=== PATIENT | female | born 1935 | race Caucasian/White ===

== ENCOUNTER 2019-09-09 10:42 | Inpatient (IN) | payer MEDICARE ==
[2019-09-09] VITALS (16 sets, daily range): BP systolic 87–115; BP diastolic 54–91
[~2019-09-09] VITALS: Ht 170 cm; Wt 61.4 kg
[~2019-09-09 10:42] MED LIST: ACHYD1T PO; ALBU2.5V4 IH; ALEN70SO2 PO; APIX5TAB PO; ASP81CT PO; ASPI-983 PO; DILT240C86 PO; FLUT16SP22 NS; FLUT1AER IH; FLUT9.9S NS; IPRA3AMP31 IH; IPRA3AMP31 NEB; LEVO500T2 PO; LEVO500T80 PO; LEVO88TA54 PO; LVT.088T PO; NEBU1KIT3 MC; OMEP20CA12 PO; OMEP20CA18 PO; PANT40TA3 PO; RT-ALBUINH IH; SIMV20TA26 PO; SIMV20TA3 PO; TIOT18CA2 IH
--- NOTE | 2019-09-09 10:48 | ED General ---
General Stated Complaint: COUGH;DIARRHEA Source of Information: Patient Exam Limitations: No Limitations History of Present Illness Date Seen by Provider: Sep 09, 2019 Time Seen by Provider: 10:48 Initial Comments 83-year-old female brought in with weakness, cough, diarrhea. Patient has known COVID exposure with family members. Patient reports that for the last 3-4 days she is "really weak" she reports that symptoms started about 4 days ago when she was too weak to get out of her chair, she's had decreased appetite. She reports that she fell due to weakness couple days ago but denies any injury. Patient rep orts that in the last 4 days EMS is been to her place 3 days to help her due to her weakness. She does have a history of atrial fib. Patient reports decline in health over the last year with significant weight loss. Allergies and Home Medications Allergies Coded Allergies: Sulfa (Sulfonamide Antibiotics) (Verified Allergy, Unknown, 01/10/16) cefadroxil (Verified Allergy, Unknown, 07/29/09) hydrocortisone (Verified Allergy, Unknown, 07/29/09) iodoquinol (Verified Allergy, Unknown, 07/29/09) Home Medications Albuterol Sulfate 18 Gm Hfa.aer.ad, 2 PUFF IH Q4H PRN for SHORTNESS OF BREATH, (Reported) Albuterol Sulfate 2.5 Mg/3 Ml Vial.neb, 2.5 MG IH DAILY PRN for SHORTNESS OF BREATH, (Reported) Apixaban 5 Mg Tablet, 5 MG PO BID Prescribed by: LILIA ANN on 01/13/16 1443 Aspirin 81 Mg Tablet.dr, 81 MG PO DAILY, (Reported) Diltiazem HCl 240 Mg Cap.er.24h, 240 MG PO DAILY Prescribed by: LILIA ANN on 01/13/16 1443 Fluticasone/Vilanterol 1 Each Blst.w.dev, 1 PUFF IH DAILY, (Reported) Levofloxacin 500 Mg Tablet, 500 MG PO DAILY Prescribed by: HUANG MELENDEZ on 01/14/16 1041 Levothyroxine Sodium 88 Mcg Tablet, 88 MCG PO DAILY, (Reported) Omeprazole 20 Mg Capsule.dr, 20 MG PO DAILY, (Reported) Simvastatin 20 Mg Tablet, 20 MG PO DAILY, (Reported) Tiotropium [place] 1 Inh Aerp, 1 CAP IH DAILY, (Reported) Patient Home Medication List Home Medication List Reviewed: Yes Review of Systems Review of Systems Constitutional: No fever; malaise, weakness Respiratory: cough, short of breath Cardiovascular: No chest pain Gastrointestinal: abdominal pain, diarrhea; No nausea, No vomiting Skin: no symptoms reported Psychiatric/Neurological: Weakness Past Kfjrozg-Ouqpmh-Knltil Hx Past Med/Social Hx: Reviewed Nursing Past Med/Soc Hx Patient Social History Former Smoker, Quit: Dec 21, 2008 2nd Hand Smoke Exposure: No Recent Hopitalizations: No Immunizations Up To Date Tetanus Booster (TDap): More than 5yrs PED Vaccines UTD: No Seasonal Allergies Seasonal Allergies: No Past Medical History COPD, Emphysema Currently Using CPAP: No Currently Using BIPAP: No Reproductive Disorders: No Female Reproductive Disorders: Denies Sexually Transmitted Disease: No HIV/AIDS: No Hypothyroidsim Loss of Vision: Right Skin Adverse Reaction/Blood Tranf: No Family Medical History Cardiovascular disease 19 FATHER 19 MOTHER Diabetes mellitus 19 FATHER Heart Disease, Diabetes, Hypertension Physical Exam Vital Signs Vital Signs - First Documented 09/09/19 10:50 Temp 36.7 Pulse 154 Resp 20 B/P (MAP) 102/76 (85) Pulse Ox 98 O2 Delivery Nasal Cannula O2 Flow Rate 2.00 Capillary Refill : Height, Weight, BMI Height: 5'7.50" Weight: 137lbs. 1.6oz. 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 Norm as Tested Focused Exam Lactate Level 09/09/19 11:20: Lactic Acid Level 1.71 Lactic Acid Level Laboratory Tests Test 09/09/19 11:20 Lactic Acid Level 1.71 MMOL/L (0.50-2.00) Progress/Results/Core Measures Suspected Sepsis SIRS Temperature: Pulse: Respiratory Rate: Laboratory Tests 09/09/19 11:20: White Blood Count 8.4 Blood Pressure / Mean: 09/09/19 11:20: Lactic Acid Level 1.71 Laboratory Tests 09/09/19 11:20: Creatinine 0.88, INR Comment 1.1, Platelet Count 219, Total Bilirubin 0.6 Results/Orders Lab Results Laboratory Tests Test 09/09/19 11:17 09/09/19 11:20 Range/Units Urine Color YELLOW Urine Clarity CLEAR Urine pH 6.0 5-9 Urine Specific [place] 1.015 L 1.016-1.022 Urine Protein NEGATIVE NEGATIVE Urine Glucose (UA) NEGATIVE NEGATIVE Urine Ketones NEGATIVE NEGATIVE Urine Nitrite NEGATIVE NEGATIVE Urine Bilirubin NEGATIVE NEGATIVE Urine Urobilinogen 0.2 < = 1.0 MG/DL Urine Leukocyte Esterase NEGATIVE NEGATIVE Urine RBC (Auto) TRACE-L NEGATIVE Urine RBC 0-2 /HPF Urine WBC 2-5 /HPF Urine Squamous Epithelial Cells RARE /HPF Urine Crystals NONE /LPF Urine Bacteria MODERATE H /HPF Urine Casts NONE /LPF Urine Mucus NEGATIVE /LPF Urine Culture Indicated YES White Blood Count 8.4 4.3-11.0 10^3/uL Red Blood Count 3.80 L 4.35-5.85 10^6/uL Hemoglobin 11.7 11.5-16.0 G/DL Hematocrit 36 35-52 % Mean Corpuscular Volume 94 80-99 FL Mean Corpuscular Hemoglobin 31 25-34 PG Mean Corpuscular Hemoglobin Concent 33 32-36 G/DL Red Cell Distribution Width 15.3 H 10.0-14.5 % Platelet Count 219 130-400 10^3/uL Mean Platelet Volume 10.6 H 7.4-10.4 FL Neutrophils (%) (Auto) 69 42-75 % Lymphocytes (%) (Auto) 24 12-44 % Monocytes (%) (Auto) 7 0-12 % Eosinophils (%) (Auto) 0 0-10 % Basophils (%) (Auto) 0 0-10 % Neutrophils # (Auto) 5.8 1.8-7.8 X 10^3 Lymphocytes # (Auto) 2.0 1.0-4.0 X 10^3 Monocytes # (Auto) 0.6 0.0-1.0 X 10^3 Eosinophils # (Auto) 0.0 0.0-0.3 10^3/uL Basophils # (Auto) 0.0 0.0-0.1 10^3/uL Prothrombin Time 15.0 H 12.2-14.7 SEC INR Comment 1.1 0.8-1.4 Activated Partial Thromboplast Time 28 24-35 SEC Fibrinogen 368 221-496 MG/DL Sodium Level 137 135-145 MMOL/L Potassium Level 3.5 L 3.6-5.0 MMOL/L Chloride Level 108 H 98-107 MMOL/L Carbon Dioxide Level 21 21-32 MMOL/L Anion Gap 8 5-14 MMOL/L Blood Urea Nitrogen 15 7-18 MG/DL Creatinine 0.88 0.60-1.30 MG/DL Estimat Glomerular Filtration Rate > 60 BUN/Creatinine Ratio 17 Glucose Level 101 70-105 MG/DL Lactic Acid Level 1.71 0.50-2.00 MMOL/L Calcium Level 8.5 8.5-10.1 MG/DL Corrected Calcium 9.9 8.5-10.1 MG/DL Total Bilirubin 0.6 0.1-1.0 MG/DL Aspartate Amino Transf (AST/SGOT) 18 5-34 U/L Alanine Aminotransferase (ALT/SGPT) 22 0-55 U/L Alkaline Phosphatase 118 40-136 U/L Lactate Dehydrogenase 216 125-220 U/L Troponin I 0.042 H <0.028 NG/ML C-Reactive Protein High Sensitivity 4.08 H 0.00-0.50 MG/DL Total Protein 7.2 6.4-8.2 GM/DL Albumin 2.3 L 3.2-4.5 GM/DL My Orders Orders - SYKES,DEQUAN L DO Vital Signs: Every 4 Hours (Or (09/09/19 11:01) Monitor-Rhythm Ecg Trace Only (09/09/19 11:01) Cbc With Automated Diff (09/09/19 11:01) Comprehensive Metabolic Panel (09/09/19 11:01) Ferritin (09/09/19 11:01) LDH (09/09/19 11:01) Hs C Reactive Protein (09/09/19 11:01) Troponin I (09/09/19 11:01) Lactic Acid Analyzer (09/09/19 11:01) Protime With Inr (09/09/19 11:01) Partial Thromboplastin Time (09/09/19 11:01) Fibrinogen (09/09/19 11:01) Ekg Tracing (09/09/19 11:01) Chest 1 View, Ap/Pa Only (09/09/19 11:01) Ns Iv 1000 Ml (Sodium Chloride 0.9%) (09/09/19 11:01) Acetaminophen Tablet/Caplet (Tylenol T (09/09/19 11:15) Lumbar Spine - 2-3 Views (09/09/19 11:11) Diltiazem Injection (Cardizem Injection) (09/09/19 11:15) Coronavirus Sars-Cov-2 So 2018 (09/09/19 11:14) Ua Culture If Indicated (09/09/19 11:36) Straight Cath For Spec.-Adult (09/09/19 11:36) Urine Culture (09/09/19 11:17) Levofloxacin 500 Mg/100 Ml Iv (Levaquin (09/10/19 09:00) Diltiazem Drip Pre-Mix (Cardizem Drip Pr (09/09/19 12:45) Levofloxacin 500 Mg/100 Ml Iv (Levaquin (09/09/19 12:45) Medications Given in ED Current Medications Medications Dose Ordered Sig/Timmy Route Start Time Stop Time Status Last Admin Dose Admin Acetaminophen 650 mg ONCE ONCE PO 09/09/19 11:15 09/09/19 11:16 DC 09/09/19 11:39 650 MG Diltiazem HCl 15 mg ONCE ONCE IVP 09/09/19 11:15 09/09/19 11:16 DC 09/09/19 11:39 15 MG Vital Signs/I&O 09/09/19 09/09/19 09/09/19 09/09/19 10:50 11:15 11:45 12:15 Temp 36.7 Pulse 154 166 101 113 Resp B/P (MAP) 102/76 (85) 115/85 (95) 104/59 (74) 87/54 (65) Pulse Ox 98 99 99 96 O2 Delivery Nasal Cannula Nasal Cannula Nasal Cannula O2 Flow Rate 2.00 09/09/19 09/09/19 09/09/19 09/09/19 12:30 12:45 13:00 13:41 Temp 36.7 Pulse 98 109 105 105 Resp B/P (MAP) 101/69 (80) 97/67 (77) 108/71 (83) 110/86 Pulse Ox 96 98 93 99 O2 Delivery Nasal Cannula Nasal Cannula Nasal Cannula O2 Flow Rate 2.00 Capillary Refill : Progress Note : Progress Note Patient with atrial flutter with RVR. She does have known COVID exposure and decision have some underlying exacerbation due to COVID. Discussed with Dr. Foreman and Dr. Nick. Due to her pneumonia we will start her on a Cardizem drip. Patient does have new compression fractures however is difficult to determine if these are remote or recent. Patient is stable will be admitted to the ICU for further management. ECG Initial ECG Impression Date: Sep 09, 2019 Initial ECG Impression Time: 16:50 Initial ECG Rhythm: A Fib/Flutter Initial ECG Impression: Atrial Fibrillation w/RVR Diagnostic Imaging Diagonstic Imaging: Xray Comments [facility]. [place], [place] NAME: JO-ANN MACDONALD [facility] REC#: [id number] PT STATUS: REG ER : 1935 PHYSICIAN: DEQUAN SYKES DO ADMIT DATE: 09/09/19/ER Draft Date of Exam:09/09/19 LUMBAR SPINE - 2-3 VIEWS EXAMINATION: Lumbar spine radiographs, 2 views. COMPARISON: January 18, 2015. HISTORY: 83-year-old female, back pain. FINDINGS: There are 5 lumbar-type vertebral bodies. There are concavities of the superior endplates of L3 and L4 which are new findings since January 18, 2015. There are redemonstrated compression deformities of L1 and L2 with unchanged appearance since January 18, 2015. There is mild wedging and roughly 25% height loss of the T12 vertebral body and an unchanged compression deformity of T10. These new compression deformities are of uncertain exact age. There is moderate disc height loss at L1-L2. The additional disc heights are fairly well-preserved. The bones do appear demineralized. There is a very mild lumbar levocurvature. The sacroiliac joints are grossly unremarkable in appearance. There is partially visualized hardware in the left femoral head. There are atherosclerotic calcifications. IMPRESSION: 1. Compression deformities of T12, L3, and L4 which are new since January 18, 2015 although of uncertain exact age. If assessment of acuity is needed, MRI lumbar spine without contrast is recommended for further assessment. There is maximally 40% height loss at these levels and no identified retropulsed fracture fragment. 2. Disc degenerative changes of the lumbar spine, most notable at L1-L2. 3. The bones appear demineralized. [facility]. [place], [place] NAME: JO-ANN MACDONALD [facility] REC#: [id number] PT STATUS: REG ER : 1935 PHYSICIAN: DEQUAN SYKES DO ADMIT DATE: 09/09/19/ER Draft Date of Exam:09/09/19 CHEST 1 VIEW, AP/PA ONLY EXAMINATION: Chest 1 view HISTORY: Cough COMPARISON: 03/15/2016 FINDINGS: There is left lower lobe consolidation with small left pleural effusion. There is widening of the right paratracheal stripe. No pneumothorax is seen. Heart size is normal. IMPRESSION: 1. Left lower lobe consolidation with small left pleural effusion and widening of the paratracheal stripe. Findings may be related to pneumonia, but consider CT to exclude an underlying neoplasm. Departure Communication (Admissions) Time/Spoke to Admitting Phy: 12:25 Okay to start antibiotics, consult cardiology for persistent A. fib Time/Spoke to Consulting Phy: 12:35 Start on Cardizem drip and admit to the ICU Impression Primary Impression: Pneumonia Qualified Codes: J18.1 - Lobar pneumonia, unspecified organism Additional Impressions: Atrial fibrillation with RVR Compression fracture Disposition: ADMITTED INPATIENT Condition: Stable Admissions Decision to Admit Reason: Admit from ER (General) Decision to Admit/Date: Sep 09, 2019 Time/Decision to Admit Time: 12:25 Departure-Patient Inst. Referrals: MALACHI RUIZ MD (PCP/Family) Primary Care Physician DEQUAN SYKES DO Sep 09, 2019 10:48
[2019-09-09] MEDS ORDERED: NS IV 1000 ML 1,000 ML IV SCH (11:01)
[2019-09-09] MEDS ORDERED: ACETAMINOPHEN 325 MG TABLET PO ONE (11:15)
[2019-09-09 11:34] LABS: BASOPHILS % (AUTO) 0 % (0-10); EOSINOPHILS % (AUTO) 0 % (0-10); HEMATOCRIT 36 % (35-52); HEMOGLOBIN 11.7 G/DL (11.5-16.0); LYMPHOCYTES % (AUTO) 24 % (12-44); MEAN CORPUSCULAR HEMOGLOBIN 31 PG (25-34); MEAN CORPUSCULAR HGB CONC 33 G/DL (32-36); MEAN CORPUSCULAR VOLUME 94 FL (80-99); MEAN PLATELET VOLUME 10.6 FL (7.4-10.4); MONOCYTES # (AUTO) 0.6 X 10^3 (0.0-1.0); MONOCYTES % (AUTO) 7 % (0-12); NEUTROPHILS # (AUTO) 5.8 X 10^3 (1.8-7.8); NEUTROPHILS % (AUTO) 69 % (42-75); PLATELET COUNT 219 10^3/uL (130-400); RED CELL DISTRIBUTION WIDTH 15.3 % (10.0-14.5); WHITE BLOOD COUNT 8.4 10^3/uL (4.3-11.0)
[2019-09-09 11:44] LABS: BILIRUBIN,URINE NEGATIVE (NEGATIVE); CLARITY,URINE CLEAR; COLOR,URINE YELLOW; GLUCOSE, URINE (UA) NEGATIVE (NEGATIVE); KETONES,URINE NEGATIVE (NEGATIVE); LEUKOCYTE ESTERASE ,URINE NEGATIVE (NEGATIVE); NITRITE,URINE NEGATIVE (NEGATIVE); PROTEIN,URINE NEGATIVE (NEGATIVE)
[2019-09-09 11:51] LABS: ALBUMIN 2.3 GM/DL (3.2-4.5); CHLORIDE 108 MMOL/L (98-107); POTASSIUM 3.5 MMOL/L (3.6-5.0); SODIUM 137 MMOL/L (135-145)
[2019-09-09 11:52] LABS: CALCIUM 8.5 MG/DL (8.5-10.1)
[2019-09-09 11:53] LABS: GLUCOSE 101 MG/DL (70-105); INR 1.1 (0.8-1.4); TOTAL PROTEIN 7.2 GM/DL (6.4-8.2)
[2019-09-09 11:55] LABS: BILIRUBIN,TOTAL 0.6 MG/DL (0.1-1.0); CARBON DIOXIDE 21 MMOL/L (21-32)
[2019-09-09 11:57] LABS: ALKALINE PHOSPHATASE 118 U/L (40-136); CREATININE SERUM 0.88 MG/DL (0.60-1.30); GFR ESTIMATED > 60
[2019-09-09 11:58] LABS: BUN/CREATININE RATIO 17
[2019-09-09 11:59] LABS: BACTERIA,URINE MODERATE /HPF; RBC,URINE 0-2 /HPF
[2019-09-09 12:00] LABS: ALANINE AMINOTRANSFERASE 22 U/L (0-55)
[2019-09-09 12:00] LABS: SQUAMOUS EPITHELIAL CELL,UR RARE /HPF
--- NOTE | 2019-09-09 12:01 | Diagnostic Imaging Report ---
EXAMINATION: Chest 1 view HISTORY: Cough COMPARISON: 03/15/2016 FINDINGS: There is left lower lobe consolidation with small left pleural effusion. There is widening of the right paratracheal stripe. No pneumothorax is seen. Heart size is normal. IMPRESSION: 1. Left lower lobe consolidation with small left pleural effusion and widening of the paratracheal stripe. Findings may be related to pneumonia, but consider CT to exclude an underlying neoplasm. Dictated by: Dictated on workstation # [id number]
--- NOTE | 2019-09-09 12:06 | Diagnostic Imaging Report ---
EXAMINATION: Lumbar spine radiographs, 2 views. COMPARISON: January 18, 2015. HISTORY: 83-year-old female, back pain. FINDINGS: There are 5 lumbar-type vertebral bodies. There are concavities of the superior endplates of L3 and L4 which are new findings since January 18, 2015. There are redemonstrated compression deformities of L1 and L2 with unchanged appearance since January 18, 2015. There is mild wedging and roughly 25% height loss of the T12 vertebral body and an unchanged compression deformity of T10. These new compression deformities are of uncertain exact age. There is moderate disc height loss at L1-L2. The additional disc heights are fairly well-preserved. The bones do appear demineralized. There is a very mild lumbar levocurvature. The sacroiliac joints are grossly unremarkable in appearance. There is partially visualized hardware in the left femoral head. There are atherosclerotic calcifications. IMPRESSION: 1. Compression deformities of T12, L3, and L4 which are new since January 18, 2015 although of uncertain exact age. If assessment of acuity is needed, MRI lumbar spine without contrast is recommended for further assessment. There is maximally 40% height loss at these levels and no identified retropulsed fracture fragment. 2. Disc degenerative changes of the lumbar spine, most notable at L1-L2. 3. The bones appear demineralized. Dictated by: Dictated on workstation # [id number]
[2019-09-09] MEDS ORDERED: LEVOFLOXACIN 500 MG/100 ML IV 100 ML ONE (12:45)
[2019-09-09] MEDS ORDERED: dilTIAZem DRIP PRE-MIX 125 ML IV SCH (12:45)
--- NOTE | 2019-09-09 14:30 | NUR ---
f pt name] admitted to room CU1-1, with an admitting diagnosis of PNEUMONIA, A FIB on 09/09/19 from ER via BED, accompanied by STAFF.JO-ANN MACDONALD introduced to surroundings, call light, bed controls, phone, TV, temperature control, lights, meal times, smoking policy, visitor policy, side rail policy, bathrooms and showers. Patient Rights given to patient in the handbook.JO-ANN MACDONALD verbalizes understanding that [facility] is not responsible for the loss or damage to any personal effects or valuables that are kept in the patients posession during their hospitalization. The following Patient Care Plans were discussed with the PT: Discharge Planning, IMPAIRED GAS EXCHANGE,INEFFECTIVE BREATHING PATTERN, and PAIN. JO-ANN MACDONALD verbalizes understanding of Interdisciplinary Patient Education. Patient and family were informed about the Rapid Response Team and its purpose. Patient received Patient Rights Booklet, which includes Privacy Act Statement and Data Collection Information Summary.
[2019-09-09] MEDS: dilTIAZem DRIP 125 MG/125 ML DRIP IV SCH (15:10)
[2019-09-09] MEDS: NS IV 1000 ML 1,000 ML IV SCH (15:10)
[2019-09-09] MEDS ORDERED: CATHETER FLUSH 10 ML SYR IV PRN (15:15)
[2019-09-09] MEDS ORDERED: DILT240C91 PO (15:36)
[2019-09-09] MEDS ORDERED: DEXL60CA PO (15:36)
[2019-09-09] MEDS ORDERED: APIX5TAB PO (15:36)
--- NOTE | 2019-09-09 15:40 | NUR ---
SPOKE WITH THE PT (I CALLED HER ROOM PHONE) AND WENT THRU THE EXT MED HISTORY TO COMPLETE THE MED REC OTC MEDS: ASPIRIN 81
[2019-09-09] MEDS ORDERED: BISACODYL 10 MG SUPP (DULCOLAX) PR PRN (18:45)
[2019-09-09] MEDS ORDERED: ANTACID SUSP 30 ML UDC (MYLANTA) PO PRN (18:45)
[2019-09-09] MEDS ORDERED: polyethylene glycoL POWDER 17 GM (MIRALAX) PACK PO PRN (18:45)
[2019-09-09] MEDS ORDERED: ONDANSETRON 4 MG/2 ML (SDV) Z0FRAN IV PRN (18:45)
[2019-09-09] MEDS ORDERED: ONDANSETRON 4 MG (ZOFRAN) ORAL DISSOLVE TAB PO PRN (18:45)
[2019-09-09] MEDS ORDERED: ACETAMINOPHEN 325 MG TABLET PO PRN (18:45)
[2019-09-10] VITALS (29 sets, daily range): BP systolic 93–123; BP diastolic 55–94
--- NOTE | 2019-09-10 03:03 | NUR ---
INFORMED DR. MELENDEZ THAT PATIENT'S COVID RESULT WAS NEGATIVE. RECEIVED ORDER TO REMOVE ISOLATION.
[2019-09-10 03:49] LABS: BASOPHILS % (AUTO) 0 % (0-10); EOSINOPHILS # (AUTO) 0.1 10^3/uL (0.0-0.3); EOSINOPHILS % (AUTO) 2 % (0-10); HEMATOCRIT 35 % (35-52); HEMOGLOBIN 11.4 G/DL (11.5-16.0); LYMPHOCYTES # (AUTO) 1.6 X 10^3 (1.0-4.0); LYMPHOCYTES % (AUTO) 22 % (12-44); MEAN CORPUSCULAR HEMOGLOBIN 31 PG (25-34); MEAN CORPUSCULAR HGB CONC 33 G/DL (32-36); MEAN CORPUSCULAR VOLUME 95 FL (80-99); MEAN PLATELET VOLUME 9.9 FL (7.4-10.4); MONOCYTES # (AUTO) 0.5 X 10^3 (0.0-1.0); MONOCYTES % (AUTO) 7 % (0-12); NEUTROPHILS # (AUTO) 4.8 X 10^3 (1.8-7.8); NEUTROPHILS % (AUTO) 69 % (42-75); PLATELET COUNT 192 10^3/uL (130-400); RED CELL DISTRIBUTION WIDTH 15.5 % (10.0-14.5)
[2019-09-10 04:06] LABS: CHLORIDE 111 MMOL/L (98-107); POTASSIUM 3.5 MMOL/L (3.6-5.0); SODIUM 138 MMOL/L (135-145)
[2019-09-10 04:07] LABS: CALCIUM 8.1 MG/DL (8.5-10.1)
[2019-09-10 04:08] LABS: GLUCOSE 77 MG/DL (70-105)
[2019-09-10] MEDS: POTASSIUM CL 10MEQ/50ML IVPB 50 ML IV SCH (04:08)
[2019-09-10] MEDS: KCL 20 MEQ TAB (K-DUR) PO SCH ×2 (04:08→04:16)
[2019-09-10 04:09] LABS: CARBON DIOXIDE 19 MMOL/L (21-32)
[2019-09-10 04:12] LABS: GFR ESTIMATED > 60; PHOSPHORUS 2.6 MG/DL (2.3-4.7)
[2019-09-10 04:13] LABS: BUN/CREATININE RATIO 14
[2019-09-10 04:14] LABS: MAGNESIUM 1.5 MG/DL (1.6-2.4)
[2019-09-10] MEDS ORDERED: KCL 20 MEQ TAB (K-DUR) PO ONE (04:15)
[2019-09-10] MEDS: NS IV 1000 ML 1,000 ML IV SCH ×2 (04:21→19:41)
[2019-09-10] MEDS: MAGNESIUM 1 GM/100 ML IVPB 100 ML IV SCH ×3 (04:28→05:30)
--- NOTE | 2019-09-10 07:39 | Pulmonary Consultation ---
History of Present Illness History of Present Illness Date Seen by Provider: Sep 10, 2019 Time Seen by Provider: 07:35 Date of Admission Allergies and Home Medications Allergies Coded Allergies: Sulfa (Sulfonamide Antibiotics) (Verified Allergy, Unknown, 01/10/16) cefadroxil (Verified Allergy, Unknown, 07/29/09) hydrocortisone (Verified Allergy, Unknown, 07/29/09) iodoquinol (Verified Allergy, Unknown, 07/29/09) Home Medications Albuterol Sulfate 18 Gm Hfa.aer.ad, 2 PUFF IH Q4H PRN for SHORTNESS OF BREATH, (Reported) Albuterol Sulfate 2.5 Mg/3 Ml Vial.neb, 2.5 MG IH DAILY PRN for SHORTNESS OF BREATH, (Reported) Apixaban 5 Mg Tablet, 5 MG PO BID, (Reported) Aspirin 81 Mg Tablet.dr, 81 MG PO DAILY, (Reported) Dexlansoprazole 60 Mg Cap.dr.bp, 60 MG PO DAILY, (Reported) Diltiazem HCl 240 Mg Cap.er.24h, 240 MG PO DAILY, (Reported) Fluticasone/Vilanterol 1 Each Blst.w.dev, 1 PUFF IH DAILY, (Reported) Levothyroxine Sodium 88 Mcg Tablet, 88 MCG PO DAILY, (Reported) Tiotropium [place] 1 Inh Aerp, 1 CAP IH DAILY, (Reported) Past Pugonws-Xevnhy-Wnrhxn Hx Past Med/Social Hx: Reviewed Nursing Past Med/Soc Hx Patient Social History Alcohol Use: Denies Use Recreational Drug Use: No Smoking Status: Former Smoker Former Smoker, Quit: Dec 21, 2008 2nd Hand Smoke Exposure: No Recent Foreign Travel: No Contact w/Someone Who Travel: No Recent Infectious Disease Expo: No Recent Hopitalizations: No Immunizations Up To Date Tetanus Booster (TDap): More than 5yrs PED Vaccines UTD: No Seasonal Allergies Seasonal Allergies: No Past Medical History Surgeries: Yes (TONSILECTOMY, BROKEN FEMUR (HAS PLATE,PINS),SKIN TUMOR REMOVAL AND SCALP TU) Respiratory: Yes COPD, Emphysema Currently Using CPAP: No Currently Using BIPAP: No Cardiac: No Neurological: No : No Reproductive Disorders: No Female Reproductive Disorders: Denies Sexually Transmitted Disease: No HIV/AIDS: No Gastrointestinal: No Musculoskeletal: No Endocrine: Yes Hypothyroidsim Loss of Vision: Right Cancer: Yes Skin Psychosocial: No Integumentary: No Blood Disorders: No Adverse Reaction/Blood Tranf: No Family Medical History Cardiovascular disease 19 FATHER 19 MOTHER Diabetes mellitus 19 FATHER Heart Disease, Diabetes, Hypertension Review of Systems Time Seen by Provider: 07:38 Constitutional: Sweats, Weakness, Malaise; No: Fever, Chills, Other Eyes: No: Pain, Vision change, Conjunctivae inflammation, Eyelid inflammation, Other, Redness ENT: Nose congestion; No: Ear pain, Ear discharge, Nose pain, Nose discharge, Mouth pain, Mouth swelling, Throat pain, Throat swelling, Other Respiratory: Cough, Dry, Shortness of breath, SOB with excertion, Wheezing; No: Hemoptysis Sepsis Event Evaluation Height, Weight, BMI Height: 5'7.50" Weight: 137lbs. 1.6oz. 62.014595oq; 15.00 BMI Method:Stated Exam Exam Vital Signs Date Time Temp Pulse Resp B/P (MAP) Pulse Ox O2 Delivery O2 Flow Rate FiO2 09/10/19 06:50 113 98 Nasal Cannula 2.00 09/10/19 06:00 95 13 97/55 (69) 94 Room Air 09/10/19 05:00 96 23 109/69 (82) 96 Room Air 09/10/19 04:00 Room Air 95 09/10/19 04:00 91 96/58 (71) 94 Room Air 09/10/19 04:00 36.3 09/10/19 03:00 90 101/58 (72) 100 Nasal Cannula 2.00 09/10/19 02:00 89 97/70 (79) 98 Nasal Cannula 2.00 09/10/19 01:00 84 09/10/19 01:00 84 96/62 (73) 99 Nasal Cannula 2.00 09/10/19 00:00 35.9 09/10/19 00:00 89 93/55 (68) 98 Nasal Cannula 2.00 09/10/19 00:00 Nasal Cannula 2.00 09/09/19 23:00 100 107/78 (88) 100 Nasal Cannula 2.00 09/09/19 22:00 73 105/76 (86) 100 Nasal Cannula 2.00 09/09/19 21:00 94 99/64 (76) 100 Nasal Cannula 2.00 09/09/19 20:00 Nasal Cannula 2.00 09/09/19 20:00 36.5 09/09/19 20:00 96 20 106/60 (75) 100 Nasal Cannula 2.00 09/09/19 19:00 97 108/72 (84) 99 Nasal Cannula 2.00 09/09/19 19:00 97 09/09/19 18:00 105 110/70 (83) 99 Nasal Cannula 2.00 09/09/19 17:00 112 91/63 (72) 97 Nasal Cannula 2.00 09/09/19 16:00 Nasal Cannula 2.00 09/09/19 16:00 Nasal Cannula 2.00 09/09/19 16:00 137 39 104/89 (94) 99 Nasal Cannula 2.00 09/09/19 15:33 92 09/09/19 15:11 35.8 09/09/19 15:00 96 35 102/76 (85) 97 Nasal Cannula 2.00 09/09/19 14:30 35.9 09/09/19 14:00 137 17 107/91 (96) 96 Nasal Cannula 2.00 09/09/19 13:41 36.7 105 20 110/86 99 Nasal Cannula 2.00 09/09/19 13:00 105 29 108/71 (83) 93 Nasal Cannula 09/09/19 12:45 109 25 97/67 (77) 98 Nasal Cannula 09/09/19 12:30 98 29 101/69 (80) 96 09/09/19 12:15 113 25 87/54 (65) 96 Nasal Cannula 09/09/19 11:45 101 29 104/59 (74) 99 09/09/19 11:15 166 21 115/85 (95) 99 Nasal Cannula 09/09/19 10:50 36.7 154 20 102/76 (85) 98 Nasal Cannula 2.00 I & O 09/10/19 07:00 Intake Total 3240 ml Output Total 75 ml Balance 3165 ml Height & Weight Height: 5'7.50" Weight: 137lbs. 1.6oz. 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
[2019-09-10] MEDS ORDERED: NS 100 ML (IVPB) BAG IV ONE (07:45)
[2019-09-10] MEDS ORDERED: IOHEXOL 350 MG/ML 100 ML (OMNIPAQUE 350) VIAL IV ONE ×2 (07:45→10:00)
[2019-09-10] MEDS ORDERED: HOLD METFORMIN - RECEIVED CONTRAST 20 ML VIAL IV SCH (07:45)
[2019-09-10] MEDS ORDERED: AMIODARONE FOR BOLUS 150 MG in D5W 100 ML IVPB 100 ML IV NR (08:00)
[2019-09-10] MEDS ORDERED: DIGOXIN 0.25 MG/ML (LANOXIN) 2 ML AMP IV NR (08:00)
--- NOTE | 2019-09-10 08:04 | Consultation-Cardiology ---
HPI-Cardiology Cardiology Consultation Date of Consultation 09/10/19 Date of Admission Time Seen by Provider: 07:59 Indication: Atrial fibrillation HPI 83-year-old lady with history of COPD, brought to the emergency room for increasing weakness, cough and diarrhea. She had history of COVID exposure. For the past few days she was having generalized weakness and loss of energy. On my evaluation she was sitting comfortable, in good.. She is in atrial fibrillation with rapid ventricular response and having borderline hypotension. Reported that she has history of atrial fibrillation and hypotension. Home Medications & Allergies Allergies: Coded Allergies: Sulfa (Sulfonamide Antibiotics) (Verified Allergy, Unknown, 01/10/16) cefadroxil (Verified Allergy, Unknown, 07/29/09) hydrocortisone (Verified Allergy, Unknown, 07/29/09) iodoquinol (Verified Allergy, Unknown, 07/29/09) Home Medication List Reviewed: Yes UPX-Argsti-Bwbdek Hx Patient Social History Alcohol Use: Denies Use Recreational Drug Use: No Smoking Status: Former Smoker Former smoker/When Quit: Feb 06, 2010 2nd Hand Smoke Exposure: No Recent Foreign Travel: No Recent Infectious Disease Expo: No Recent Hopitalizations: No Immunizations Up To Date Tetanus Booster (TDap): More than 5yrs Past Medical History Discussed below Family Medical History Significant Family History: Heart Disease, Diabetes, Hypertension Family History: Cardiovascular disease 19 FATHER 19 MOTHER Diabetes mellitus 19 FATHER Review of Systems-General Review of Systems Constitutional: No fever; malaise, weakness EENTM: see HPI, no symptoms reported Respiratory: see HPI, cough, dyspnea on exertion; No hemoptysis, No orthopnea, No phlegm; short of breath; No stridor, No wheezing, No other Cardiovascular: see HPI; No chest pain, No edema, No Hx of Intervention, No palpitations, No syncope, No vascular heart diseas, No other Gastrointestinal: see HPI, abdominal pain, diarrhea; No nausea, No vomiting Genitourinary: no symptoms reported, see HPI Musculoskeletal: no symptoms reported, see HPI Skin: no symptoms reported Psychiatric/Neurological: Weakness Reviewed Test Results Reviewed Test Results Lab Laboratory Tests Test 09/09/19 10:54 09/09/19 11:17 09/09/19 11:20 09/10/19 03:37 Range/Units Procalcitonin 0.16 H 0.14 H <0.10 NG/ML Urine Color YELLOW Urine Clarity CLEAR Urine pH 6.0 5-9 Urine Specific [place] 1.015 L 1.016-1.022 Urine Protein NEGATIVE NEGATIVE Urine Glucose (UA) NEGATIVE NEGATIVE Urine Ketones NEGATIVE NEGATIVE Urine Nitrite NEGATIVE NEGATIVE Urine Bilirubin NEGATIVE NEGATIVE Urine Urobilinogen 0.2 < = 1.0 MG/DL Urine Leukocyte Esterase NEGATIVE NEGATIVE Urine RBC (Auto) TRACE-L NEGATIVE Urine RBC 0-2 /HPF Urine WBC 2-5 /HPF Urine Squamous Epithelial Cells RARE /HPF Urine Crystals NONE /LPF Urine Bacteria MODERATE H /HPF Urine Casts NONE /LPF Urine Mucus NEGATIVE /LPF Urine Culture Indicated YES White Blood Count 8.4 7.0 4.3-11.0 10^3/uL Red Blood Count 3.80 L 3.67 L 4.35-5.85 10^6/uL Hemoglobin 11.7 11.4 L 11.5-16.0 G/DL Hematocrit 36 35 35-52 % Mean Corpuscular Volume 94 95 80-99 FL Mean Corpuscular Hemoglobin 31 31 25-34 PG Mean Corpuscular Hemoglobin Concent 33 33 32-36 G/DL Red Cell Distribution Width 15.3 H 15.5 H 10.0-14.5 % Platelet Count 219 192 130-400 10^3/uL Mean Platelet Volume 10.6 H 9.9 7.4-10.4 FL Neutrophils (%) (Auto) 69 69 42-75 % Lymphocytes (%) (Auto) 24 22 12-44 % Monocytes (%) (Auto) 7 7 0-12 % Eosinophils (%) (Auto) 0 2 0-10 % Basophils (%) (Auto) 0 0 0-10 % Neutrophils # (Auto) 5.8 4.8 1.8-7.8 X 10^3 Lymphocytes # (Auto) 2.0 1.6 1.0-4.0 X 10^3 Monocytes # (Auto) 0.6 0.5 0.0-1.0 X 10^3 Eosinophils # (Auto) 0.0 0.1 0.0-0.3 10^3/uL Basophils # (Auto) 0.0 0.0 0.0-0.1 10^3/uL Prothrombin Time 15.0 H 12.2-14.7 SEC INR Comment 1.1 0.8-1.4 Activated Partial Thromboplast Time 28 24-35 SEC Fibrinogen 368 221-496 MG/DL Sodium Level 137 138 135-145 MMOL/L Potassium Level 3.5 L 3.5 L 3.6-5.0 MMOL/L Chloride Level 108 H 111 H 98-107 MMOL/L Carbon Dioxide Level 21 19 L 21-32 MMOL/L Anion Gap 8 8 5-14 MMOL/L Blood Urea Nitrogen 15 11 7-18 MG/DL Creatinine 0.88 0.80 0.60-1.30 MG/DL Estimat Glomerular Filtration Rate > 60 > 60 BUN/Creatinine Ratio 17 14 Glucose Level 101 77 70-105 MG/DL Lactic Acid Level 1.71 0.50-2.00 MMOL/L Calcium Level 8.5 8.1 L 8.5-10.1 MG/DL Corrected Calcium 9.9 8.5-10.1 MG/DL Ferritin 253.8 H 20.0-177.0 ng/mL Total Bilirubin 0.6 0.1-1.0 MG/DL Aspartate Amino Transf (AST/SGOT) 18 5-34 U/L Alanine Aminotransferase (ALT/SGPT) 22 0-55 U/L Alkaline Phosphatase 118 40-136 U/L Lactate Dehydrogenase 216 125-220 U/L Troponin I 0.042 H < 0.028 <0.028 NG/ML C-Reactive Protein High Sensitivity 4.08 H 0.00-0.50 MG/DL Total Protein 7.2 6.4-8.2 GM/DL Albumin 2.3 L 3.2-4.5 GM/DL Coronavirus (COVID-19)(PCR) Negative Negative Phosphorus Level 2.6 2.3-4.7 MG/DL Magnesium Level 1.5 L 1.6-2.4 MG/DL Physical Exam Physical Exam Vital Signs Vital Signs - First Documented 09/09/19 09/10/19 10:50 04:00 Temp 36.7 Pulse 154 Resp 20 B/P (MAP) 102/76 (85) Pulse Ox 98 O2 Delivery Nasal Cannula O2 Flow Rate 2.00 FiO2 95 Capillary Refill : Less Than 3 Seconds Height, Weight, BMI Height: 5'7.50" Weight: 137lbs. 1.6oz. [id number]; 15.00 BMI Method:Stated General Appearance: Anxious, Cachetic, Thin Eyes: Bilateral Eye PERRL, Bilateral Eye EOMI HEENT: PERRL/EOMI, Pharynx Normal Neck: Non Tender, Supple Respiratory: Crackles, Decreased Breath Sounds Cardiovascular: Systolic Murmur, Irregularly Irregular, Tachycardia Gastrointestinal: Non Tender, Soft Back: Other (mild tenderness diffuse lower) Extremity: Normal Capillary Refill Neurologic/Psychiatric: Alert, Oriented x3, crisis mental health therapist II-XII Norm as Tested A/P-Cardiology Admission Diagnosis Atrial fibrillation Tachycardia Hypotension Generalized weakness Assessment/Plan Atrial fibrillation with rapid ventricular response, on Cardizem drip, I will restart her oral anticoagulation, evaluate 2-D echo, adding digoxin and amiodarone, unable to tolerate higher dose of diltiazem Left lower lobe infiltrate on chest x-ray, no leukocytosis, receiving Levaquin, managed by Dr. Tidwell Hypotension. Continue with IV fluid and monitor tolerance and response, cannot tolerate Cardizem due to hypotension. Questionable TIA in 2016, patient had a transient episode of aphasia where she was unable to speak properly lasted for few minutes and resolved spontaneously, no full stroke was reported. [id number] score is 5, yearly risk of stroke without oral anticoagulation is 6.7 percent, patient is at high risk of stroke without oral anticoagulation, maintained on Eliquis. History of emphysema/COPD. Managed by Dr. Tidwell Hypothyroidism, currently hyperthyroidism. Managed by primary care physician Osteoporosis. Clinical Quality Measures DVT/VTE Risk/Contraindication: Risk Factor Score Per Nursin RFS Level Per Nursing on Admit: 4+=Very High LILIA ANN MD Sep 10, 2019 08:04
--- NOTE | 2019-09-10 08:14 | Diagnostic Imaging Report ---
CLINICAL INDICATION: Patient with dyspnea. EXAM: Portable chest x-ray upright view. COMPARISONS: Chest x-ray dated 09/09/2019. FINDINGS: Patient is rotated on exam. There is progression of consolidation in the left lung base concerning for left pleural effusion and left lung base atelectasis versus infiltrate. There is stable increased lung markings throughout both upper lung chapman right lung base which may be related to scarring. There is no other lung infiltrate seen. There is no pneumothorax. Stable cardiomegaly with no significant pulmonary vascular congestion. There are degenerative spurs seen throughout spine. IMPRESSION: 1: There is progression of left lung base consolidation concerning for left pleural effusion and left lung base atelectasis versus infiltrate. 2: The remainder of this chest x-ray exam is stable. Dictated by: Dictated on workstation # [id number]
[2019-09-10] MEDS: DIGOXIN 0.125 MG (LANOXIN) TAB PO SCH (08:38)
[2019-09-10] MEDS: APIXABAN 2.5 MG (ELIQUIS) TABLET PO SCH ×2 (08:39→20:06)
[2019-09-10] MEDS: dilTIAZem DRIP 125 MG/125 ML DRIP IV SCH (08:48)
[2019-09-10] MEDS ORDERED: LEVOFLOXACIN 500 MG/100 ML IV 100 ML IV SCH (09:00)
[2019-09-10] MEDS: AMIODARONE INJECTION 450 MG in D5W IV SOLUTION (EXCEL) 250 ML IV SCH ×2 (09:43→18:26)
--- NOTE | 2019-09-10 11:10 | NUR ---
Pastoral care visit.
[2019-09-10] MEDS ORDERED: AUGMENTIN 875 MG TAB (AMOXICILLIN/CLAVULANATE) PO ONE (11:15)
[2019-09-10] MEDS ORDERED: LEVOFLOXACIN 250 MG/50 ML IVPB 50 ML IV SCH (12:00)
--- NOTE | 2019-09-10 12:34 | History & Physical-Hospitalist ---
History of Present Illness HPI/Chief Complaint Megan Phelan is an 83-year-old female with past medical history of paroxysmal atrial fibrillation, COPD, hypothyroidism, GERD, who presented with weakness. She reports that she has been very weak over the past week. She reports that EMS was been at her house 3 times this week. She denies any fevers or chills. She reports feeling short of breath. She reports having a cough. She denies any abdominal pain, nausea, vomiting. She reports having diarrhea. She was reportedly exposed to someone with coronavirus. She reports compliance with her medications but says that she might have missed her medicines a couple days last week. Source: patient Exam Limitations: no limitations Date Seen 09/10/19 Time Seen by a Provider: 08:15 Attending Physician Maria Del Rosario Hurst MD PCP Joshua Henry MD Referring Physician Date of Admission Sep 09, 2019 at 13:06 Home Medications & Allergies Home Medications Reviewed patient Home Medication Reconciliation performed by pharmacy medication reconciliations commercial hvac service technician and/or nursing. Patients Allergies have been reviewed. Allergies Allergies Coded Allergies Sulfa (Sulfonamide Antibiotics) (Verified Allergy, Unknown, 01/10/16) cefadroxil (Verified Allergy, Unknown, 07/29/09) hydrocortisone (Verified Allergy, Unknown, 07/29/09) iodoquinol (Verified Allergy, Unknown, 07/29/09) Past Yvgityc-Fijllf-Yqrvmq Hx Past Med/Social Hx: Reviewed Nursing Past Med/Soc Hx Patient Social History Alcohol Use: Denies Use Recreational Drug Use: No Smoking Status: Former Smoker Former Smoker, Quit: Dec 21, 2008 2nd Hand Smoke Exposure: No Recent Foreign Travel: No Contact w/other who traveled: No Recent Hopitalizations: No Recent Infectious Disease Expo: No Immunizations Up To Date Tetanus Booster (TDap): More than 5yrs Pediatric: No Seasonal Allergies Seasonal Allergies: No Past Medical History Currently Using CPAP: No Currently Using BIPAP: No : No Reproductive: No Sexually Transmitted Disease: No HIV/AIDS: No Female Reproductive Disorders: Denies Endocrine: Hypothyroidsim Loss of Vision: Right Cancer: Skin History of Blood Disorders: No Adverse Reaction to Blood Hendricks: No Family History Cardiovascular disease 19 FATHER 19 MOTHER Diabetes mellitus 19 FATHER Heart Disease, Diabetes, Hypertension Review of Systems Constitutional: weakness EENTM: no symptoms reported Respiratory: cough Cardiovascular: no symptoms reported Gastrointestinal: diarrhea Genitourinary: no symptoms reported Musculoskeletal: no symptoms reported Skin: no symptoms reported Psychiatric/Neurological: No Symptoms Reported Physical Exam Physical Exam Vital Signs Vital Signs - First Documented 09/09/19 09/10/19 10:50 04:00 Temp 36.7 Pulse 154 Resp 20 B/P (MAP) 102/76 (85) Pulse Ox 98 O2 Delivery Nasal Cannula O2 Flow Rate 2.00 FiO2 95 Capillary Refill : Less Than 3 Seconds Height, Weight, BMI Height: 5'7.50" Weight: 137lbs. 1.6oz. 62.649434on; 15.00 BMI Method:Stated General Appearance: No Apparent Distress, Chronically ill, Cachetic HEENT: PERRL/EOMI, Pharynx Normal Neck: Normal Inspection, Supple Respiratory: Lungs Clear, No Respiratory Distress, Decreased Breath Sounds Cardiovascular: No Murmur, Irregularly Irregular, Tachycardia Gastrointestinal: Normal Bowel Sounds, Non Tender, Soft Extremity: Normal Inspection, Non Tender, No Pedal Edema Neurologic/Psychiatric: Alert, Oriented x3, No Motor/Sensory Deficits, Normal Mood/Affect Skin: Normal Color, Warm/Dry Results Results/Procedures Labs Laboratory Tests 09/09/19 11:20 09/10/19 03:37 Patient resulted labs reviewed. Imaging: Reviewed Imaging Report Assessment/Plan Admission Diagnosis Atrial fibrillation with rapid ventricular response Admission Status: Inpatient Order (span 2 midnights) Reason for Inpatient Admission: A. fib with RVR requiring IV medications Assessment and Plan Atrial fibrillation with rapid ventricular response Cardiology consulted, appreciate assistance Started on IV Cardizem Added IV amiodarone this morning Started on digoxin Continue Eliquis Community acquired pneumonia Chest x-ray with left lower lobe infiltrate Afebrile, WBC normal Procalcitonin normal Started on Levaquin Transition to oral Augmentin Elevated troponin Troponin mildly elevated at 0.04, returned to normal on repeat Cardiology consulted, appreciate assistance Likely elevated due to A. fib with RVR Hypomagnesemia Hypokalemia Continue to monitor and replace as needed COPD GERD Hypothyroidism Continue home meds DVT prophylaxis: Already receiving therapeutic anticoagulation Diagnosis/Problems Diagnosis/Problems (1) Atrial fibrillation with RVR Status: Acute (2) Pneumonia Status: Acute Qualifiers: Pneumonia type: due to unspecified organism Laterality: left Lung location: lower lobe of lung Qualified Codes: J18.1 - Lobar pneumonia, unspec ified organism Clinical Quality Measures DVT/VTE Risk/Contraindication: Risk Factor Score Per Nursin RFS Level Per Nursing on Admit: 4+=Very High MARIA DEL ROSARIO HURST MD Sep 10, 2019 12:34
--- NOTE | 2019-09-10 13:45 | Occupational Therapy Eval ---
OT Evaluation-General/PLF Medical Diagnosis Admission Date Sep 09, 2019 at 13:06 Medical Diagnosis: debility/ tachycardia Onset Date: Sep 09, 2019 Therapy Diagnosis Therapy Diagnosis: Decreased ADL status Height/Weight Height (Feet): 5 Height (Inches): 7.50 Weight (Pounds): 137 Weight (Ounces): 1.6 Precautions Precautions/Isolations: Airborne Isolation, Fall Prevention, Standard Pr ecautions, Pressure Ulcer Referral Physician: Maria Del Rosario Foreman MD Referral Reason: Activity Tolerance, Self Care, Evaluation/Treatment, Strengthening/ROM Medical History Pertinent Medical History: Atrial Fib, COPD, Hypothroidism Additional Medical History a fib, COPD, hypothyroidism, GERD, HTN, aphasia (possible TIA) Current History Pt states fall on Monday from toilet when LOB, states wasn't able to get out of chair/ bed Monday or Monday. Admission with tachycardia, SOB, cough, hypotension. Neg COVID test 09/09 at 1251. Pt dx with PNA and L PE. Reviewed History: Yes Social History Home: Single Level Current Living Status: Alone Entry Into Home: Stairs With Railing Steps Into Home: 5 Steps Inside Home: 0 ADL-Prior Level of Function SCALE: Activities may be completed with or without assistive devices. 9-Tmbjclikmq-qhgwmoz completes the activity by him/herself with no assistance from a helper. 5-Set-up or Clean-up Assistance-helper sets up or cleans up; patient completes activity. Burke assists only prior to or following the activity. 4-Supervision or Touching Assistance-helper provides verbal cues and/or touching/steadying and/or contact guard assistance as patient completes activity. Assistance may be provided throughout the activity or intermittently. 3-Partial/Moderate Assistance-helper does LESS THAN HALF the effort. Burke lifts, holds or supports trunk or limbs, but provides less than half the effort. 2-Substantial/Maximal Assistance-helper does MORE THAN HALF the effort. Burke lifts or holds trunk or limbs and provides more than half the effort. 2-Gfuoazpqd-bnvnxf does ALL the effort. Patient does none of the effort to complete the activity. Or, the assistance of 2 or more helpers is required for the patient to complete the activity. If activity was not attempted, code reason: 7-Patient Refused. 9-Not Applicable-not attempted and the patient did not perform the activity before the current illness, exacerbation or injury. 10-Not Attempted due to Environmental Limitations-(lack of equipment, weather restraints, etc.). 88-Not Attempted due to Medical Conditions or Safety Concerns. 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 OT Current Status Subjective Pt seen in bed, eyes closed. Pt alert/ oriented post-entry. Pt agrees to OT, though denies OOB as she "just laid down. " Pt states pain on coccyx (pillow propped pt onto side with OT assist) and SOB at times to cough. Pt maintains 96- 97% O2 throughout. Mental Status/Objective Patient Orientation: Person, Place, Situation, Normal For Age Attachments: IV, Oxygen (not utilized, room air with nasal can), Telemetry Current Glasses/Contacts: Yes Hand Dominance: Right Upper Extremity ROM WFL BUE Upper Extremity Coordination WFL BUE Upper Extremity Sensation WFL BUE Upper Extremity Strength Decreased BUE, 3/5 - min resistance applied, full range. Edema: none noted. ADL-Treatment Eating (QC): 6 (pt able to reach for tissue and bring to mouth ) Other Treatments Nursing agrees to OT eval/ treat. Pt denies OOB. States wants to take nap. Pt very pleasantly declines activities, though agrees to OT eval. Pt states no exercise routine, states there is limited need though states has been weak lately. Pt weak/ debilitated. Though states was unable to walk long distances prior- has multiple chairs set throughout home for rest breaks. Pt has had multiple falls in the past. Pt has assist for IADLs, none for ADLs. States fearful of fall in shower, though completes with IND. Pt denies toileting or changing of brief, stating clean. Pt denies EOB activities, states pain on coccyx and pillow placed (with mod A for rolling and cues for arm positioning) on L side and pt propped to R. Pt coughing intermittently, educated on sitting upright during inactivity due to PNA dx, pt agrees, though states fatigued and desires to sleep. All needs met, call light in reach, educated on PT orders soon. Education OT Patient Education: Correct positioning, Purpose of tx/functional activities, Safety issues, Transfer techniques Teaching Recipient: Patient Teaching Methods: Demonstration, Discussion Response to Teaching: Verbalize Understanding, Return Demonstration OT Usp Goals Peanut Farmer Goals Time Frame: Sep 17, 2019 Eating (QC): 6 Oral Hygiene (QC): 6 Toileting Hygiene (QC): 4 Shower/Bathe Self (QC): 4 Upper Body Dressing (QC): 4 Lower Body Dressing (QC): 4 On/Off Footwear (QC): 4 Additional Goals: 1-Demonstrate ADL Tasks, 2-Verbalize Understanding, 3-ImproveStrength/Armin 1=Demonstrate adherence to instructed precautions during ADL tasks. 2=Patient will verbalize/demonstrate understanding of assistive devices/modifications for ADL. 3=Patient will improve strength/tolerance for activity to enable patient to perform ADL's. OT Education/Plan Problem List/Assessment Assessment: Decreased Activ Tolerance, Decreased UE Strength, Dependent Transfers, Impaired Bed Mobility, Impaired Funct Balance, Impaired I ADL's, Impaired Self-Care Skills Discharge Recommendations Plan/Recommendations: Continue POC Therapy Discharge Recommendati: 24 Hour Supervision, Post Acute OT Equpiment Recommendations-D/C: Rails on Tub/Shower, Platform Inspector, Dressing Stick, Rails on Toilet Treatment Plan/Plan of Care Treatment,Training & Education: Yes Patient would benefit from OT for education, treatment and training to promote independence in ADL's, mobility, safety and/or upper extremity function for ADL's. Plan of Care: ADL Retraining, Functional Mobility, UE Funct Exercise/Act Treatment Duration: Sep 17, 2019 Frequency: 5 times per week Estimated Hrs Per Day: .25 hour per day Agreement: Yes Rehab Potential: Fair Time/GCodes Start Time: 13:16 Stop Time: 13:36 Total Time Billed (hr/min): 20 Billed Treatment Time MERCY Choudhary (20) JENNY RODRIGUEZ OTR Sep 10, 2019 13:45
--- NOTE | 2019-09-10 14:22 | NUR ---
DUE TO CHANGES IN STAFFING CARE OF PT TO MERNA YOUNG
--- NOTE | 2019-09-10 14:39 | Physical Therapy Evaluation ---
PT Evaluation-General Medical Diagnosis Admission Date Sep 09, 2019 at 13:06 Medical Diagnosis: Pneumonia/ A-Fib Onset Date: Sep 09, 2019 Therapy Diagnosis Therapy Diagnosis: weakness, debility Height/Weight Height (Feet): 5 Height (Inches): 7.50 Weight (Pounds): 137 Weight (Ounces): 1.6 Precautions Precautions/Isolations: Airborne Isolation, Fall Prevention, Standard Precautions, Pressure Ulcer Weight Bear Status Right Lower Extremity: Right Weight Bearing/Tolerated Left Lower Extremity: Left Weight Bearing/Tolerated Referral Physician: Maria Del Rosario Foreman MD Reason for Referral: Evaluation/Treatment Medical History Pertinent Medical History: Atrial Fib, COPD, GERD, Hypothroidism Current History Pt reports she has had EMS at her house 3 out of the past 4 days due to progressing weakness. Pt fell a few days ago and was unable to get up resulting in her admission to the hospital. Reviewed History: Yes Social History Home: Single Level Current Living Status: Alone Entry Into Home: Stairs With Railing PT Steps Into Home: 5 PT Steps Inside Home: 0 Prior Prior Level of Function SCALE: Activities may be completed with or without assistive devices. 8-Dvyvskslcd-vewavlu completes the activity by him/herself with no assistance from a helper. 5-Set-up or Clean-up Assistance-helper sets up or cleans up; patient completes activity. [place] assists only prior to or following the activity. 4-Supervision or Touching Assistance-helper provides verbal cues and/or touching/steadying and/or contact guard assistance as patient completes activity. Assistance may be provided throughout the activity or intermittently. 3-Partial/Moderate Assistance-helper does LESS THAN HALF the effort. [place] lifts, holds or supports trunk or limbs, but provides less than half the effort. 2-Substantial/Maximal Assistance-helper does MORE THAN HALF the effort. [place] lifts or holds trunk or limbs and provides more than half the effort. 6-Nxnjuamdo-iixhao does ALL the effort. Patient does none of the effort to complete the activity. Or, the assistance of 2 or more helpers is required for the patient to complete the activity. If activity was not attempted, code reason: 7-Patient Refused. 9-Not Applicable-not attempted and the patient did not perform the activity before the current illness, exacerbation or injury. 10-Not Attempted due to Environmental Limitations-(lack of equipment, weather restraints, etc.). 88-Not Attempted due to Medical Conditions or Safety Concerns. Bed Mobility: 6 Transfers (B,C,W/C): 6 Gait: 6 Stairs: 6 Indoor Mobility (Ambulation): Independent Stairs: Independent Prior Devices Use: Walker Pt reports independence with mobility using walker and furniture surfing in her house but has assistance for cooking, cleaning and laundry 3 days a week. PT Evaluation-Current Subjective Pt reports she is tired and doesnt want to get out of bed, but agrees to PT treatment. Pt reports pain in her sacral area and states she "has a sore back there". Pain Comment: Reports pain in sacral area due to pressure sore, doesnt rate Objective Patient Orientation: Person, Place, Time, Situation Attachments: Oxygen, IV ROM/Strength ROM Lower Extremities grossly WFL Strength Lower Extremities grossly WFL Integumentary/Posture Integumentary refer to nursing notes Posture Pt with kyphotic, forward head posture Neuromuscular (Tone, Coordination, Reflexes) grossly intact Sensory Vision: Wears Glasses Hearing: Functional Hand Dominance: Right Transfers Roll Left to Right (QC): 5 Lying to Sitting/Side of Bed(Q: 4 Sit to Stand (QC): 4 (For safety reasons) Chair/Fom-lw-Zvrpq Xfer(QC): 4 Gait Does the Patient Walk?: Yes Mode of Locomotion: Walk Anticipated Mode of Locomotion: Walk Gait Assistive Device: FWW Comments/Gait Description Pt able to take 5-6 steps to turn in order to sit in recliner chair. Pt able to initiate steps, but maintains kyphotic posture throughout transfer even with cueing for upright position. Pt stood in front of chair for 5 mins for PT to complete pericare before sitting in chair. Pt reported SOB, but SaO2 remained >92 Wheelchair Training Does the Pt Use a Wheelchair?: No Balance Sitting Static: Good Sitting Dynamic: Good Standing Static: Fair Standing Dynamic: Fair Assessment/Needs Pt is an 83 year old female with decreased strength, balance and coordination which increase risk of falls. Pt would benefit from skilled PT to address above mentioned issues to ensure safety upon return home. When medically stable pt would benefit from intermediate facility vs. ARU to increase strength in order to return home. Rehab Potential: Good PT Assisted Goals Clinical Laboratory Technologist Goals PT Clinical Laboratory Technologist Goals Time Frame: Sep 20, 2019 Roll Left & Right (QC): 6 Lying-Sitting on Side/Bed(QC): 6 Sit to Stand (QC): 6 Chair/Hff-ft-Usrex Xfer(QC): 6 Walk 10 feet (QC): 6 Walk 50ft with 2 Turns (QC): 5 PT Plan Problem List Problem List: Activity Tolerance, Functional Strength, Safety, Balance, Gait, Transfer, Bed Mobility Treatment/Plan Treatment Plan: Continue Plan of Care Treatment Plan: Bed Mobility, Education, Functional Activity Armin, Functional Strength, Gait, Safety, Therapeutic Exercise, Transfers Treatment Duration: Sep 21, 2019 Frequency: 6 times per week Estimated Hrs Per Day: .25 hour per day Patient and/or Family Agrees t: Yes .25 up to .5 hours Safety Risks/Education Patient Education: Gait Training, Transfer Techniques, Disease Process Teaching Recipient: Patient Teaching Methods: Discussion Response to Teaching: Reinforcement Needed Pt educated on importance of OOB for lungs to prevent progression of pneumonia. Pt educated on transfer and gait posture to maintain upright positioning. Discharge Recommendations Therapy Discharge Recommendati: Other, See Comments (intermediate vs. ARU) Time/GCodes Time In: 1425 Time Out: 1440 Total Billed Treatment Time: 15 Total Billed Treatment 1 visit EVHigh - 15 min LUCY CERVANTES PT Sep 10, 2019 14:39
--- NOTE | 2019-09-10 15:22 | NUR ---
"RD ASSESSMENT PMHx: COPD; emphysema; hypothyroidism PT INTERACTION: Pt was awake and pleasant during consult for malnutrition. Pt states current appetite is poor. Note avt PO intake of 31% x1d, per chart review. Pt states following a regular diet at home, and has no issues with chewing/swallowing food. Pt states no recent issues with nausea, vomiting, or constipation. Pt states some recent issues with diarrhea, and that her last BM was 09/09. Note pt currently on bowel regimen of miralax PRN; and bisacodyl PRN, per chart review. Pt states recent 20# wt loss x1year. This is a 17% wt loss. Upon visual assessment, pt appears cachectic with visible signs of muscle/fat wasting, and a BMI of 15.5 (this is classified as Underweight). Given poor PO intake and visual assessment, pt meets criteria for malnutrition per ASPEN guidelines. ABNORMAL NUTRITION-RELATED LAB VALUES LOW: K 3.5; Ca 8.1; Mg 1.5 HIGH: Est. kcal needs: 4935-6395 kcal | 30-35 kcal/kg Est. 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 Continue with current supplementation order of Ensure Enlive (vary) with meals TID, for increased kcal intake. Provides 350 kcal and 13 g Pro per serving. Encouraged pt to eat when able. Will continue to follow and reassess as pt needs, intake, and status change. MONITOR/EVALUATE: PO Intake; Plan of Care; Hydration Status; Weight Status; Lab Values Titus Shannno, MS, RD, LD"
[2019-09-10] MEDS: AUGMENTIN 875 MG TAB (AMOXICILLIN/CLAVULANATE) PO SCH (18:24)
[2019-09-11] VITALS (24 sets, daily range): BP systolic 97–155; BP diastolic 61–94
[2019-09-11 03:41] LABS: BASOPHILS % (AUTO) 0 % (0-10); EOSINOPHILS # (AUTO) 0.1 10^3/uL (0.0-0.3); EOSINOPHILS % (AUTO) 2 % (0-10); HEMATOCRIT 32 % (35-52); HEMOGLOBIN 10.5 G/DL (11.5-16.0); LYMPHOCYTES # (AUTO) 1.3 X 10^3 (1.0-4.0); LYMPHOCYTES % (AUTO) 23 % (12-44); MEAN CORPUSCULAR HEMOGLOBIN 31 PG (25-34); MEAN CORPUSCULAR HGB CONC 33 G/DL (32-36); MEAN CORPUSCULAR VOLUME 95 FL (80-99); MEAN PLATELET VOLUME 9.8 FL (7.4-10.4); MONOCYTES # (AUTO) 0.5 X 10^3 (0.0-1.0); MONOCYTES % (AUTO) 9 % (0-12); NEUTROPHILS # (AUTO) 3.7 X 10^3 (1.8-7.8); NEUTROPHILS % (AUTO) 66 % (42-75); PLATELET COUNT 179 10^3/uL (130-400); RED CELL DISTRIBUTION WIDTH 15.4 % (10.0-14.5); WHITE BLOOD COUNT 5.6 10^3/uL (4.3-11.0)
[2019-09-11 03:51] LABS: CHLORIDE 113 MMOL/L (98-107); POTASSIUM 3.9 MMOL/L (3.6-5.0); SODIUM 138 MMOL/L (135-145)
[2019-09-11 03:52] LABS: CALCIUM 7.9 MG/DL (8.5-10.1)
[2019-09-11 03:53] LABS: GLUCOSE 79 MG/DL (70-105)
[2019-09-11 03:54] LABS: CARBON DIOXIDE 18 MMOL/L (21-32)
[2019-09-11 03:56] LABS: PHOSPHORUS 2.3 MG/DL (2.3-4.7)
[2019-09-11 03:57] LABS: BUN/CREATININE RATIO 10; CREATININE SERUM 0.82 MG/DL (0.60-1.30); GFR ESTIMATED > 60
[2019-09-11] MEDS: KCL 20 MEQ TAB (K-DUR) PO SCH (04:34)
[2019-09-11] MEDS: MAGNESIUM 1 GM/100 ML IVPB 100 ML IV SCH (04:34)
[2019-09-11] MEDS: POTASSIUM CL 10MEQ/50ML IVPB 50 ML IV SCH (04:34)
--- NOTE | 2019-09-11 06:09 | Pulmonary Progress Note ---
Subjective Time Seen by a Provider: 06:06 Subjective/Events-last exam Currently on Amio gtt. Cardizem is currently off. Sepsis Event Evaluation Height, Weight, BMI Height: 5'7.50" Weight: 137lbs. 1.6oz. 62.572555hq; 15.00 BMI Method:Stated Focused Exam Lactate Level 09/09/19 11:20: Lactic Acid Level 1.71 Exam Exam Vital Signs Date Time Temp Pulse Resp B/P (MAP) Pulse Ox O2 Delivery O2 Flow Rate FiO2 09/11/19 05:00 59 20 141/65 (90) 97 Nasal Cannula 2.00 09/11/19 04:26 36.5 09/11/19 04:20 72 24 97 Nasal Cannula 2.00 09/11/19 04:00 Room Air 09/11/19 04:00 69 121/61 (81) 100 Room Air 09/11/19 03:00 78 121/81 (94) Room Air 09/11/19 02:00 65 126/69 (88) 90 Room Air 09/11/19 01:00 67 118/72 (87) 90 Room Air 09/11/19 01:00 67 09/11/19 00:00 65 128/70 (89) 91 Room Air 09/10/19 23:06 Room Air 09/10/19 23:06 36.4 Room Air 09/10/19 23:00 62 112/64 (80) 92 Nasal Cannula 2.00 09/10/19 22:00 62 115/58 (77) 95 Nasal Cannula 2.00 09/10/19 21:00 70 115/83 (94) 94 Nasal Cannula 2.00 09/10/19 20:15 Room Air 09/10/19 20:00 70 112/59 (76) 94 Nasal Cannula 2.00 09/10/19 19:59 36.6 09/10/19 19:09 69 09/10/19 19:00 67 123/89 (100) 93 Nasal Cannula 2.00 09/10/19 18:00 66 116/70 (85) 93 Nasal Cannula 2.00 09/10/19 16:30 64 16 111/60 (77) 92 Nasal Cannula 2.00 09/10/19 16:15 68 22 115/62 (79) 93 Nasal Cannula 2.00 09/10/19 16:00 97 Room Air 09/10/19 16:00 69 20 110/55 (73) 97 Nasal Cannula 2.00 09/10/19 15:51 36.4 09/10/19 15:45 91 16 109/60 (76) 96 Nasal Cannula 2.00 09/10/19 15:30 81 29 97 Nasal Cannula 2.00 09/10/19 15:15 79 31 96 Nasal Cannula 2.00 09/10/19 15:00 85 16 96 Nasal Cannula 2.00 09/10/19 14:45 90 23 97 Nasal Cannula 2.00 09/10/19 14:30 85 22 95 Nasal Cannula 2.00 09/10/19 14:15 85 20 112/89 (97) 96 Nasal Cannula 2.00 09/10/19 14:00 84 21 102/72 (82) 96 Nasal Cannula 2.00 09/10/19 13:45 80 25 114/73 (87) 97 Nasal Cannula 2.00 09/10/19 13:30 98 16 114/62 (79) 97 Nasal Cannula 2.00 09/10/19 13:15 83 23 104/59 (74) 96 Nasal Cannula 2.00 09/10/19 13:00 93 34 109/76 (87) 94 Nasal Cannula 2.00 09/10/19 12:45 97 Nasal Cannula 2.00 09/10/19 12:20 88 09/10/19 12:00 37.4 09/10/19 12:00 98 24 102/88 (93) 94 Nasal Cannula 2.00 09/10/19 11:00 94 18 110/71 (84) 96 Nasal Cannula 2.00 09/10/19 10:00 98 20 108/74 (85) 96 Nasal Cannula 2.00 09/10/19 09:00 102 10 98/73 (81) 95 Nasal Cannula 2.00 09/10/19 08:52 Nasal Cannula 2.00 09/10/19 08:42 115 126/103 09/10/19 08:00 96 Nasal Cannula 2.00 09/10/19 08:00 102 13 102/56 (71) 94 Nasal Cannula 2.00 09/10/19 08:00 37.2 09/10/19 07:00 116 09/10/19 07:00 117 32 118/94 (102) 96 Nasal Cannula 2.00 6/23/20 06:50 113 98 Nasal Cannula 2.00 I & O 09/11/19 07:00 Intake Total 875 ml Output Total 1050 ml Balance -175 ml Height & Weight Height: 5'7.50" Weight: 137lbs. 1.6oz. 62.814120np; 15.00 BMI Method:Stated General Appearance: No Apparent Distress, Chronically ill, Cachetic HEENT: PERRL/EOMI, Pharynx Normal Neck: Normal Inspection, Supple Respiratory: Lungs Clear, No Respiratory Distress, Decreased Breath Sounds Cardiovascular: No Murmur, Irregularly Irregular, Tachycardia Capillary Refill: Less Than 3 Seconds Extremity: Normal Inspection, Non Tender, No Pedal Edema Neurologic/Psychiatric: Alert, Oriented x3, No Motor/Sensory Deficits, Normal Mood/Affect Skin: Normal Color, Warm/Dry Results Lab Laboratory Tests 09/09/19 11:20 09/10/19 03:37 09/11/19 03:26 Assessment/Plan Assessment/Plan LLL PNA per imaging -NO leukocytosis or fever however procalcitonin is elevated -Currenlty on Levaquin - CT of chest to r/o mass - Per RN pt refused CT scan -COVID swab is negative Afib RVR -Cardiology following -Currently on Ammio gtt and Cardizem is off. Hypokalemia, hypomag -replace ILSA PEDRAZA DO Sep 11, 2019 06:09
[2019-09-11] MEDS: AUGMENTIN 875 MG TAB (AMOXICILLIN/CLAVULANATE) PO SCH ×2 (08:22→18:36)
[2019-09-11] MEDS: DIGOXIN 0.125 MG (LANOXIN) TAB PO SCH (08:22)
[2019-09-11] MEDS: APIXABAN 2.5 MG (ELIQUIS) TABLET PO SCH ×2 (08:22→20:09)
--- NOTE | 2019-09-11 08:34 | Diagnostic Imaging Report ---
INDICATION: Dyspnea. Time of exam 4:18 AM Correlation is made with prior chest from one day earlier. Heart size is stable. Left basilar consolidation and pleural fluid is noted and similar to yesterday. Upper lung chapman are fairly clear. No pneumothorax is seen. IMPRESSION: No significant change in left basilar consolidation and pleural fluid when compared with examination one day earlier. Dictated by: Dictated on workstation # [id number]
--- NOTE | 2019-09-11 10:07 | NUR ---
CM/SS visited with patient for social service consult. The patient reports that she is currently living alone and does not have any relatives in town. She has two son's that live in [place]. Home Health: The patient is currently on Home Health services with [facility]. She reports that they had just started service this last week but she needed to come to the hospital. Services: The patient states that she has a cleaning lady that comes to her home 3 days a week for a couple hours at a time. The worker also does her grocery shopping and additional errands. The patient reports that she has a close friend that is currently helping feed her cats while she is in the hospital and will bring her food about once a week. She was receiving [employer] Whe[employer] but cancelled them due to poor quality of food. She then tried [employer] but approximately 2 weeks ago she cancelled them as well. She states for the past two weeks she has been eating "take out hamburgers and cheeseburgers". The patient states that she has lost around 20 pounds and she believes it was around that time. The patient reports that she had 2 stairs at both her back and front entrances at home. She states that she has been avoiding them due to multiple falls in the past and one recent fall on Monday. EILEEN/SS discussed inpatient rehab to help build her strength and get back to prior level of functioning. The patient verbalized that she would be interested in going to the inpatient rehab unit. EILEEN/SS informed Olga. EILEEN/SELMA will continue to follow with patient for discharge planning.
--- NOTE | 2019-09-11 10:28 | Cardiology Progress Note ---
Subjective Date Seen by Provider: Sep 11, 2019 Time Seen by Provider: 10:25 Subjective/Events-last exam Patient is in bed, denies any chest pain, c/o mild dyspnea. Review of Systems General: No Chills, No Night Sweats, No Fatigue, No Malaise, No Appetite, No Other HEENT: No Head Aches, No Visual Changes, No Eye Pain, No Ear Pain, No Dysphasia, No Sinus Congestion, No Post Nasal Drip, No Sore Throat, No Other Pulmonary: Dyspnea; No Cough, No Pleuritic Chest Pain, No Other Cardiovascular: No: Chest Pain, Palpitations, Orthopnea, Paroxysmal Noc. Dyspnea, Edema, Lt Headedness, Other Focused Exam Lactate Level 09/09/19 11:20: Lactic Acid Level 1.71 Objective-Cardiology Exam Last Set of Vital Signs Vital Signs 09/10/19 09/11/19 09/11/19 04:00 11:16 14:00 Temp 36.4 Pulse 90 Resp 26 B/P (MAP) 128/75 (92) Pulse Ox 100 O2 Delivery Nasal Cannula O2 Flow Rate 2.00 FiO2 95 Capillary Refill : Less Than 3 Seconds I&O Intake and Output 09/10/19 23:59 Intake Total 2075 ml Output Total 375 ml Balance 1700 ml Intake Oral 975 ml IV Total 1100 ml Output Urine Total 375 ml # Voids 2 # Urine Diapers 1 # Bowel Movements 3 General: Alert, Oriented X3, Cooperative HEENT: Atraumatic, PERRLA Neck: Supple, No JVD, No Thyromegaly Lungs: Normal Air Movement, Other (decreased breath sounds LLL) Heart: Regular Rate, Normal S1, Normal S2, No Murmurs Abdomen: Normal Bowel Sounds, Soft, No Tenderness, No Hepatosplenomegaly, No Masses Extremities: No Clubbing, No Cyanosis, No Edema, Normal Pulses, No Tenderness/Swelling Skin: No Rashes, No Breakdown, No Significant Lesion Neuro: Normal Speech, Cranial Nerves 3-12 NL Psych/Mental Status: Mental Status NL, Mood NL Results Lab Laboratory Tests 09/11/19 03:26 A/P-Cardiology Admission Diagnosis Atrial fibrillation Tachycardia Hypotension Generalized weakness Assessment/Plan Paroxysmal Atrial fibrillation with rapid ventricular response, currently on amiodarone, Eliquis, was in sinus rhythm, back to a fib again, I will consider cardioversion in AM Left lower lobe infiltrate on chest x-ray, no leukocytosis, receiving Levaquin, managed by Dr. Tidwell Hypotension. Continue with IV fluid and monitor tolerance and response, cannot tolerate Cardizem due to hypotension. Questionable TIA in 2016, patient had a transient episode of aphasia where she was unable to speak properly lasted for few minutes and resolved spontaneously, no full stroke was reported. [id number] score is 5, yearly risk of stroke without oral anticoagulation is 6.7 percent, patient is at high risk of stroke without oral anticoagulation, maintained on Eliquis. History of emphysema/COPD. Managed by Dr. Tidwell Hypothyroidism, currently hyperthyroidism. Managed by primary care physician Osteoporosis. Patient was seen and evaluated with Meena, examination performed, management plan was discussed, agree with the current scribed note, I made few changes to the note using Italic font Patient was seen at bedside, she was back to sinus rhythm, it appear that she return to atrial fibrillation, we will continue with amiodarone and place her on monitor for possible cardioversion in the morning Clinical Quality Measures DVT/VTE Risk/Contraindication: Risk Factor Score Per Nursin RFS Level Per Nursing on Admit: 4+=Very High MEENA FRYE Sep 11, 2019 10:28 LILIA ANN MD Sep 11, 2019 15:48
--- NOTE | 2019-09-11 10:56 | Progress Note - Hospitalist ---
Subjective HPI/CC On Admission Date Seen by Provider: Sep 11, 2019 Time Seen by Provider: 09:00 Megan Phelan is an 83-year-old female with past medical history of paroxysmal atrial fibrillation, COPD, hypothyroidism, GERD, who presented with weakness. She reports that she has been very weak over the past week. She reports that EMS was been at her house 3 times this week. She denies any fevers or chills. She reports feeling short of breath. She reports having a cough. She denies any abdominal pain, nausea, vomiting. She reports having diarrhea. She was reportedly exposed to someone with coronavirus. She reports compliance with her medications but says that she might have missed her medicines a couple days last week. Subjective/Events-last exam She continues to feel weak. She denies any chest pain or shortness of breath. She denies any abdominal pain, nausea, or vomiting. She says she was upset because she was left in her chair by physical therapy yesterday. Focused Exam Lactate Level 09/09/19 11:20: Lactic Acid Level 1.71 Objective Exam Vital Signs Vital Signs Date Time Temp Pulse Resp B/P (MAP) Pulse Ox O2 Delivery O2 Flow Rate FiO2 09/11/19 09:00 67 32 136/65 (88) 100 Nasal Cannula 2.00 09/11/19 07:21 36.1 09/10/19 04:00 95 Capillary Refill : Less Than 3 Seconds General Appearance: No Apparent Distress, Chronically ill, Thin Respiratory: Lungs Clear, No Respiratory Distress, Decreased Breath Sounds Cardiovascular: Regular Rate, Rhythm, No Edema, No Murmur Gastrointestinal: Normal Bowel Sounds, Non Tender, Soft Extremity: Normal Inspection, Non Tender, No Pedal Edema Neurologic/Psychiatric: Alert, Oriented x3, Normal Mood/Affect, Motor Weakness Skin: Normal Color, Warm/Dry Results/Procedures Lab Laboratory Tests 09/11/19 03:26 Patient resulted labs reviewed. Imaging: Reviewed Imaging Report Assessment/Plan Assessment and Plan Assess & Plan/Chief Complaint Atrial fibrillation with rapid ventricular response Cardiology consulted, appreciate assistance Currently on amiodarone Continue Eliquis Community acquired pneumonia Chest x-ray with left lower lobe infiltrate Afebrile, WBC normal Procalcitonin normal Continue Augmentin Recommended CT but patient deferred Elevated troponin Troponin mildly elevated at 0.04, returned to normal on repeat Cardiology consulted, appreciate assistance Likely elevated due to A. fib with RVR Debility PT/OT Acute rehabilitation evaluation COPD GERD Hypothyroidism Continue home meds DVT prophylaxis: Already receiving therapeutic anticoagulation Hypomagnesemia, resolved Hypokalemia, resolved Diagnosis/Problems Diagnosis/Problems (1) Atrial fibrillation with RVR Status: Acute (2) Pneumonia Status: Acute Qualifiers: Pneumonia type: due to unspecified organism Laterality: left Lung location: lower lobe of lung Qualified Codes: J18.1 - Lobar pneumonia, unspecified organism (3) COPD (chronic obstructive pulmonary disease) Status: Chronic (4) Hypothyroidism Status: Chronic (5) GERD (gastroesophageal reflux disease) Status: Chronic (6) Debility Status: Acute (7) Hypomagnesemia Status: Resolved Resolution Date/Time: 09/11/19 @ 11:03 (8) Hypokalemia Status: Resolved Resolution Date/Time: 09/11/19 @ 11:03 Clinical Quality Measures DVT/VTE Risk/Contraindication: Risk Factor Score Per Nursin RFS Level Per Nursing on Admit: 4+=Very High SHANTELL HURST MD Sep 11, 2019 10:56
[2019-09-11] MEDS: NS IV 1000 ML 1,000 ML IV SCH (11:00)
[2019-09-11] MEDS ORDERED: RT-ALBUTEROL SULF 2.5 MG/3 ML PRE-MIX VIAL IH PRN (11:00)
--- NOTE | 2019-09-11 11:00 | Occupational Ther Daily Note ---
OT Current Status-Daily Note Subjective Nursing states okay to treat pt. Pt states dirty brief. Pt agrees to bathing/ dressing/ delonte hygiene tasks. Pt denies pain, states some SOB. States some pain on back after sitting EOB. Mental Status/Objective Patient Orientation: Normal For Age Attachments: IV, Oxygen (L), Telemetry, Other-See Comments (shiv wick) ADL-Treatment Therapy Code Descriptions/Definitions Functional [place] Measure: 0=Not Assessed/NA 4=Minimal Assistance 1=Total Assistance 5=Supervision or Setup 2=Maximal Assistance 6=Modified Scre[place] 3=Moderate Assistance 7=Complete IndependenceSCALE: Activities may be completed with or without assistive devices. 6-Seyclruhbc-kaxouqi completes the activity by him/herself with no assistance from a helper. 5-Set-up or Clean-up Assistance-helper sets up or cleans up; patient completes activity. [place] assists only prior to or following the activity. 4-Supervision or Touching Assistance-helper provides verbal cues and/or touching/steadying and/or contact guard assistance as patient completes activity. Assistance may be provided throughout the activity or intermittently. 3-Partial/Moderate Assistance-helper does LESS THAN HALF the effort. [place] lifts, holds or supports trunk or limbs, but provides less than half the effort. 2-Substantial/Maximal Assistance-helper does MORE THAN HALF the effort. [place] lifts or holds trunk or limbs and provides more than half the effort. 4-Evvhamnxf-nwquai does ALL the effort. Patient does none of the effort to complete the activity. Or, the assistance of 2 or more helpers is required for the patient to complete the activity. If activity was not attempted, code reason: 7-Patient Refused. 9-Not Applicable-not attempted and the patient did not perform the activity before the current illness, exacerbation or injury. 10-Not Attempted due to Environmental Limitations-(lack of equipment, weather restraints, etc.). 88-Not Attempted due to Medical Conditions or Safety Concerns. Eating (QC): 6 (able to bring cup to mouth to drink) Bathing Location: L Arm, R Arm, L Upper Leg, R Upper Leg, Chest, Abdomen Shower/Bathe Self (QC): 3 (mod A- delonte/ bottom hygiene, lower legs, back assist.) Upper Body Dressing (QC): 5 (s/u for gown donning.) Lower Body Dressing (QC): 2 (max A breif donning.) On/Off Footwear: 2 Toileting Hygiene (QC): 1 (TD in bed. Pt incontenant of bowel/ bladder, pure wick full of BM. pt completes roll L/ R with min A, able to hold position. Pt's delonte/ bottom cleaned with TD, ) Toilet Transfer (QC): 7 Other Treatment Pt completes bed mob to EOB with min A. Pt sits EOB during bathing/ dressing tasks. Pt requires assist for lower body. Pt's brief changed in bed. Completes sit to stand with min A and ambulates to recliner beside bed with CGA. Sits in recliner, all needs met, call light in reach. Pt maintains 02 above 96% through session. Pt denies needs. Pt's nurse notified of pure wick not replaced due to incontinence of BM. Education OT Patient Education: Correct positioning, Modified ADL techniques, Progress toward Goal/Update tx plan, Purpose of tx/functional activities, Safety issues, Transfer techniques Teaching Recipient: Patient Teaching Methods: Demonstration, Discussion Response to Teaching: Verbalize Understanding, Return Demonstration, Reinforcement Needed OT Mcfp Goals Mcfp Goals Time Frame: Sep 17, 2019 Eating (QC): 6 Oral Hygiene (QC): 6 Toileting Hygiene (QC): 4 Shower/Bathe Self (QC): 4 Upper Body Dressing (QC): 4 Lower Body Dressing (QC): 4 On/Off Footwear (QC): 4 Additional Goals: 1-Demonstrate ADL Tasks, 2-Verbalize Understanding, 3- ImproveStrength/Armin 1=Demonstrate adherence to instructed precautions during ADL tasks. 2=Patient will verbalize/demonstrate understanding of assistive devices/modifications for ADL. 3=Patient will improve strength/tolerance for activity to enable patient to perform ADL's. OT Education/Plan Problem List/Assessment Assessment: Decreased Activ Tolerance, Decreased UE Strength, Impaired Bed Mobility, Impaired Funct Balance, Impaired I ADL's, Impaired Self-Care Skills Discharge Recommendations Plan/Recommendations: Continue POC Therapy Discharge Recommendati: 24 Hour Supervision Treatment Plan/Plan of Care Treatment,Training & Education: Yes Patient would benefit from OT for education, treatment and training to promote independence in ADL's, mobility, safety and/or upper extremity function for ADL's. Plan of Care: ADL Retraining, Functional Mobility, UE Funct Exercise/Act Treatment Duration: Sep 17, 2019 Frequency: 5 times per week Estimated Hrs Per Day: .25 hour per day Agreement: Yes Rehab Potential: Good Time/GCodes Start Time: 10:15 Stop Time: 10:50 Total Time Billed (hr/min): 35 Billed Treatment Time 1, ADL 2 (35) JENNY RODRIGUEZ OTR Sep 11, 2019 11:00
--- NOTE | 2019-09-11 11:12 | NUR ---
IRF Evaluation Order received to evaluate patient for the ARU. Chart review complete and findings discussed with Dr. Rodríguez - patient accepted. Prior authorization process initiated with [facility]. Will continue to follow. Thank you for this referral. Addendum: 09/12/19 at 0946 by JUNE R JOLIE HAHN Received denial for admission from [facility]. EILEEN/SELMA and Dr. Rodríguez notified.
--- NOTE | 2019-09-11 11:38 | Physical Therapy Daily Note ---
PT Daily Note-Current Subjective Pt. reluctantly agrees to Rx. States she is so tired and gets SOB standing up and is fearful of falling. Pain Numeric Pain Scale: 5-Moderate Pain Location: No Pain Reported Mental Status Patient Orientation: Normal For Age Attachments: Oxygen, Other-See Comments ( BP cuff, O2 sat mon), IV Transfers SCALE: Activities may be completed with or without assistive devices. 5-Rbzqxeqofw-zepkdzn completes the activity by him/herself with no assistance from a helper. 5-Set-up or Clean-up Assistance-helper sets up or cleans up; patient completes activity. [place] assists only prior to or following the activity. 4-Supervision or Touching Assistance-helper provides verbal cues and/or touching/steadying and/or contact guard assistance as patient completes activity. Assistance may be provided throughout the activity or intermittently. 3-Partial/Moderate Assistance-helper does LESS THAN HALF the effort. Rugby l ifts, holds or supports trunk or limbs, but provides less than half the effort. 2-Substantial/Maximal Assistance-helper does MORE THAN HALF the effort. [place] lifts or holds trunk or limbs and provides more than half the effort. 4-Xfdxhando-asnyny does ALL the effort. Patient does none of the effort to complete the activity. Or, the assistance of 2 or more helpers is required for t he patient to complete the activity. If activity was not attempted, code reason: 7-Patient Refused. 9-Not Applicable-not attempted and the patient did not perform the activity before the current illness, exacerbation or injury. 10-Not Attempted due to Environmental Limitations-(lack of equipment, weather restraints, etc.). 88-Not Attempted due to Medical Conditions or Safety Concerns. sit to stand max to mod assist x 2 , pt. fearful and weak Weight Bearing Right Lower Extremity: Right Weight Bearing/Tolerated Left Lower Extremity: Left Weight Bearing/Tolerated Exercises Supine Ex: Ankle pumps, Quad Set, Glut sets, Heel Slides, Hip abd/add Supine Reps: 12 Seated Therapy Exercises: Sit to stand (x2), Long arc quads, Hip flexion Seated Reps: 12 Treatments sit to stand with pt. with kyphotic posture and awkward assist approach as pt. resists somewhat. Pt. states she really wants out of here and knows she needs to be stronger and may come to ARU. Stance for approx 20 to 30 sec x2 with pt. slowly sitting back down , required mod assist for balance Assessment Current Status: Fair Progress very fatigued with Rx, needed rest breaks between exercises and standing trials, in chair after with call simon, phone, blanket and book as well as nurse at side as IV seemed to be infiltrating with pts left arm wet with IV fluid and minimal amount of blood PT Logistics Research Engineer Goals Logistics Research Engineer Goals PT Jail Goals Time Frame: Sep 20, 2019 Roll Left & Right (QC): 6 Lying-Sitting on Side/Bed(QC): 6 Sit to Stand (QC): 6 Chair/Zmb-gq-Csjyv Xfer(QC): 6 Walk 10 feet (QC): 6 Walk 50ft with 2 Turns (QC): 5 PT Plan Treatment/Plan Treatment Plan: Continue Plan of Care Treatment Plan: Bed Mobility, Education, Functional Activity Armin, Functional Strength, Gait, Safety, Therapeutic Exercise, Transfers Treatment Duration: Sep 21, 2019 Frequency: 6 times per week Estimated Hrs Per Day: .25 hour per day Patient and/or Family Agrees t: Yes Safety Risks/Education Patient Education: Transfer Techniques, Correct Positioning, Disease Process, Safety Issues Teaching Recipient: Patient Teaching Methods: Demonstration, Discussion Response to Teaching: Verbalize Understanding, Return Demonstration, Reinforcement Needed Time/GCodes Time In: 1110 Time Out: 1140 Total Billed Treatment Time: 30 Total Billed Treatment 1,EX15m,FA15m MARITZA WOOD ROD P[employer]ER [employer]ILER Sep 11, 2019 11:38
--- NOTE | 2019-09-11 11:45 | NUR ---
Pastoral care visit.
[2019-09-11] MEDS: AMIODARONE 200 MG (CORDARONE) TAB PO SCH ×2 (13:35→20:09)
[2019-09-11] MEDS: dilTIAZem DRIP 125 MG/125 ML DRIP IV SCH (16:11)
[2019-09-11] MEDS: ADVAIR HFA 115/21 MCG INHALER 8 GM IH SCH (18:19)
[2019-09-12] VITALS (29 sets, daily range): BP systolic 110–165; BP diastolic 55–116
[2019-09-12] MEDS: MELATONIN 3 MG TABLET PO PRN (00:09)
[2019-09-12 03:18] LABS: BASOPHILS % (AUTO) 0 % (0-10); EOSINOPHILS # (AUTO) 0.2 10^3/uL (0.0-0.3); EOSINOPHILS % (AUTO) 3 % (0-10); HEMATOCRIT 32 % (35-52); HEMOGLOBIN 10.4 G/DL (11.5-16.0); LYMPHOCYTES # (AUTO) 1.2 X 10^3 (1.0-4.0); LYMPHOCYTES % (AUTO) 21 % (12-44); MEAN CORPUSCULAR HEMOGLOBIN 31 PG (25-34); MEAN CORPUSCULAR HGB CONC 32 G/DL (32-36); MEAN CORPUSCULAR VOLUME 96 FL (80-99); MEAN PLATELET VOLUME 9.8 FL (7.4-10.4); MONOCYTES # (AUTO) 0.4 X 10^3 (0.0-1.0); MONOCYTES % (AUTO) 7 % (0-12); NEUTROPHILS # (AUTO) 3.9 X 10^3 (1.8-7.8); NEUTROPHILS % (AUTO) 69 % (42-75); PLATELET COUNT 200 10^3/uL (130-400); RED CELL DISTRIBUTION WIDTH 15.7 % (10.0-14.5); WHITE BLOOD COUNT 5.7 10^3/uL (4.3-11.0)
[2019-09-12 03:29] LABS: CHLORIDE 112 MMOL/L (98-107); SODIUM 138 MMOL/L (135-145)
[2019-09-12 03:30] LABS: CALCIUM 7.8 MG/DL (8.5-10.1); GLUCOSE 74 MG/DL (70-105)
[2019-09-12 03:32] LABS: CARBON DIOXIDE 19 MMOL/L (21-32)
[2019-09-12 03:34] LABS: CREATININE SERUM 0.79 MG/DL (0.60-1.30); GFR ESTIMATED > 60; PHOSPHORUS 2.6 MG/DL (2.3-4.7)
[2019-09-12 03:35] LABS: BUN/CREATININE RATIO 9
[2019-09-12 03:37] LABS: MAGNESIUM 1.8 MG/DL (1.6-2.4)
[2019-09-12] MEDS: NS IV 1000 ML 1,000 ML IV SCH ×3 (04:17→23:04)
[2019-09-12] MEDS: MAGNESIUM 1 GM/100 ML IVPB 100 ML IV SCH (04:18)
[2019-09-12] MEDS: KCL 20 MEQ TAB (K-DUR) PO SCH (04:18)
[2019-09-12] MEDS: POTASSIUM CL 10MEQ/50ML IVPB 50 ML IV SCH (04:18)
[2019-09-12] MEDS: LEVOTHYROXINE 88 MCG (LEVOTHORID) TAB PO SCH (05:47)
--- NOTE | 2019-09-12 06:06 | Pulmonary Progress Note ---
Subjective Time Seen by a Provider: 06:04 Subjective/Events-last exam plan is for cardioversion today. Sepsis Event Evaluation Height, Weight, BMI Height: 5'7.50" Weight: 137lbs. 1.6oz. 62.456851os; 15.00 BMI Method:Stated Focused Exam Lactate Level 09/09/19 11:20: Lactic Acid Level 1.71 Exam Exam Vital Signs Date Time Temp Pulse Resp B/P (MAP) Pulse Ox O2 Delivery O2 Flow Rate FiO2 09/12/19 05:00 77 20 128/69 (88) 100 Nasal Cannula 2.00 09/12/19 04:05 Nasal Cannula 2.00 09/12/19 04:04 37.0 09/12/19 04:00 83 27 115/69 (84) 100 Nasal Cannula 2.00 09/12/19 03:00 103 21 125/74 (91) 99 Nasal Cannula 2.00 09/12/19 02:00 90 26 164/101 (122) 100 Nasal Cannula 2.00 09/12/19 01:00 91 28 165/85 (111) 100 Nasal Cannula 2.00 09/12/19 01:00 87 09/12/19 00:15 36.8 09/12/19 00:00 80 26 133/82 (99) 99 Nasal Cannula 2.00 09/11/19 23:59 Nasal Cannula 2.00 09/11/19 23:00 87 25 122/67 (85) 100 Nasal Cannula 2.00 09/11/19 22:00 103 22 125/86 (99) 98 Nasal Cannula 2.00 09/11/19 21:00 88 30 128/70 (89) 98 Nasal Cannula 2.00 09/11/19 20:00 Nasal Cannula 2.00 09/11/19 20:00 36.5 09/11/19 20:00 93 37 136/82 (100) 100 Nasal Cannula 2.00 09/11/19 19:00 88 09/11/19 19:00 98 21 134/81 (98) Nasal Cannula 2.00 09/11/19 18:23 Nasal Cannula 2.00 09/11/19 18:00 97 27 135/92 (106) Nasal Cannula 2.00 09/11/19 17:00 117 15 148/94 (112) 100 Nasal Cannula 2.00 09/11/19 16:00 Room Air 09/11/19 16:00 87 13 143/78 (99) 100 Nasal Cannula 2.00 09/11/19 16:00 36.5 09/11/19 15:00 109 21 136/77 (96) 99 Nasal Cannula 2.00 09/11/19 14:00 90 26 128/75 (92) 100 Nasal Cannula 2.00 09/11/19 13:59 95 09/11/19 13:17 Nasal Cannula 2.00 09/11/19 13:00 93 16 134/68 (90) 99 Nasal Cannula 2.00 09/11/19 12:00 72 24 144/84 (104) 99 Nasal Cannula 2.00 09/11/19 12:00 Room Air 09/11/19 11:16 36.4 09/11/19 11:00 72 22 155/72 (99) 99 Nasal Cannula 2.00 09/11/19 10:00 90 32 125/85 (98) 99 Nasal Cannula 2.00 09/11/19 09:00 67 32 136/65 (88) 100 Nasal Cannula 2.00 09/11/19 08:00 72 31 97/67 (77) 97 Nasal Cannula 2.00 09/11/19 08:00 Room Air 09/11/19 07:21 36.1 09/11/19 07:00 74 32 126/71 (89) 97 Nasal Cannula 2.00 09/11/19 06:43 66 I & O 09/12/19 07:00 Intake Total 1100 ml Output Total 1500 ml Balance -400 ml Height & Weight Height: 5'7.50" Weight: 137lbs. 1.6oz. 62.641009kh; 15.00 BMI Method:Stated General Appearance: No Apparent Distress, Chronically ill, Thin HEENT: PERRL/EOMI, Pharynx Normal Neck: Normal Inspection, Supple Respiratory: Lungs Clear, No Respiratory Distress, Decreased Breath Sounds Cardiovascular: Regular Rate, Rhythm, No Edema, No Murmur Capillary Refill: Less Than 3 Seconds Extremity: Normal Inspection, Non Tender, No Pedal Edema Neurologic/Psychiatric: Alert, Oriented x3, Normal Mood/Affect, Motor Weakness Skin: Normal Color, Warm/Dry Results Lab Laboratory Tests 09/11/19 03:26 09/12/19 02:58 Assessment/Plan Assessment/Plan LLL PNA per imaging -NO leukocytosis or fever however procalcitonin is elevated -Currenlty on Levaquin - CT of chest to r/o mass - Pt refuses CT of chest at this time -COVID swab is negative Afib RVR -Cardiology following -Cardioversion today -Currently on Ammio PO Hypokalemia, hypomag -replace LISA PEDRAZA DO Sep 12, 2019 06:06
[2019-09-12] MEDS ORDERED: NS IV 500 ML 0 ML ONE (07:16)
[2019-09-12] MEDS ORDERED: MIDAZOLAM 5 MG/5 ML (VERSED) VIAL ONE (07:16)
[2019-09-12] MEDS ORDERED: proPOfol 200 MG/20 ML (DIPRIVAN) VIAL IV ONE (07:17)
--- NOTE | 2019-09-12 07:26 | Diagnostic Imaging Report ---
INDICATION: Dyspnea. Comparison made with prior examination from 09/11/2019 FINDINGS: There is a left basal infiltrate and left pleural effusion. There is cardiomegaly. Right lung is clear. There is no pneumothorax. The mediastinum is unremarkable. IMPRESSION: Left basilar infiltrate and left pleural effusion. Cardiomegaly. Dictated by: Dictated on workstation # [id number]
--- NOTE | 2019-09-12 07:34 | Cardiac Procedure Note-CS/ASA ---
Pre-Procedure Note Pre-Op Procedure Note H&P Reviewed The H&P was reviewed, patient examined and no changes noted. Date H&P Reviewed: Sep 12, 2019 Time H&P Reviewed: 07:33 Conscious Sedation Pre-Proced Time 07:33 ASA Score 3 For ASA 3 and 4: Consider anesthesia and medical clearance. Also, for patients with a history of failed moderate sedation consider anesthesia. Airway Lungs Heart ASA score ASA 1: a normal healthy patient ASA 2: a patient with a mild systemic disease (mid diabetes, controlled hypertension, obesity x ASA 3: a patient with a severe systemic disease that limits activity (angina, COPD, prior Myocardial infarction) ASA 4: a patient with an incapacitating disease that is a constant threat to life (CHF, renal failure) ASA 5: a moribund patient not expected to survive 24 hrs. (ruptured aneurysm) ASA 6: a declared brain- patient whose organs are being harvested. For emergent operations, add the letter E after the classification Mallampati Classification Grade 3 Sedation Plan Analgesia, Amnesia, Plan communicated to team members, Discussed options with patient/fam, Discussed risks with patient/fam The patient is an appropriate candidate to undergo the planned procedure, sedation, and anesthesia. The patient immediately re-assessed prior to indication. LILIA ANN MD Sep 12, 2019 07:34
--- NOTE | 2019-09-12 07:36 | NUR ---
CARDIOVERSION DONE BY DR ANN AT THIS TIME, SEE INTERVENTION FOR DETAILS.
--- NOTE | 2019-09-12 07:41 | Cardiology Progress Note ---
Subjective Date Seen by Provider: Sep 12, 2019 Time Seen by Provider: 07:40 Subjective/Events-last exam Patient is laying down in bed, feeling well. No new complaint. Review of Systems General: No Chills, No Night Sweats, No Fatigue, No Malaise, No Appetite, No Other HEENT: No Head Aches, No Visual Changes, No Eye Pain, No Ear Pain, No Dysphasia, No Sinus Congestion, No Post Nasal Drip, No Sore Throat, No Other Pulmonary: No Dyspnea, No Cough, No Pleuritic Chest Pain, No Other Cardiovascular: No: Chest Pain, Palpitations, Orthopnea, Paroxysmal Noc. Dyspnea, Edema, Lt Headedness, Other Focused Exam Lactate Level 09/09/19 11:20: Lactic Acid Level 1.71 Objective-Cardiology Exam Last Set of Vital Signs Vital Signs 09/10/19 09/12/19 09/12/19 04:00 05:00 07:06 Temp 36.5 Pulse 77 Resp 20 B/P (MAP) 128/69 (88) Pulse Ox 100 O2 Delivery Nasal Cannula O2 Flow Rate 2.00 FiO2 95 Capillary Refill : Less Than 3 Seconds I&O Intake and Output 09/12/19 00:00 Intake Total 700 ml Output Total 1475 ml Balance -775 ml Intake Oral 700 ml Output Urine Total 1475 ml # Urine Diapers 2 # Bowel Movements 1 General: Alert, Oriented X3, Cooperative HEENT: Atraumatic, PERRLA Neck: Supple, No JVD, No Thyromegaly Lungs: Normal Air Movement, Other (decreased breath sounds LLL) Heart: Regular Rate, Normal S1, Normal S2, No Murmurs Abdomen: Normal Bowel Sounds, Soft, No Tenderness, No Hepatosplenomegaly, No Masses Extremities: No Clubbing, No Cyanosis, No Edema, Normal Pulses, No Tenderness/Swelling Skin: No Rashes, No Breakdown, No Significant Lesion Neuro: Normal Speech, Cranial Nerves 3-12 NL Psych/Mental Status: Mental Status NL, Mood NL Results Lab Laboratory Tests 09/12/19 02:58 A/P-Cardiology Admission Diagnosis Atrial fibrillation Tachycardia Hypotension Generalized weakness Assessment/Plan Paroxysmal Atrial fibrillation with rapid ventricular response, currently on amiodarone, Eliquis, was in sinus rhythm and return to atrial fibrillation. Attempt with 3 shocks cardioversion this morning has failed to restore sinus rhythm. I will give additional bolus of amiodarone IV and continue with oral dosing continue oral anticoagulation. Left lower lobe infiltrate on chest x-ray, no leukocytosis, receiving Levaquin, managed by Dr. Tidwell Hypotension. Continue with IV fluid and monitor tolerance and response, cannot tolerate Cardizem due to hypotension. Questionable TIA in 2016, patient had a transient episode of aphasia where she was unable to speak properly lasted for few minutes and resolved spontaneously, no full stroke was reported. [id number] score is 5, yearly risk of stroke without oral anticoagulation is 6.7 percent, patient is at high risk of stroke without oral anticoagulation, maintained on Eliquis. History of emphysema/COPD. Managed by Dr. Tidwell Hypothyroidism, currently hyperthyroidism. Managed by primary care physician Osteoporosis. Dr. De La Vega is covering starting tomorrow Clinical Quality Measures DVT/VTE Risk/Contraindication: Risk Factor Score Per Nursin RFS Level Per Nursing on Admit: 4+=Very High LILIA ANN MD Sep 12, 2019 07:41
[2019-09-12] MEDS ORDERED: AMIODARONE FOR BOLUS 150 MG in D5W 100 ML IVPB 100 ML IV NR (07:45)
[2019-09-12] MEDS: AMIODARONE 200 MG (CORDARONE) TAB PO SCH ×2 (08:05→20:10)
[2019-09-12] MEDS: APIXABAN 2.5 MG (ELIQUIS) TABLET PO SCH ×2 (08:05→20:10)
[2019-09-12] MEDS: PANTOPRAZOLE 40 MG (PROTONIX) TAB PO SCH (08:05)
[2019-09-12] MEDS: ASPIRIN E.C. 81 MG (ECOTRIN) TAB PO SCH (08:05)
[2019-09-12] MEDS: DIGOXIN 0.125 MG (LANOXIN) TAB PO SCH (08:05)
[2019-09-12] MEDS: AUGMENTIN 875 MG TAB (AMOXICILLIN/CLAVULANATE) PO SCH ×2 (08:05→18:04)
--- NOTE | 2019-09-12 08:12 | Anesthesia-General Post-Op ---
MAC Patient Condition Mental Status/LOC: Same as Preop Cardiovascular: Satisfactory Nausea/Vomiting: Absent Respiratory: Satisfactory Pain: Controlled Complications: Absent Post Op Complications Complications None Follow Up Care/Instructions Patient Instructions None needed. Anesthesiology Discharge Order Discharge Order Patient is doing well, no complaints, stable vital signs, no apparent adverse anesthesia problems. No complications reported per nursing. DULCE VIDAL CRNA Sep 12, 2019 08:12
--- NOTE | 2019-09-12 09:59 | Occupational Ther Daily Note ---
OT Current Status-Daily Note Subjective Pt seen in bed, does not rate/ state pain. Pt states fatigue and ~2 hours of sleep. Pt educated on benefits of seated position, denies sitting in recliner chair, stating, "That would probably be the least desired option." Pt agrees to UB ex in bed, sitting ~45* angle. Sats checked intermittently with HR mainta ining high 90s and 02 ~97-100%. Mental Status/Objective Patient Orientation: Normal For Age Attachments: IV, Oxygen, Telemetry, Other-See Comments (pure wick) ADL-Treatment Therapy Code Descriptions/Definitions Functional Glenn Measure: 0=Not Assessed/NA 4=Minimal Assistance 1=Total Assistance 5=Supervision or Setup 2=Maximal Assistance 6=Modified Glenn 3=Moderate Assistance 7=Complete IndependenceSCALE: Activities may be completed with or without assistive devices. 2-Iaprkbzkjk-stqslyj completes the activity by him/herself with no assistance from a helper. 5-Set-up or Clean-up Assistance-helper sets up or cleans up; patient completes activity. [place] assists only prior to or following the activity. 4-Supervision or Touching Assistance-helper provides verbal cues and/or touching/steadying and/or contact guard assistance as patient completes activity. Assistance may be provided throughout the activity or intermittently. 3-Partial/Moderate Assistance-helper does LESS THAN HALF the effort. [place] lifts, holds or supports trunk or limbs, but provides less than half the effort. 2-Substantial/Maximal Assistance-helper does MORE THAN HALF the effort. [place] lifts or holds trunk or limbs and provides more than half the effort. 5-Tvcziuveu-dimlpe does ALL the effort. Patient does none of the effort to complete the activity. Or, the assistance of 2 or more helpers is required for the patient to complete the activity. If activity was not attempted, code reason: 7-Patient Refused. 9-Not Applicable-not attempted and the patient did not perform the activity before the current illness, exacerbation or injury. 10-Not Attempted due to Environmental Limitations-(lack of equipment, weather restraints, etc.). 88-Not Attempted due to Medical Conditions or Safety Concerns. Oral Hygiene (QC): 7 Shower/Bathe Self (QC): 7 Toileting Hygiene (QC): 7 Toilet Transfer (QC): 7 Other Treatment Pt denies being wet/ denies bathing. Pt denies OOB, agrees to UB ex in recliner. Pt completes AROM (15 reps bilaterally) of following exercises: horizonal abduction, shoulder flexion; and with use of ~2 lb item (15 reps bilaterally): triceps, bicep curls. Pt educated on use of back/ triceps mms that assist in sit to stands. Pt's sats monitored throughout. Pt denies needs, call light in reach, pt remains in bed end of session. Education OT Patient Education: Correct positioning, Exercise program, Home exercise program Teaching Recipient: Patient Teaching Methods: Demonstration, Discussion Response to Teaching: Verbalize Understanding, Return Demonstration OT Prison Goals [employer] Goals Time Frame: Sep 17, 2019 Eating (QC): 6 Oral Hygiene (QC): 6 Toileting Hygiene (QC): 4 Shower/Bathe Self (QC): 4 Upper Body Dressing (QC): 4 Lower Body Dressing (QC): 4 On/Off Footwear (QC): 4 Additional Goals: 1-Demonstrate ADL Tasks, 2-Verbalize Understanding, 3- ImproveStrength/Armin 1=Demonstrate adherence to instructed precautions during ADL tasks. 2=Patient will verbalize/demonstrate understanding of assistive devices/modifications for ADL. 3=Patient will improve strength/tolerance for activity to enable patient to perform ADL's. OT Education/Plan Problem List/Assessment Assessment: Decreased Activ Tolerance, Decreased UE Strength, Dependent Transfers, Impaired Bed Mobility, Impaired Funct Balance, Impaired I ADL's, Impaired Self-Care Skills Discharge Recommendations Plan/Recommendations: Continue POC Therapy Discharge Recommendati: 24 Hour Supervision Treatment Plan/Plan of Care Treatment,Training & Education: Yes Patient would benefit from OT for education, treatment and training to promote independence in ADL's, mobility, safety and/or upper extremity function for ADL's. Plan of Care: ADL Retraining, Functional Mobility, UE Funct Exercise/Act Treatment Duration: Sep 17, 2019 Frequency: 5 times per week Estimated Hrs Per Day: .25 hour per day Agreement: Yes Rehab Potential: Good Time/GCodes Start Time: 09:30 Stop Time: 09:49 Total Time Billed (hr/min): 19 Billed Treatment Time 1, EX (19) JENNY RODRIGUEZ OTR Sep 12, 2019 09:59
[2019-09-12] MEDS: RT-ALBUTEROL/IPRATROPIUM 3 ML (DUONEB) VIAL INH SCH ×3 (10:16→21:12)
[2019-09-12] MEDS: UMECLIDINIUM BROMIDE (INCRUSE ELLIPTA) 7'S IH SCH (10:17)
[2019-09-12] MEDS: ADVAIR HFA 115/21 MCG INHALER 8 GM IH SCH ×2 (10:17→21:12)
--- NOTE | 2019-09-12 10:43 | Physical Therapy Daily Note ---
PT Daily Note-Current Subjective Patient in bed pre tx, agrees reluctantly to PT, states her pain is "not much". Patient refuses to get out of bed or sit on the side of bed, she refuses adamantly, agrees reluctantly to LE exercises in bed. Appearance Patient in bed post tx with nurse call, phone, tray, all needs met, legs on p illow for heel pressure relief. Mental Status Patient Orientation: Person, Place, Situation Attachments: IV Transfers SCALE: Activities may be completed with or without assistive devices. 1-Euczdrpxaj-trsutpt completes the activity by him/herself with no assistance from a helper. 5-Set-up or Clean-up Assistance-helper sets up or cleans up; patient completes activity. [place] assists only prior to or following the activity. 4-Supervision or Touching Assistance-helper provides verbal cues and/or touching/steadying and/or contact guard assistance as patient completes activity. Assistance may be provided throughout the activity or intermittently. 3-Partial/Moderate Assistance-helper does LESS THAN HALF the effort. [place] lifts, holds or supports trunk or limbs, but provides less than half the effort. 2-Substantial/Maximal Assistance-helper does MORE THAN HALF the effort. [place] lifts or holds trunk or limbs and provides more than half the effort. 4-Yipywxiky-odpcys does ALL the effort. Patient does none of the effort to complete the activity. Or, the assistance of 2 or more helpers is required for the patient to complete the activity. If activity was not attempted, code reason: 7-Patient Refused. 9-Not Applicable-not attempted and the patient did not perform the activity before the current illness, exacerbation or injury. 10-Not Attempted due to Environmental Limitations-(lack of equipment, weather restraints, etc.). 88-Not Attempted due to Medical Conditions or Safety Concerns. Weight Bearing Right Lower Extremity: Right Weight Bearing/Tolerated Left Lower Extremity: Left Weight Bearing/Tolerated Exercises Supine Ex: Ankle pumps, Quad Set, Glut sets, Heel Slides, Short Arc Quads, Straight leg raise, Hip abd/add Supine Reps: 20 Treatments LE exercise Assessment Current Status: Poor Progress patient refused to get out of bed, patient educated on the benefits of sitting versus laying but she still refused PT Skid Road Man Goals Skid Road Man Goals PT Snf Goals Time Frame: Sep 20, 2019 Roll Left & Right (QC): 6 Lying-Sitting on Side/Bed(QC): 6 Sit to Stand (QC): 6 Chair/Iuq-fn-Stlos Xfer(QC): 6 Walk 10 feet (QC): 6 Walk 50ft with 2 Turns (QC): 5 PT Plan Problem List Problem List: Activity Tolerance, Functional Strength, Safety, Balance, Gait, Transfer, Bed Mobility, ROM Treatment/Plan Treatment Plan: Continue Plan of Care Treatment Plan: Bed Mobility, Education, Functional Activity Armin, Functional Strength, Gait, Safety, Therapeutic Exercise, Transfers Treatment Duration: Sep 21, 2019 Frequency: 6 times per week Estimated Hrs Per Day: .25 hour per day Patient and/or Family Agrees t: Yes Safety Risks/Education Patient Education: Correct Positioning, Safety Issues Teaching Recipient: Patient Teaching Methods: Demonstration, Discussion Response to Teaching: Reinforcement Needed Time/GCodes Time In: 1021 Time Out: 1034 Total Billed Treatment Time: 13 Total Billed Treatment 1 visit EX 13SELENE CHILEL PT Sep 12, 2019 10:43
--- NOTE | 2019-09-12 13:27 | NUR ---
EILEEN/SELMA follow up. EILEEN/SELMA was notified that insurance had denied the patient for inpatient rehab. EILEEN/SELMA spoke with physician in regards to discharge plan for therapy. He stated that patient would benefit from a skilled facility placement. EILEEN/SELMA visited with the patient to discuss this. She reports that she is willing to have this sw send a referral but was "not 100% saying yes to it". EILEEN/SELMA provided the patient with a patient preference form. She stated that her first choice is [facility]. The patient states that she has had a friend at the [facility] right now and has been inside. EILEEN/SELMA contacted Suzie from [facility] and made the referral. EILEEN/SELMA will continue to follow.
--- NOTE | 2019-09-12 13:54 | Progress Note - Hospitalist ---
Subjective HPI/CC On Admission Date Seen by Provider: Sep 12, 2019 Time Seen by Provider: 10:10 Megan Phelan is an 83-year-old female with past medical history of paroxysmal atrial fibrillation, COPD, hypothyroidism, GERD, who presented with weakness. She reports that she has been very weak over the past week. She reports that EMS was been at her house 3 times this week. She denies any fevers or chills. She reports feeling short of breath. She reports having a cough. She denies any abdominal pain, nausea, vomiting. She reports having diarrhea. She was reportedly exposed to someone with coronavirus. She reports compliance with her medications but says that she might have missed her medicines a couple days last week. Subjective/Events-last exam She is feeling tired and is going to take a nap. She denies any chest pain or palpitations. They attempted a cardioversion this morning but it was unsuccessful. She denies any shortness of breath or cough. She denies any fevers or chills. She denies any abdominal pain, nausea, or vomiting. Has no other complaints or concerns. Objective Exam Vital Signs Vital Signs Date Time Temp Pulse Resp B/P (MAP) Pulse Ox O2 Delivery O2 Flow Rate FiO2 09/12/19 12:00 123 12 128/67 (87) 95 Room Air 09/12/19 11:12 36.7 09/10/19 04:00 95 Capillary Refill : Less Than 3 Seconds General Appearance: No Apparent Distress, Chronically ill, Thin Respiratory: Lungs Clear, Normal Breath Sounds, No Respiratory Distress Cardiovascular: No Edema, No Murmur, Irregularly Irregular Gastrointestinal: Normal Bowel Sounds, Non Tender, Soft Extremity: Normal Inspection, Non Tender, No Pedal Edema Neurologic/Psychiatric: Alert, Oriented x3, No Motor/Sensory Deficits, Normal Mood/Affect Skin: Normal Color, Warm/Dry Results/Procedures Lab Laboratory Tests 09/12/19 02:58 Patient resulted labs reviewed. Imaging: Reviewed Imaging Report Assessment/Plan Assessment and Plan Assess & Plan/Chief Complaint Paroxysmal atrial fibrillation Cardiology consulted, appreciate assistance Continue amiodarone Continue Eliquis Community acquired pneumonia Chest x-ray with left lower lobe infiltrate Afebrile, WBC normal Procalcitonin normal Continue Augmentin Recommended CT but patient deferred Elevated troponin Troponin mildly elevated at 0.04, returned to normal on repeat Cardiology consulted, appreciate assistance Likely elevated due to A. fib with RVR Debility PT/OT Insurance denied inpatient rehabilitation Likely [facility] placement COPD GERD Hypothyroidism Continue home meds DVT prophylaxis: Already receiving therapeutic anticoagulation Hypomagnesemia, resolved Hypokalemia, resolved Diagnosis/Problems Diagnosis/Problems (1) Paroxysmal atrial fibrillation Status: Acute (2) Atrial fibrillation with RVR Status: Resolved Resolution Date/Time: 09/12/19 @ 13:53 (3) Pneumonia Status: Acute Qualifiers: Pneumonia type: due to unspecified organism Laterality: left Lung location: lower lobe of lung Qualified Codes: J18.1 - Lobar pneumonia, unspe cified organism (4) COPD (chronic obstructive pulmonary disease) Status: Chronic (5) Hypothyroidism Status: Chronic (6) GERD (gastroesophageal reflux disease) Status: Chronic (7) Debility Status: Acute (8) Hypomagnesemia Status: Resolved Resolution Date/Time: 09/11/19 @ 11:03 (9) Hypokalemia Status: Resolved Resolution Date/Time: 09/11/19 @ 11:03 Clinical Quality Measures DVT/VTE Risk/Contraindication: Risk Factor Score Per Nursin RFS Level Per Nursing on Admit: 4+=Very High SHANTELL HURST MD Sep 12, 2019 13:54
[2019-09-12] MEDS: dilTIAZem DRIP 125 MG/125 ML DRIP IV SCH ×2 (16:11→23:05)
--- NOTE | 2019-09-12 22:57 | NUR ---
THIS RN CALLED TELE-ICU TO NOTIFY DR OF PT HEART RATE. THIS RN INFORMED THE DR THAT PT IS SLEEPING AND RESTING HR CURRENTLY 126 BPM BUT HAS BEEN GETTING UP HIGH 130-140. THIS RN ALSO NOTIFIED THE DR THAT THE PT RECEIVED AMIODARONE 200MG PO AT ABOUT 1999. THIS RN INSTRUCTED TO RESUME CARDIZEM GTT AT 5MG/HR.
[2019-09-13] VITALS (21 sets, daily range): BP systolic 102–142; BP diastolic 52–94
[2019-09-13] MEDS: RT-ALBUTEROL/IPRATROPIUM 3 ML (DUONEB) VIAL INH SCH ×4 (03:33→20:04)
[2019-09-13 03:38] LABS: BASOPHILS % (AUTO) 0 % (0-10); EOSINOPHILS # (AUTO) 0.1 10^3/uL (0.0-0.3); EOSINOPHILS % (AUTO) 1 % (0-10); HEMATOCRIT 31 % (35-52); HEMOGLOBIN 10.1 G/DL (11.5-16.0); LYMPHOCYTES # (AUTO) 0.9 X 10^3 (1.0-4.0); LYMPHOCYTES % (AUTO) 16 % (12-44); MEAN CORPUSCULAR HEMOGLOBIN 32 PG (25-34); MEAN CORPUSCULAR HGB CONC 33 G/DL (32-36); MEAN CORPUSCULAR VOLUME 96 FL (80-99); MEAN PLATELET VOLUME 10.4 FL (7.4-10.4); MONOCYTES # (AUTO) 0.4 X 10^3 (0.0-1.0); MONOCYTES % (AUTO) 7 % (0-12); NEUTROPHILS # (AUTO) 4.2 X 10^3 (1.8-7.8); NEUTROPHILS % (AUTO) 76 % (42-75); PLATELET COUNT 176 10^3/uL (130-400); RED CELL DISTRIBUTION WIDTH 15.8 % (10.0-14.5); WHITE BLOOD COUNT 5.6 10^3/uL (4.3-11.0)
[2019-09-13 04:02] LABS: BUN/CREATININE RATIO 9; CALCIUM 7.8 MG/DL (8.5-10.1); CARBON DIOXIDE 18 MMOL/L (21-32); CHLORIDE 113 MMOL/L (98-107); CREATININE SERUM 0.79 MG/DL (0.60-1.30); GFR ESTIMATED > 60; GLUCOSE 78 MG/DL (70-105); MAGNESIUM 1.9 MG/DL (1.6-2.4); PHOSPHORUS 3.2 MG/DL (2.3-4.7); POTASSIUM 3.9 MMOL/L (3.6-5.0); SODIUM 137 MMOL/L (135-145)
[2019-09-13] MEDS: MAGNESIUM 1 GM/100 ML IVPB 100 ML IV SCH (04:31)
[2019-09-13] MEDS: POTASSIUM CL 10MEQ/50ML IVPB 50 ML IV SCH (04:31)
[2019-09-13] MEDS: KCL 20 MEQ TAB (K-DUR) PO SCH (04:32)
[2019-09-13] MEDS: LEVOTHYROXINE 88 MCG (LEVOTHORID) TAB PO SCH (05:37)
--- NOTE | 2019-09-13 05:37 | Pulmonary Progress Note ---
Subjective Time Seen by a Provider: 05:34 Subjective/Events-last exam Pt is back on Cardizem Sepsis Event Evaluation Height, Weight, BMI Height: 5'7.50" Weight: 137lbs. 1.6oz. 62.135774ub; 15.00 BMI Method:Stated Exam Exam Vital Signs Date Time Temp Pulse Resp B/P (MAP) Pulse Ox O2 Delivery O2 Flow Rate FiO2 09/13/19 05:00 82 30 113/63 (80) 97 Nasal Cannula 1.00 09/13/19 04:05 36.7 09/13/19 04:00 Room Air 09/13/19 04:00 93 28 118/69 (85) 99 Nasal Cannula 1.00 09/13/19 03:34 99 Nasal Cannula 1.00 09/13/19 03:00 87 29 122/68 (86) 99 Nasal Cannula 1.00 09/13/19 02:00 90 22 110/64 (79) 98 Nasal Cannula 1.00 09/13/19 01:00 92 19 102/69 (80) 99 Nasal Cannula 1.00 09/13/19 01:00 100 09/13/19 00:20 Room Air 09/13/19 00:00 122 28 135/94 (108) 100 Nasal Cannula 1.00 09/12/19 23:07 36.6 09/12/19 23:00 129 26 113/74 (87) 98 Nasal Cannula 1.00 09/12/19 22:44 Nasal Cannula 1.00 09/12/19 22:00 117 28 115/59 (77) 94 Room Air 09/12/19 21:14 96 Room Air 09/12/19 21:00 102 24 119/67 (84) 96 Room Air 09/12/19 20:02 Room Air 09/12/19 20:00 36.6 09/12/19 20:00 96 29 121/63 (82) 95 Room Air 09/12/19 19:00 105 09/12/19 19:00 108 25 124/67 (86) 96 Room Air 09/12/19 18:00 99 17 113/94 (100) 97 Room Air 09/12/19 17:00 112 25 114/82 (93) 97 Room Air 09/12/19 16:11 Room Air 09/12/19 16:00 115 31 117/87 (97) 96 Room Air 09/12/19 16:00 37.5 09/12/19 15:16 97 Room Air 09/12/19 15:00 107 26 128/116 (120) 92 Room Air 09/12/19 14:00 112 33 112/73 (86) 90 Room Air 09/12/19 13:00 112 33 112/73 (86) 90 Room Air 09/12/19 12:41 104 09/12/19 12:00 123 12 128/67 (87) 95 Room Air 09/12/19 11:25 Room Air 09/12/19 11:12 36.7 09/12/19 11:00 96 12 110/55 (73) 96 Nasal Cannula 2.00 09/12/19 10:18 Room Air 09/12/19 10:18 100 Room Air 09/12/19 10:17 Room Air 09/12/19 10:00 87 21 119/69 (86) 100 Nasal Cannula 2.00 09/12/19 09:30 85 35 118/77 (91) 100 Nasal Cannula 2.00 09/12/19 09:00 94 16 131/77 (95) 100 Nasal Cannula 2.00 09/12/19 08:45 96 125/71 09/12/19 08:45 96 22 122/84 (97) 98 Nasal Cannula 2.00 09/12/19 08:30 82 24 134/100 (111) 100 Nasal Cannula 2.00 09/12/19 08:30 Nasal Cannula 2.00 09/12/19 08:15 86 13 125/71 (89) 100 Nasal Cannula 2.00 09/12/19 08:00 93 27 122/84 (97) 100 Nasal Cannula 2.00 09/12/19 07:45 85 25 114/74 (87) 100 Nasal Cannula 2.00 09/12/19 07:30 OxyMask 2.00 09/12/19 07:06 36.5 09/12/19 07:00 79 26 114/74 (87) 100 Nasal Cannula 2.00 09/12/19 06:47 74 09/12/19 06:00 84 27 124/80 (95) 100 Nasal Cannula 2.00 I & O0 09/13/19 07:00 Intake Total 3318 ml Output Total 2100 ml Balance 1218 ml Height & Weight Height: 5'7.50" Weight: 137lbs. 1.6oz. 62.628626pm; 15.00 BMI Method:Stated General Appearance: No Apparent Distress, Chronically ill, Thin HEENT: PERRL/EOMI, Pharynx Normal Neck: Normal Inspection, Supple Respiratory: Lungs Clear, Normal Breath Sounds, No Respiratory Distress, Decreased Breath Sounds Cardiovascular: No Edema, No Murmur, Irregularly Irregular Capillary Refill: Less Than 3 Seconds Extremity: Normal Inspection, Non Tender, No Pedal Edema Neurologic/Psychiatric: Alert, Oriented x3, No Motor/Sensory Deficits, Normal Mood/Affect Skin: Normal Color, Warm/Dry Results Lab Laboratory Tests 09/12/19 02:58 09/13/19 02:53 Assessment/Plan Assessment/Plan LLL PNA per imaging -Augmentin - CT of chest to r/o mass - Pt refuses CT of chest at this time -COVID swab is negative Afib RVR -Cardiology following -Currently on Cardizem gtt Hypokalemia, hypomag -replace LISA PEDRAZA DO Sep 13, 2019 05:37
--- NOTE | 2019-09-13 05:47 | Diagnostic Imaging Report ---
Indication: Shortness of breath Portable chest 3:35 AM There is increased density in the lower portion of left lung which appears be combination infiltrate, effusion and atelectasis. This appears stable from the previous day. Right lung is clear. IMPRESSION: Stable chest. There continues be some left basilar consolidation with effusion. Dictated by: Dictated on workstation # [id number]
[2019-09-13] MEDS: ADVAIR HFA 115/21 MCG INHALER 8 GM IH SCH ×2 (06:47→20:04)
[2019-09-13] MEDS: UMECLIDINIUM BROMIDE (INCRUSE ELLIPTA) 7'S IH SCH (06:48)
[2019-09-13] MEDS: APIXABAN 2.5 MG (ELIQUIS) TABLET PO SCH ×2 (07:46→20:23)
[2019-09-13] MEDS: DIGOXIN 0.125 MG (LANOXIN) TAB PO SCH (07:46)
[2019-09-13] MEDS: ASPIRIN E.C. 81 MG (ECOTRIN) TAB PO SCH (07:47)
[2019-09-13] MEDS: AMIODARONE 200 MG (CORDARONE) TAB PO SCH (07:47)
[2019-09-13] MEDS: AUGMENTIN 875 MG TAB (AMOXICILLIN/CLAVULANATE) PO SCH ×2 (07:47→17:20)
[2019-09-13] MEDS: PANTOPRAZOLE 40 MG (PROTONIX) TAB PO SCH (07:47)
--- NOTE | 2019-09-13 10:27 | Physical Therapy Daily Note ---
PT Daily Note-Current Subjective Patient in recliner pre tx, agrees to PT but doesn't want to get out of the recliner or even practice standing. She agrees to exercises in chair. Patient has no complaints of pain but states she is tired of being SOB with activity. Appearance Patient in recliner post tx with nurse call, phone, tray, all needs met, legs elevated and on pillow. Mental Status Patient Orientation: Person, Place, Situation Attachments: Oxygen, IV Transfers SCALE: Activities may be completed with or without assistive devices. 2-[place]-rxelhtk completes the activity by him/herself with no assistance f rom a helper. 5-Set-up or Clean-up Assistance-helper sets up or cleans up; patient completes activity. [place] assists only prior to or following the activity. 4-Supervision or Touching Assistance-helper provides verbal cues and/or touching/steadying and/or contact guard assistance as patient completes activity. Assistance may be provided throughout the activity or intermittently. 3-Partial/Moderate Assistance-helper does LESS THAN HALF the effort. [place] lifts, holds or supports trunk or limbs, but provides less than half the effort. 2-Substantial/Maximal Assistance-helper does MORE THAN HALF the effort. [place] lifts or holds trunk or limbs and provides more than half the effort. 6-Qxzzrmzhx-ijtggq does ALL the effort. Patient does none of the effort to complete the activity. Or, the assistance of 2 or more helpers is required for the patient to complete the activity. If activity was not attempted, code reason: 7-Patient Refused. 9-Not Applicable-not attempted and the patient did not perform the activity before the current illness, exacerbation or injury. 10-Not Attempted due to Environmental Limitations-(lack of equipment, weather restraints, etc.). 88-Not Attempted due to Medical Conditions or Safety Concerns. Weight Bearing Right Lower Extremity: Right Weight Bearing/Tolerated Left Lower Extremity: Left Weight Bearing/Tolerated Exercises Supine Ex: Quad Set, Glut sets Supine Reps: 20 (done in recliner with legs elevated) Seated Therapy Exercises: Ankle pumps, Long arc quads, Hip flexion, Hip abd/add Seated Reps: 20 Treatments BLE exercises Assessment Current Status: Poor Progress poor endurance, patient has to take frequent rest breaks due to fatigue and SOB, O2 stays in the upper 90's PT Information Technology Administrator Goals Mcc Goals PT Mcc Goals Time Frame: Sep 20, 2019 Roll Left & Right (QC): 6 Lying-Sitting on Side/Bed(QC): 6 Sit to Stand (QC): 6 Chair/Zyv-jn-Niyuc Xfer(QC): 6 Walk 10 feet (QC): 6 Walk 50ft with 2 Turns (QC): 5 PT Plan Problem List Problem List: Activity Tolerance, Functional Strength, Safety, Balance, Gait, Transfer, Bed Mobility, ROM Treatment/Plan Treatment Plan: Continue Plan of Care Treatment Plan: Bed Mobility, Education, Functional Activity Armin, Functional Strength, Gait, Safety, Therapeutic Exercise, Transfers Treatment Duration: Sep 21, 2019 Frequency: 6 times per week Estimated Hrs Per Day: .25 hour per day Patient and/or Family Agrees t: Yes Safety Risks/Education Patient Education: Correct Positioning, Safety Issues Teaching Recipient: Patient Teaching Methods: Demonstration, Discussion Response to Teaching: Reinforcement Needed Time/GCodes Time In: 1009 Time Out: 1020 Total Billed Treatment Time: 11 Total Billed Treatment 1 visit EX SELENE MONTOYA PT Sep 13, 2019 10:27
--- NOTE | 2019-09-13 10:44 | Occupational Ther Daily Note ---
OT Current Status-Daily Note Subjective Pt seen in bed this am. Pt denies pain, states feels tired/ weak. Pt agrees to transfer to chair to sit upright for a while. Education provided on benefits. Mental Status/Objective Patient Orientation: Normal For Age Attachments: IV, Oxygen (1L), Telemetry, Other-See Comments (pure wick) ADL-Treatment Therapy Code Descriptions/Definitions Functional [place] Measure: 0=Not Assessed/NA 4=Minimal Assistance 1=Total Assistance 5=Supervision or Setup 2=Maximal Assistance 6=Modified [place] 3=Moderate Assistance 7=Complete IndependenceSCALE: Activities may be completed with or without assistive devices. 9-Iaahokjkwz-jhhpgmt completes the activity by him/herself with no assistance from a helper. 5-Set-up or Clean-up Assistance-helper sets up or cleans up; patient completes activity. [place] assists only prior to or following the activity. 4-Supervision or Touching Assistance-helper provides verbal cues and/or touching/steadying and/or contact guard assistance as patient completes activity. Assistance may be provided throughout the activity or intermittently. 3-Partial/Moderate Assistance-helper does LESS THAN HALF the effort. [place] l ifts, holds or supports trunk or limbs, but provides less than half the effort. 2-Substantial/Maximal Assistance-helper does MORE THAN HALF the effort. [place] lifts or holds trunk or limbs and provides more than half the effort. 6-Pwioiksos-wytvya does ALL the effort. Patient does none of the effort to complete the activity. Or, the assistance of 2 or more helpers is required for t he patient to complete the activity. If activity was not attempted, code reason: 7-Patient Refused. 9-Not Applicable-not attempted and the patient did not perform the activity before the current illness, exacerbation or injury. 10-Not Attempted due to Environmental Limitations-(lack of equipment, weather restraints, etc.). 88-Not Attempted due to Medical Conditions or Safety Concerns. Shower/Bathe Self (QC): 7 Toileting Hygiene (QC): 7 Other Treatment Pt seen in bed, bed mob with min A for UB movement. Pt completes movement to EOB with SBA. Pt requires time to recover due to SOB. Pt sits EOB ~3 min. Pt sit to stand min A to stance at walker level and ambulates to recliner with CGA. Pt si ts in recliner, lines manipulated by OT. Pt's LE's elevated and educated on continuation of UE exercises while in chair. Pt denies needs, call light on lap. Education OT Patient Education: Correct positioning, Home exercise program, Transfer techniques Teaching Recipient: Patient Teaching Methods: Demonstration, Discussion Response to Teaching: Verbalize Understanding, Return Demonstration, Reinforcement Needed OT Cds Sales Advisor Goals Shelter Goals Time Frame: Sep 17, 2019 Eating (QC): 6 Oral Hygiene (QC): 6 Toileting Hygiene (QC): 4 Shower/Bathe Self (QC): 4 Upper Body Dressing (QC): 4 Lower Body Dressing (QC): 4 On/Off Footwear (QC): 4 Additional Goals: 1-Demonstrate ADL Tasks, 2-Verbalize Understanding, 3- ImproveStrength/Armin 1=Demonstrate adherence to instructed precautions during ADL tasks. 2=Patient will verbalize/demonstrate understanding of assistive devices/modifications for ADL. 3=Patient will improve strength/tolerance for activity to enable patient to perform ADL's. OT Education/Plan Problem List/Assessment Assessment: Decreased Activ Tolerance, Decreased UE Strength, Dependent Transfers, Impaired Bed Mobility, Impaired Funct Balance, Impaired I ADL's, Impaired Self-Care Skills Discharge Recommendations Plan/Recommendations: Continue POC Therapy Discharge Recommendati: 24 Hour Supervision Treatment Plan/Plan of Care Treatment,Training & Education: Yes Patient would benefit from OT for education, treatment and training to promote independence in ADL's, mobility, safety and/or upper extremity function for ADL's. Plan of Care: ADL Retraining, Functional Mobility, UE Funct Exercise/Act Treatment Duration: Sep 17, 2019 Frequency: 5 times per week Estimated Hrs Per Day: .25 hour per day Agreement: Yes Rehab Potential: Good Time/GCodes Start Time: 09:36 Stop Time: 09:54 Total Time Billed (hr/min): 18 Billed Treatment Time 1, FA (18) JENNY RODRIGUEZ OTR Sep 13, 2019 10:44
--- NOTE | 2019-09-13 11:54 | Cardiology Progress Note ---
Cardiology SOAP Progress Note Subjective: Continues to be in atrial fibrillation. Denies any complaints. Objective: I&O/Vital Signs 09/15/19 09/15/19 09/15/19 09/15/19 07:00 07:15 07:50 08:00 Temp 36.2 36.2 Pulse 88 83 83 Resp 18 18 B/P (MAP) 151/83 (105) 151/83 (105) Pulse Ox 94 94 O2 Delivery Nasal Cannula Nasal Cannula Nasal Cannula O2 Flow Rate 1.00 1.00 2.00 09/15/19 09/15/19 09/15/19 09/15/19 08:07 08:09 08:09 12:12 Pulse 83 Pulse Ox 95 O2 Delivery Nasal Cannula Nasal Cannula Nasal Cannula O2 Flow Rate 2.00 2.00 2.00 09/15/19 09/15/19 09/15/19 13:00 14:15 15:49 Temp 36.5 36.2 Pulse 84 83 Resp 18 16 B/P (MAP) 133/76 (95) 121/81 (94) Pulse Ox 97 90 94 O2 Delivery Nasal Cannula Nasal Cannula Nasal Cannula O2 Flow Rate 1.00 2.00 1.00 09/15/19 00:00 Intake Total 1475 ml Output Total 400 ml Balance 1075 ml Weight (Pounds): 137 Weight (Ounces): 1.6 Weight (Calculated Kilograms): 62.210912 Constitutional: AAO x 3 Respiratory: chest is bilaterally symmetric, lungs clear to auscultation Cardiovascular: irregularly irregular, S1 and S2; No diastolic murmur, No systolic murmur Gastrointestional: soft, audible bowel sounds Extremities: normal inspection, no lower extremity edema bilateral Neurologic/Psychiatric: no motor/sensory deficits, alert, normal mood/affect, oriented x 3 Skin: normal color, warm/dry Results/Procedures: Labs Laboratory Tests 09/15/19 05:40: White Blood Count 7.6, Red Blood Count 3.37L, Hemoglobin 10.4L, Hematocrit 32L, Mean Corpuscular Volume 96, Mean Corpuscular Hemoglobin 31, Mean Corpuscular Hemoglobin Concent 32, Red Cell Distribution Width 15.9H, Platelet Count 187, Mean Platelet Volume 9.7, Neutrophils (%) (Auto) 79H, Lymphocytes (%) (Auto) 14, Monocytes (%) (Auto) 6, Eosinophils (%) (Auto) 1, Basophils (%) (Auto) 0, Neutrophils # (Auto) 6.0, Lymphocytes # (Auto) 1.1, Monocytes # (Auto) 0.5, Eosinophils # (Auto) 0.1, Basophils # (Auto) 0.0, Sodium Level 136, Potassium Level 4.2, Chloride Level 107, Carbon Dioxide Level 20L, Anion Gap 9, Blood Urea Nitrogen 8, Creatinine 0.75, Estimat Glomerular Filtration Rate > 60, BUN/Creatinine Ratio 11, Glucose Level 91, Calcium Level 8.3L, Phosphorus Level 2.8, Magnesium Level 1.5L Microbiology 09/09/19 MRSA Screen - Final, Complete MRSA not isolated 09/09/19 Urine Culture - Final, Complete NO GROWTH A/P: Assessment/Dx: Persistent Atrial fibrillation Tachycardia Hypotension Generalized weakness Plan: Persistent Atrial fibrillation with rapid ventricular response, on amiodarone, Eliquis. Failed cardioversion [address] Robison[address] I discussed at length with the patient and offered that we will finish IV amiodarone bolus and can retry. However the patient refused. Therefore we will discontinue amiodarone and only do rate controlled with oral anticoagulation. Left lower lobe infiltrate on chest x-ray, no leukocytosis, receiving Levaquin, managed by Dr. Tidwell Hypotension. Continue with IV fluid and monitor tolerance and response, will gradually try to start Cardizem. Questionable TIA in 2016, patient had a transient episode of aphasia where she was unable to speak properly lasted for few minutes and resolved spontaneously, no full stroke was reported. [id number] score is 5, yearly risk of stroke without oral anticoagulation is 6.7 percent, patient is at high risk of stroke without oral anticoagulation, maintained on Eliquis. History of emphysema/COPD. Managed by Dr. Tidwell Hypothyroidism, currently hyperthyroidism. Managed by primary care physician Osteoporosis. Thank you for your consultation. Please call me if you have any questions. Brian De La Vega MD, FACP, FACC, FSCAI, FHRS, CCDS Interventional Cardiology Cardiac Electrophysiology Vascular Medicine and Endovascular Interventions Live DE LA VEGA MD Sep 13, 2019 11:54
--- NOTE | 2019-09-13 13:04 | Progress Note - Hospitalist ---
Subjective HPI/CC On Admission Date Seen by Provider: Sep 13, 2019 Time Seen by Provider: 08:45 Megan Phelan is an 83-year-old female with past medical history of paroxysmal atrial fibrillation, COPD, hypothyroidism, GERD, who presented with weakness. She reports that she has been very weak over the past week. She reports that EMS was been at her house 3 times this week. She denies any fevers or chills. She reports feeling short of breath. She reports having a cough. She denies any abdominal pain, nausea, vomiting. She reports having diarrhea. She was reportedly exposed to someone with coronavirus. She reports compliance with her medications but says that she might have missed her medicines a couple days last week. Subjective/Events-last exam She denies any complaints or concerns. She denies any fevers or chills. She denies any chest pain or palpitations. She denies any shortness of breath or cough. She denies any abdominal pain, nausea, or vomiting. Objective Exam Vital Signs Vital Signs Date Time Temp Pulse Resp B/P (MAP) Pulse Ox O2 Delivery O2 Flow Rate FiO2 09/13/19 12:33 Nasal Cannula 1.00 09/13/19 11:19 37.1 09/13/19 11:00 89 27 120/56 (77) 98 09/10/19 04:00 95 Capillary Refill : Less Than 3 Seconds General Appearance: No Apparent Distress, Chronically ill, Thin Respiratory: Lungs Clear, No Respiratory Distress, Decreased Breath Sounds Cardiovascular: No Edema, Irregularly Irregular Gastrointestinal: Normal Bowel Sounds, Non Tender, Soft Extremity: Normal Inspection, Non Tender, No Pedal Edema Neurologic/Psychiatric: Alert, Oriented x3, No Motor/Sensory Deficits, Normal Mood/Affect Skin: Normal Color, Warm/Dry Results/Procedures Lab Laboratory Tests 09/13/19 02:53 Patient resulted labs reviewed. Imaging: Reviewed Imaging Report Assessment/Plan Assessment and Plan Assess & Plan/Chief Complaint Paroxysmal atrial fibrillation Cardiology consulted, appreciate assistance Restarted on IV Cardizem overnight Continue amiodarone Continue Eliquis Community acquired pneumonia Continue Augmentin Recommended CT but patient deferred Elevated troponin Troponin mildly elevated at 0.04, returned to normal on repeat Cardiology consulted, appreciate assistance Likely elevated due to A. fib with RVR Debility PT/OT Insurance denied inpatient rehabilitation Likely [facility] placement COPD GERD Hypothyroidism Continue home meds DVT prophylaxis: Already receiving therapeutic anticoagulation Hypomagnesemia, resolved Hypokalemia, resolved Diagnosis/Problems Diagnosis/Problems (1) Paroxysmal atrial fibrillation Status: Acute (2) Atrial fibrillation with RVR Status: Resolved Resolution Date/Time: 09/12/19 @ 13:53 (3) Pneumonia Status: Acute Qualifiers: Pneumonia type: due to unspecified organism Laterality: left Lung location: lower lobe of lung Qualified Codes: J18.1 - Lobar pneumonia, unspecified organism (4) COPD (chronic obstructive pulmonary disease) Status: Chronic (5) Hypothyroidism Status: Chronic (6) GERD (gastroesophageal reflux disease) Status: Chronic (7) Debility Status: Acute (8) Hypomagnesemia Status: Resolved Resolution Date/Time: 09/11/19 @ 11:03 (9) Hypokalemia Status: Resolved Resolution Date/Time: 09/11/19 @ 11:03 Clinical Quality Measures DVT/VTE Risk/Contraindication: Risk Factor Score Per Nursin RFS Level Per Nursing on Admit: 4+=Very High SHANTELL HURST MD Sep 13, 2019 13:04
--- NOTE | 2019-09-13 13:46 | NUR ---
CM/SS follow up. The patient was requesting to visit with this ss in regards to her insurance, IRF, and skilled placement. The patient states that she has been on the inpatient rehab unit previously around 4 to 5 years ago and was able to get assistance for it. The patient does have [employer] insurance that denied for inpatient rehab but will accept a lower level of care. CM/SS and the patient had an at length discussion about the different levels of care. The patient verbalized understanding. CM/SS got confirmation from Suzie from [facility] that insurance has approved the [facility] home placement. CM/SS informed Suzie that discharge is planned for Friday 09/15. She verbalized understanding. The patient and this ss discussed having a DPOA and she stated she had one with her youngest son; however, she states she ripped it up and told her son to do the same. The patients son stopped all contact with the patient around a year ago. She states that she does not want anyone to make the decisions for her family goode. At time of visit she reported that she was unsure if she was going to have her second procedure done tomorrow. According to the patients nurse she decided to not have the cardioversion. CM/SS will continue to follow patient for discharge planning.
--- NOTE | 2019-09-13 13:47 | NUR ---
PT DECIDED SHE DOES NOT WANT TO DO ANOTHER CARDIOVERSION TOMORROW, DR WILLINGHAM INFORMED.
[2019-09-13] MEDS: NS IV 1000 ML 1,000 ML IV SCH (13:48)
[2019-09-13] MEDS: dilTIAZem120 MG (CARDIZEM CD) CAP PO SCH (14:27)
[2019-09-13] MEDS: MELATONIN 3 MG TABLET PO PRN (23:31)
[2019-09-14] VITALS (17 sets, daily range): BP systolic 98–132; BP diastolic 62–84
--- NOTE | 2019-09-14 02:00 | NUR ---
PEOPLES BOOT PLACED ON PT'S RT FOOT. PT C/O PAIN WITH "BURNING" SENSATION TO RT HEEL. ALLEVYNS REMOVED AND HEEL ASSESSED. HEEL NOTED TO HAVE SOME REDNESS BUT IS BLANCHABLE. LOTION APPLIED PER PT'S REQUEST.
[2019-09-14 03:19] LABS: BASOPHILS % (AUTO) 0 % (0-10); EOSINOPHILS # (AUTO) 0.1 10^3/uL (0.0-0.3); EOSINOPHILS % (AUTO) 2 % (0-10); HEMATOCRIT 31 % (35-52); HEMOGLOBIN 10.1 G/DL (11.5-16.0); LYMPHOCYTES # (AUTO) 0.9 X 10^3 (1.0-4.0); LYMPHOCYTES % (AUTO) 18 % (12-44); MEAN CORPUSCULAR HEMOGLOBIN 31 PG (25-34); MEAN CORPUSCULAR HGB CONC 33 G/DL (32-36); MEAN CORPUSCULAR VOLUME 95 FL (80-99); MEAN PLATELET VOLUME 9.3 FL (7.4-10.4); MONOCYTES # (AUTO) 0.4 X 10^3 (0.0-1.0); MONOCYTES % (AUTO) 8 % (0-12); NEUTROPHILS # (AUTO) 3.7 X 10^3 (1.8-7.8); NEUTROPHILS % (AUTO) 72 % (42-75); PLATELET COUNT 184 10^3/uL (130-400); RED CELL DISTRIBUTION WIDTH 15.8 % (10.0-14.5); WHITE BLOOD COUNT 5.2 10^3/uL (4.3-11.0)
[2019-09-14] MEDS: RT-ALBUTEROL/IPRATROPIUM 3 ML (DUONEB) VIAL INH SCH ×4 (03:32→21:13)
[2019-09-14 03:35] LABS: BUN/CREATININE RATIO 8; CARBON DIOXIDE 19 MMOL/L (21-32); CHLORIDE 112 MMOL/L (98-107); CREATININE SERUM 0.77 MG/DL (0.60-1.30); GFR ESTIMATED > 60; GLUCOSE 76 MG/DL (70-105); PHOSPHORUS 3.3 MG/DL (2.3-4.7); POTASSIUM 3.6 MMOL/L (3.6-5.0); SODIUM 138 MMOL/L (135-145)
[2019-09-14] MEDS: KCL 20 MEQ TAB (K-DUR) PO SCH (03:40)
[2019-09-14] MEDS: POTASSIUM CL 10MEQ/50ML IVPB 50 ML IV SCH (03:40)
[2019-09-14] MEDS: MAGNESIUM 1 GM/100 ML IVPB 100 ML IV SCH (03:40)
[2019-09-14] MEDS: NS IV 1000 ML 1,000 ML IV SCH ×2 (05:21→18:39)
[2019-09-14] MEDS: LEVOTHYROXINE 88 MCG (LEVOTHORID) TAB PO SCH (05:40)
[2019-09-14] MEDS: ADVAIR HFA 115/21 MCG INHALER 8 GM IH SCH ×3 (06:32→22:06)
[2019-09-14] MEDS: UMECLIDINIUM BROMIDE (INCRUSE ELLIPTA) 7'S IH SCH (06:32)
[2019-09-14] MEDS ORDERED: KCL 20 MEQ TAB (K-DUR) PO ONE (07:00)
--- NOTE | 2019-09-14 07:31 | Diagnostic Imaging Report ---
Indication: Shortness of breath. Comparison: 09/13/2019 Findings: Single view of the chest demonstrates stable left hilar and right upper lobe infiltrate. Small effusion remains in both bases. Heart is stable and unchanged. Osseous structures are age-appropriate. Impression: Unchanged aeration of the lungs. Dictated by: Dictated on workstation # [id number]
[2019-09-14] MEDS: PANTOPRAZOLE 40 MG (PROTONIX) TAB PO SCH (08:15)
[2019-09-14] MEDS: DIGOXIN 0.125 MG (LANOXIN) TAB PO SCH (08:15)
[2019-09-14] MEDS: AUGMENTIN 875 MG TAB (AMOXICILLIN/CLAVULANATE) PO SCH ×2 (08:15→18:39)
[2019-09-14] MEDS: dilTIAZem120 MG (CARDIZEM CD) CAP PO SCH (08:15)
[2019-09-14] MEDS: ASPIRIN E.C. 81 MG (ECOTRIN) TAB PO SCH (08:15)
[2019-09-14] MEDS: APIXABAN 2.5 MG (ELIQUIS) TABLET PO SCH ×2 (08:15→20:05)
--- NOTE | 2019-09-14 10:51 | Progress Note - Hospitalist ---
Subjective HPI/CC On Admission Date Seen by Provider: Sep 14, 2019 Time Seen by Provider: 09:25 Megan Phelan is an 83-year-old female with past medical history of paroxysmal atrial fibrillation, COPD, hypothyroidism, GERD, who presented with weakness. She reports that she has been very weak over the past week. She reports that EMS was been at her house 3 times this week. She denies any fevers or chills. She reports feeling short of breath. She reports having a cough. She denies any abdominal pain, nausea, vomiting. She reports having diarrhea. She was reportedly exposed to someone with coronavirus. She reports compliance with her medications but says that she might have missed her medicines a couple days last week. Subjective/Events-last exam She reports no complaints or concerns. She denies any fevers or chills. She denies any chest pain or shortness of breath. She denies any palpitations. She denies any abdominal pain, nausea, or vomiting. Objective Exam Vital Signs Vital Signs Date Time Temp Pulse Resp B/P (MAP) Pulse Ox O2 Delivery O2 Flow Rate FiO2 09/14/19 10:00 77 25 111/62 (78) 98 Nasal Cannula 1.00 09/14/19 07:23 36.5 09/10/19 04:00 95 Capillary Refill : Less Than 3 Seconds General Appearance: No Apparent Distress, Chronically ill, Thin Respiratory: Lungs Clear, Normal Breath Sounds, No Respiratory Distress Cardiovascular: No Edema, No Murmur, Irregularly Irregular (Regular rate) Gastrointestinal: Normal Bowel Sounds, Non Tender, Soft Extremity: Normal Inspection, Non Tender, No Pedal Edema Neurologic/Psychiatric: Alert, Oriented x3, No Motor/Sensory Deficits, Normal Mood/Affect Skin: Normal Color, Warm/Dry Results/Procedures Lab Laboratory Tests 09/14/19 03:09 Patient resulted labs reviewed. Imaging: Reviewed Imaging Report Assessment/Plan Assessment and Plan Assess & Plan/Chief Complaint Paroxysmal atrial fibrillation Cardiology consulted, appreciate assistance Refused repeat cardioversion Transitioned to oral diltiazem Amiodarone discontinued Continue Eliquis Community acquired pneumonia Continue Augmentin Recommended CT but patient deferred Elevated troponin Troponin mildly elevated at 0.04, returned to normal on repeat Cardiology consulted, appreciate assistance Likely elevated due to A. fib with RVR Debility PT/OT Insurance denied inpatient rehabilitation Likely shelter placement COPD GERD Hypothyroidism Continue home meds DVT prophylaxis: Already receiving therapeutic anticoagulation Hypomagnesemia, resolved Hypokalemia, resolved Diagnosis/Problems Diagnosis/Problems (1) Paroxysmal atrial fibrillation Status: Acute (2) Atrial fibrillation with RVR Status: Resolved Resolution Date/Time: 09/12/19 @ 13:53 (3) Pneumonia Status: Acute Qualifiers: Pneumonia type: due to unspecified organism Laterality: left Lung location: lower lobe of lung Qualified Codes: J18.1 - Lobar pneumonia, unspecified organism (4) COPD (chronic obstructive pulmonary disease) Status: Chronic (5) Hypothyroidism Status: Chronic (6) GERD (gastroesophageal reflux disease) Status: Chronic (7) Debility Status: Acute (8) Hypomagnesemia Status: Resolved Resolution Date/Time: 09/11/19 @ 11:03 (9) Hypokalemia Status: Resolved Resolution Date/Time: 09/11/19 @ 11:03 Clinical Quality Measures DVT/VTE Risk/Contraindication: Risk Factor Score Per Nursin RFS Level Per Nursing on Admit: 4+=Very High SHANTELL HURST MD Sep 14, 2019 10:51
--- NOTE | 2019-09-14 12:17 | Physical Therapy Daily Note ---
PT Daily Note-Current Subjective Pt in bed, agreeable to treatment. Pt denies pain. Transfers SCALE: Activities may be completed with or without assistive devices. 0-Krmkiwuszi-mqilccy completes the activity by him/herself with no assistance from a helper. 5-Set-up or Clean-up Assistance-helper sets up or cleans up; patient completes activity. [place] assists only prior to or following the activity. 4-Supervision or Touching Assistance-helper provides verbal cues and/or touching/steadying and/or contact guard assistance as patient completes activity. Assistance may be provided throughout the activity or intermittently. 3-Partial/Moderate Assistance-helper does LESS THAN HALF the effort. [place] lifts, holds or supports trunk or limbs, but provides less than half the effort. 2-Substantial/Maximal Assistance-helper does MORE THAN HALF the effort. [place] lifts or holds trunk or limbs and provides more than half the effort. 7-Panxnvwbg-admdbo does ALL the effort. Patient does none of the effort to complete the activity. Or, the assistance of 2 or more helpers is required for the patient to complete the activity. If activity was not attempted, code reason: 7-Patient Refused. 9-Not Applicable-not attempted and the patient did not perform the activity before the current illness, exacerbation or injury. 10-Not Attempted due to Environmental Limitations-(lack of equipment, weather restraints, etc.). 88-Not Attempted due to Medical Conditions or Safety Concerns. Weight Bearing Right Lower Extremity: Right Weight Bearing/Tolerated Left Lower Extremity: Left Weight Bearing/Tolerated Exercises Supine Ex: Quad Set, Heel Slides, Short Arc Quads, Straight leg raise, Hip abd/add Supine Reps: 15 Assessment Current Status: Good Progress Good participation with above ther ex. Care taken to keep heels off of bed during ther ex. Pt boot in place (R) LE and (B) LE floating on pillows post therapy. Pt call light in reach and all needs met post therapy. PT [facility] Goals Tube Blower Goals PT Tube Blower Goals Time Frame: Sep 20, 2019 Roll Left & Right (QC): 6 Lying-Sitting on Side/Bed(QC): 6 Sit to Stand (QC): 6 Chair/Pzd-bf-Odcyc Xfer(QC): 6 Walk 10 feet (QC): 6 Walk 50ft with 2 Turns (QC): 5 PT Plan Treatment/Plan Treatment Plan: Continue Plan of Care Treatment Plan: Bed Mobility, Education, Functional Activity Armin, Functional Strength, Gait, Safety, Therapeutic Exercise, Transfers Treatment Duration: Sep 21, 2019 Frequency: 6 times per week Estimated Hrs Per Day: .25 hour per day Patient and/or Family Agrees t: Yes Time/GCodes Time In: 1050 Time Out: 1110 Total Billed Treatment Time: 20 Total Billed Treatment 1, ther ex 20' LUIS CARLOS BISHOP CPTA Sep 14, 2019 12:17
--- NOTE | 2019-09-14 13:00 | NUR ---
THIS NURSE VEHICLE ASSEMBLER IS TAKING OVER CARE OF PT AT THIS TIME. REPORT RECEIVED FROM MERNA YOUNG ON ICU. PT IS ORIENTED TO ROOM AND MADE COMFORTABLE IN BED AT THIS TIME. WILL CONTINUE TO MONITOR.
--- NOTE | 2019-09-14 14:51 | NUR ---
this nurse called SBAR report to Laya YOUNG at 1451. Patient transferred to room 413 via bed by JOSE Dumont. VSS.
--- NOTE | 2019-09-14 21:53 | Cardiology Progress Note ---
Cardiology SOAP Progress Note Subjective: No cardiac complaints. Objective: I&O/Vital Signs 09/15/19 09/15/19 09/15/19 09/15/19 07:00 07:15 07:50 08:00 Temp 36.2 36.2 Pulse 88 83 83 Resp 18 18 B/P (MAP) 151/83 (105) 151/83 (105) Pulse Ox 94 94 O2 Delivery Nasal Cannula Nasal Cannula Nasal Cannula O2 Flow Rate 1.00 1.00 2.00 09/15/19 09/15/19 09/15/19 09/15/19 08:07 08:09 08:09 12:12 Pulse 83 Pulse Ox 95 O2 Delivery Nasal Cannula Nasal Cannula Nasal Cannula O2 Flow Rate 2.00 2.00 2.00 09/15/19 09/15/19 09/15/19 13:00 14:15 15:49 Temp 36.5 36.2 Pulse 84 83 Resp 18 16 B/P (MAP) 133/76 (95) 121/81 (94) Pulse Ox 97 90 94 O2 Delivery Nasal Cannula Nasal Cannula Nasal Cannula O2 Flow Rate 1.00 2.00 1.00 09/15/19 00:00 Intake Total 1475 ml Output Total 400 ml Balance 1075 ml Weight (Pounds): 137 Weight (Ounces): 1.6 Weight (Calculated Kilograms): [id number] Constitutional: AAO x 3 Respiratory: chest is bilaterally symmetric, lungs clear to auscultation Cardiovascular: irregularly irregular, S1 and S2; No diastolic murmur, No systolic murmur Gastrointestional: soft, audible bowel sounds Extremities: normal inspection, no lower extremity edema bilateral Neurologic/Psychiatric: no motor/sensory deficits, alert, normal mood/affect, oriented x 3 Skin: normal color, warm/dry Results/Procedures: Labs Laboratory Tests 09/15/19 05:40: White Blood Count 7.6, Red Blood Count 3.37L, Hemoglobin 10.4L, Hematocrit 32L, Mean Corpuscular Volume 96, Mean Corpuscular Hemoglobin 31, Mean Corpuscular Hemoglobin Concent 32, Red Cell Distribution Width 15.9H, Platelet Count 187, Mean Platelet Volume 9.7, Neutrophils (%) (Auto) 79H, Lymphocytes (%) (Auto) 14, Monocytes (%) (Auto) 6, Eosinophils (%) (Auto) 1, Basophils (%) (Auto) 0, Neutrophils # (Auto) 6.0, Lymphocytes # (Auto) 1.1, Monocytes # (Auto) 0.5, Eosinophils # (Auto) 0.1, Basophils # (Auto) 0.0, Sodium Level 136, Potassium Level 4.2, Chloride Level 107, Carbon Dioxide Level 20L, Anion Gap 9, Blood Urea Nitrogen 8, Creatinine 0.75, Estimat Glomerular Filtration Rate > 60, BUN/Creatinine Ratio 11, Glucose Level 91, Calcium Level 8.3L, Phosphorus Level 2.8, Magnesium Level 1.5L Microbiology 09/09/19 MRSA Screen - Final, Complete MRSA not isolated 09/09/19 Urine Culture - Final, Complete NO GROWTH A/P: Assessment/Dx: Persistent Atrial fibrillation Tachycardia Hypotension Generalized weakness Plan: Persistent Atrial fibrillation with rapid ventricular response, on amiodarone, Eliquis. Failed cardioversion [address] Robison. I discussed at length with the patient and offered that we will finish IV amiodarone bolus and can retry. However the patient refused. Therefore we will discontinue amiodarone and only do rate controlled with oral anticoagulation. Left lower lobe infiltrate on chest x-ray, no leukocytosis, receiving Levaquin, managed by Dr. Tidwell Hypotension. Continue with IV fluid and monitor tolerance and response, will gradually try to start Cardizem. Questionable TIA in 2016, patient had a transient episode of aphasia where she was unable to speak properly lasted for few minutes and resolved spontaneously, no full stroke was reported. [id number] score is 5, yearly risk of stroke without oral anticoagulation is 6.7 percent, patient is at high risk of stroke without oral anticoagulation, maintained on Eliquis. History of emphysema/COPD. Managed by Dr. Tidwell Hypothyroidism, currently hyperthyroidism. Managed by primary care physician Osteoporosis. Thank you for your consultation. Please call me if you have any questions. Brian De La Vega MD, FACP, FACC, FSCAI, FHRS, CCDS Interventional Cardiology Cardiac Electrophysiology Vascular Medicine and Endovascular Interventions Live DE LA VEGA MD Sep 14, 2019 21:53
[2019-09-15] MEDS: RT-ALBUTEROL/IPRATROPIUM 3 ML (DUONEB) VIAL INH SCH ×4 (02:58→21:35)
[2019-09-15 04:54] VITALS: BP 120/78
[2019-09-15 05:53] LABS: BASOPHILS % (AUTO) 0 % (0-10); EOSINOPHILS # (AUTO) 0.1 10^3/uL (0.0-0.3); EOSINOPHILS % (AUTO) 1 % (0-10); HEMATOCRIT 32 % (35-52); HEMOGLOBIN 10.4 G/DL (11.5-16.0); LYMPHOCYTES # (AUTO) 1.1 X 10^3 (1.0-4.0); LYMPHOCYTES % (AUTO) 14 % (12-44); MEAN CORPUSCULAR HEMOGLOBIN 31 PG (25-34); MEAN CORPUSCULAR HGB CONC 32 G/DL (32-36); MEAN CORPUSCULAR VOLUME 96 FL (80-99); MEAN PLATELET VOLUME 9.7 FL (7.4-10.4); MONOCYTES # (AUTO) 0.5 X 10^3 (0.0-1.0); MONOCYTES % (AUTO) 6 % (0-12); NEUTROPHILS % (AUTO) 79 % (42-75); PLATELET COUNT 187 10^3/uL (130-400); RED CELL DISTRIBUTION WIDTH 15.9 % (10.0-14.5); WHITE BLOOD COUNT 7.6 10^3/uL (4.3-11.0)
[2019-09-15 06:09] LABS: CHLORIDE 107 MMOL/L (98-107); POTASSIUM 4.2 MMOL/L (3.6-5.0); SODIUM 136 MMOL/L (135-145)
[2019-09-15 06:10] LABS: CALCIUM 8.3 MG/DL (8.5-10.1)
[2019-09-15 06:11] LABS: GLUCOSE 91 MG/DL (70-105)
[2019-09-15 06:12] LABS: CARBON DIOXIDE 20 MMOL/L (21-32)
[2019-09-15 06:15] LABS: CREATININE SERUM 0.75 MG/DL (0.60-1.30); GFR ESTIMATED > 60; PHOSPHORUS 2.8 MG/DL (2.3-4.7)
[2019-09-15 06:16] LABS: BUN/CREATININE RATIO 11
[2019-09-15 06:17] LABS: MAGNESIUM 1.5 MG/DL (1.6-2.4)
[2019-09-15] MEDS: KCL 20 MEQ TAB (K-DUR) PO SCH (06:42)
[2019-09-15] MEDS: POTASSIUM CL 10MEQ/50ML IVPB 50 ML IV SCH (06:42)
[2019-09-15] MEDS: MAGNESIUM 1 GM/100 ML IVPB 100 ML IV SCH ×3 (06:55→08:10)
[2019-09-15] MEDS: LEVOTHYROXINE 88 MCG (LEVOTHORID) TAB PO SCH (06:56)
[2019-09-15 07:50] VITALS: BP 151/83
[2019-09-15 08:00] VITALS: BP 151/83
[2019-09-15] MEDS: UMECLIDINIUM BROMIDE (INCRUSE ELLIPTA) 7'S IH SCH (08:06)
[2019-09-15] MEDS: ADVAIR HFA 115/21 MCG INHALER 8 GM IH SCH ×2 (08:07→21:35)
[2019-09-15] MEDS: dilTIAZem120 MG (CARDIZEM CD) CAP PO SCH (08:48)
[2019-09-15] MEDS: PANTOPRAZOLE 40 MG (PROTONIX) TAB PO SCH (08:48)
[2019-09-15] MEDS: DIGOXIN 0.125 MG (LANOXIN) TAB PO SCH (08:48)
[2019-09-15] MEDS: ASPIRIN E.C. 81 MG (ECOTRIN) TAB PO SCH (08:48)
[2019-09-15] MEDS: APIXABAN 2.5 MG (ELIQUIS) TABLET PO SCH ×2 (08:48→19:54)
[2019-09-15] MEDS: NS IV 1000 ML 1,000 ML IV SCH ×2 (08:49→11:40)
--- NOTE | 2019-09-15 11:11 | Progress Note - Hospitalist ---
Subjective HPI/CC On Admission Date Seen by Provider: Sep 15, 2019 Time Seen by Provider: 09:45 Megan Phelan is an 83-year-old female with past medical history of paroxysmal atrial fibrillation, COPD, hypothyroidism, GERD, who presented with weakness. She reports that she has been very weak over the past week. She reports that EMS was been at her house 3 times this week. She denies any fevers or chills. She reports feeling short of breath. She reports having a cough. She denies any abdominal pain, nausea, vomiting. She reports having diarrhea. She was reportedly exposed to someone with coronavirus. She reports compliance with her medications but says that she might have missed her medicines a couple days last week. Subjective/Events-last exam She says she did not sleep well last night. She said her stomach was upset. She denies any nausea or vomiting. She denies any abdominal pain at this time. She denies any fevers or chills. She denies any chest pain or shortness of breath. Objective Exam Vital Signs Vital Signs Date Time Temp Pulse Resp B/P (MAP) Pulse Ox O2 Delivery O2 Flow Rate FiO2 09/15/19 08:09 Nasal Cannula 2.00 09/15/19 08:07 95 09/15/19 07:50 36.2 83 18 151/83 (105) 09/10/19 04:00 95 Capillary Refill : Less Than 3 Seconds General Appearance: No Apparent Distress, Chronically ill Respiratory: Lungs Clear, No Respiratory Distress, Decreased Breath Sounds Cardiovascular: No Edema, No Murmur, Irregularly Irregular (Regular rate) Gastrointestinal: Normal Bowel Sounds, Non Tender, Soft Extremity: Normal Inspection, Non Tender, No Pedal Edema Neurologic/Psychiatric: Alert, No Motor/Sensory Deficits, Normal Mood/Affect; No Disoriented Skin: Normal Color, Warm/Dry Results/Procedures Lab Laboratory Tests 09/15/19 05:40 Patient resulted labs reviewed. Imaging: Reviewed Imaging Report Assessment/Plan Assessment and Plan Assess & Plan/Chief Complaint Paroxysmal atrial fibrillation Cardiology consulted, appreciate assistance Refused repeat cardioversion Continue diltiazem Continue Eliquis Community acquired pneumonia, resolved Completed course of Augmentin Recommended CT but patient deferred Elevated troponin Troponin mildly elevated at 0.04, returned to normal on repeat Cardiology consulted, appreciate assistance Likely elevated due to A. fib with RVR Debility PT/OT Insurance denied inpatient rehabilitation Likely detention placement COPD GERD Hypothyroidism Continue home meds DVT prophylaxis: Already receiving therapeutic anticoagulation Hypomagnesemia, resolved Hypokalemia, resolved Diagnosis/Problems Diagnosis/Problems (1) Paroxysmal atrial fibrillation Status: Acute (2) Atrial fibrillation with RVR Status: Resolved Resolution Date/Time: 09/12/19 @ 13:53 (3) Pneumonia Status: Acute Qualifiers: Pneumonia type: due to unspecified organism Laterality: left Lung location: lower lobe of lung Qualified Codes: J18.1 - Lobar pneumonia, unspecified organism (4) COPD (chronic obstructive pulmonary disease) Status: Chronic (5) Hypothyroidism Status: Chronic (6) GERD (gastroesophageal reflux disease) Status: Chronic (7) Debility Status: Acute (8) Hypomagnesemia Status: Resolved Resolution Date/Time: 09/11/19 @ 11:03 (9) Hypokalemia Status: Resolved Resolution Date/Time: 09/11/19 @ 11:03 Clinical Quality Measures DVT/VTE Risk/Contraindication: Risk Factor Score Per Nursin RFS Level Per Nursing on Admit: 4+=Very High SHANTELL HURST MD Sep 15, 2019 11:11
[2019-09-15 13:00] VITALS: BP 133/76
[2019-09-15 15:49] VITALS: BP 121/81
--- NOTE | 2019-09-15 17:19 | Cardiology Progress Note ---
Cardiology SOAP Progress Note Subjective: No cardiac complaints. Continues to be in atrial fibrillation. Objective: I&O/Vital Signs 09/15/19 09/15/19 09/15/19 09/15/19 07:00 07:15 07:50 08:00 Temp 36.2 36.2 Pulse 88 83 83 Resp 18 18 B/P (MAP) 151/83 (105) 151/83 (105) Pulse Ox 94 94 O2 Delivery Nasal Cannula Nasal Cannula Nasal Cannula O2 Flow Rate 1.00 1.00 2.00 09/15/19 09/15/19 09/15/19 09/15/19 08:07 08:09 08:09 12:12 Pulse 83 Pulse Ox 95 O2 Delivery Nasal Cannula Nasal Cannula Nasal Cannula O2 Flow Rate 2.00 2.00 2.00 09/15/19 09/15/19 09/15/19 13:00 14:15 15:49 Temp 36.5 36.2 Pulse 84 83 Resp 18 16 B/P (MAP) 133/76 (95) 121/81 (94) Pulse Ox 97 90 94 O2 Delivery Nasal Cannula Nasal Cannula Nasal Cannula O2 Flow Rate 1.00 2.00 1.00 09/15/19 00:00 Intake Total 1475 ml Output Total 400 ml Balance 1075 ml Weight (Pounds): 137 Weight (Ounces): 1.6 Weight (Calculated Kilograms): 62.134352 Constitutional: AAO x 3 Respiratory: chest is bilaterally symmetric, lungs clear to auscultation Cardiovascular: irregularly irregular, S1 and S2; No diastolic murmur, No systolic murmur Gastrointestional: soft, audible bowel sounds Extremities: normal inspection, no lower extremity edema bilateral Neurologic/Psychiatric: no motor/sensory deficits, alert, normal mood/affect, oriented x 3 Skin: normal color, warm/dry Results/Procedures: Labs Laboratory Tests 09/15/19 05:40: White Blood Count 7.6, Red Blood Count 3.37L, Hemoglobin 10.4L, Hematocrit 32L, Mean Corpuscular Volume 96, Mean Corpuscular Hemoglobin 31, Mean Corpuscular Hemoglobin Concent 32, Red Cell Distribution Width 15.9H, Platelet Count 187, Mean Platelet Volume 9.7, Neutrophils (%) (Auto) 79H, Lymphocytes (%) (Auto) 14, Monocytes (%) (Auto) 6, Eosinophils (%) (Auto) 1, Basophils (%) (Auto) 0, Neutrophils # (Auto) 6.0, Lymphocytes # (Auto) 1.1, Monocytes # (Auto) 0.5, Eosinophils # (Auto) 0.1, Basophils # (Auto) 0.0, Sodium Level 136, Potassium Level 4.2, Chloride Level 107, Carbon Dioxide Level 20L, Anion Gap 9, Blood Urea Nitrogen 8, Creatinine 0.75, Estimat Glomerular Filtration Rate > 60, BUN/Creatinine Ratio 11, Glucose Level 91, Calcium Level 8.3L, Phosphorus Level 2.8, Magnesium Level 1.5L Microbiology 09/09/19 MRSA Screen - Final, Complete MRSA not isolated 09/09/19 Urine Culture - Final, Complete NO GROWTH A/P: Assessment/Dx: Persistent Atrial fibrillation Tachycardia Hypotension Generalized weakness Plan: Persistent Atrial fibrillation with rapid ventricular response, on amiodarone, Eliquis. Failed cardioversion [address] Robison. I discussed at length with the patient and offered that we will finish IV amiodarone bolus and can retry. However the patient refused. Therefore we will discontinue amiodarone and only do rate controlled with oral anticoagulation. Therefore currently only on oral anticoagulation and Cardizem if she tolerates. Left lower lobe infiltrate on chest x-ray, no leukocytosis, receiving Levaquin, managed by Dr. Tidwell Hypotension. Continue with IV fluid and monitor tolerance and response, will gradually try to start Cardizem. Questionable TIA in 2016, patient had a transient episode of aphasia where she was unable to speak properly lasted for few minutes and resolved spontaneously, no full stroke was reported. [id number] score is 5, yearly risk of stroke without oral anticoagulation is 6.7 percent, patient is at high risk of stroke without oral anticoagulation, maintained on Eliquis. History of emphysema/COPD. Managed by Dr. Tidwell Hypothyroidism, currently hyperthyroidism. Managed by primary care physician Osteoporosis. Thank you for your consultation. Please call me if you have any questions. Brian De La Vega MD, FACP, FACC, FSCAI, FHRS, CCDS Interventional Cardiology Cardiac Electrophysiology Vascular Medicine and Endovascular Interventions Live DE LA VEGA MD Sep 15, 2019 17:19
[2019-09-15] MEDS: MELATONIN 3 MG TABLET PO PRN (19:54)
[2019-09-15 20:23] VITALS: BP 120/56
[2019-09-16] MEDS: RT-ALBUTEROL/IPRATROPIUM 3 ML (DUONEB) VIAL INH SCH ×2 (02:57→08:57)
[2019-09-16 04:00] VITALS: BP 101/61
[2019-09-16 05:29] LABS: BASOPHILS % (AUTO) 0 % (0-10); EOSINOPHILS # (AUTO) 0.1 10^3/uL (0.0-0.3); EOSINOPHILS % (AUTO) 1 % (0-10); HEMATOCRIT 31 % (35-52); HEMOGLOBIN 9.8 G/DL (11.5-16.0); LYMPHOCYTES # (AUTO) 1.1 X 10^3 (1.0-4.0); LYMPHOCYTES % (AUTO) 15 % (12-44); MEAN CORPUSCULAR HEMOGLOBIN 31 PG (25-34); MEAN CORPUSCULAR HGB CONC 32 G/DL (32-36); MEAN CORPUSCULAR VOLUME 97 FL (80-99); MEAN PLATELET VOLUME 9.7 FL (7.4-10.4); MONOCYTES # (AUTO) 0.4 X 10^3 (0.0-1.0); MONOCYTES % (AUTO) 6 % (0-12); NEUTROPHILS # (AUTO) 5.6 X 10^3 (1.8-7.8); NEUTROPHILS % (AUTO) 78 % (42-75); PLATELET COUNT 198 10^3/uL (130-400); RED CELL DISTRIBUTION WIDTH 16.2 % (10.0-14.5); WHITE BLOOD COUNT 7.2 10^3/uL (4.3-11.0)
[2019-09-16 05:44] LABS: CHLORIDE 109 MMOL/L (98-107); POTASSIUM 5.1 MMOL/L (3.6-5.0); SODIUM 138 MMOL/L (135-145)
[2019-09-16 05:46] LABS: GLUCOSE 68 MG/DL (70-105)
[2019-09-16 05:47] LABS: CARBON DIOXIDE 21 MMOL/L (21-32)
[2019-09-16 05:50] LABS: CREATININE SERUM 0.78 MG/DL (0.60-1.30); GFR ESTIMATED > 60; PHOSPHORUS 2.6 MG/DL (2.3-4.7)
[2019-09-16 05:51] LABS: BUN/CREATININE RATIO 9
--- NOTE | 2019-09-16 07:21 | Pulmonary Progress Note ---
Subjective Time Seen by a Provider: 07:18 Subjective/Events-last exam Pt only requiring 1 liter of oxygen via NC. Sepsis Event Evaluation Height, Weight, BMI Height: 5'7.50" Weight: 137lbs. 1.6oz. 62.572472iu; 15.00 BMI Method:Stated Exam Exam Vital Signs Date Time Temp Pulse Resp B/P (MAP) Pulse Ox O2 Delivery O2 Flow Rate FiO2 09/16/19 04:00 36.0 64 18 101/61 (74) 96 Nasal Cannula 1.00 09/16/19 02:59 93 Nasal Cannula 2.00 09/16/19 01:00 81 09/15/19 20:23 36.2 80 18 120/56 (77) 94 Nasal Cannula 1.00 09/15/19 20:00 Nasal Cannula 1.00 09/15/19 19:00 85 09/15/19 15:49 36.2 83 16 121/81 (94) 94 Nasal Cannula 1.00 09/15/19 14:15 90 Nasal Cannula 2.00 09/15/19 13:00 36.5 84 18 133/76 (95) 97 Nasal Cannula 1.00 09/15/19 12:12 83 09/15/19 08:09 Nasal Cannula 2.00 09/15/19 08:09 Nasal Cannula 2.00 09/15/19 08:07 95 Nasal Cannula 2.00 09/15/19 08:00 36.2 83 18 151/83 (105) 94 Nasal Cannula 2.00 09/15/19 07:50 36.2 83 18 151/83 (105) 94 Nasal Cannula 1.00 I & O 09/16/19 07:00 Intake Total 2550 ml Output Total 1400 ml Balance 1150 ml Height & Weight Height: 5'7.50" Weight: 137lbs. 1.6oz. 62.006210yu; 15.00 BMI Method:Stated General Appearance: No Apparent Distress, Chronically ill HEENT: PERRL/EOMI, Pharynx Normal Neck: Normal Inspection, Supple Respiratory: Lungs Clear, No Respiratory Distress, Decreased Breath Sounds Cardiovascular: No Edema, No Murmur, Irregularly Irregular (Regular rate) Capillary Refill: Less Than 3 Seconds Extremity: Normal Inspection, Non Tender, No Pedal Edema Neurologic/Psychiatric: Alert, No Motor/Sensory Deficits, Normal Mood/Affect; No Disoriented Skin: Normal Color, Warm/Dry Results Lab Laboratory Tests 09/15/19 05:40 09/16/19 05:10 Assessment/Plan Assessment/Plan LLL PNA per imaging -Augmentin - CT of chest to r/o mass - Pt refuses CT of chest at this time -COVID swab is negative -CXR reviewed- appears a worse --Repeat PCT -Check BNP -Give 40mg of lasix x 1 Afib -Cardiology following Hyperkalemia -Give 40mg of lasix x 1 LISA PEDRAZA DO Sep 16, 2019 07:21
[2019-09-16] MEDS: LEVOTHYROXINE 88 MCG (LEVOTHORID) TAB PO SCH (07:25)
[2019-09-16] MEDS ORDERED: FUROSEMIDE 40 MG/4 ML INJ (LASIX) IVP ONE (07:30)
--- NOTE | 2019-09-16 07:34 | Diagnostic Imaging Report ---
INDICATION: Dyspnea COMPARISON: 09/13 FINDINGS: Bilateral infiltrates and airspace opacities are asymmetric greater left and have increased in the interim. There is also new small right pleural effusion and a moderate left effusion which may have increased as well. No pneumothorax. IMPRESSION: Worsened asymmetric greater left bilateral pleural-parenchymal opacities. Dictated by: Dictated on workstation # [id number]
[2019-09-16 08:01] VITALS: BP 122/63
[2019-09-16] MEDS: DIGOXIN 0.125 MG (LANOXIN) TAB PO SCH (08:22)
[2019-09-16] MEDS: ASPIRIN E.C. 81 MG (ECOTRIN) TAB PO SCH (08:22)
[2019-09-16] MEDS: PANTOPRAZOLE 40 MG (PROTONIX) TAB PO SCH (08:24)
[2019-09-16] MEDS: APIXABAN 2.5 MG (ELIQUIS) TABLET PO SCH (08:24)
[2019-09-16] MEDS: dilTIAZem120 MG (CARDIZEM CD) CAP PO SCH (08:25)
--- NOTE | 2019-09-16 08:50 | Cardiology Progress Note ---
Subjective Date Seen by Provider: Sep 16, 2019 Time Seen by Provider: 08:30 Subjective/Events-last exam Patient is sitting up in bed, c/o cough and hoarse voice. Denies any chest pain. Review of Systems General: No Chills, No Night Sweats; Fatigue; No Malaise, No Appetite, No Other HEENT: No Head Aches, No Visual Changes, No Eye Pain, No Ear Pain, No Dysphasia, No Sinus Congestion, No Post Nasal Drip, No Sore Throat, No Other Pulmonary: Dyspnea; No Cough, No Pleuritic Chest Pain, No Other Cardiovascular: No: Chest Pain, Palpitations, Orthopnea, Paroxysmal Noc. Dyspnea, Edema, Lt Headedness, Other Objective-Cardiology Exam Last Set of Vital Signs Vital Signs 09/10/19 09/16/19 04:00 11:49 Temp 36.4 Pulse 84 Resp 20 B/P (MAP) 128/64 (85) Pulse Ox 99 O2 Delivery Nasal Cannula O2 Flow Rate 1.00 FiO2 95 Capillary Refill : Less Than 3 Seconds I&O Intake and Output 09/16/19 00:00 Intake Total 2650 ml Output Total 2000 ml Balance 650 ml Intake Oral 1050 ml IV Total 1600 ml Output Urine Total 2000 ml # Bowel Movements 2 General: Alert, Oriented X3, Cooperative HEENT: Atraumatic, PERRLA Neck: Supple, No JVD, No Thyromegaly Lungs: Normal Air Movement, Other (left sided rhonchi) Heart: Regular Rate, Normal S1, Normal S2, No Murmurs Abdomen: Normal Bowel Sounds, Soft, No Tenderness, No Hepatosplenomegaly, No Masses Extremities: No Clubbing, No Cyanosis, No Edema, Normal Pulses, No Tenderness/Swelling Skin: No Rashes, No Breakdown, No Significant Lesion Neuro: Normal Speech, Cranial Nerves 3-12 NL Psych/Mental Status: Mental Status NL, Mood NL Results Lab Laboratory Tests 09/16/19 05:10 A/P-Cardiology Admission Diagnosis Atrial fibrillation Tachycardia Hypotension Generalized weakness Assessment/Plan Paroxysmal Atrial fibrillation with rapid ventricular response, appears to be more persistent at this time. Attempt with 3 shocks cardioversion this morning has failed to restore sinus rhythm. Continue on Eliquis and amiodarone and continue with rate control. Left lower lobe infiltrate on chest x-ray, managed by Dr. Tidwell Hypotension. Improved, continue to monitor. Questionable TIA in 2016, patient had a transient episode of aphasia where she was unable to speak properly lasted for few minutes and resolved spontaneously, no full stroke was reported. [id number] score is 5, yearly risk of stroke without oral anticoagulation is 6.7 percent, patient is at high risk of stroke without oral anticoagulation, maintained on Eliquis. History of emphysema/COPD. Managed by Dr. Tidwell Hypothyroidism, currently hyperthyroidism. Managed by primary care physician Osteoporosis. Patient was seen and evaluated with Meena, examination performed, management plan was discussed, agree with the current scribed note, I made few changes to the note using Italic font Patient was seen at bedside, heart rate is controlled, continue on amiodarone at this time and monitor heart rate and rhythm On examination heart is irregular, rate is controlled, lungs has bilateral rhonchi Continue to monitor Clinical Quality Measures DVT/VTE Risk/Contraindication: Risk Factor Score Per Nursin RFS Level Per Nursing on Admit: 4+=Very High MEENA FRYE Sep 16, 2019 8:50 am LILIA ANN MD Sep 16, 2019 12:54 pm
[2019-09-16] MEDS: ADVAIR HFA 115/21 MCG INHALER 8 GM IH SCH (08:59)
[2019-09-16] MEDS: UMECLIDINIUM BROMIDE (INCRUSE ELLIPTA) 7'S IH SCH (08:59)
--- NOTE | 2019-09-16 11:36 | Physical Therapy Daily Note ---
PT Daily Note-Current Subjective Pt presents supine in bed, and adamantly refuses OOB today, as she doesnt want to wear herself out before she goes to the [facility] later this afternoon. With encouragement, pt agrees to supine LE exercises. Appearance Following session, pt supine in bed with L heel elevated from bed with pillow a nd RLE has foam boot on to protect heel. Call light, phone and tray within reach, no further needs at this time Mental Status Patient Orientation: Person, Place, Time, Situation Attachments: Oxygen, IV Transfers SCALE: Activities may be completed with or without assistive devices. 2-Uvrhmghsbc-ehqxxso completes the activity by him/herself with no assistance from a helper. 5-Set-up or Clean-up Assistance-helper sets up or cleans up; patient completes activity. [place] assists only prior to or following the activity. 4-Supervision or Touching Assistance-helper provides verbal cues and/or touching/steadying and/or contact guard assistance as patient completes activity . Assistance may be provided throughout the activity or intermittently. 3-Partial/Moderate Assistance-helper does LESS THAN HALF the effort. [place] lifts, holds or supports trunk or limbs, but provides less than half the effort. 2-Substantial/Maximal Assistance-helper does MORE THAN HALF the effort. [place] lifts or holds trunk or limbs and provides more than half the effort. 6-Iojdpaumu-axxmie does ALL the effort. Patient does none of the effort to complete the activity. Or, the assistance of 2 or more helpers is required for the patient to complete the activity. If activity was not attempted, code reason: 7-Patient Refused. 9-Not Applicable-not attempted and the patient did not perform the activity before the current illness, exacerbation or injury. 10-Not Attempted due to Environmental Limitations-(lack of equipment, weather restraints, etc.). 88-Not Attempted due to Medical Conditions or Safety Concerns. Weight Bearing Right Lower Extremity: Right Weight Bearing/Tolerated Left Lower Extremity: Left Weight Bearing/Tolerated Exercises Supine Ex: Ankle pumps, Quad Set, Glut sets, Heel Slides, Straight leg raise Supine Reps: 20 Treatments Pt completed supine LE exercises Assessment Current Status: Fair Progress Pt continues to require strengthening, gait and transfer training in order to return home safely. Will continue to encourage out of bed activity and progress activity tolerance as pt tolerates. PT Longterm Goals Lining Closer Goals PT Lining Closer Goals Time Frame: Sep 20, 2019 Roll Left & Right (QC): 6 Lying-Sitting on Side/Bed(QC): 6 Sit to Stand (QC): 6 Chair/Wur-to-Ohjtr Xfer(QC): 6 Walk 10 feet (QC): 6 Walk 50ft with 2 Turns (QC): 5 PT Plan Problem List Problem List: Activity Tolerance, Functional Strength, Safety, Balance, Gait, Transfer, Bed Mobility Treatment/Plan Treatment Plan: Continue Plan of Care Treatment Plan: Bed Mobility, Education, Functional Activity Armin, Functional Strength, Gait, Safety, Therapeutic Exercise, Transfers Treatment Duration: Sep 21, 2019 Frequency: 6 times per week Estimated Hrs Per Day: .25 hour per day Patient and/or Family Agrees t: Yes Safety Risks/Education Patient Education: Disease Process Teaching Recipient: Patient Teaching Methods: Discussion Response to Teaching: Reinforcement Needed Time/GCodes Time In: 1105 Time Out: 1116 Total Billed Treatment Time: 11 Total Billed Treatment 1 visit 1 EX 10' LUCY CERVANTES PT Sep 16, 2019 11:36
[2019-09-16] MEDS ORDERED: DILT-27 PO (11:39)
[2019-09-16] MEDS ORDERED: AMIO200T4 PO (11:39)
--- NOTE | 2019-09-16 11:43 | Discharge Summary ---
Discharge Summary Hospital Course Was the Problem List Reviewed?: Yes Problems/Dx: (1) Paroxysmal atrial fibrillation Status: Acute (2) Atrial fibrillation with RVR Status: Resolved (3) Pneumonia Status: Acute Qualifiers: Qualified Codes: J18.1 - Lobar pneumonia, unspecified organism (4) COPD (chronic obstructive pulmonary disease) Status: Chronic (5) Hypothyroidism Status: Chronic (6) GERD (gastroesophageal reflux disease) Status: Chronic (7) Debility Status: Acute (8) Hypomagnesemia Status: Resolved (9) Hypokalemia Status: Resolved Hospital Course Date of Admission: Sep 09, 2019 at 13:06 Admission Diagnosis : Family Physician/Provider: Joshua Henry MD Date of Discharge: 09/16/19 Discharge Diagnosis: [ ] Hospital Course: [ ] Labs and Pending Lab Test: Laboratory Tests 09/16/19 05:10: White Blood Count 7.2, Red Blood Count 3.20L, Hemoglobin 9.8L, Hematocrit 31L, Mean Corpuscular Volume 97, Mean Corpuscular Hemoglobin 31, Mean Corpuscular Hemoglobin Concent 32, Red Cell Distribution Width 16.2H, Platelet Count 198, Mean Platelet Volume 9.7, Neutrophils (%) (Auto) 78H, Lymphocytes (%) (Auto) 15, Monocytes (%) (Auto) 6, Eosinophils (%) (Auto) 1, Basophils (%) (Auto) 0, Neutrophils # (Auto) 5.6, Lymphocytes # (Auto) 1.1, Monocytes # (Auto) 0.4, Eosinophils # (Auto) 0.1, Basophils # (Auto) 0.0, Sodium Level 138, Potassium Level 5.1H, Chloride Level 109H, Carbon Dioxide Level 21, Anion Gap 8, Blood Urea Nitrogen 7, Creatinine 0.78, Estimat Glomerular Filtration Rate > 60, BUN/Creatinine Ratio 9, Glucose Level 68L, Calcium Level 8.0L, Phosphorus Level 2.6, Magnesium Level 2.0, B-Type Natriuretic Peptide 406.2H, Procalcitonin 0.11H Microbiology 09/09/19 MRSA Screen - Final, Complete MRSA not isolated 09/09/19 Urine Culture - Final, Complete NO GROWTH Home Meds Active Diltiazem 24Hr ER (Diltiazem HCl) 120 Mg Cap.er.24h 120 Mg PO DAILY 30 Days Amiodarone HCl 200 Mg Tablet 200 Mg PO DAILY 30 Days Reported Eliquis (Apixaban) 5 Mg Tablet 5 Mg PO BID Diltiazem 24Hr ER (Diltiazem HCl) 240 Mg Cap.er.24h 240 Mg PO DAILY Dexilant (Dexlansoprazole) 60 Mg Cap.dr.bp 60 Mg PO DAILY Albuterol Sulfate 2.5 Mg/3 Ml Vial.neb 2.5 Mg IH DAILY PRN Ventolin Hfa (Albuterol Sulfate) 18 Gm Hfa.aer.ad 2 Puff IH Q4H PRN Aspirin EC (Aspirin) 81 Mg Tablet.dr 81 Mg PO DAILY Breo Ellipta 100-25 Mcg INH (Fluticasone/Vilanterol) 1 Each Blst.w.dev 1 Puff IH DAILY Spiriva (Tiotropium [place]) 1 Inh Aerp 1 Cap IH DAILY Levothyroxine Sodium 88 Mcg Tablet 88 Mcg PO DAILY Assessment/Pt Instructions Take medications as prescribed. Participate in therapies. Follow-up with your primary care physician. Discharge Planning: <30 minutes discharge planning Discharge Instructions Discharge Diet: No Restrictions Activity as Tolerated: Yes Pneumonia Vaccine Order Indica: Yes Consultations Cardiology Discharge Physical Examination Vital Signs Vital Signs Date Time Temp Pulse Resp B/P (MAP) Pulse Ox O2 Delivery O2 Flow Rate FiO2 09/16/19 08:57 94 Nasal Cannula 2.00 09/16/19 08:01 36.5 72 18 122/63 (82) 09/10/19 04:00 95 General Appearance: No Apparent Distress, Chronically ill, Thin HEENT: PERRL/EOMI, Pharynx Normal Respiratory: Lungs Clear, Normal Breath Sounds, No Respiratory Distress Cardiovascular: No Edema, No Murmur, Irregularly Irregular (Regular rate) Gastrointestinal: Normal Bowel Sounds, Non Tender, Soft Extremity: Normal Inspection, Non Tender, No Pedal Edema Skin: Normal Color, Warm/Dry Neurologic/Psychiatric: Alert, Oriented x3, Normal Mood/Affect, Motor Weakness Allergies: Coded Allergies: Sulfa (Sulfonamide Antibiotics) (Verified Allergy, Unknown, 01/10/16) cefadroxil (Verified Allergy, Unknown, 07/29/09) hydrocortisone (Verified Allergy, Unknown, 07/29/09) iodoquinol (Verified Allergy, Unknown, 07/29/09) Discharge Summary Date of Admission Sep 09, 2019 at 13:06 Date of Discharge Discharge Date: Sep 16, 2019 Admission Diagnosis Atrial fibrillation with rapid ventricular response Consults/Procedures Consulations Cardiology Discharge Diagnosis Paroxysmal atrial fibrillation Cardiology consulted, appreciate assistance Refused repeat cardioversion Continue diltiazem Continue Eliquis Community acquired pneumonia, resolved Completed course of Augmentin Recommended CT but patient deferred Elevated troponin Troponin mildly elevated at 0.04, returned to normal on repeat Cardiology consulted, appreciate assistance Likely elevated due to A. fib with RVR Debility PT/OT Insurance denied inpatient rehabilitation Likely shelter placement COPD GERD Hypothyroidism Continue home meds DVT prophylaxis: Already receiving therapeutic anticoagulation Hypomagnesemia, resolved Hypokalemia, resolved (1) Paroxysmal atrial fibrillation Status: Acute (2) Atrial fibrillation with RVR Status: Resolved (3) Pneumonia Status: Acute Qualifiers: Qualified Codes: J18.1 - Lobar pneumonia, unspecified organism (4) COPD (chronic obstructive pulmonary disease) Status: Chronic (5) Hypothyroidism Status: Chronic (6) GERD (gastroesophageal reflux disease) Status: Chronic (7) Debility Status: Acute (8) Hypomagnesemia Status: Resolved (9) Hypokalemia Status: Resolved Clinical Quality Measures DVT/VTE Risk/Contraindication: Risk Factor Score Per Nursin RFS Level Per Nursing on Admit: 4+=Very High SHANTELL HURST MD Sep 16, 2019 11:43
[2019-09-16 11:49] VITALS: BP 128/64
--- NOTE | 2019-09-16 12:00 | Discharge Summary ---
Discharge Summary Reconcile Patient Problems Problems Reviewed?: Yes Hospital Course Hospital Course Date of Admission: Sep 09, 2019 at 13:06 Admission Diagnosis : Atrial fibrillation with rapid ventricular response Family Physician/Provider: Joshua Henry MD Date of Discharge: 09/16/19 Discharge Diagnosis: Atrial fibrillation with rapid ventricular response, pneumonia Hospital Course: Megan Phelan is an 83-year-old female who presented with weakness and was admitted with atrial fibrillation with rapid ventricular response. She was started on IV Cardizem. Cardioversion was attempted multiple times un successfully. She was started on IV amiodarone. She was then transitioned to oral amiodarone and will continue this on discharge. Her oral diltiazem was decreased due to hypotension. She was continued on Eliquis. Her course was complicated by pneumonia for which she received a course of antibiotics while inpatient. Due to debility, she required custodial on discharge and was sent to [facility] for ongoing care. She should follow-up with her primary care physician in a couple weeks. She should follow up with cardiology as scheduled. Labs and Pending Lab Test: Laboratory Tests 09/16/19 05:10: White Blood Count 7.2, Red Blood Count 3.20L, Hemoglobin 9.8L, Hematocrit 31L, Mean Corpuscular Volume 97, Mean Corpuscular Hemoglobin 31, Mean Corpuscular Hemoglobin Concent 32, Red Cell Distribution Width 16.2H, Platelet Count 198, Mean Platelet Volume 9.7, Neutrophils (%) (Auto) 78H, Lymphocytes (%) (Auto) 15, Monocytes (%) (Auto) 6, Eosinophils (%) (Auto) 1, Basophils (%) (Auto) 0, Neutrophils # (Auto) 5.6, Lymphocytes # (Auto) 1.1, Monocytes # (Auto) 0.4, Eosinophils # (Auto) 0.1, Basophils # (Auto) 0.0, Sodium Level 138, Potassium Level 5.1H, Chloride Level 109H, Carbon Dioxide Level 21, Anion Gap 8, Blood Urea Nitrogen 7, Creatinine 0.78, Estimat Glomerular Filtration Rate > 60, BUN/Creatinine Ratio 9, Glucose Level 68L, Calcium Level 8.0L, Phosphorus Level 2.6, Magnesium Level 2.0, B-Type Natriuretic Peptide 406.2H, Procalcitonin 0.11H Microbiology 09/09/19 MRSA Screen - Final, Complete MRSA not isolated 09/09/19 Urine Culture - Final, Complete NO GROWTH Home Meds Active Diltiazem 24Hr ER (Diltiazem HCl) 120 Mg Cap.er.24h 120 Mg PO DAILY 30 Days Amiodarone HCl 200 Mg Tablet 200 Mg PO DAILY 30 Days Reported Eliquis (Apixaban) 5 Mg Tablet 5 Mg PO BID Diltiazem 24Hr ER (Diltiazem HCl) 240 Mg Cap.er.24h 240 Mg PO DAILY Dexilant (Dexlansoprazole) 60 Mg Cap.dr.bp 60 Mg PO DAILY Albuterol Sulfate 2.5 Mg/3 Ml Vial.neb 2.5 Mg IH DAILY PRN Ventolin Hfa (Albuterol Sulfate) 18 Gm Hfa.aer.ad 2 Puff IH Q4H PRN Aspirin EC (Aspirin) 81 Mg Tablet.dr 81 Mg PO DAILY Breo Ellipta 100-25 Mcg INH (Fluticasone/Vilanterol) 1 Each Blst.w.dev 1 Puff IH DAILY Spiriva (Tiotropium [place]) 1 Inh Aerp 1 Cap IH DAILY Levothyroxine Sodium 88 Mcg Tablet 88 Mcg PO DAILY Instructions to Patient/Family Assessment/Instructions Take medications as prescribed. Participate in therapies. Follow-up with his primary care physician. Follow Up Appt.: Next snf rounds, PCP follow-up in 2 weeks Skilled NF Admit to: [facility] ([facility]) I certify that SNF services are required to be given on an inpatient basis because of the above named patient's need for custodial care on a contin uing basis for the conditions(s) for which he/she was receiving inpatient hospital services prior to his/her transfer to the [facility]. Assisted Facility Order: Nursing Services, Certified Histologic Technician-Evaluate & Treat, Physical Therapy-Evaluate & Treat Oxygen Delivery Method: Nasal Cannula Discharge Diet: No Restrictions Daily Activity as Tolerated: Yes Resuscitation Status: Full Code Maria Del Rosario Hurst Sep 16, 2019 11:56 Pneu Vac Indicated: Yes Discharge Physical Exam General: Alert, Oriented X3, Cooperative, No Acute Distress HEENT: Atraumatic, EOMI, Mucous Memb Moist/[place] Lungs: Clear to Auscultation, Normal Air Movement Heart: No Murmurs, Other (Irregularly irregular, regular rate) Abdomen: Normal Bowel Sounds, Soft, No Tenderness Extremities: No Edema, No Tenderness/Swelling Skin: No Rashes, No Significant Lesion Neuro: Normal Speech, Other (Motor weakness) Psych/Mental Status: Mental Status NL, Mood NL MARIA DEL ROSARIO HURST MD Sep 16, 2019 12:00
--- NOTE | 2019-09-16 12:40 | NUR ---
REPORT CALLED TO VEL YOUNG AT [facility].
--- NOTE | 2019-09-16 13:28 | NUR ---
CM/SS finalized discharge. Plan: The patient will be discharging to [facility] today 09/16/19. The lemon picker time is set for 1:00 p.m. The patient reported this morning that she was having a tough morning due to accidents. She states that she has already had to be cleaned up x2. The patient did have questions still regarding her Medicare and how much it would pay. EILEEN/SS contacted Zora who is a community living instructor at the hospital to access that information. She stated that her length of stay is 3.5 days. CM/SS informed the patient of this. She verbalized understanding. No further needs at this time.
[2019-09-16 13:30] VITALS: BP 120/60
--- NOTE | 2019-09-16 13:30 | NUR ---
[facility] EMPLOYEE ERMA YOUNG demonstrates understanding of discharge instructions and accurately returns instructions upon questioning. Copy of Post-Discharge Instructions given . JO-ANN MACDONALD is able to manage continuing needs after discharge WITH ASSISTANCE OF [facility]. Patients belongings returned to PT. Patient discharged from [facility] on 09/16/19 at 1330 . JO-ANN MACDONALD left floor via W/C, accompanied by STAFF AND [facility] STAFF PER LIFT VAN.
[2019-09-17] MEDS ORDERED: AMIODARONE 200 MG (CORDARONE) TAB PO SCH (09:00)
== END 2019-09-16 13:30 | DRG 308 ==
LOC: EDUNIT# 10:42 → ER 10:44 → ICU 13:06 → 4TH 09-14 15:21
PROVIDERS: ADMIT Internal Medicine; ATTEND Internal Medicine
PROC: 5A2204Z Restoration of Cardiac Rhythm, Single (ICD-10-PCS; principal; 2019-09-12)
DX: I48.0 Paroxysmal atrial fibrillation (principal); J18.9 Pneumonia, unspecified organism; R64 Cachexia; I48.92 Unspecified atrial flutter; J43.9 Emphysema, unspecified; E03.9 Hypothyroidism, unspecified; K21.9 Gastro-esophageal reflux disease without esophagitis; R19.7 Diarrhea, unspecified; R79.89 Other specified abnormal findings of blood chemistry; E83.42 Hypomagnesemia; E87.6 Hypokalemia; I95.9 Hypotension, unspecified; R63.0 Anorexia; E05.90 Thyrotoxicosis, unspecified without thyrotoxic crisis or storm; M81.0 Age-related osteoporosis without current pathological fracture; Z20.828 Contact with and (suspected) exposure to other viral communicable diseases; Z87.891 Personal history of nicotine dependence; Z85.828 Personal history of other malignant neoplasm of skin; Z86.73 Personal history of transient ischemic attack (TIA), and cerebral infarction without residual deficits; Z79.01 Long term (current) use of anticoagulants
CPT/HCPCS: 36415; 51701; 71045; 72100; 80048; 80053; 81000; 82728; 83605; 83615; 83735; 83880; 84100; 84145; 84484; 85025; 85384; 85610; 85730; 86141; 87081; 87088; 87635; 93005; 93041; 93306; 94640; 94760; 96361; 96365; 96367; 96375

== ENCOUNTER 2019-10-28 14:37 | Emergency (ER) | payer MEDICARE ==
[~2019-10-28] VITALS: Ht 167 cm; Wt 68.0 kg
[~2019-10-28 14:37] MED LIST changes: +AMIO200T4 PO; +APIX2.5T PO; +DEXL60CA PO; +DILT-27 PO; +DILT120C88 PO; +DILT240C91 PO; +LEVO750T9 PO; +PRED10TA22 PO
--- NOTE | 2019-10-28 14:39 | NUR ---
1437- PT ARRIVAL VIA [facility]. DR. BEGUM AT PT BEDSIDE. PULSE CHECK PERFORMED. PT PULSELESS AT THIS. CPR STARTED BY EMS. PT TRANSFERED TO ED COT. 1438- PREPARING FOR INTUBATION AT THIS TIME. OXYGENATION BY AMBU BAG AT THIS TIME. 1439- PT INTUBATED WITH 7.0 ET TUBE PER [facility] AT THIS TIME. TUBE SECURED. EQUAL CHEST RISE NOTED. 1 MG EPI GIVEN VIA PT 20 G R AC. PT ATTACHED TO DEFIB PATCHES. 1440- 0.5 MG ATROPINE GIVEN VIA 20 G R AC 1444- PULSE CHECK AT THIS TIME. PT PULSELESS AND CPR RESSUMED. 1445- 1 MG EPI GIVEN VIA 20 G R AC 1446- 16 FR OG INSERTED VIA [facility] 1447- RT AT PT BEDSIDE ATTACHING ETCO2 CAPNOGRAPHY. REPORT ETCO2 OF 5. PULSE CHECK AT THIS TIME. PT REMAINS PULSELESS. CPR RESUMED. 1448- 1 MG EPI GIVEN VIA 20 G R AC 1450- PULSE CHECK AT THIS TIME. PT REMAINS PULSELESS, CPR RESSUMED. 1451- 1 MG EPI GIVEN VIA 20 G R AC 1452- PULSE CHECK AT THIS TIME. PT REMAINS PULSELESS, CPR RESSUMED. 1455- CPR STOPPED AT THIS TIME. NO RESPIRATIONS AND NO PULSE AT THIS TIME. TIME OF CALLED BY DR. BEGUM. 1509- PT SON NOTIFIED AT THIS TIME BY DR. BEGUM. FAMILY REQUESTS [facility]. 1544- [facility] CALLED- REPORTS PT IS NOT A DONATION CANIDATE. REFERRAL NUMBER [phone] 1552- [facility] CALLED AT THIS TIME.
[2019-10-28] MEDS ORDERED: CATHETER FLUSH 10 ML SYR IV ONE (14:41)
[2019-10-28] MEDS ORDERED: EPINEPHrine 0.1 MG/ML 10 ML (HOSPIRA) SYR IJ ONE (14:41)
[2019-10-28] MEDS ORDERED: ATROPINE INJECTION 1 MG/10 ML SYR (ABBOTT) INJ ONE (14:41)
--- NOTE | 2019-10-28 15:17 | ED CPR ---
HPI-CPR General Chief Complaint: Code Blue Stated Complaint: CODE Source of Information: Patient Exam Limitations: No Limitations History of Present Illness Date Seen by Provider: Oct 28, 2019 Time Seen by Provider: 14:37 Initial Comments This 83-year-old woman with atrial fibrillation and other chronic conditions presents to the emergency room via EMS for sudden onset of dyspnea and cyanosis. EMS reports bradycardia with heart rate in the 40s to 60s and hypoxia with an initial oxygen saturation of 75 percent. She reportedly was at baseline this morning when she suddenly became cyanotic and had difficulty breathing. EMS was activated. She promptly lost pulse upon arrival to the emergency room and CPR was initiated. The [facility] reported full CODE STATUS and this was confirmed on the phone during resuscitation efforts. There was no report of cough, fever, or shortness of breath prior to the event. She had a negative COVID screen on October 23. Allergies and Home Medications Allergies Coded Allergies: Sulfa (Sulfonamide Antibiotics) (Verified Allergy, Unknown, 01/10/16) cefadroxil (Verified Allergy, Unknown, 07/29/09) hydrocortisone (Verified Allergy, Unknown, 07/29/09) iodoquinol (Verified Allergy, Unknown, 07/29/09) Home Medications Albuterol Sulfate 18 Gm Hfa.aer.ad, 2 PUFF IH Q4H PRN for SHORTNESS OF BREATH, (Reported) Albuterol Sulfate 2.5 Mg/3 Ml Vial.neb, 2.5 MG IH Q4H PRN for SHORTNESS OF BREATH, (Reported) Apixaban 2.5 Mg Tablet, 2.5 MG PO BID Prescribed by: JOSE MERCADO on 10/24/19 113 Aspirin 81 Mg Tablet.dr, 81 MG PO DAILY, (Reported) Dexlansoprazole 60 Mg Cap.dr.bp, 60 MG PO DAILY, (Reported) Diltiazem HCl 240 Mg Cap.er.24h, 240 MG PO DAILY Prescribed by: JOSE MERCADO on 10/24/19 113 Fluticasone/Vilanterol 1 Each Blst.w.dev, 1 PUFF IH DAILY, (Reported) Levofloxacin 750 Mg Tablet, 750 MG PO DAILY Prescribed by: JOSE MERCADO on 10/24/191130 Levothyroxine Sodium 88 Mcg Tablet, 88 MCG PO DAILY, (Reported) Prednisone 10 Mg Tab.ds.pk, 10 MG PO DAILY Prescribed by: JOSE MERCADO on 10/24/19 1131 Tiotropium [place] 1 Inh Aerp, 1 CAP IH DAILY, (Reported) Patient Home Medication List Home Medication List Reviewed: Yes Review of Systems Review of Systems Constitutional: see HPI EENTM: No Symptoms Reported Respiratory: See HPI Cardiovascular: See HPI Gastrointestinal: No Symptoms Reported Genitourinary: No Symptoms Reported Musculoskeletal: no symptoms reported Skin: other (cyanosis. Ecchymosis around the right neck and chest) Psychiatric/Neurological: See HPI Endocrine: No Symptoms Reported Hematologic/Lymphatic: No Symptoms Reported Past Zboplix-Bjisnc-Hgxtkv Hx Past Med/Social Hx: Reviewed Nursing Past Med/Soc Hx Patient Social History Former Smoker, Quit: Dec 21, 2008 2nd Hand Smoke Exposure: No Recent Hopitalizations: No Immunizations Up To Date Tetanus Booster (TDap): More than 5yrs PED Vaccines UTD: No Seasonal Allergies Seasonal Allergies: No Past Medical History Surgeries: Yes (TONSILECTOMY, BROKEN FEMUR (HAS PLATE,PINS),SKIN TUMOR REMOVAL AND SCALP TU) Orthopedic Respiratory: Yes Pneumonia, COPD, Emphysema Currently Using CPAP: No Currently Using BIPAP: No Cardiac: Yes Atrial Fibrillation, Hypertension Neurological: No Reproductive Disorders: No Female Reproductive Disorders: Denies Sexually Transmitted Disease: No HIV/AIDS: No Gastrointestinal: Yes Gastroesophageal Reflux Musculoskeletal: No Endocrine: Yes Hypothyroidsim Loss of Vision: Right Cancer: Yes Skin Psychosocial: No Integumentary: No Blood Disorders: No Adverse Reaction/Blood Tranf: No Family Medical History Cardiovascular disease 19 FATHER 19 MOTHER Diabetes mellitus 19 FATHER Heart Disease, Diabetes, Hypertension Physical Exam Vital Signs Vital Signs - First Documented 10/28/19 10/28/19 14:39 17:35 Pulse 0 Resp 0 B/P (MAP) 0/0 (0) Pulse Ox 0 O2 Flow Rate 0 Capillary Refill : Height, Weight, BMI Height: 5'7.50" Weight: 137lbs. 1.6oz. [id number]; 15.00 BMI Method:Stated General Appearance: Other (unresponsive in cardiac arrest) HEENT: PERRL/EOMI, Other (cyanosis of the face) Neck: Other (ecchymosis and cyanosis on the right side of the neck) Respiratory: Other (no respiratory effort. Intubated with wet breath sounds. Air movement heard in both lungs.) Cardiovascular: Other (PEA) Extremity: No Pedal Edema, Other (cyanosis) Neurologic/Psychiatric: Other (unresponsive) Skin: Cyanosis, Ecchymosis Progress/Results/Core Measures Results/Orders My Orders Orders - JENNIE BEGUM MD Atropine Inj 10 Mg Syringe (Atropine In (10/28/19 14:41) Epinephrine Emergency Syringe (Epinephr (10/28/19 14:41) Sodium Chloride Flush (Catheter Flush Sy (10/28/19 14:41) Vital Signs/I&O 10/28/19 10/28/19 14:39 17:35 Pulse 0 0 Resp 0 0 B/P (MAP) 0/0 (0) 0/0 Pulse Ox 0 O2 Flow Rate 0 10/29/19 00:00 Intake Total 500 ml Balance 500 ml Critical Care Note Critical Care Start Time: 14:37 Stop Time: 14:55 Total Time (minutes) 18 Progress Patient arrived via EMS from [facility] with bradycardia. Respirations were failing and she was unresponsive. Patient was intubated by EMS. Breath sounds were heard bilaterally and not in the abdomen. Atropine was drawn and patient lost pulse. Epinephrine was administered at 14:39 by atropine at 14:40. CPR was initiated as soon as patient lost pulse. Pulse check at 14:44 again revealed no pulse. Epinephrine again given at 14:45 pulse check at 14:47 revealed no pulse. A milligram of epinephrine was given. Pulse check at 14:50 was again pulseless. Epinephrine was again given at 14:51. Pulse check at 14:52 showed PEA. Patient was eventually pronounced at 14:55. Patient's son was updated. Departure Impression Primary Impression: Cardiac arrest Disposition: 20 Condition: Departure-Patient Inst. Referrals: NO,LOCAL PHYSICIAN (PCP/Family) Primary Care Physician Copy Copies To 1: LILIA ANN MD, JOSHUA T MD Oct 28, 2019 15:17
--- OUTSIDE RECORDS SUMMARY | 2019-10-28 15:36 | XMS REPORT ---
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 [employer] Address [address] [place] [address] Care Team Providers Care Phone Operator Name Role Phone MALACHI RUIZ Unavailable JOSEPH ANDRES, MALACHI Sanabria Unavailable Unavailable HUANG MELENDEZ DO Unavailable Unavailable NATALI ANDRES, SHANTELL Mancini Unavailable Unavailable NATALI ANDRES, SHANTELL Mancini Unavailable Unavailable SHY ANDRES, JENNIE Fu Unavailable Unavailable ROGELIO ANDRES, JOSE Sanabria Unavailable Unavailable OG ANDRES, SHAWN Mancini Unavailable Unavailable Unavailable Unavailable Unavailable Unavailable Unavailable Unavailable Allergies Allergy Reported Allergen(s) Allergy Type Date of Reaction(s) Care Facility Classificati Onset Provider on Sulfonamides Sulfonamides (Antibiotic) Drug Allergy 01-10-2016 MALACHI Dennis (antibiotic) MD Available (9 sources) ([id number]) Encounters Encounter Date Encounter Type Encounter Diagnosis Care Provider Facility Start: Evaluation and JOSE MERCADO MD [facility] [place] [facility] 10-19-2019 management of [facility] inpatient End: 10-24-2019 Start: Patient encounter JOSE MERCADO MD [facility] [place] Via [facility] 10-19-2019 procedure [facility] End: 10-24-2019 Start: Emergency department [facility] 10-19-2019 patient visit [facility] Start: Evaluation and SHANTELL HURST MD [facility] [place] [facility] 09-09-2019 management of [facility] inpatient End: 09-16-2019 Start: Evaluation and MALACHI RUIZ MD Not Available ([id number]) 01-10-2016 management of inpatient End: 01-14-2016 Start: Patient encounter MALACHI RUIZ MD Not Availa ble ([id number]) 01-10-2016 End: 01-14-2016 Medical Equipment No Information Goals No Information Immunizations No Information Interventions No Information Medications No Information Payers No Information Plan of Treatment The data below is from unstructured sources Discharge Date 02/17/15 11:54am Disposition 09 ADMITTED INPATIENT Instructions/Education Provided DISC HARGE Prescriptions See Medication Section Discharge Date 01/22/15 5:56pm Disposition 01 HOME, SELF-CARE Instructions/Education Provided Director Private nnamdi Obstructive Pulmonary Disease (DC) Prescriptions See Medication Section Referrals MALACHI RUIZ MD (Unspeci fied) - 01/29/15 Address: [address] [place] [phone] Reason(s) for Referral: 1:30 pm (Other Speciality) - Additional Instructions/Education AN TICIPATE LESS THAN 30 DAY STAY TRANSFER TO [facility] SKILLED STATUS SKILLED ORDERS PT/OT EVAL AND TREAT Care Plan and Goals See Discharge In structions Section Discharge Date 02/23/15 3:20pm Disposition 01 HOME, SELF-CARE Instructions/Education Provided Bact erial Pneumonia (DC) Forms Provided PDI Medical Prescriptions See Medication Section Referrals LISA PEDRAZA DO (Unspeci fied) - 04/02/15 Address: [address] [place] [address]&[place] [address] Reason(s) for Referral: APRIL 02, 2015 AT 11:00 A.M. (Other Speciality) - Reason(s) for Referral: patient will need a hospital bed at home after discharge from [facility]. PATIENT WILL ASLO NEED A NEBULIZER AT HOME AFTER DISCHARGE FROM [facility]. Care Plan and Goals Discharge Date 02/23/15 3:20pm Disposition 01 HOME, SELF-CARE Instructions/Education Provided Bact erial Pneumonia (DC) Forms Provided PDI Medical Prescriptions See Medication Section Referrals LISA PEDRAZA DO (Unspeci fied) - 04/02/15 Address: [address] [place] [address]&[place] [address] Reason(s) for Referral: APRIL 02, 2015 AT 11:00 A.M. (Other Speciality) - Reason(s) for Referral: patient will need a hospital bed at home after discharge from [facility]. PATIENT WILL ASLO NEED A NEBULIZER AT HOME AFTER DISCHARGE FROM [facility] [place]. Care Plan and Goals Problems Active Problems Problem Problem Date Last Documented Episodic/Chr Provider Classificati Recorded Date onic on Cardiac Paroxysmal atrial fibrillation ; 09-18-2019 Chroni c SHANTELL NATALI dysrhythmias Translations: [Unspecified atrial M D (8 sources) flutter] Cardiac Palpitations ; Translations: MALACHI SEGLIE dysrhythmias [Unspecified atrial flutter] (7 sources) Chronic Chronic obstructive pulmonary 09-18-2019 Chronic MALACHI SEGLIE obstructive disease with acute lower MD pulmonary respiratory infection ; disease and Translations: [Chronic obst ructive bronchiectas pulmonary disease with (acu te) is exacerbation] (10 sources) Deficiency Anemia, unspecified 10-25-2019 Episodic JOSE MERCADO and other MD anemia (1 source) Diseases of Elevated white blood cell count, Chronic MALACHI SEGLIE white blood unspecified MD cells (3 sources) Esophageal Gastro-esophageal reflux disease 09-18-2019 Chroni c SHANTELL NATALI disorders without esophagitis MD (5 sources) Essential Essential (primary) hypertension 10-25-2019 Chroni hernán MERCADO hypertension (1 source) Fluid and Hypokalemia 09-18-2019 Episodic SHANTELL NATALI electrolyte MD disorders (4 sources) Immunization Contact with and (suspected) 09-18-2019 Episodic SHANTELL NATALI s and exposure to other viral MD screening communicable diseases for infectious disease (4 sources) Nutritional Cachexia 09-18-2019 Episodic SHANTELL NATALI deficiencies (4 sources) Osteoporosis Age-related osteoporosis without 09-18-2019 Chron ic MALACHI SEGLIE (7 sources) current pathological fracture MD 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 09-18-2019 Episodic SHANTELL NATALI aftercare anticoagulants MD (4 sources) Other Personal history of transient 09-18-2019 Episodic MALACHI SEGLIE circulatory ischemic attack (TIA), and cerebral MD disease infarction without residual (7 sources) deficits Other Hypotension, unspecified 09-18-2019 Episodic J CRISTOPHER NATALI circulatory MD disease (4 sources) Other Diarrhea, unspecified 09-18-2019 Episodic DELFINO N NATALI gastrointest MD inal disorders (4 sources) 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 (3 sources) Other Unspecified malignant neoplasm of 09-18-2019 Episo dic MALACHI SEGLIE non-epitheli skin, unspecified ; Translations: M D al cancer of [Personal history of other skin malignant neoplasm of skin] (7 sources) Other Hypomagnesemia 09-18-2019 Chronic SHANTELL REDMA N nutritional; endocrine; and metabolic disorders (4 sources) Other Anorexia 09-18-2019 Episodic SHANTELL NATALI nutritional; endocrine; and metabolic disorders (4 sources) Other Other specified abnormal findings 09-18-2019 Episo dic SHANTELL NATALI screening of blood chemistry MD for suspected conditions (not mental disorders or infectious disease) (4 sources) Pneumonia Pneumonia, unspecified organism 09-18-2019 Episodi c MALACHI SEGLIE (except that MD caused by tuberculosis or sexually transmitted disease) (8 sources) Residual Do not resuscitate 10-25-2019 Episodic JOSE Cardenas JOSE codes; unclassified (1 source) Respiratory Acute and chronic respiratory 10-25-2019 Chronic MALACHI SEGLIE failure; failure with hypoxia insufficienc y; arrest (adult) (3 sources) Screening Personal history of nicotine 09-18-2019 Episodic MALACHI SEGLIE and history dependence MD of mental health and substance abuse codes (8 sources) Thyroid Hypothyroidism, unspecified ; 09-18-2019 Chronic MALACHI SEGLIE disorders Translations: [Thyrotoxicosis, (12 sources) unspecified without thyroto xic crisis or storm] Past or Other Problems Problem Problem Date Last Documented Episodic/Chr Provider Classificati Recorded Date onic on Adverse Adverse effect of glucocorticoids F FLORIN SEGLIE effects of and synthetic analogues, initial MD medical encounter drugs (3 sources) Bacterial Unspecified Escherichia coli [E. Episodic MALACHI SEGLIE infection; coli] as the cause of diseases unspecified classified elsewhere site (3 sources) Diabetes Hyperglycemia, unspecified Episodic F FLORIN SEGLIE mellitus MD without complication (3 sources) Genitourinar Dysuria Episodic MALACHI SEGLIE y symptoms MD and ill-defined conditions (3 sources) Malaise and Weakness Episodic MALACHI SEGLIE fatigue (3 sources) Residual Hallucinations, unspecified Episodic MALACHI SEGLIE codes; unclassified (3 sources) Unclassified Other persistent atrial 10-25-2019 JOSE MERCADO (1 source) fibrillation Urinary Urinary tract infection, site not Episodic MALACHI SEGLIE tract specified infections (3 sources) Procedures Date Procedure Procedure Detail Performing Cl inician Start: INSERTION OF JOSE MERCADO MD 10-19-2019 INFUSION DEV INTO SUP VENA Start: Denominational of SHANTELL HURST MD 09-12-2019 Cardiac Rhythm, Single Results Test Name Value Interpreta Reference Facilit Date tion Range y Time not yet categorized on 2019-10-24 NAME: JO-ANN MACDONALD ~MED REC#: Invalid PENDING [id number] ~ ~CARE Interpreta LOCATIO PROVIDER: RACHID ETIENNE DPT ~PT Daily tion Code N [facility] Note-Current ~Subjective ~Pt in bed, declines (000 00) to participate with therapy initially d espite max encouragement. "I am just not ~chivo g to do it today, I am just too weak". Educa kizzy Pt on role of PT and importance of increas ing ~activity to combat weakness; "I have b een trying to cough stuff up and I haven't been able to get ~anything up yet". Educated that sitting EOB with improved posture may h elp clear the lungs, Pt ~states "I know but I am not doing it today!" Requested Pt compl ete bed level exercises, Pt states, ~"Not r ight now. Is the doctor on the floor? I want to talk to the doctor first". Pt then repo rts "I ~think I am wet". Begrudgingly agr ees to bed mobility to allow pericare. ~ ~Ment al Status ~Patient Orientation: Person, Pl jeremias, Time, Situation ~Attachments: SCD's, Ox ygen ~ ~Transfers ~SCALE: Activities may be completed with or without assistive dev ices. ~ ~9-Phhhyrftac-nfmckkb completes the activity by him/herself with no assista nce from a helper. ~5-Set-up or Clean-up Assistance-helper sets up or cleans up; patient completes activity. [place] ~ass ists only prior to or ~ following the activi ty. ~4-Supervision or Touching Assistance-h elper provides verbal cues and/or touching/steadying and/or ~contact guar d assistance as patient completes activit y. Assistance may be provided ~ throughout the activity or intermittently. ~3-Partial/Moderate Assistance-helper d oes LESS THAN HALF the effort. [place] lifts , holds or supports~trunk or limbs, but provides less than half the effort. ~2-Substantial/Maximal Assistance-helpe r does MORE THAN HALF the effort. [place] lifts or holds trunk ~or limbs and provides more than half the effort. ~5-Fltblymts-jrbndn do es ALL the effort. Patient does none of the ef fort to complete the activity. ~Or, the assi stance of 2 or more helpers is required for th e patient to complete the ~ activity. ~If activity was not attempted, code reason : ~7-Patient Refused. ~9-Not Applicable-n ot attempted and the patient did not perfo rm the activity before the current ~illness, exacerbation or injury. ~10-Not Attempt ed due to Environmental Limitations-(lack of equipment, weather restraints, etc.). ~ 88-Not Attempted due to Medical Conditions or Safety Concerns. ~Roll Left Right (QC): 2 ~Rol ling (L) and (R), multiple times with Max A x 1 for dependent delonte-care and depends tatiana nge. Max A~x 2 for up in bed. ~ ~Weight Bear ing ~Right Lower Extremity: Right ~Weight Bearing/Tolerated ~Left Lower Extremity : Left ~Weight Bearing/Tolerated ~ ~Treatments ~Bed mobility for dependent pericare. Pt ada mantly refusing to participate in bed level exercises or ~OOB activity. Positioned on back per Pt requested, heels floated, O 2 in situ, needs met. ~ ~Assessment ~Current Status: Poor Progress ~Pt self-limits, refusing to increase activity. Pt would benefit from skilled PT to increase ~functional strength and functional act ivity tolerance to decrease caregiver burden upon discharge. ~ ~PT Furnace Builder Goals ~Retirement Goals ~PT Retirement Goals Time Frame: A 2019 ~Sit to Lying (QC): 4 ~Lying-Sitti ng on Side/Bed(QC): 4 ~Sit to Stand (QC): 4 ~ Walk 10 feet (QC): 3 ~ ~PT Plan ~Problem Lis t ~Problem List: Activity Tolerance, Func tional Strength, Safety, Balance, Gait, Transf er, Bed ~Mobility ~ ~Treatment/Plan ~Treatm ent Plan: Continue Plan of Care ~Treatment Plan: Bed Mobility, Education, Functional Act ivity Armin, Functional Strength, Gait, ~Safe ty, Therapeutic Exercise, Transfers ~Treatm ent Duration: Oct 29, 2019 ~Frequency: 6 ti mes per week ~Estimated Hrs Per Day: .25 ho ur per day ~Patient and/or Family Agrees t: Ye s ~ ~Safety Risks/Education ~Teaching Recip ient: Patient ~Teaching Methods: Discussion ~Response to Teaching: Reinforcement Ne eded ~Importance of OOB, increasing activity . ~ ~Discharge Recommendations ~Therapy Dis charge Recommendati: Post Acute PT (return to SNU) ~Barriers to Progress ~Self limiting du e to weakness, fatigue ~ ~Time/GCodes ~Time In: 928 ~Time Out: 946 ~Total Billed [place] tment Time: 18 ~Total Billed Treatment ~1, FA x 18' ~ ~ ~ ~RACHID ETIENNE DPT Oct 24, 2019 10 :13 ~ ~ ~<Created by RACHID ETIENNE DPT> ~<Electronically signed by RACHID Hernadez DPT> 10/24/19 1019 ~ ~ laboratory on 2019-10-24 Anion gap 7 mmol/L Negative 5-14 PENDING [Moles/Vol] mmol/L LOCATIO 020 N [facility] 02:20-0 ([id number]) 400 Basophils (Bld) 0.0 10*3/uL Negative 0.0-0.1 PENDING 10-23 [#/Vol] 10*3/uL LOCATIO 020 N [facility] 02:20-0 ([id number]) 400 Basophils/100 WBC 0 % Negative 0-10 % PENDING 10-23 - (Bld) LOCATIO 020 N [facility] 02:20-0 ([id number]) 400 Calcium [Mass/Vol] 8.2 mg/dL Low 8.5-10.1 PENDING 08-0 6-2 mg/dL LOCATIO 020 N [facility] 02:20-0 ([id number]) 400 Chloride [Moles/Vol] 112 mmol/L High 98-107 PENDING 0 8-06-2 mmol/L LOCATIO 020 N [facility] 02:20-0 ([id number]) 400 CO2 [Moles/Vol] 19 mmol/L Low 21-32 PENDING --2 mmol/L LOCATIO 020 N [facility] 02:20-0 ([id number]) 400 Creatinine 0.65 mg/dL Negative 0.60-1.30 PENDING [Mass/Vol] mg/dL LOC[facility]IO 020 N [facility] 02:20-0 ([id number]) 400 Creatinine and > Invalid PENDING 08-06-2 Glomerular Interpreta LOCATIO 020 filtration tion Code N [facility] 02:20-0 rate.predicted panel ([id number]) 400 - Serum, Plasma or Blood Eosinophils (Bld) 0.1 10*3/uL Negative 0.0-0.3 PENDING 08-19 [#/Vol] 10*3/uL LOCATIO 020 [facility] 02:20-0 ([id number]) 400 Eosinophils/100 WBC 1 % Negative 0-10 % PENDING 08-19 (Bld) LOCATIO 020 [facility] 02:20-0 ([id number]) 400 Erythrocyte 14.9 % High 10.0-14.5 PENDING distribution width % LOCATIO 020 (RBC) [Ratio] [facility] 02:20-0 ([id number]) 400 Glucose [Mass/Vol] 72 mg/dL Negative 70-105 PENDING 6-2 mg/dL LOCATIO 020 [facility] 02:20-0 ([id number]) 400 Hematocrit (Bld) 28 % Low 35-52 % PENDING [Volume fraction] LOCATIO 020 [facility] 02:20-0 ([id number]) 400 Hemoglobin (Bld) 8.9 g/dL Low 11.5-16.0 PENDING [Mass/Vol] [facility] 02:20-0 ([id number]) 400 Lymphocytes (Bld) 0.5 10*3/uL Low 1.0-4.0 PENDING 08-19 [#/Vol] 10*3 LOCATIO 020 [facility] 02:20-0 ([id number]) 400 Lymphocytes/100 WBC 8 % Low 12-44 % PENDING 08-19 (Bld) LOCATIO 020 [facility] 02:20-0 ([id number]) 400 Magnesium [Mass/Vol] 1.6 mg/dL Negative 1.6-2.4 P[facility]ING mg[facility] 02:20-0 ([id number]) 400 MCH (RBC) [Entitic 30 pg Negative 25-34 pg PENDING 08-0 6-2 mass] LOCATIO 020 [facility] 02:20-0 ([id number]) 400 MCHC (RBC) 32 g/dL Negative 32-36 g/dL PENDING [Mass/Vol] LOCATIO 020 N S 02:20-0 ([id number]) 400 MCV (RBC) [Entitic 94 Negative 80-99 PENDING - 6-2 vol] [foz_us] [facility] 020 N [facility] 02:20-0 ([id number]) 400 Monocytes (Bld) 0.4 10*3/uL Negative 0.0-1.0 PENDING 10-23 [#/Vol] 10*3 LOC[facility] 020 N S 02:20-0 ([id number]) 400 Monocytes/100 WBC 5 % Negative 0-12 % PENDING 10-23 (Bld) LOC[facility] 020 N S 02:20-0 ([id number]) 400 Neutrophils (Bld) 5.6 10*3/uL Negative 1.8-7.8 PENDING 08-19 [#/Vol] 10*3 LOCATIO 020 N S 02:20-0 ([id number]) 400 Neutrophils/100 WBC 85 % High 42-75 % PENDING 08-19 (Bld) LOCATIO 020 N S 02:20-0 ([id number]) 400 Phosphate [Mass/Vol] 2.0 mg/dL Low 2.3-4.7 PENDING mg/dL [facility] 020 N [facility] 02:20-0 ([id number]) 400 Platelet mean volume 9.8 Negative 7.4-10.4 PENDING (Bld) [Entitic vol] [foz_us] LOCATIO 020 N S 02:20-0 ([id number]) 400 Platelets (Bld) 210 10*3/uL Negative 130-400 PENDING 10-23 [#/Vol] 10*3/uL LOCATIO 020 N S 02:20-0 ([id number]) 400 Potassium 3.6 mmol/L Negative 3.6-5.0 PENDING [Moles/Vol] mmol/L [facility] 020 N [facility] 02:20-0 ([id number]) 400 RBC (Bld) [#/Vol] 2.95 10*6/uL Low 4.35-5.85 PENDING 10*6/uL [facility] 020 N [facility] 02:20-0 ([id number]) 400 Sodium [Moles/Vol] 138 mmol/L Negative 135-145 PENDING 08-19 mmol/L [facility] 020 N [facility] 02:20-0 ([id number]) 400 Urea nitrogen 16 mg/dL Negative 7-18 mg/dL PENDING [Mass/Vol] [facility] 020 N [facility] 02:20-0 ([id number]) 400 Urea 25 mg/mg Invalid PENDING nitrogen/Creatinine Interpreta LOCATIO 020 [Mass ratio] tion Code N [facility] 02:20-0 ([id number]) 400 WBC (Bld) [#/Vol] 6.5 10*3/uL Negative 4.3-11.0 PENDING 08-19 10*3/uL LOCATIO 020 N S 02:20-0 ([id number]) 400 not yet categorized on 2019-10-23 TIBC 136 Low 280-380 % PENDING LOCATIO 020 N S 01:30-0 ([id number]) 400 UIBC 86 Invalid 55-450 % PENDING Interpreta LOCATIO 020 tion Code N [facility] 01:30-0 ([id number]) 400 NAME: JO-ANN MACDONALD ~MED REC#: Invalid PENDING [id number] ~ ~CARE Interpreta LOCATIO PROVIDER: LUCY CERVANTES PT ~PT Daily tion Code N [facility] Note-Current ~Subjective ~Pt presents supine (0000 0) in bed upon arrival to room, CUSTOMER MANAGEMENT SPECIALIST presen t to clean pt up after BM. Pt reports no ~pa in, but adamantly refuses any OOB activity. ~ ~Appearance ~Following session, pt recl ined in bed with HOB elevated into seated position. Call light and tray ~within r each, all needs met. ~ ~Mental Status ~Patien t Orientation: Person, Place ~Attachments : Oxygen (vapotherm 45%), IV ~ ~Transfers ~SCALE: Activities may be completed wit h or without assistive devices. ~ ~6-Pqlxsczqso-lkgfche completes the act ivity by him/herself with no assistance from a helper. ~5-Set-up or Clean-up Assistance-helper sets up or cleans up; patient completes activity. [place] ~ass ists only prior to or ~ following the activi ty. ~4-Supervision or Touching Assistance-h elper provides verbal cues and/or touching/steadying and/or ~contact guar d assistance as patient completes activit y. Assistance may be provided ~ throughout the activity or intermittently. ~3-Partial/Moderate Assistance-helper d oes LESS THAN HALF the effort. [place] lifts , holds or supports~trunk or limbs, but provides less than half the effort. ~2-Substantial/Maximal Assistance-helpe r does MORE THAN HALF the effort. [place] lifts or holds trunk ~or limbs and provides more than half the effort. ~5-Tohkbwsot-fnytei do es ALL the effort. Patient does none of the ef fort to complete the activity. ~Or, the assi stance of 2 or more helpers is required for th e patient to complete the ~ activity. ~If activity was not attempted, code reason : ~7-Patient Refused. ~9-Not Applicable-n ot attempted and the patient did not perfo rm the activity before the current ~illness, exacerbation or injury. ~10-Not Attempt ed due to Environmental Limitations-(lack of equipment, weather restraints, etc.). ~ 88-Not Attempted due to Medical Conditions or Safety Concerns. ~Roll Left Right (QC): 2 ~Max A to roll R L to clean pt following BM. ~ ~W eight Bearing ~Right Lower Extremity: Right ~ Weight Bearing/Tolerated ~Left Lower Extremity : Left ~Weight Bearing/Tolerated ~ ~Exercises ~Supine Ex: Bridging, Ankle pumps, Quad Set, Glut sets, Heel Slides ~Supine Reps: 10 ~ ~Treatments ~PT assisted CUSTOMER MANAGEMENT SPECIALIST in cleanin g pt following BM, pt required Max A to roll both directions. Pt then ~adamantly refused OOB activity, even sitting EOB despite maxi mal encouragement. pt agreed to supine ~exercises. ~ ~Assessment ~Current Stat us: Fair Progress ~Pt with decreased activi ty tolerance, as she refuses OOB activitie s. Will continue to encourage pt ~to parti cipate in OOB activities, and progress with ac tivity tolerance and strengthening. ~ ~PT Retirement Goals ~Furnace Builder Goals ~PT Retirement Go als Time Frame: Oct 29, 2019 ~Sit to Lying (QC): 4 ~Lying-Sitting on Side/Bed(QC): 4 ~Si t to Stand (QC): 4 ~Walk 10 feet (QC): 3 ~ ~ PT Plan ~Problem List ~Problem List: Activ ity Tolerance, Functional Strength, Safety, Balance, Gait, Transfer, Bed ~Mobility, ROM ~ ~Treatment/Plan ~Treatment Plan: Contin ue Plan of Care ~Treatment Plan: Bed Mobil ity, Education, Functional Activity Armin, Functional Strength, Gait, ~Safety, Therapeutic Exercise, Transfers ~Treatm ent Duration: Oct 29, 2019 ~Frequency: 6 ti mes per week ~Estimated Hrs Per Day: .25 ho ur per day ~Patient and/or Family Agrees t: Ye s ~ ~Time/GCodes ~Time In: 1028 ~Time Out: 1041 ~Total Billed Treatment Time: 23 ~Total Billed Treatment ~1 visit ~EX (8') ~FA (15') ~ ~ ~ ~LUCY CERVANTES PT Oct 23, 2019 11:33 ~ ~ ~<Created by LUCY CERVANTES PT> ~<Electron ically signed by LUCY CERVANTES PT> 10/23/19 1133 ~ ~ NAME: JO-ANN AMCDONALD Oksana ~MED REC#: Invalid PENDING [id number] ~ ~CARE Interpreta LOCATIO PROVIDER: LUCY CERVANTES PT ~PT Daily tion Code N [facility] Note-Current ~Subjective ~Pt presents supine (0000 0) in bed upon arrival to room, CUSTOMER MANAGEMENT SPECIALIST presen t to clean pt up after BM. Pt reports no ~pa in, but adamantly refuses any OOB activity. ~ ~Appearance ~Following session, pt recl ined in bed with HOB elevated into seated position. Call light and tray ~within r each, all needs met. ~ ~Mental Status ~Patien t Orientation: Person, Place ~Attachments : Oxygen (vapotherm 45%), IV ~ ~Transfers ~SCALE: Activities may be completed wit h or without assistive devices. ~ ~0-Babtyinbzx-wzkdynu completes the act ivity by him/herself with no assistance from a helper. ~5-Set-up or Clean-up Assistance-helper sets up or cleans up; patient completes activity. [place] ~ass ists only prior to or ~ following the activi ty. ~4-Supervision or Touching Assistance-h elper provides verbal cues and/or touching/steadying and/or ~contact guar d assistance as patient completes activit y. Assistance may be provided ~ throughout the activity or intermittently. ~3-Partial/Moderate Assistance-helper d oes LESS THAN HALF the effort. [place] lifts , holds or supports~trunk or limbs, but provides less than half the effort. ~2-Substantial/Maximal Assistance-helpe r does MORE THAN HALF the effort. [place] lifts or holds trunk ~or limbs and provides more than half the effort. ~5-Ejtyesqmt-pfoxvg do es ALL the effort. Patient does none of the ef fort to complete the activity. ~Or, the assi stance of 2 or more helpers is required for th e patient to complete the ~ activity. ~If activity was not attempted, code reason : ~7-Patient Refused. ~9-Not Applicable-n ot attempted and the patient did not perfo rm the activity before the current ~illness, exacerbation or injury. ~10-Not Attempt ed due to Environmental Limitations-(lack of equipment, weather restraints, etc.). ~ 88-Not Attempted due to Medical Conditions or Safety Concerns. ~Roll Left Right (QC): 2 ~Max A to roll R L to clean pt following BM. ~ ~W eight Bearing ~Right Lower Extremity: Right ~ Weight Bearing/Tolerated ~Left Lower Extremity : Left ~Weight Bearing/Tolerated ~ ~Exercises ~Supine Ex: Bridging, Ankle pumps, Quad Set, Glut sets, Heel Slides ~Supine Reps: 10 ~ ~Treatments ~PT assisted CUSTOMER MANAGEMENT SPECIALIST in cleanin g pt following BM, pt required Max A to roll both directions. Pt then ~adamantly refused OOB activity, even sitting EOB despite maxi mal encouragement. pt agreed to supine ~exercises. ~ ~Assessment ~Current Stat us: Fair Progress ~Pt with decreased activi ty tolerance, as she refuses OOB activitie s. Will continue to encourage pt ~to parti cipate in OOB activities, and progress with ac tivity tolerance and strengthening. ~ ~PT Furnace Builder Goals ~Furnace Builder Goals ~PT Furnace Builder Go als Time Frame: Oct 29, 2019 ~Sit to Lying (QC): 4 ~Lying-Sitting on Side/Bed(QC): 4 ~Si t to Stand (QC): 4 ~Walk 10 feet (QC): 3 ~ ~ PT Plan ~Problem List ~Problem List: Activ ity Tolerance, Functional Strength, Safety, Balance, Gait, Transfer, Bed ~Mobility, ROM ~ ~Treatment/Plan ~Treatment Plan: Contin ue Plan of Care ~Treatment Plan: Bed Mobil ity, Education, Functional Activity Armin, Functional Strength, Gait, ~Safety, Therapeutic Exercise, Transfers ~Treatm ent Duration: Oct 29, 2019 ~Frequency: 6 ti mes per week ~Estimated Hrs Per Day: .25 ho ur per day ~Patient and/or Family Agrees t: Ye s ~ ~Time/GCodes ~Time In: 1028 ~Time Out: 1041 ~Total Billed Treatment Time: 23 ~Total Billed Treatment ~1 visit ~EX (8') ~FA (15') ~ ~ ~ ~LUCY CERVANTES PT Oct 23, 2019 11:33 ~ ~ ~<Created by LUCY CERVANTES PT> ~<Landen starks signed by LUCY CERVANTES PT> 10/23/19 1133 ~ ~ ~ ~ REPORT ADDENDUM ~ ~ ~ ~Addendum: LUCY CERVANTES PT on 10/23/19 @ 11:34 ~ ~Tatiana rges should read: 1 visit; FA (13') and tota l time being 13' treatment time. ~ ~<Created b y LUCY CERVANTES PT 10/23/19 1135 ~<Landen starks signed by NAME: JO-ANN MACDONALD ~MED REC#: Invalid PENDING [id number] ~ ~CARE Interpreta LOCATIO PROVIDER: GRAHAM SADLER OT ~OT Current tion Code N [facility] Status-Daily Note ~Subjective ~Pt laying in (33799 ) bed, family member present. Pt agreeabl e to OT Tx at this time. During tx pt states she~prayed the other night that she wou ld see herhondan, and when she woke up she saw cl ouds and a blue jemma~and she thought she was there, but turns out she was still here. ~ ~ADL-Treatment ~Therapy Code Descriptions/Definitions ~ ~Functional [place] Measure: ~0=Not Assessed/N A 4=Minimal Assistance ~1=Total Assistanc e 5=Supervision or Setup ~2=Maximal [place] tance 6=Modified [place] ~3=Moderate Assistance 7=Complete IndependenceSCALE : Activities may be completed with or wit hout ~assistive devices. ~ ~8-Tidqfbrhnp-fmp ieanna marie completes the activity by him/herself w ith no assistance from a helper. ~5-Set-up or Clean-up Assistance-helper sets up or c leans up; patient completes activity. [place] ~assists only prior to or ~ following t he activity. ~4-Supervision or Touching Assistance-helper provides verbal cues and/or touching/steadying and/or ~contact guar d assistance as patient completes activit y. Assistance may be provided ~ throughout the activity or intermittently. ~3-Partial/Moderate Assistance-helper d oes LESS THAN HALF the effort. [place] lifts , holds or supports~trunk or limbs, but provides less than half the effort. ~2-Substantial/Maximal Assistance-helpe r does MORE THAN HALF the effort. [place] lifts or holds trunk ~or limbs and provides more than half the effort. ~3-Khhthgale-tqjkvn do es ALL the effort. Patient does none of the ef fort to complete the activity. ~Or, the assi stance of 2 or more helpers is required for th e patient to complete the ~ activity. ~If activity was not attempted, code reason : ~7-Patient Refused. ~9-Not Applicable-n ot attempted and the patient did not perfo rm the activity before the current ~illness, exacerbation or injury. ~10-Not Attempt ed due to Environmental Limitations-(lack of equipment, weather restraints, etc.). ~ 88-Not Attempted due to Medical Conditions or Safety Concerns. ~ ~Other Treatment ~Pt agreea ble to OT Tx with focus on UE exercises in ord er to increase BUE strength and functional ~endurance with tasks. OT educated pt o n the benefits and purpose of exercises, she verbalized ~understanding and agreed to completing exercises. Pt completed x10 reps each BUES for the following ~exercises: shoulder flexion, elbow flexion/extensi on, finger flexion/extension. She took rest breaks~as needed between exercises. Pt then talks about how she wanted to see mario preston the other day. She was~unsure is she was at the [facility] or the hospital but she just wants to go home. Post OT Tx, pt laying in~bed, lokesh l light in reach and all needs met, famil y member present. ~ ~Education ~OT Patien t Education: Correct positioning, Energy conservation, Exercise program, Modifie d ADL ~techniques, Progress toward Goal/Updat e tx plan, Purpose of tx/functional activiti es ~Teaching Recipient: Patient ~Teaching Methods: Discussion ~Response to Teachi ng: Verbalize Understanding, Reinforcement Needed ~ ~OT Furnace Builder Goals ~Retirement Goals ~Time Frame: Nov 05, 2019 ~Eating (QC): 6 ~Or al Hygiene (QC): 6 ~Toileting Hygiene (QC) : 3 ~Shower/Bathe Self (QC): 2 ~Upper Body Dressing (QC): 4 ~Lower Body Dressing ( QC): 4 ~On/Off Footwear (QC): 4 ~Additional Go als: 1-Demonstrate ADL Tasks, 2-Verbalize Understanding, 3-ImproveStrength/Armin ~1=Demonstrate adherence to instructed precautions during ADL tasks. ~2=Patien t will verbalize/demonstrate understanding of assistive devices/modifications for ADL . ~3=Patient will improve strength/tolera nce for activity to enable patient to perfo rm ADL's. ~ ~OT Education/Plan ~Problem List/Assessment ~Assessment: Decreased Activ Tolerance, Decreased UE Strength, Impai red Bed Mobility, Impaired ~Cognition, Impa ired Funct Balance, Impaired I ADL's, Impair ed Self-Care Skills ~ ~Discharge Recommend ations ~Plan/Recommendations: Continue POC ~ ~Treatment Plan/Plan of Care ~Patient w ould benefit from OT for education, treatmen t and training to promote independence in ~AD L's, mobility, safety and/or upper extremity function for ADL's. ~Plan of Care: ADL Retraining, Functional Mobility, UE Fun ct Exercise/Act ~Treatment Duration: Oct 182019 ~Frequency: 5 times per week ~Mellissa mated Hrs Per Day: .25 hour per day ~Agreemen t: Yes ~Rehab Potential: Fair ~ ~Time/GCodes ~ Start Time: 14:50 ~Stop Time: 14:59 ~Total Ti me Billed (hr/min): 9 ~Billed Treatment Ti me ~1, EX ~ ~ ~ ~GRAHAM SADLER OT Oct 23, 2019 15:08 ~ ~ ~<Created by GRAHAM MALDONADO OT> ~<Electronically signed by GRAHAM CRUZ OT> 10/23/19 2271 ~ ~ NAME: JO-ANN MACDONALD ~MED REC#: Invalid PENDING [id number] ~ ~CARE Interpreta LOCATIO PROVIDER: JOSE MERCADO MD ~Subjective tion Code N [facility] ~Subjective/Events-last exam ~Patient feeling (000 00) better but states that she is still yissel y weak. No appetite and has eaten very little~here in the hospital. ~Review of Systems ~Pulmonary: Dyspnea, Cough ~Cardiovascular: No: Chest Pain, Palpit ations ~Gastrointestinal: No: Nausea, Vomiting , Abdominal Pain ~Neurological: Weakness, Incoordination ~ ~Objective ~Exam ~Last Set of Vital Signs ~ ~Vital Signs ~ ~ ~ Chato e Time Temp Pulse Resp B/P (MAP) Pulse Ox O2 Delivery O2 Flow Rate FiO2 ~ ~10/23/19 19 :41 36.7 87 16 107/53 (71) 93 High Flow N/C ~ ~10/23/19 16:09 2.00 ~ ~10/23/19 09:47 35 ~ ~Capillary Refill : Less Than 3 Seconds ~I O ~ ~ ~ ~Intake and Output ~ ~ 10/23/19 ~ ~ 00:00 ~ ~Intake Total 1990 ml ~ ~Output Total 450 ml ~ ~Balance 1540 ml ~ ~ ~ ~Intake Ora l 770 ml ~ ~IV Total 1220 ml ~ ~Output Urine Total 450 ml ~ ~# Voids 3 ~ ~# Bowel Movement s 1 ~ ~ ~General: Alert, Oriented X3, [place] tive, Mild Distress ~Lungs: Other (Diminished breath sounds, conversational dyspnea) ~Heart: Regular Rate, No Murmurs ~Abdom en: Normal Bowel Sounds, Soft, No Tendernes s, No Masses ~Extremities: No Edema, No Tenderness/Swelling ~Skin: No Rashes, N o Breakdown ~Neuro: Normal Speech, Sensat ion Intact, Cranial Nerves 3-12 NL ~ ~Results/Procedures ~Lab ~Laboratory Te sts ~10/23/19 05:30: ~White Blood Count 4.9, Red Blood Count 2.98L, Hemoglobin 8.9L, Hematocrit 28L, Mean Corpuscular ~Volum e 94, Mean Corpuscular Hemoglobin 30, Mean Corpuscular Hemoglobin Concent 32, Red Cell ~Distribution Width 14.9H, Platelet Cou nt 217, Mean Platelet Volume 10.1, Neutrop hils (%) (Auto) 89H,~Lymphocytes (%) (Auto) 4L, Monocytes (%) (Auto) 7, Eosinophils (%) (Auto) 0, Basophils (%) (Auto) 0,~Neutr ophils # (Auto) 4.3, Lymphocytes # (Auto) 0.2L , Monocytes # (Auto) 0.4, Eosinophils # ( Auto) ~0.0, Basophils # (Auto) 0.0, Sodium Le hillary 139, Potassium Level 4.0, Chloride Leve l 113H, Carbon ~Dioxide Level 16L, Anion Gap 10, Blood Urea Nitrogen 18, Creatinine 0.65, Estimat Glomerular ~Filtration Rate > 6 0, BUN/Creatinine Ratio 28, Glucose Level 101, Calcium Level 8.5, Phosphorus ~Level 2. 1L, Magnesium Level 1.8, Iron Level 50, Tot al Iron Binding Capacity 136L, Unsaturated Iron ~Binding Capacity 86, Transferrin % Saturation 37 ~ ~Microbiology ~10/19/19 M RSA Screen - Final, Complete ~ MRSA not iso lated ~10/19/19 Blood Culture - Preliminary, Re sulted ~ No growth ~ ~Assessment/Plan ~Assessment/Plan ~ ~(1) Acute and chron ic respiratory failure with hypoxia ~Statu s: Acute ~Assessment Plan: 10/20: Patient continues to require Vapotherm, will co ntinue to titrate as ~tolerated ~10/21: Flow tit rated today ~10/22: Transitioned to NC today an d doing well. ~ ~(2) Atrial fibrillation with rapid ventricular response ~Status: Acu te ~Assessment Plan: 10/20: Cardiology consu lted, appreciate recommendations, they have s topped ~amiodarone due to lung disease, Contin ue oral anticoagulation ~10/21: Rate control led today ~ ~(3) Right upper lobe pneumonia ~Status: Acute ~Assessment Plan: 10/20: continue IV antibiotics ~10/22: Will avilez sition to PO antibiotics tomorrow ~Qualifiers: ~ Qualified Codes: J18.1 - Lobar pneumoni a, unspecified organism ~(4) Normocytic an emia ~Status: Chronic ~Assessment Plan: 10/20: No signs of bleeding, will continue to mon itor ~10/21: Iron studies pending ~ ~(5) Debil ity ~Status: Acute ~Assessment Plan: - PT/O T ~ ~(6) DVT prophylaxis ~Status: Acute ~Assessment Plan: - Eliquis ~ ~ ~Clinic al Quality Measures ~DVT/VTE Risk/Contraindication: ~Risk Factor Sco re Per Nursin ~RFS Level Per Nursing on clara: 4+=Very High ~ ~ ~ ~JOSE MERCADO MD Au 2019 21:17 ~ ~ ~<Created by JOSE WATSON LT, MD> ~<Electronically signed by JOSE Fu MD> 10/23/192116 ~ ~ laboratory on 2019-10-23 Anion gap 10 mmol/L Negative 5-14 PENDING 10-22-2 [Moles/Vol] mmol/L LOCATIO 020 [facility] 01:30-0 ([id number]) 400 Basophils (Bld) 0.0 10*3/uL Negative 0.0-0.1 PENDING 10-22 [#/Vol] 10*3/uL LOCATIO 020 N S 01:30-0 ([id number]) 400 Basophils/100 WBC 0 % Negative 0-10 % PENDING 05 -2 (Bld) LOCATIO 020 N S 01:30-0 (77368) 400 Calcium [Mass/Vol] 8.5 mg/dL Negative 8.5-10.1 PENDING 08-0 5-2 mg/dL LOCATIO 020 [facility] 01:30-0 (60644) 400 Chloride [Moles/Vol] 113 mmol/L High 98-107 PENDING 0 8-05-2 mmol/L LOCATIO 020 N S 01:30-0 (21055) 400 CO2 [Moles/Vol] 16 mmol/L Low 21-32 PENDING 08-05-2 mmol/L LOCATIO 020 [facility] 01:30-0 (16080) 400 Creatinine 0.65 mg/dL Negative 0.60-1.30 PENDING 05-2 [Mass/Vol] mg/dL LOCATIO 020 N S 01:30-0 (57804) 400 Creatinine and > Invalid PENDING 2 Glomerular Interpreta LOCATIO 020 filtration tion Code N [facility] 01:30-0 rate.predicted panel (69322) 400 - Serum, Plasma or Blood Eosinophils (Bld) 0.0 10*3/uL Negative 0.0-0.3 PENDING 07-19 [#/Vol] 10*3/uL LOCATIO 020 [facility] 01:30-0 ([id number]) 400 Eosinophils/100 WBC 0 % Negative 0-10 % PENDING 07-19 (Bld) LOCATIO 020 [facility] 01:30-0 ([id number]) 400 Erythrocyte 14.9 % High 10.0-14.5 PENDING distribution width % LOCATIO 020 (RBC) [Ratio] [facility] 01:30-0 (20012) 400 Ferritin [Mass/Vol] 346.6 Abnormal 20.0-177.0 PENDING % LOCATIO 020 [facility] 01:30-0 (65054) 400 Glucose [Mass/Vol] 101 mg/dL Negative 70-105 PENDING 5-2 mg/dL LOCATIO 020 [facility] 01:30-0 (35798) 400 Hematocrit (Bld) 28 % Low 35-52 % PENDING [Volume fraction] LOCATIO 020 [facility] 01:30-0 (67340) 400 Hemoglobin (Bld) 8.9 g/dL Low 11.5-16.0 PENDING [Mass/Vol] g/dL LOCATIO 020 [facility] 01:30-0 (33365) 400 Iron [Mass/Vol] 50 Invalid 35-180 % PENDING Interpreta LOCATIO 020 tion Code N [facility] 01:30-0 ([id number]) 400 Iron and Iron 37 Invalid 15-50 % PENDING binding capacity Interpreta LOCATIO 020 panel - Serum or tion Code N [facility] 01:30-0 Plasma ([id number]) 400 Lymphocytes (Bld) 0.2 10*3/uL Low 1.0-4.0 PENDING 07-19 [#/Vol] 10*3 LOCATIO 020 [facility] 01:30-0 (80104) 400 Lymphocytes/100 WBC 4 % Low 12-44 % PENDING 07-19 (Bld) LOCATIO 020 [facility] 01:30-0 ([id number]) 400 Magnesium [Mass/Vol] 1.8 mg/dL Negative 1.6-2.4 PENDING -05-2 mg/dL [address] :30-0 (70789) 400 MCH (RBC) [Entitic 30 pg Negative 25-34 pg PENDING 08-0 5-2 mass] [facility] Jarrell [facility] :30-0 (31032) 400 MCHC (RBC) 32 g/dL Negative 32-36 g/dL PENDING 08-05-2 [Mass/Vol] [address] :30-0 (55380) 400 MCV (RBC) [Entitic 94 Negative 80-99 PENDING 08-0 5-2 vol] [foz_us] [address] :30-0 (46515) 400 Monocytes (Bld) 0.4 10*3/uL Negative 0.0-1.0 PENDING 05 -2 [#/Vol] 10*[address] :30-0 (66930) 400 Monocytes/100 WBC 7 % Negative 0-12 % PENDING 10-22 -2 (Bld) [address] :30-0 (96798) 400 Neutrophils (Bld) 4.3 10*3/uL Negative 1.8-7.8 PENDING 05-2 [#/Vol] 10*[address] :30-0 (34456) 400 Neutrophils/100 WBC 89 % High 42-75 % PENDING 05-2 (Bld) [address] :30-0 (39177) 400 Phosphate [Mass/Vol] 2.1 mg/dL Low 2.3-4.7 PENDING 05-2 mg/dL [address] :30-0 (98345) 400 Platelet mean volume 10.1 Negative 7.4-10.4 PENDING 05-2 (Bld) [Entitic vol] [foz_us] [address] 01:30-0 (48662) 400 Platelets (Bld) 217 10*3/uL Negative 130-400 PENDING -05 -2 [#/Vol] 10*3/uL [address] :30-0 (84381) 400 Potassium 4.0 mmol/L Negative 3.6-5.0 PENDING [Moles/Vol] mmol/L LOCATIO 020 [facility] 01:30-0 (11548) 400 RBC (Bld) [#/Vol] 2.98 10*6/uL Low 4.35-5.85 PENDING 10*6/uL LOCATIO 020 N [facility] 01:30-0 (84553) 400 Sodium [Moles/Vol] 139 mmol/L Negative 135-145 PENDING 07-19 mmol/L LOCATIO 020 [facility] 01:30-0 (96291) 400 Urea nitrogen 18 mg/dL Negative 7-18 mg/dL PENDING [Mass/Vol] LOCATIO 020 [facility] 01:30-0 (15384) 400 Urea 28 mg/mg Invalid PENDING nitrogen/Creatinine Interpreta LOCATIO 020 [Mass ratio] tion Code N [facility] 01:30-0 (83975) 400 WBC (Bld) [#/Vol] 4.9 10*3/uL Negative 4.3-11.0 PENDING 07-19 10*3/uL LOCATIO 020 [facility] 01:30-0 (78842) 400 not yet categorized on 2019-10-22 PROCALCITONIN (PCT) 0.10 High <0.10 PENDING -2 ng/mL LOCATIO 020 [facility] 01:06-0 ([id number]) 400 NAME: JO-ANN MACDONALD Oksana ~MED REC#: Invalid PENDING [id number] ~ ~CARE Interpreta LOCATIO PROVIDER: JOSE MERCADO MD ~Subjective tion Code N [facility] ~Subjective/Events-last exam ~Patient states (0000 0) that she is feeling alittle better. She did PT on the side of the bed and states that~wore her out. Tolerating PO diet. ~Review of Systems ~General: Fatigue, M alaise ~HEENT: No Head Aches ~Pulmonary: Dyspn ea, Cough ~Cardiovascular: No: Chest Pain, Palpitations ~Gastrointestinal: No: [place], Vomiting, Abdominal Pain, Diarrhea ~Neurological: Weakness, Incoordination ~ ~Objective ~Exam ~Last Set of Vital Sig ns ~ ~Vital Signs ~ ~ ~ Date Time Temp Pulse Resp B/P (MAP) Pulse Ox O2 Delivery O2 Flow Rate FiO2 ~ ~10/22/19 20:39 93 Vapotherm 20.00 40 ~ ~10/22/19 20:22 36.1 88 15 112/60 (77) ~ ~Capillary Refill : Less Than 3 Seconds ~I O ~ ~ ~ ~Intake and Output ~ ~ 10/22/19 ~ ~ 00:00 ~ ~Intake Total 2635 ml ~ ~Output Total 425 ml ~ ~Balance 2210 ml ~ ~ ~ ~Intake Ora l 1135 ml ~ ~IV Total 1500 ml ~ ~Output Urine Total 425 ml ~ ~# Bowel Movements 1 ~ ~ ~Gene ral: Alert, Oriented X3, Cooperative, Modera te Distress (Conversational dyspnea) ~Lung s: Other (basilar wheezing, increased work of breathing) ~Heart: Regular Rate, No Mur murs ~Abdomen: Normal Bowel Sounds, Soft, No Tenderness, No Masses ~Extremities: No Edema, No Tenderness/Swelling ~Skin: No Rashes , No Breakdown ~Neuro: Normal Speech, Sensat ion Intact, Cranial Nerves 3-12 NL ~ ~Results/Procedures ~Lab ~Laboratory Te sts ~10/22/19 05:06: ~White Blood Count 4.4, Red Blood Count 2.82L, Hemoglobin 8.6L, Hematocrit 27L, Mean Corpuscular ~Volum e 94, Mean Corpuscular Hemoglobin 31, Mean Corpuscular Hemoglobin Concent 32, Red Cell ~Distribution Width 14.5, Platelet Coun t 216, Mean Platelet Volume 10.1, Neutrophils (%) (Auto) 93H, ~Lymphocytes (%) (Auto) 3L, Monocytes (%) (Auto) 4, Eosinophils (%) (Auto) 0, Basophils (%) (Auto) 0,~Neutr ophils # (Auto) 4.1, Lymphocytes # (Auto) 0.2L , Monocytes # (Auto) 0.2, Eosinophils # ( Auto) ~0.0, Basophils # (Auto) 0.0, Sodium Le hillary 139, Potassium Level 3.8, Chloride Leve l 111H, Carbon ~Dioxide Level 16L, Anion Gap 12, Blood Urea Nitrogen 16, Creatinine 0.63, Estimat Glomerular ~Filtration Rate > 6 0, BUN/Creatinine Ratio 25, Glucose Level 119H, Calcium Level 7.7L, Phosphorus ~Level 2 .0L, Magnesium Level 1.6, Procalcitonin 0.10 H ~ ~Microbiology ~10/19/19 MRSA Screen - Fin al, Complete ~ MRSA not isolated ~10/19/19 Bl ood Culture - Preliminary, Resulted ~ No gr owth ~ ~Assessment/Plan ~Assessment/Plan ~ ~(1 ) Acute and chronic respiratory failure w ith hypoxia ~Status: Acute ~Assessment Plan : 10/20: Patient continues to require Vapotherm, will continue to titrate as ~tolerated ~10/21: Flow titrated today ~ ~(2) Atrial fibrillati on with rapid ventricular response ~Status : Acute ~Assessment Plan: 10/20: Cardiology consulted, appreciate recommendations, they have stopped ~amiodarone due to lung di sease, Continue oral anticoagulation ~10/21: Rat e controlled today ~ ~(3) Right upper lob e pneumonia ~Status: Acute ~Assessment Pl an: 10/20: continue IV antibiotics ~Qualifier s: ~ Qualified Codes: J18.1 - Lobar pneumoni a, unspecified organism ~(4) Normocytic an emia ~Status: Chronic ~Assessment Plan: 10/20: No signs of bleeding, will continue to mon itor ~10/21: Iron studies pending ~ ~(5) Debil ity ~Status: Acute ~Assessment Plan: - PT/O T ~ ~(6) DVT prophylaxis ~Status: Acute ~Assessment Plan: - Eliquis ~ ~ ~Clinic al Quality Measures ~DVT/VTE Risk/Contraindication: ~Risk Factor Sco re Per Nursin ~RFS Level Per Nursing on Ad clara: 4+=Very High ~ ~ ~ ~JOSE MERCADO MD [facility] 2019 21:56 ~ ~ ~<Created by JOSE WATSON LT, MD> ~<Electronically signed by JOSE Fu MD> 10/22/19 8666 ~ ~ laboratory on 2019-10-22 Anion gap 12 mmol/L Negative 5-14 PENDING 10-21-2 [Moles/Vol] mmol/L [facility] 020 [facility] 01:06-0 (89122) 400 Calcium [Mass/Vol] 7.7 mg/dL Low 8.5-10.1 PENDING 4-2 mg/dL LOC[facility]IO 020 [facility] 01:06-0 (34510) 400 Chloride [Moles/Vol] 111 mmol/L High 98-107 PENDING 0 8-04-2 mmol/L [facility] 0[facility] 01:06-0 (40140) 400 CO2 [Moles/Vol] 16 mmol/L Low 21-32 PENDING 08-04-2 mmol/L [facility] 020 [facility] 01:06-0 (51709) 400 Creatinine 0.63 mg/dL Negative 0.60-1.30 PENDING 08-04-2 [Mass/Vol] mg/dL LOC[facility] 020 [facility] 01:06-0 (81445) 400 Creatinine and > Invalid PENDING --2 Glomerular Interpreta LOCATIO 020 filtration tion Code N [facility] : rate.predicted panel (62598) 400 - Serum, Plasma or Blood Glucose [Mass/Vol] 119 mg/dL High 70-105 PENDING 08-0 4-2 mg/dL LOCATIO 020 [facility] :06-0 ([id number]) 400 Magnesium [Mass/Vol] 1.6 mg/dL Negative 1.6-2.4 PENDING 08 -04-2 mg/dL LOCATIO 020 [facility] :06-0 (78786) 400 Phosphate [Mass/Vol] 2.0 mg/dL Low 2.3-4.7 PENDING 08 -04-2 mg/dL LOCATIO 020 [facility] 01:06-0 (65736) 400 Potassium 3.8 mmol/L Negative 3.6-5.0 PENDING 08-04-2 [Moles/Vol] mmol/L LOCATIO 020 [facility] :06-0 (71174) 400 Sodium [Moles/Vol] 139 mmol/L Negative 135-145 PENDING 08- 04-2 mmol/L LOCATIO 020 [facility] :06-0 (45412) 400 Urea nitrogen 16 mg/dL Negative 7-18 mg/dL PENDING 08-04-2 [Mass/Vol] LOCATIO 020 [facility] 01:06-0 (35199) 400 Urea 25 mg/mg Invalid PENDING 10-21-2 nitrogen/Creatinine Interpreta LOCATIO 020 [Mass ratio] tion Code N [facility] : (99599) 400 not yet categorized on 2019-10-21 NAME: JO-ANN MACDONALD ~MED REC#: Invalid PENDING [id number] ~ ~CARE Interpreta LOCATIO PROVIDER: JOSE MERCADO MD ~Subjective tion Code N [facility] ~Subjective/Events-last exam ~Patient states (0000 0) that she is feeling alittle better. Sti ll short of breath and very weak. Tolerati ng ~PO diet. ~Review of Systems ~Pulmonary: Dy spnea, Cough ~Cardiovascular: Palpitations; No : Chest Pain ~Gastrointestinal: No: Nause a, Vomiting, Abdominal Pain, Diarrhea, Constipation ~Neurological: Weakness, Incoordination ~ ~Focused Exam ~Lactate Level ~10/19/19 18:36: Lactic Acid Level 1.44 ~ ~Objective ~Exam ~Last Set of Vital Sig ns ~ ~Vital Signs ~ ~ ~ Date Time Temp Pulse Resp B/P (MAP) Pulse Ox O2 Delivery O2 Flow Rate FiO2 ~ ~10/21/19 14:22 91 Vapotherm 30.00 40 ~ ~10/21/19 12:47 75 ~ ~10/21/19 12:00 36.6 ~ ~10/21/19 12:00 36 98/63 (75) ~ ~Capillar y Refill : NONE ~I O ~ ~ ~ ~Intake and Ou tput ~ ~ 10/21/19 ~ ~ 00:00 ~ ~Intake Total 3295 ml ~ ~Output Total 550 ml ~ ~Balance 2745 ml ~ ~ ~ ~Intake Oral 795 ml ~ ~IV Total 2500 ml ~ ~Output Urine Total 550 ml ~ ~# Voids 2 ~ ~# Urine Diapers 2 ~ ~# Bowel Movements 1 ~ ~ ~General: Alert, Oriented X3, Moderate Distress (conversational dyspnea) ~HEEN T: Mucous Memb Moist/[place] ~Lungs: Other (d iffuse wheezing bilaterally, increased work of breathing) ~Heart: Regular Rate, No Mur murs ~Abdomen: Normal Bowel Sounds, Soft, No Tenderness, No Masses ~Extremities: No Edema, No Tenderness/Swelling ~Neuro: Normal S peech, Sensation Intact, Cranial Nerves 3-12 N L ~ ~Results/Procedures ~Lab ~Laboratory Te sts ~10/21/19 04:29: ~White Blood Count 3.0L, Red Blood Count 2.77L, Hemoglobin 8.4L, Hematocrit 26L, Mean Corpuscular ~Volum e 94, Mean Corpuscular Hemoglobin 30, Mean Corpuscular Hemoglobin Concent 32, Red Cell ~Distribution Width 14.0, Platelet Coun t 212, Mean Platelet Volume 9.4, Neutrophils ( %) (Auto) 91H, ~Lymphocytes (%) (Auto) 5L, Monocytes (%) (Auto) 5, Eosinophils (%) (Auto) 0, Basophils (%) (Auto) 0,~Neutr ophils # (Auto) 2.8, Lymphocytes # (Auto) 0.2L , Monocytes # (Auto) 0.1, Eosinophils # ( Auto) ~0.0, Basophils # (Auto) 0.0, Sodium Le hillary 136, Potassium Level 3.2L, Chloride Lev el 108H, Carbon ~Dioxide Level 18L, Anion Gap 10, Blood Urea Nitrogen 15, Creatinine 0.62, Estimat Glomerular ~Filtration Rate > 6 0, BUN/Creatinine Ratio 24, Glucose Level 132H, Calcium Level 7.6L, Phosphorus ~Level 2 .5, Magnesium Level 1.7, Digoxin Level 1.08 ~ ~Microbiology ~10/19/19 MRSA Screen - Fin al, Complete ~ MRSA not isolated ~10/19/19 Bl ood Culture - Preliminary, Resulted ~ No gr owth ~ ~Assessment/Plan ~Assessment/Plan ~ ~(1 ) Acute and chronic respiratory failure w ith hypoxia ~Status: Acute ~Assessment Plan : 10/20: Patient continues to require Vapotherm, will continue to titrate as ~tolerated ~ ~(2 ) Atrial fibrillation with rapid ventricu lar response ~Status: Acute ~Assessment Nancy n: 10/20: Cardiology consulted, appreciate recommendations, they have stopped ~amiodarone due to lung disease, Contin ue oral anticoagulation ~ ~(3) Right upper lobe pneumonia ~Status: Acute ~Assessment Pl an: 10/20: continue IV antibiotics ~Qualifier s: ~ Qualified Codes: J18.1 - Lobar pneumoni a, unspecified organism ~(4) Normocytic an emia ~Status: Chronic ~Assessment Plan: 10/20: No signs of bleeding, will continue to mon itor ~ ~(5) Debility ~Status: Acute ~Assessmen t Plan: - PT/OT ~ ~(6) DVT prophylaxis ~S tatus: Acute ~Assessment Plan: - Eliquis ~ ~ ~Clinical Quality Measures ~DVT/VTE Risk/Contraindication: ~Risk Factor Sco re Per Nursin ~RFS Level Per Nursing on Ad clara: 4+=Very High ~ ~ ~ ~JOSE MERCADO MD 2019 15:21 ~ ~ ~<Created by JOSE WATSON LT, MD> ~<Electronically signed by JOSE Fu MD> 10/21/19 1521 ~ ~ laboratory on 2019-10-21 Anion gap 10 mmol/L Negative 5-14 PENDING 2 [Moles/Vol] mmol/L LOC[facility]IO 020 [facility] 00:29-0 ([id number]) 400 Basophils (Bld) 0.0 10*3/uL Negative 0.0-0.1 PENDING 10-20 [#/Vol] 10*3/uL LOCATIO 020 [facility] 00:29-0 ([id number]) 400 Basophils/100 WBC 0 % Negative 0-10 % PENDING 10-20 (Bld) LOCATIO 020 N [facility] 00:29-0 ([id number]) 400 Calcium [Mass/Vol] 7.6 mg/dL Low 8.5-10.1 PENDING 08-0 3-2 mg/dL LOCATIO 020 N [facility] 00:29-0 (19232) 400 Chloride [Moles/Vol] 108 mmol/L High 98-107 PENDING 0 8-03-2 mmol/L LOCATIO 020 N [facility] 00:29-0 (84301) 400 CO2 [Moles/Vol] 18 mmol/L Low 21-32 PENDING -03-2 mmol/L [facility] 00:29-0 ([id number]) 400 Creatinine 0.62 mg/dL Negative 0.60-1.30 PENDING 10-20-2 [Mass/Vol] mg/dL [facility] 00:29-0 ([id number]) 400 Creatinine and > Invalid PENDING 2 Glomerular Interpreta [facility] 020 filtration tion Code N [facility] 00:29-0 rate.predicted panel ([id number]) 400 - Serum, Plasma or Blood Digoxin [Mass/Vol] 1.08 ng/mL Negative 0.80-2.00 PENDING -2 ng/mL [facility] 00:29-0 ([id number]) 400 Eosinophils (Bld) 0.0 10*3/uL Negative 0.0-0.3 PENDING 2 [#/Vol] 10*3/uL [facility] 00:29-0 ([id number]) 400 Eosinophils/100 WBC 0 % Negative 0-10 % PENDING 2 (Bld) [facility] 020 [facility] 00:29-0 ([id number]) 400 Erythrocyte 14.0 % Negative 10.0-14.5 PENDING 2 distribution width % [facility] 020 (RBC) [Ratio] [facility] 00:29-0 ([id number]) 400 Glucose [Mass/Vol] 132 mg/dL High 70-105 PENDING 08-0 3-2 mg/dL [facility] 020 [facility] 00:29-0 ([id number]) 400 Hematocrit (Bld) 26 % Low 35-52 % PENDING [Volume fraction] [facility] 020 [facility] 00:29-0 (24031) 400 Hemoglobin (Bld) 8.4 g/dL Low 11.5-16.0 PENDING 10-20- 2 [[facility] 00:29-0 ([id number]) 400 Lymphocytes (Bld) 0.2 10*3/uL Low 1.0-4.0 PENDING 05-19 [#/Vol] 10*3 [facility] 020 [facility] 00:29-0 (42241) 400 Lymphocytes/100 WBC 5 % Low 12-44 % PENDING 2 (Bld) [facility] 020 [facility] 00:29-0 (98910) 400 Magnesium [Mass/Vol] 1.7 mg/dL Negative 1.6-2.4 PENDING -2 mg/dL [facility] 020 [facility] 00:29-0 ([id number]) 400 MCH (RBC) [Entitic 30 pg Negative 25-34 pg PENDING 08-0 3-2 mass] [facility] 020 [facility] 00:29-0 ([id number]) 400 MCHC (RBC) 32 g/dL Negative 32-36 g/dL PENDING 03-2 [Mass/Vol] [facility] 020 [facility] 00:29-0 ([id number]) 400 MCV (RBC) [Entitic 94 Negative 80-99 PENDING 08-0 3-2 vol] [foz_us] [facility] 00:29-0 ([id number]) 400 Monocytes (Bld) 0.1 10*3/uL Negative 0.0-1.0 PENDING 10-202 [#/Vol] 10*3 [facility] 00:29-0 ([id number]) 400 Monocytes/100 WBC 5 % Negative 0-12 % PENDING 10-202 (Bld) [facility] 00:29-0 ([id number]) 400 Neutrophils (Bld) 2.8 10*3/uL Negative 1.8-7.8 PENDING 2 [#/Vol] 10*3 [facility] 00:29-0 ([id number]) 400 Neutrophils/100 WBC 91 % High 42-75 % PENDING 2 (Bld) [address] 00:0 (62897) 400 Phosphate [Mass/Vol] 2.5 mg/dL Negative 2.3-4.7 PENDING 2 mg/dL [facility] 020 [facility] 00:29-0 ([id number]) 400 Platelet mean volume 9.4 Negative 7.4-10.4 PENDING 2 (Bld) [Entitic vol] [foz_us] [facility] 020 [facility] 00:-0 (75438) 400 Platelets (Bld) 212 10*3/uL Negative 130-400 PENDING 10-202 [#/Vol] 10*3/uL [facility] 020 [facility] 00:29-0 ([id number]) 400 Potassium 3.2 mmol/L Low 3.6-5.0 PENDING 2 [Moles/Vol] mmol/L [facility] 020 [facility] 00:29-0 ([id number]) 400 RBC (Bld) [#/Vol] 2.77 10*6/uL Low 4.35-5.85 PENDING 2 10*6/uL [facility] 020 [facility] 00:29-0 (23470) 400 Sodium [Moles/Vol] 136 mmol/L Negative 135-145 PENDING 05-19 mmol/L [facility] 00:29-0 ([id number]) 400 Urea nitrogen 15 mg/dL Negative 7-18 mg/dL PENDING [Mass/Vol] [facility] 00:29-0 (73714) 400 Urea 24 mg/mg Invalid PENDING nitrogen/Creatinine Interpreta [facility] 020 [Mass ratio] tion Code [facility] 00:29-0 ([id number]) 400 WBC (Bld) [#/Vol] 3.0 10*3/uL Low 4.3-11.0 PENDING 05-19 10*3/uL [facility] 00:29-0 ([id number]) 400 laboratory on 2019-10-20 Bacteria LM Ql FEW Abnormal PENDING (Urine sed) [facility] 05:51-0 ([id number]) 400 Bilirubin Ql (U) Negative Invalid NEGATIVE PENDING Interpreta [facility] 020 tion Code [facility] 05:51-0 (20613) 400 Casts LM Ql (Urine NONE Invalid PENDING sed) Interpreta [facility] 020 tion Code [facility] 05:51-0 ([id number]) 400 Clarity (U) CLOUDY Invalid PENDING Interpreta [facility] 020 tion Code [facility] 05:51-0 (25515) 400 Color (U) YELLOW Invalid PENDING Interpreta [facility] 020 tion Code [facility] 05:51-0 ([id number]) 400 Crystals LM Ql NONE Invalid PENDING (Urine sed) Interpreta [facility] 020 tion Code [facility] 05:51-0 ([id number]) 400 Epithelial RARE Invalid PENDING cells.renal LM Ql Interpreta [facility] 020 (Urine sed) tion Code [facility] 05:51-0 ([id number]) 400 Epithelial 0-2 Invalid PENDING cells.squamous LM Ql Interpreta [facility] 020 (Urine sed) tion Code [facility] 05:51-0 ([id number]) 400 Glucose Auto test Negative Invalid NEGATIVE PENDING 10-19 strip Ql (U) Interpreta [facility] 020 tion Code [facility] 05:51-0 (89816) 400 Ketones Auto test 1+ Abnormal NEGATIVE PENDING 10-19 strip Ql (U) [facility] 05:51-0 ([id number]) 400 Leukocyte esterase TRACE Abnormal NEGATIVE PENDING 08-0 -2 Test strip Ql (U) [facility] 0[facility] 05:51-0 ([id number]) 400 Mucus Ql (Urine sed) Negative Invalid PENDING 10-19 Interpreta [facility] 020 tion Code [facility] 05:51-0 ([id number]) 400 Nitrite Ql (U) Negative Invalid NEGATIVE PENDING Interpreta [facility] 020 tion Code [facility] 05:51-0 (57336) 400 pH (U) 7.0 [pH] Invalid 5-9 PENDING Interpreta [facility] 020 tion Code [facility] 05:51-0 ([id number]) 400 Protein Ql (U) Negative Invalid NEGATIVE PENDING Interpreta [facility] 020 tion Code [facility] 05:51-0 ([id number]) 400 RBC LM.HPF (Urine RARE Invalid PENDING sed) [#/Area] Interpreta [facility] 020 tion Code [facility] 05:51-0 ([id number]) 400 RBC Ql (U) 3+ Abnormal NEGATIVE PENDING [facility] 020 [facility] 05:51-0 ([id number]) 400 Specific gravity (U) 1.010 Low 1.016-1.02 PENDING 0 [Rel density] 2 [facility] 020 [facility] 05:51-0 (87578) 400 TSH Qn 0.23 m[IU]/L Low 0.35-4.94 PENDING u[iU]/mL [facility] 020 [facility] 00:30-0 ([id number]) 400 Urinalysis complete NO Invalid PENDING W Reflex Culture Interpreta [facility] 020 panel - Urine tion Code [facility] 05:51-0 ([id number]) 400 Urobilinogen (U) 1.0 mg/dL Invalid < = 1.0 PENDING [Mass/Vol] Interpreta mg/dL [facility] 020 tion Code [facility] 05:51-0 ([id number]) 400 WBC LM.HPF (Urine RARE Invalid PENDING sed) [#/Area] Interpreta [facility] 020 tion Code [facility] 05:51-0 ([id number]) 400 laboratory on 2019-10-19 Albumin [Mass/Vol] 2.3 g/dL Low 3.2-4.5 PENDING 08-0 1-2 g/dL [facility] 020 [facility] 14:36-0 (12453) 400 Albumin [Mass/Vol] 2.1 g/dL Low 3.2-4.5 PENDING 08-0 1-2 g/dL [facility] 020 [facility] 23:35-0 (08950) 400 ALP [Catalytic 111 U/L Negative 40-136 U/L PENDING activity/Vol] [facility] 020 [facility] 14:36-0 (39698) 400 ALP [Catalytic 100 U/L Negative 40-136 U/L PENDING activity/Vol] [facility] 020 [facility] 23:35-0 (65608) 400 ALT [Catalytic 20 U/L Negative 0-55 U/L PENDING activity/Vol] [facility] 020 [facility] 14:36-0 (10322) 400 ALT [Catalytic 17 U/L Negative 0-55 U/L PENDING activity/Vol] [facility] 020 [facility] 23:35-0 (40440) 400 Anion gap 12 mmol/L Negative 5-14 PENDING [Moles/Vol] mmol/L [facility] 020 [facility] 14:36-0 (80637) 400 Anion gap 11 mmol/L Negative 5-14 PENDING [Moles/Vol] mmol/L [facility] 020 [facility] 23:35-0 (43544) 400 aPTT Coag (PPP) 43 s High 24-35 s PENDING [Time] [facility] 020 [facility] 14:36-0 (43611) 400 AST [Catalytic 37 U/L High 5-34 U/L PENDING activity/Vol] [facility] 020 [facility] 14:36-0 (61066) 400 AST [Catalytic 27 U/L Negative 5-34 U/L PENDING 2 activity/Vol] [facility] 020 [facility] 23:35-0 (43375) 400 Bacteria identified NG Invalid PENDING Cx Nom (Bld) Interpreta [facility] 020 tion Code [facility] 14:30-0 ([id number]) 400 Basophils (Bld) 0.0 10*3/uL Negative 0.0-0.1 PENDING 10-18 [#/Vol] 10*3/uL [facility] 020 [facility] 14:36-0 (41114) 400 Basophils (Bld) 0.0 10*3/uL Negative 0.0-0.1 PENDING 10-18 [#/Vol] 10*3/uL [facility] 020 [facility] 23:35-0 (70575) 400 Basophils/100 WBC 0 % Negative 0-10 % PENDING 10-18 (Bld) [facility] 020 [facility] 14:36-0 ([id number]) 400 Basophils/100 WBC 0 % Negative 0-10 % PENDING 10-18 (Bld) [facility] 020 [facility] 23:35-0 (21467) 400 Bilirubin [Mass/Vol] 0.5 mg/dL Negative 0.1-1.0 PENDING -2 mg/dL [facility] 020 [facility] 14:36-0 ([id number]) 400 Bilirubin [Mass/Vol] 0.5 mg/dL Negative 0.1-1.0 PENDING -2 mg/dL [facility] 020 [facility] 23:35-0 (39709) 400 Calcium [Mass/Vol] 8.8 mg/dL Negative 8.5-10.1 PENDING 08-0 1-2 mg/dL [facility] 020 [facility] 14:36-0 (47965) 400 Calcium [Mass/Vol] 10.2 mg/dL High 8.5-10.1 PENDING 08- 01-2 mg/dL [facility] 020 [facility] 14:36-0 (28697) 400 Calcium [Mass/Vol] 7.8 mg/dL Low 8.5-10.1 PENDING 08-0 1-2 mg/dL [facility] 23:35-0 (02950) 400 Calcium [Mass/Vol] 9.3 mg/dL Negative 8.5-10.1 PENDING 08-0 1-2 mg/dL [facility]20 [facility] 23:35-0 (74400) 400 Chloride [Moles/Vol] 98 mmol/L Negative 98-107 PENDING 08 -2 mmol/L [facility] 020 [facility] 14:36-0 (97562) 400 Chloride [Moles/Vol] 104 mmol/L Negative 98-107 PENDING 0 8-01-2 mmol/L [facility] 020 [facility] 23:35-0 (23381) 400 Cholesterol 117 mg/dL Invalid < 200 PENDING 10-18-2 [Mass/Vol] Interpreta mg/dL [facility] 020 tion Code [facility] 23:35-0 (33550) 400 Cholesterol in HDL 26 mg/dL Low 40-60 PENDING 08-0 1-2 [Mass/Vol] mg/dL [facility] 020 [facility] 23:35-0 (04096) 400 Cholesterol in LDL 75 mg/dL Negative 1-129 PENDING 08-0 1-2 [Mass/Vol] mg/dL [facility] 020 [facility] 23:35-0 (56303) 400 Cholesterol in VLDL 18 mg/dL Negative 5-40 mg/dL PENDING -2 [Mass/Vol] [facility] 020 [facility] 23:35-0 (59559) 400 CO2 [Moles/Vol] 19 mmol/L Low 21-32 PENDING 08-2 mmol/L [facility] 020 [facility] 14:36-0 (22133) 400 CO2 [Moles/Vol] 18 mmol/L Low 21-32 PENDING 08-2 mmol/L [facility] 020 [facility] 23:35-0 (81651) 400 Creatinine 0.74 mg/dL Negative 0.60-1.30 PENDING 08-2 [Mass/Vol] mg/dL [facility] 020 [facility] 14:36-0 (49302) 400 Creatinine 0.66 mg/dL Negative 0.60-1.30 PENDING 10-18-2 [Mass/Vol] mg/dL [facility] 020 [facility] 23:35-0 (09748) 400 Creatinine and > Invalid PENDING 08-01-2 Glomerular Interpreta [facility] 020 filtration tion Code N [facility] 14:36-0 rate.predicted panel ([id number]) 400 - Serum, Plasma or Blood Creatinine and > Invalid PENDING Glomerular Interpreta [facility] 020 filtration tion Code N [facility] 23:35-0 rate.predicted panel ([id number]) 400 - Serum, Plasma or Blood Eosinophils (Bld) 0.1 10*3/uL Negative 0.0-0.3 PENDING 03-21 [#/Vol] 10*3/uL [facility] 020 [facility] 14:36-0 (21746) 400 Eosinophils (Bld) 0.0 10*3/uL Negative 0.0-0.3 PENDING 03-21 [#/Vol] 10*3/uL [facility] 020 [facility] 23:35-0 ([id number]) 400 Eosinophils/100 WBC 1 % Negative 0-10 % PENDING 03-21 (Bld) [facility] 020 [facility] 14:36-0 (20802) 400 Eosinophils/100 WBC 0 % Negative 0-10 % PENDING 03-21 (Bld) [facility]20 [facility] 23:35-0 ([id number]) 400 Erythrocyte 14.4 % Negative 10.0-14.5 PENDING distribution width % [facility] 020 (RBC) [Ratio] [facility] 14:36-0 (81895) 400 Erythrocyte 14.0 % Negative 10.0-14.5 PENDING distribution width % [facility] 020 (RBC) [Ratio] [facility] 23:35-0 (12180) 400 Glucose [Mass/Vol] 88 mg/dL Negative 70-105 PENDING 08-0 1-2 mg/dL [facility] 020 [facility] 14:36-0 (97482) 400 Glucose [Mass/Vol] 128 mg/dL High 70-105 PENDING 08-0 1-2 mg/dL [facility] 020 [facility] 23:35-0 (52615) 400 Hematocrit (Bld) 35 % Negative 35-52 % PENDING [Volume fraction] [facility] 020 [facility] 14:36-0 (63894) 400 Hematocrit (Bld) 30 % Low 35-52 % PENDING [Volume fraction] [facility] 020 [facility] 23:35-0 (72702) 400 Hemoglobin (Bld) 11.5 g/dL Negative 11.5-16.0 PENDING 10-18- 2 [Mass/Vol] g/dL [facility] 020 N S 14:36-0 (49173) 400 Hemoglobin (Bld) 9.6 g/dL Low 11.5-16.0 PENDING 2 [Mass/Vol] g/dL [facility]20 [facility] 23:35-0 ([id number]) 400 INR Coag (Platelet 2.0 High 0.8-1.4 PENDING 1-2 poor plasma or [facility] 020 blood) [Relative [facility] 14:36-0 time] ([id number]) 400 Lactate [Moles/Vol] 1.44 mmol/L Negative 0.50-2.00 PENDING 0 10-18-2 mmol/L [facility] 020 [facility] 14:36-0 (01963) 400 Lymphocytes (Bld) 1.2 10*3/uL Negative 1.0-4.0 PENDING 03-21 [#/Vol] 10*3 [facility] 020 [facility] 14:36-0 (63218) 400 Lymphocytes (Bld) 0.1 10*3/uL Low 1.0-4.0 PENDING 2 [#/Vol] 10*3 [facility] 020 [facility] 23:35-0 (81616) 400 Lymphocytes/100 WBC 11 % Low 12-44 % PENDING 2 (Bld) [facility] 020 N S 14:36-0 (01581) 400 Lymphocytes/100 WBC 3 % Low 12-44 % PENDING 2 (Bld) [facility] 020 N S 23:35-0 (06262) 400 Lymphocytes/100 WBC 2 % Invalid % PENDING 2 (Bld) Interpreta [facility] 020 tion Code [facility] 23:35-0 ([id number]) 400 Magnesium [Mass/Vol] 1.7 mg/dL Negative 1.6-2.4 PENDING -2 mg/dL [facility] 020 N S 14:36-0 ([id number]) 400 Magnesium [Mass/Vol] 1.6 mg/dL Negative 1.6-2.4 PENDING 2 mg/[facility] 23:35-0 ([id number]) 400 MCH (RBC) [Entitic 31 pg Negative 25-34 pg PENDING 08-0 1-2 mass] [facility] 14:36-0 (21687) 400 MCH (RBC) [Entitic 30 pg Negative 25-34 pg PENDING 08-0 1-2 mass] [facility] 23:35-0 (54346) 400 MCHC (RBC) 33 g/dL Negative 32-36 g/dL PENDING 10-18-2 [Mass/Vol] [facility] 14:36-0 (20973) 400 MCHC (RBC) 32 g/dL Negative 32-36 g/dL PENDING 2 [Mass/Vol] [address] 23:35-0 (68792) 400 MCV (RBC) [Entitic 94 Negative 80-99 PENDING 08-0 1-2 vol] [foz_us] [address] 14:36-0 (18622) 400 MCV (RBC) [Entitic 94 Negative 80-99 PENDING 08-0 1-2 vol] [foz_us] [facility] Jarrell [facility] 23:35-0 (05077) 400 Monocytes (Bld) 0.6 10*3/uL Negative 0.0-1.0 PENDING 10-18 [#/Vol] 10*[address] 14:36-0 (90401) 400 Monocytes (Bld) 0.0 10*3/uL Negative 0.0-1.0 PENDING 10-182 [#/Vol] 10*[address] 23:35-0 (79091) 400 Monocytes/100 WBC 6 % Negative 0-12 % PENDING 10-18 (Bld) [facility] 020 [facility] 14:36-0 (88057) 400 Monocytes/100 WBC 1 % Negative PENDING 2 (Bld) [address] 23:35-0 (29636) 400 MRSA isol Org Negative Invalid PENDING specific cx Ql (Unsp Interpreta [facility] 020 spec) tion Code [facility] 18:00-0 ([id number]) 400 Myoglobin [Mass/Vol] 44.0 ng/mL Negative 10.0-92.0 PENDING 0 ng/mL [facility] 020 [facility] 14:36-0 ([id number]) 400 Natriuretic peptide 286.1 pg/mL High <100.0 PENDING 0 B (Bld) [Mass/Vol] pg/mL [facility] 020 [facility] 14:36-0 (51587) 400 Neutrophils (Bld) 8.8 10*3/uL High 1.8-7.8 PENDING 03-21 [#/Vol] 10*3 [facility] 020 [facility] 14:36-0 (92937) 400 Neutrophils (Bld) 3.5 10*3/uL Negative 1.8-7.8 PENDING 03-21 [#/Vol] 10*3 [facility] 020 [facility] 23:35-0 (22517) 400 Neutrophils/100 WBC 82 % High 42-75 % PENDING 03-21 (Bld) [facility] 020 [facility] 14:36-0 (41112) 400 Neutrophils/100 WBC 96 % High 42-75 % PENDING 03-21 (Bld) [facility]20 [facility] 23:35-0 (25369) 400 Phosphate [Mass/Vol] 3.0 mg/dL Negative 2.3-4.7 PENDING mg/dL [facility] 020 [facility] 23:35-0 (34648) 400 Platelet mean volume 10.5 High 7.4-10.4 PENDING (Bld) [Entitic vol] [foz_us] [facility] 020 [facility] 14:36-0 (24747) 400 Platelet mean volume 9.5 Negative 7.4-10.4 PENDING (Bld) [Entitic vol] [foz_us] [facility] 020 [facility] 23:35-0 (85002) 400 Platelets (Bld) 244 10*3/uL Negative 130-400 PENDING 10-18 [#/Vol] 10*3/uL [facility] 020 [facility] 14:36-0 (22818) 400 Platelets (Bld) 224 10*3/uL Negative 130-400 PENDING 10-18 [#/Vol] 10*3/uL [facility] 020 [facility] 23:35-0 (95353) 400 Potassium 5.4 mmol/L High 3.6-5.0 PENDING [Moles/Vol] mmol/L [facility] 020 N S 14:36-0 (24529) 400 Potassium 4.1 mmol/L Negative 3.6-5.0 PENDING [Moles/Vol] mmol/L [facility] 020 [facility] 23:35-0 (17819) 400 Protein [Mass/Vol] 8.5 g/dL High 6.4-8.2 PENDING 08-0 1-2 g/dL [facility] 020 N S 14:36-0 (24844) 400 Protein [Mass/Vol] 6.8 g/dL Negative 6.4-8.2 PENDING 08-0 1-2 g/dL [facility] 020 [facility] 23:35-0 (97362) 400 PT Coag (PPP) [Time] 23.1 s High 12.2-14.7 PENDING s [facility] 020 [facility] 14:36-0 (20570) 400 RBC (Bld) [#/Vol] 3.72 10*6/uL Low 4.35-5.85 PENDING 10*6/uL [facility] 020 [facility] 14:36-0 (85578) 400 RBC (Bld) [#/Vol] 3.16 10*6/uL Low 4.35-5.85 PENDING 10*6/uL [facility]20 [facility] 23:35-0 (00372) 400 RBC morphology NORMAL Invalid PENDING finding Nom (Bld) Interpreta [facility] 020 tion Code [facility] 23:35-0 (85162) 400 Segmented 97 % Invalid % PENDING neutrophils/100 WBC Interpreta [facility] 020 (Bld) tion Code [facility] 23:35-0 (67810) 400 Sodium [Moles/Vol] 129 mmol/L Low 135-145 PENDING 03-21 mmol/L [facility] 020 [facility] 14:36-0 (73080) 400 Sodium [Moles/Vol] 133 mmol/L Low 135-145 PENDING 03-21 mmol/L [facility] 020 [facility] 23:35-0 (73148) 400 Triglyceride 90 mg/dL Negative <150 mg/dL PENDING [Mass/Vol] [facility]20 [facility] 23:35-0 (27909) 400 Troponin I.cardiac ng/mL Negative <0.028 PENDING 1-2 [Mass/Vol] ng/mL [facility] 020 [facility] 14:36-0 (50977) 400 Urea nitrogen 14 mg/dL Negative 7-18 mg/dL PENDING [Mass/Vol] [facility] 14:36-0 (02048) 400 Urea nitrogen 13 mg/dL Negative 7-18 mg/dL PENDING [Mass/Vol] [facility] 23:35-0 (73130) 400 Urea 19 mg/mg Invalid PENDING nitrogen/Creatinine Interpreta [facility] 020 [Mass ratio] tion Code [facility] 14:36-0 (50522) 400 Urea 20 mg/mg Invalid PENDING nitrogen/Creatinine Interpreta [facility] 020 [Mass ratio] tion Code [facility] 23:35-0 (71684) 400 WBC (Bld) [#/Vol] 10.7 10*3/uL Negative 4.3-11.0 PENDING 10*3/uL [facility] 020 [facility] 14:36-0 (46302) 400 WBC (Bld) [#/Vol] 3.6 10*3/uL Low 4.3-11.0 PENDING 03-21 10*3/uL [facility] 23:35-0 (04936) 400 not yet categorized on 2019-09-16 NAME: RENAEJO-ANN Gandhi ~MED REC#: Invalid PENDING [id number] ~ ~CARE Interpreta [facility] PROVIDER: MILO,LISA M DO ~Subjective ~Time tion Code N [facility] Seen by a Provider: 07:18 (67472) ~Subjective/Events-last exam ~Pt only requiring 1 liter of oxygen via NC. ~ ~ Sepsis Event ~Evaluation ~Height, Weight, BMI ~Height: 5'7.50" ~Weight: 137lbs. 1.6oz . 62.486802wa; 15.00 BMI ~Method:Stated ~ ~Exam ~Exam ~ ~Vital Signs ~ ~ ~ Date Time Te mp Pulse Resp B/P (MAP) Pulse Ox O2 Delive ry O2 Flow Rate FiO2 ~ ~09/16/19 04:00 36.0 64 18 101/61 (74) 96 Nasal Cannula 1.00 ~ ~ 02:59 93 Nasal Cannula 2.00 ~ ~09/16/19 01:00 81 ~ ~09/15/19 20:23 36.2 80 18 120/56 ( 77) 94 Nasal Cannula 1.00 ~ ~09/15/19 20:00 Jules al Cannula 1.00 ~ ~09/15/19 19:00 85 ~ ~08/19 11/06 15:49 36.2 83 16 121/81 (94) 94 Nasal C annula 1.00 ~ ~09/15/19 14:15 90 Nasal Cannula 2.00 ~ ~09/15/19 13:00 36.5 84 18 133/76 (95) 9 7 Nasal Cannula 1.00 ~ ~09/15/19 12:12 83 ~ ~09/15/19 08:09 Nasal Cannula 2.00 ~ ~ 08:09 Nasal Cannula 2.00 ~ ~09/15/19 08: 07 95 Nasal Cannula 2.00 ~ ~09/15/19 08:00 36. 2 83 18 151/83 (105) 94 Nasal Cannula 2.00 ~ ~09/15/19 07:50 36.2 83 18 151/83 (105) 94 Nasal Cannula 1.00 ~ ~ ~ ~ ~I O ~ ~ 08/19 12/07 ~ ~ 07:00 ~ ~Intake Total 2550 ml ~ ~Outp ut Total 1400 ml ~ ~Balance 1150 ml ~ ~ ~H eight Weight ~Height: 5'7.50" ~Weight: 137lbs . 1.6oz. 62.941668pv; 15.00 BMI ~Method:S tated ~General Appearance: No Apparent Distre ss, Chronically ill ~HEENT: PERRL/EOMI, Pha rynx Normal ~Neck: Normal Inspection, Supple ~Respiratory: Lungs Clear, No Respirato ry Distress, Decreased Breath Sounds ~Cardiovascular: No Edema, No Murmur, Irregularly Irregular (Regular rate) ~Capillary Refill: Less Than 3 Seconds ~Extremity: Normal Inspection, Non Tend er, No Pedal Edema ~Neurologic/Psychiatric: Al ert, No Motor/Sensory Deficits, Normal Mood/Affect; No Disoriented ~Skin: Norm al Color, Warm/Dry ~ ~Results ~Lab ~Labora tory Tests ~09/15/19 05:40 ~ ~ ~09/16/19 05:10 ~ ~ ~ ~Assessment/Plan ~Assessment/Plan ~LLL PNA per imaging ~ -Augmentin ~ - CT of ches t to r/o mass - Pt refuses CT of chest at th is time ~ -COVID swab is negative ~ -CXR reviewed- appears a worse ~ --Repeat PC T ~ -Check BNP ~ -Give 40mg of lasix x 1 ~A fib ~ -Cardiology following ~Hyperkalemia ~ - Give 40mg of lasix x 1 ~ ~ ~ ~LISA PEDRAZA DO Sep 16, 2019 07:21 ~ ~ ~<Created by GALDINO PEDRAZA DO> ~<Electronically signed by Oksana PEDRAZA DO> 10/02/19 1046 ~ ~ not yet categorized on 2019-09-12 NAME: JO-ANN MACDONALD ~MED REC#: Invalid PENDING [id number] ~ ~[employer] LOCATIO PROVIDER: LISA PEDRAZA DO ~Subjective ~Time tion Code N [facility] Seen by a Provider: 06:04 ([id number]) ~Subjective/Events-last exam ~plan is f or cardioversion today. ~ ~Sepsis Event ~Evaluation ~Height, Weight, BMI ~Hesabra t: 5'7.50" ~Weight: 137lbs. 1.6oz. 62.1875 15kg; 15.00 BMI ~Method:Stated ~ ~Focused Exa m ~Lactate Level ~09/09/19 11:20: Lactic A sergo Level 1.71 ~ ~Exam ~Exam ~ ~Vital Signs ~ ~ ~ Date Time Temp Pulse Resp B/P (MAP) Pul se Ox O2 Delivery O2 Flow Rate FiO2 ~ ~09/11/2 0 05:00 77 20 128/69 (88) 100 Nasal Cannu la 2.00 ~ ~09/12/19 04:05 Nasal Cannula 2.0 0 ~ ~09/12/19 04:04 37.0 ~ ~09/12/19 04:00 83 27 115/69 (84) 100 Nasal Cannula 2.00 ~ ~ 03:00 103 21 125/74 (91) 99 Nasal Cannu la 2.00 ~ ~09/12/19 02:00 90 26 164/101 (12 2) 100 Nasal Cannula 2.00 ~ ~09/12/19 01:00 91 28 165/85 (111) 100 Nasal Cannula 2.00 ~ ~09/12/19 01:00 87 ~ ~09/12/19 00:15 36.8 ~ ~09/12/19 00:00 80 26 133/82 (99) 99 Jules al Cannula 2.00 ~ ~09/11/19 23:59 Nasal Can nula 2.00 ~ ~09/11/19 23:00 87 25 122/67 (85) 100 Nasal Cannula 2.00 ~ ~09/11/19 22:00 103 22 125/86 (99) 98 Nasal Cannula 2.00 ~ ~ 21:00 88 30 128/70 (89) 98 Nasal Cannul a 2.00 ~ ~09/11/19 20:00 Nasal Cannula 2.00 ~ ~09/11/19 20:00 36.5 ~ ~09/11/19 20:00 93 37 136/82 (100) 100 Nasal Cannula 2.00 ~ ~09/11/19 19:00 88 ~ ~09/11/19 19:00 98 2 1 134/81 (98) Nasal Cannula 2.00 ~ ~ 18:23 Nasal Cannula 2.00 ~ ~09/11/19 18: 00 97 27 135/92 (106) Nasal Cannula 2.00 ~ ~ 17:00 117 15 148/94 (112) 100 Nasal Can nula 2.00 ~ ~09/11/19 16:00 Room Air ~ ~ 16:00 87 13 143/78 (99) 100 Nasal Cannu la 2.00 ~ ~09/11/19 16:00 36.5 ~ ~09/11/19 1 5:00 109 21 136/77 (96) 99 Nasal Cannula 2.0 0 ~ ~09/11/19 14:00 90 26 128/75 (92) 100 Na hollis Cannula 2.00 ~ ~09/11/19 13:59 95 ~ ~6/2 4/20 13:17 Nasal Cannula 2.00 ~ ~09/11/19 13: 00 93 16 134/68 (90) 99 Nasal Cannula 2.00 ~ ~09/11/19 12:00 72 24 144/84 (104) 99 Na hollis Cannula 2.00 ~ ~09/11/19 12:00 Room Air ~ ~09/11/19 11:16 36.4 ~ ~09/11/19 11:00 72 22 155/72 (99) 99 Nasal Cannula 2.00 ~ ~ 10:00 90 32 125/85 (98) 99 Nasal Cannul a 2.00 ~ ~09/11/19 09:00 67 32 136/65 (88) 100 Nasal Cannula 2.00 ~ ~09/11/19 08:00 72 31 97/ 67 (77) 97 Nasal Cannula 2.00 ~ ~09/11/19 0 8:00 Room Air ~ ~09/11/19 07:21 36.1 ~ ~ 07:00 74 32 126/71 (89) 97 Nasal Cannul a 2.00 ~ ~09/11/19 06:43 66 ~ ~ ~ ~ ~I O ~ ~ ~ ~ 07:00 ~ ~Intake Total 1100 ml ~ ~Ou tput Total 1500 ml ~ ~Balance -400 ml ~ ~ ~H eight Weight ~Height: 5'7.50" ~Weight: 137lbs . 1.6oz. 62.812370dg; 15.00 BMI ~Method:S tated ~General Appearance: No Apparent Distre ss, Chronically ill, Thin ~HEENT: PERRL/EOM I, Pharynx Normal ~Neck: Normal Inspection , Supple ~Respiratory: Lungs Clear, No Respiratory Distress, Decreased Breath Sounds ~Cardiovascular: Regular Rate, Rhythm, No Edema, No Murmur ~Capillary Refill: Les s Than 3 Seconds ~Extremity: Normal Inspection , Non Tender, No Pedal Edema ~Neurologic/Psychiatric: Alert, Oriente d x3, Normal Mood/Affect, Motor Weakness ~Ski n: Normal Color, Warm/Dry ~ ~Results ~Lab ~Laboratory Tests ~09/11/19 03:26 ~ ~ ~ 02:58 ~ ~ ~ ~Assessment/Plan ~Assessmen t/Plan ~LLL PNA per imaging ~ -NO leukocytosis or fever however procalcitonin is elevated ~ -Currenlty on Levaquin ~ - CT of chest to r/o mass - Pt refuses CT of chest at this t tayo ~ -COVID swab is negative ~Afib RVR ~ -Cardiology following ~ -Cardioversion today ~ -Currently on Ammio PO ~Hypokalemia, hypomag ~ -replace ~ ~ ~ ~LISA PEDRAZA DO Sep 12, 2019 06:06 ~ ~ ~<Created by GALDINO PEDRAZA DO> ~<Electronically signed by Oksana PEDRAZA DO> 10/02/19 1037 ~ ~ Social History No Information Vital Signs The data below is from unstructured sources Vital Response Date/Time Temperature (Fahrenheit) 98.4 degree s F (97.6 - 99.5) 02/17/2015 6:30am Temperature (Calculated Celsius) 36. 06753 degrees C (36.4 - 37.5) 02/17/2015 6:30am Temperature Source Temporal 02/17/2015 6:30am Pulse Rate (adult) 75 bpm (60 - 90) 02/17/2015 7:00am Respiratory Rate 20 bpm (12 - 24) 02/17/2015 6:30am O2 Sat by Pulse Oximetry 95 % (88 - 100) 02/17/2015 7:31am Blood Pressure 150/70 mm Hg 02/17/2015 6:30am Blood Pressure Mean 96 mm Hg 02/17/2015 6:30am Pain Pain Intensity 0 2014 6:30am Height (Feet) 5 feet 10:20pm Height (Inches) 7.00 inches 02/06/2015 10:20pm Height (Calculated Centimeters) 170. 854347 cm 02/06/2015 10:20pm Weight (Pounds) 154 pounds 02/17/2015 6:29am Weight (Ounces) 2.0 oz 1 04/20/2014 6:29am Weight (Calculated Grams) 94883.925 gm 02/17/2015 6:29am Weight (Calculated Kilograms) 69.909 925 kilograms 02/17/2015 6:29am Calculated BMI 20.36 10:20pm Vital Response Date/Time Temperature (Fahrenheit) 97.8 degree s F (97.6 - 99.5) 01/22/2015 1:56pm Temperature (Calculated Celsius) 36. 76126 degrees C (36.4 - 37.5) 01/22/2015 1:56pm Temperature Source Tympanic 01/22/2015 1:56pm Pulse Rate (adult) 79 bpm (60 - 90) 01/22/2015 1:56pm Respiratory Rate 22 bpm (12 - 24) 01/22/2015 1:56pm O2 Sat by Pulse Oximetry 98 % (88 - 100) 01/22/2015 1:56pm Blood Pressure 157/95 mm Hg 01/22/2015 1:56pm Blood Pressure Mean 115 mm Hg 01/22/2015 1:56pm Pain Pain Intensity 0 2014 1:56pm Height (Feet) 5 feet 1:00pm Height (Inches) 7.00 inches 01/16/2015 1:00pm Height (Calculated Centimeters) 170. 806973 cm 01/16/2015 1:00pm Weight (Pounds) 130 pounds 01/16/2015 2:00pm Weight (Calculated Grams) 09571.009 gm 01/16/2015 2:00pm Weight (Calculated Kilograms) 58.967 009 kilograms 01/16/2015 2:00pm Calculated BMI 20.20 1:00pm Vital Response Date/Time Temperature (Fahrenheit) 96.5 degree s F (97.6 - 99.5) 02/23/2015 6:00am Temperature (Calculated Celsius) 35. 38794 degrees C (36.4 - 37.5) 02/23/2015 6:00am Temperature Source Temporal 02/23/2015 6:00am Pulse Rate (adult) 72 bpm (60 - 90) 02/23/2015 6:00am Respiratory Rate 20 bpm (12 - 24) 02/23/2015 6:00am O2 Sat by Pulse Oximetry 92 % (88 - 100) 02/23/2015 7:15am Blood Pressure 99/65 mm Hg 02/23/2015 6:00am Blood Pressure Mean 76 mm Hg 02/23/2015 6:00am Pain Pain Intensity 0 2014 6:00am Height (Feet) 5 feet 03/2014 2:38pm Height (Inches) 7.00 inches 02/17/2015 2:38pm Height (Calculated Centimeters) 170. 925195 cm 02/17/2015 2:38pm Weight (Pounds) 143 pounds 02/17/2015 2:38pm Weight (Ounces) 9.0 oz 1 04/20/2014 2:38pm Weight (Calculated Grams) 83757.855 gm 02/17/2015 2:38pm Weight (Calculated Kilograms) 65.118 855 kilograms 02/17/2015 2:38pm Calculated BMI 22.39 03/2014 2:38pm Vital Response Date/Time Temperature (Fahrenheit) 96.5 degree s F (97.6 - 99.5) 02/23/2015 6:00am Temperature (Calculated Celsius) 35. 19840 degrees C (36.4 - 37.5) 02/23/2015 6:00am Temperature Source Temporal 02/23/2015 6:00am Pulse Rate (adult) 72 bpm (60 - 90) 02/23/2015 6:00am Respiratory Rate 20 bpm (12 - 24) 02/23/2015 6:00am O2 Sat by Pulse Oximetry 92 % (88 - 100) 02/23/2015 7:15am Blood Pressure 99/65 mm Hg 02/23/2015 6:00am Blood Pressure Mean 76 mm Hg 02/23/2015 6:00am Pain Pain Intensity 0 2014 6:00am Height (Feet) 5 feet 03/2014 2:38pm Height (Inches) 7.00 inches 02/17/2015 2:38pm Height (Calculated Centimeters) 170. 290694 cm 02/17/2015 2:38pm Weight (Pounds) 143 pounds 02/17/2015 2:38pm Weight (Ounces) 9.0 oz 1 04/20/2014 2:38pm Weight (Calculated Grams) 93545.855 gm 02/17/2015 2:38pm Weight (Calculated Kilograms) 65.118 855 kilograms 02/17/2015 2:38pm Calculated BMI 22.39 03/2014 2:38pm Functional Status The data below is from unstructured sources Query Response Date Heron rded Patient Orientation Normal For Age February 17, 2015 11:02am Patient Orientation Person Place Time Situation February 17, 2015 11:55am Comprehension Ability Understands Co ncepts February 15, 2015 8:00pm Query Response Date Heron rded Patient Orientation Normal For Age January 22, 2015 10:19am Patient Orientation Person Place Time Situation Eyes Open January 22, 2015 8:08pm Comprehension Ability Understands Co ncepts January 22, 2015 8:40am Query Response Date Heron rded Patient Orientation Normal For Age February 20, 2015 1:51pm Patient Orientation Person Place Time Situation February 23, 2015 3:51pm Comprehension Ability Understands Co ncepts February 22, 2015 7:49pm Query Response Date Heron rded Patient Orientation Normal For Age February 20, 2015 1:51pm Patient Orientation Person Place Time Situation February 23, 2015 3:51pm Comprehension Ability Understands Co ncepts February 22, 2015 7:49pm Mental Status No Information Clinical Note Note Date & Note Facility Type Note NAME: [facility] MED REC#: [id number] ~ACCOUNT#: PENDING LOCATION [facility] [id number] ~CARE PROVIDER: SHELBY LAWLER PT ~Ther apy Progress (52207) Note ~Attempted PT eval at this time. P t declined. "This has been the worst day yet." Agreed to allow ~me to return later today to complete eval. ~ ~ ~ ~SHELBY LAWLER P T Oct 21, 2019 10:58 ~ ~ ~<Created by SHELBY LAWLER PT> ~<Elec tronically signed by SHELBY LAWLER PT> 10/21/19 1058 ~ ~ Clinical Note Note Date & Note Facility Type Note NAME: [facility] MED REC#: [id number] ~ACCOUNT#: [facility] LOC[facility] [id number] ~CARE PROVIDER: CORAZON PARISH MD FACP FAC CCDS ([id number]) ~Cardiology SOAP Progress Note ~Subject rose: ~No cp or palp or syncope or shortness of breath ~Gen wea kness and malaise ~No n/v/d ~ ~Objective: ~I O/Vital Signs ~ ~ ~ ~ 10/21/19 10/21/19 10/21/19 10/21/19 ~ ~ 02:40 04:00 04:00 04:00 ~ ~Temp 36. 1 ~ ~Pulse 81 ~ ~Resp 21 ~ ~B/P (MAP) 100/72 (81) ~ ~Pulse Ox 93 9 7 99 ~ ~O2 Delivery Vapotherm Vapotherm Vapotherm ~ ~O2 Reinier w Rate 30.00 30.00 30.00 ~ ~ 60.00 ~ ~FiO2 60 60 ~ ~ ~ ~ 10/21/1910/21/1910/21/19 10/21/19 ~ ~ 06:43 07:00 08:00 08:37 ~ ~Temp 36.3 ~ ~Pulse 81 90 ~ ~Resp 29 ~ ~B/P (MAP) 101/74 (83) ~ ~Pulse Ox 94 9 1 ~ ~O2 Delivery Vapotherm Vapotherm Vapotherm ~ ~O2 Flow Rate 30. 00 30.00 30.00 ~ ~ 60.00 50.00 ~ ~FiO2 60 ~ ~ ~ ~ 10/21/19 10/21/19 10/21/19 10/21/19 ~ ~ 09:00 09:00 12:00 12:00 ~ ~Temp 36.6 ~ ~Pulse 77 78 ~ ~Resp 34 36 ~ ~B/P (MAP) 104/63 (77) 98/63 (75) ~ ~Pulse O x 95 94 93 ~ ~O2 Delivery Vapotherm Vapotherm Vapotherm ~ ~O2 Reinier w Rate 30.00 30.00 30.00 ~ ~ 50.00 50.00 ~ ~FiO2 50 ~ ~ ~ ~ 10/21/19 10/21/19 ~ ~ 12:00 12:47 ~ ~Pulse 75 ~ ~O2 Delivery Vapotherm ~ ~O 2 Flow Rate 30.00 ~ ~FiO2 40 ~ ~ ~ ~ ~ 10/21/19 ~ ~ 00:00 ~ ~Intake Total 1920 ml ~ ~Output Total 250 ml ~ ~Balance 1670 ml ~ ~ ~We ight (Pounds): 137 ~Weight (Ounces): 1.6 ~Weight (Calculated Kilog elba): 62.852112 ~Constitutional: AAO x 3, other (thin a nd weak-appearing, hard of hearing) ~Respiratory: No accessory mus eunice use; other (fair air enty, somewhat prolonged exp phase, sca ttered~rhonchi) ~Cardiovascular: irregularly irregular, S1 and S2, systolic murmur (soft MENDY at card base) ~Gastrointestio nal: No tender; soft; No guarding, No rebound; audible bowel regulo nds ~Extremities: No clubbing, No cyanosis, No significant e raman ~Neurologic/Psychiatric: other (seems t o be able to move all limbs, cannot cooperate with a detailed ~neuro exam) ~Skin: No rash on exposed areas, No ulcerations on exp osed areas ~ ~Results/Procedures: ~Labs ~Laboratory Tests ~10/21/19 04:29: ~White Blood Count 3.0L, Red Blood Count 2.77L , Hemoglobin 8.4L, Hematocrit 26L, Mean Corpuscular ~Volum e 94, Mean Corpuscular Hemoglobin 30, Mean Corpuscular Hemoglo bin Concent 32, Red Cell ~Distribution Width 14.0, Platelet Coun t 212, Mean Platelet Volume 9.4, Neutrophils (%) (Auto) 91H, ~Lymph ocytes (%) (Auto) 5L, Monocytes (%) (Auto) 5, Eosinophils (%) (Auto) 0, Basophils (%) (Auto) 0,~Neutrophils # (Auto) 2.8, Lym phocytes # (Auto) 0.2L, Monocytes # (Auto) 0.1, Eosinophils # ( Auto) ~0.0, Basophils # (Auto) 0.0, Sodium Level 136, Potassium Level 3.2L, Chloride Level 108H, Carbon ~Dioxide Level 18L, Anion Gap 10, Blood Urea Nitrogen 15, Creatinine 0.62, Estimat Glomerular ~Filtration Rate > 60, BUN/Creatinine Ratio 24, Glucose Level 132H, Calcium Level 7.6L, Phosphorus ~Level 2.5, Magnesium Level 1.7, Digoxin Level 1.08 ~ ~Microbiology ~10/19/19 MRSA Screen - Fin al, Complete ~ MRSA not isolated ~10/19/19 Blood Culture - Prelim inary, Resulted ~ No growth ~ ~Laboratory Tests ~10/19/19 18:36 ~ ~ ~ 10/20/19 03:35 ~ ~ ~10/21/19 04:29 ~ ~ ~ ~A/P: ~Assessment: ~ ~Persi stent atrial fibrillation, has previously failed elec cardioversio n, currently with a ~controlled ventricular response ~ ~Wor sening anemia of undetermined etiology, managed by the M ed/Hospitalist syl ~ ~Echo of 09/10/19: LVEF 55-65%, mod to sev AI and TR, RVSP 40-45 mmHg ~ ~Mild hyperthyroidism: iatrogenic vs du e to amiodarone therapy ~ ~RUL pneumonia ~ ~H/o COPD ~ ~Poor nutr ition, h/o osteoporosis, and low body wgt (BMI 16) ~ ~Ac resp fa ilure due to above conditions, improving ~Plan: ~ ~* Abe nue oral dilt and apixaban ~* Replenish K ~* Monitor labs ~* Med S vce managing pneumonia and resp failure ~ ~ ~ ~CORAZON PARISH MD FACP FACC CCDS Oct 21, 2019 13:34 ~ ~ ~<Created by CORAZON PARISH MD, HOMER, FAC P, FACC, FSCAI, CCDS> ~<Electronically signed by CORAZON Daniel MA, FACP, FACC, FSCAI, CCDS> 10/21/19 1334 ~ ~ Clinical Note Note Date & Note Facility Type Note NAME: [facility] ~MED REC#: M [id number] ~ACCOUNT#: [facility]END[facility] [id number] ~CARE PROVIDER: SHELBY LAWLER PT ~Ther apy Progress () Note ~Attempted PT visit this pm; Pt re fused any therapy. She did request for this therapist to pray ~wit h her. No treatment rendered per patient request. ~ ~ ~ ~SHELBY PIÑA PT Oct 21, 2019 14:50 ~ ~ ~<Created by SHELBY DUARTE PT> ~<Electronically signed by SHELBY LAWLER PT> 10/21/19 1450 ~ ~ Clinical Note Note Date & Note Facility Type Note NAME: [facility] ~MED REC#: M [id number] ~ACCOUNT#: [facility]END[facility] [id number] ~CARE PROVIDER: JENNY RODRIGUEZ OTR ~Therapy Progress () Note ~Nursing agrees to OT to see pt. P t denies therapy, stating she will tonight. Pt expresses she ~desires to switch alf facilities as she desires to bailon ve a cat at home. Pt states she ~wants notification today if she sh ould hope to switch, otherwise she wants to pass. Pt denies ~therapy at this time, will attempt following date. Nursing notifie d of pt request. ~ ~ ~ ~JENNY RODRIGUEZ OTR Oct 21, 2019 14:59 ~ ~ ~<Created by JENNY RODRIGUEZ OTR> ~<Electronically signed by JENNY RODRIGUEZ OTR> 10/21/19 1552 ~ ~ Clinical Note Note Date & Note Facility Type Note NAME: [facility] MED REC#: M [id number] ~ACCOUNT#: [facility] [id number] ~CARE PROVIDER: GRAHAM SADLER OT ~T herapy (13108) Progress Note ~OT attempted tx this AM, pt declined. Pt's breakfast tray sitting on her tray tabl e, OT encouraged ~pt to eat some breakfast, pt replied "not right n ow". OT educated pt on the purpose and benefits of ~OT tx, pt willow n replied "not right now" OT will attempt again this afternoon. ~ ~1, visit ~0808 ~ ~ ~ ~GRAHAM SADLER OT Oct 23, 2019 08:5 3 ~ ~ ~<Created by GRAHAM SADLER OT> ~<Electronically signed by GRAHAM SADLER OT> 10/23/19 0853 ~ ~ Clinical Note Note Date & Note Facility Type Note NAME: [facility] MED REC#: M [id number] ~ACCOUNT#: [facility] [id number] ~CARE PROVIDER: GRAHAM SADLER OT ~T herapy (70017) Progress Note ~Pt pleasantly declined t herapy this PM. Nursing reports pt is getting ready to d/c. OT will attempt ~tx again tomorrow if pt is still admitted. ~ ~1, visit ~1515 ~ ~ ~ ~GRAHAM SADLER OT Oct 24, 2019 15:2 2 ~ ~ ~<Created by GRAHAM SADLER OT> ~<Electronically signed by GRAHAM SADLER OT> 10/24/19 1523 ~ ~ Advance Directives Directive Response Recor ded Date/Time Advance Directives No 10:20pm Health Care Power of Automatic Brine Mixer Operator No 02/06/15 10:20pm Organ Donor Yes 02/06/15 10:20pm Resuscitation Status Full Code 02/06/15 10:20pm Directive Response Recor ded Date/Time Advance Directives No 1:00pm Health Care Power of Automatic Brine Mixer Operator No 01/16/15 1:00pm Organ Donor Yes 01/16/15 1:00pm Resuscitation Status Full Code 01/16/15 1:00pm Directive Response Recor ded Date/Time Advance Directives No 2:28pm Health Care Power of Automatic Brine Mixer Operator No 02/17/15 2:28pm Organ Donor Yes 02/17/15 2:28pm Resuscitation Status Full Code 02/17/15 2:28pm Discharge Instructions No hospital discharge instructions. Patient Instructions Physician Instructions Patient Instructions: Followukp one week in office Discharge Diet: No Restrictions Drink 6-8 Glasses/Fluids/Day: Yes Patient Instructions Physician Instructions Prescription: Call to Patients Pharmacy Patient Instructions: Pt insists on going home, ni somewhat wary about this. States she has help at home for ADL. Need HHC to follow also. Resume Normal Activity: Yes Diet for 24 Hours: No Alcohol Care Plan Patient Instructions:: Pt insists on going home, ni somewhat wary about this. States she hashelp at home for ADL. Need HHC to follow also. Additional Source Comments This clinical document has been generated using [employer] software that has been certified by the Office of the National Coordinator for Health Information Technology (ONC 15.99.04.3023.Diam.31.00.0.592632) and the National Committee for Vb Developer (NCQA, as an eMeasure certified technology). FOR RECORDS PERTAINING TO PATIENTS WHO ARE OR HAVE BEEN ENROLLED IN A CHEMICAL D EPENDENCY/SUBSTANCE ABUSE PROGRAM, SOME INFORMATION MAY BE OMITTED. This clinica l summary was aggregated from multiple sources. Caution should be exercised in using it in the provision of clinical care. This summary normalizes information from multiple sources, and as a consequence, information in this document may ma terially change the coding, format and clinical context of patient data. In michael tion, data may be omitted in some cases. CLINICAL DECISIONS SHOULD BE BASED ON T HE PRIMARY CLINICAL RECORDS. [employer] provides no warranty or guara ntee of the accuracy or completeness of information in this document.The followi ng information is based on time limited clinical information
--- OUTSIDE RECORDS SUMMARY | 2019-10-28 15:38 | XMS REPORT | Continuity of Care Document ---
Author Organization Unknown Address Unknown Phone Unavailable Allergies Active Description Code Type Severity Reaction Onset Reported/Identified Relationship to Patient Clinical Status Yes cefadroxil [id number] Drug Allerg y Unknown N/A 07/29/[id number] ug Allergy Unknown N/A 07/29/2009 Yes iodoquinol [id number] Drug Allerg y Unknown N/A 07/29/2009 Yes Sulfa (Sulfonamide Antibiotics) [id number] Drug Allergy Unknown N/A 016 Medications There is no data. Problems Date Dx Coded Attending Type Code Diagnosis Diagnosed By 08/01/2009 Ot 244.9 08/01/2009 Ot 272.4 08/01/2009 Ot 491.21 08/01/2009 Ot 530.81 08/01/2009 Ot 733.00 04/10/2013 MALACHI RUIZ MD Ot 496 CHR AIRWAY OBSTRUCT NEC 04/10/2013 MALACHI RUIZ MD Ot 780. 79 OTH MALAISE FATIGUE 04/10/2013 MALACHI RUIZ MD Ot 791. 9 ABN URINE FINDINGS NEC 02/05/2014 LISA PEDRAZA DO Ot 496 02/05/2014 LISA PEDRAZA DO Ot 786. 05 02/05/2014 LISA PEDRAZA DO Ot 799. 02 03/04/2014 LISA PEDRAZA DO Ot 496 03/04/2014 LISA PEDRAZA DO Ot 786. 05 03/04/2014 LISA PEDRAZA DO Ot 799. 02 01/19/2015 Ot 733.00 01/19/2015 Ot 733.00 01/19/2015 Ot 625.9 01/19/2015 Ot 724.2 01/19/2015 Ot 788.41 01/19/2015 Ot 724.02 01/19/2015 Ot 733.00 01/19/2015 MALACHI RUIZ MD Ot 496 01/19/2015 SEGLIE MD, MALACHI R Ot 783. 21 01/19/2015 JOSEPH ANDRES, MALACHI R Ot 733. 00 01/19/2015 Ot 496 01/19/2015 Ot 780.79 01/19/2015 Ot 791.9 01/19/2015 LISA PEDRAZA DO Ot 496 01/19/2015 LISA PEDRAZA DO Ot 786. 05 01/19/2015 MILOLISA OVIEDO DO Ot 799. 02 01/22/2015 JOSEPH ANDRES, MALACHI R Ot E03. 9 HYPOTHYROIDISM, UNSPECIFIED 01/22/2015 JOSEPH ANDRES, MALACHI R Ot J44. 1 CHRONIC OBSTRUCTIVE PULMONARY DISEASE W 01/22/2015 JOSEPH ANDRES, MALACHI R Ot M81. 0 AGE-RELATED OSTEOPOROSIS W/O CURRENT PAT 02/10/2015 JOSEPH ANDRES, MALACHI R Ot R82. 90 02/11/2015 JOSEPH ANDRES, MALACHI R Ot E03. 9 02/11/2015 JOSEPH ANDRES, MALACHI R Ot E87. 1 02/11/2015 JOSEPH ANDRES, MALACHI R Ot E87. 6 02/11/2015 JOSEPH ANDRES, MALACHI R Ot I47. 1 02/11/2015 JOSEPH ANDRES, MALACHI R Ot I48. 0 02/11/2015 JOSEPH ANDRES, MALACHI R Ot J18. 9 02/11/2015 JOSEPH ANDRES, MALACHI R Ot J44. 1 02/11/2015 JOSEPH ANDRES, MALACHI R Ot M81. 0 02/11/2015 JOSEPH ANDRES, MALACHI R Ot R19. 7 02/11/2015 JOSEPH ANDRES, MALACHI R Ot R26. 81 02/11/2015 JOSEPH ANDRES, MALACHI R Ot Z87.891 02/11/2015 JOSEPH ANDRES, MALACHI R Ot E03. 9 02/11/2015 JOSEPH ANDRES, MALACHI R Ot E87. 1 02/11/2015 JOSEPH ANDRES, MALACHI R Ot E87. 6 02/11/2015 JOSEPH ANDRES, MALACHI R Ot I47. 1 02/11/2015 JOSEPH ANDRES, MALACHI R Ot I48. 0 02/11/2015 JOSEPH ANDRES, MALACHI R Ot J18. 9 02/11/2015 JOSEPH ANDRES, MALACHI R Ot J44. 1 02/11/2015 JOSEPH ANDRES, MALACHI R Ot M81. 0 02/11/2015 JOSEPH ANDRES, MALACHI R Ot R19. 7 02/11/2015 JOSEPH ANDRES, MALACHI R Ot R26. 81 02/11/2015 JOSEPH ANDRES, MALACHI R Ot Z87.891 02/12/2015 JOSEPH ANDRES, MALACHI R Ot E03. 9 02/12/2015 JOSEPH ANDRES, MALACHI R Ot E87. 1 02/12/2015 JOSEPH ANDRES, MALACHI R Ot E87. 6 02/12/2015 JOSEPH ANDRES, MALACHI R Ot I47. 1 02/12/2015 JOSEPH ANDRES, MALACHI R Ot I48. 0 02/12/2015 JOSEPH ANDRES, MALACHI R Ot J18. 9 02/12/2015 JOSEPH ANDRES, MALACHI R Ot J44. 1 02/12/2015 JOSEPH ANDRES, MALACHI R Ot M81. 0 02/12/2015 JOSEPH ANDRES, MALACHI R Ot R19. 7 02/12/2015 JOSEPH ANDRES, MALACHI R Ot R26. 81 02/12/2015 JOSEPH ANDRES, MALACHI R Ot Z87.891 02/12/2015 JOSEPH ANDRES, MALACHI R Ot E03. 9 02/12/2015 JOSEPH ANDRES, MALACHI R Ot E87. 1 02/12/2015 JSOEPH ANDRES, MALACHI R Ot E87. 6 02/12/2015 JOSEPH ANDRES, MALACHI R Ot I47. 1 02/12/2015 JOSEPH ANDRES, MALACHI R Ot I48. 0 02/12/2015 JOSEPH ANDRES, MALACHI R Ot J18. 9 02/12/2015 JOSEPH ANDRES, MALACHI R Ot J44. 1 02/12/2015 JOSEPH ANDRES, MALACHI R Ot M81. 0 02/12/2015 JOSEPH ANDRES, MALACHI R Ot R19. 7 02/12/2015 JOSEPH ANDRES, MALACHI R Ot R26. 81 02/12/2015 JOSEPH ANDRES, MALACHI R Ot Z87.891 02/13/2015 JOSEPH ANDRES, MALACHI R Ot E03. 9 02/13/2015 JOSEPH ANDRES, MALACHI R Ot E87. 1 02/13/2015 JOSEPH ANDRES, MALACHI R Ot E87. 6 02/13/2015 JOSEPH ANDRES, MALACHI R Ot I47. 1 02/13/2015 JOSEPH ANDRES, MALACHI R Ot I48. 0 02/13/2015 JOSEPH ANDRES, MALACHI R Ot J18. 9 02/13/2015 JOSEPH ANDRES, MALACHI R Ot J44. 1 02/13/2015 JOSEPH ANDRES, MALACHI R Ot M81. 0 02/13/2015 JOSEPH ANDRES, MALACHI R Ot R19. 7 02/13/2015 JOSEPH ANDRES, MALACHI R Ot R26. 81 02/13/2015 JOSEPH ANDRES, MALACHI R Ot Z87.891 02/13/2015 JOSEPH ANDRES, MALACHI R Ot E03. 9 02/13/2015 JOSEPH ANDRES, MALACHI R Ot E87. 1 02/13/2015 JOSEPH ANDRES, MALACHI R Ot E87. 6 02/13/2015 JOSEPH ANDRES, MALACHI R Ot I47. 1 02/13/2015 JOSEPH ANDRES, MALACHI R Ot I48. 0 02/13/2015 JOSEPH ANDRES, MALACHI R Ot J18. 9 02/13/2015 JOSEPH ANDRES, MALACHI R Ot J44. 1 02/13/2015 JOSEPH ANDRES, MALACHI R Ot M81. 0 02/13/2015 JOSEPH ANDRES, MALACHI R Ot R19. 7 02/13/2015 JOSEPH ANDRES, MALACHI R Ot R26. 81 02/13/2015 JOSEPH ANDRES, MALACHI R Ot Z87.891 02/13/2015 JOSEPH ANDRES, MALACHI R Ot E03. 9 02/13/2015 JOSEPH ANDRES, MALACHI R Ot E87. 1 02/13/2015 JOSEPH ANDRES, MALACHI R Ot E87. 6 02/13/2015 JOSEPH ANDRES, MALACHI R Ot I47. 1 02/13/2015 JOSEPH ANDRES, MALACHI R Ot I48. 0 02/13/2015 JOSEPH ANDRES, MALACHI R Ot J18. 9 02/13/2015 JOSEPH ANDRES, MALACHI R Ot J44. 1 02/13/2015 JOSEPH ANDRES, MALACHI R Ot M81. 0 02/13/2015 JOSEPH ANDRES, MALACHI R Ot R19. 7 02/13/2015 JOSEPH ANDRES, MALACHI R Ot R26. 81 02/13/2015 JOSEPH ANDRES, MALACHI R Ot Z87.891 02/14/2015 JOSEPH ANDRES, MALACHI R Ot E03. 9 02/14/2015 JOSEPH ANDRES, MALACHI R Ot E87. 1 02/14/2015 JOSEPH ANDRES, MALACHI R Ot E87. 6 02/14/2015 JOSEPH ANDRES, MALACHI R Ot I47. 1 02/14/2015 JOSEPH ANDRES, MALACHI R Ot I48. 0 02/14/2015 JOSEPH ANDRES, MALACHI R Ot J18. 9 02/14/2015 JOSEPH ANDRES, MALACHI R Ot J44. 1 02/14/2015 JOSEPH ANDRES, MALACHI R Ot M81. 0 02/14/2015 JOSEPH ANDRES, MALACHI R Ot R19. 7 02/14/2015 JOSEPH ANDRES, MALACHI R Ot R26. 81 02/14/2015 JOSEPH ANDRES, MALACHI R Ot Z87.891 02/15/2015 JOSEPH ANDRES, MALACHI R Ot E03. 9 02/15/2015 JOSEPH ANDRES, MALACHI R Ot E87. 1 02/15/2015 JOSEPH ANDRES, MALACHI R Ot E87. 6 02/15/2015 JOSEPH ANDRES, MALACHI R Ot I47. 1 02/15/2015 JOSEPH ANDRES, MALACHI R Ot I48. 0 02/15/2015 JOSEPH ANDRES, MALACHI R Ot J18. 9 02/15/2015 JOSEPH ANDRES, MALACHI R Ot J44. 1 02/15/2015 JOSEPH ANDRES, MALACHI R Ot M81. 0 02/15/2015 JOSEPH ANDRES, MALACHI R Ot R19. 7 02/15/2015 JOSEPH ANDRES, MALACHI R Ot R26. 81 02/15/2015 JOSEPH ANDRES, MALACHI R Ot Z87.891 02/16/2015 JOSEPH ANDRES, MALACHI R Ot E03. 9 02/16/2015 JOSEPH ANDRES, MALACHI R Ot E87. 1 02/16/2015 JOSEPH ANDRES, MALACHI R Ot E87. 6 02/16/2015 JOSEPH ANDRES, MALACHI R Ot I47. 1 02/16/2015 JOSEPH ANDRES, MALACHI R Ot I48. 0 02/16/2015 JOSEPH ANDRES, MALACHI R Ot J18. 9 02/16/2015 JOSEPH ANDRES, MALACHI R Ot J44. 1 02/16/2015 JOSEPH ANDRES, MALACHI R Ot M81. 0 02/16/2015 JOSEPH ANDRES, MALACHI R Ot R19. 7 02/16/2015 JOSEPH ANDRES, MALACHI R Ot R26. 81 02/16/2015 JOSEPH ANDRES, MALACHI R Ot Z87.891 02/17/2015 JOSEPH ANDRES, MALACHI R Ot E03. 9 02/17/2015 JOSEPH ANDRES, MALACHI R Ot E87. 1 02/17/2015 JOSEPH ANDRES, MALACHI R Ot E87. 6 02/17/2015 JOSEPH ANDRES, MALACHI R Ot I47. 1 02/17/2015 JOSEPH ANDRES, MALACHI R Ot I48. 0 02/17/2015 JOSEPH ANDRES, MALACHI R Ot J18. 9 02/17/2015 JOSEPH ANDRES, MALACHI R Ot J44. 1 02/17/2015 JOSEPH ANDRES, MALACHI R Ot M81. 0 02/17/2015 JOSEPH ANDRES, MALACHI R Ot R19. 7 02/17/2015 JOSEPH ANDRES, MALACHI R Ot R26. 81 02/17/2015 JOSEPH ANDRES, MALACHI R Ot Z87.891 02/17/2015 JOSEPH ANDRES, MALACHI R Ot E03. 9 HYPOTHYROIDISM, UNSPECIFIED 02/17/2015 JOSEPH ANDRES, MALACHI R Ot E87. 1 HYPO-OSMOLALITY AND HYPONATREMIA 02/17/2015 JOSEPH ANDRES, MALACHI R Ot E87. 6 HYPOKALEMIA 02/17/2015 JOSEPH ANDRES, MALACHI R Ot I47. 1 SUPRAVENTRICULAR TACHYCARDIA 02/17/2015 JOSEPH ANDRES, MALACHI R Ot I48. 0 PAROXYSMAL ATRIAL FIBRILLATION 02/17/2015 MALACHI RUIZ MD R Ot J18. 9 PNEUMONIA, UNSPECIFIED ORGANISM 02/17/2015 MALACHI RUIZ MD R Ot J44. 1 CHRONIC OBSTRUCTIVE PULMONARY DISEASE W 02/17/2015 MALACHI RUIZ MD R Ot M81. 0 AGE-RELATED OSTEOPOROSIS W/O CURRENT PAT 02/17/2015 MALACHI RUIZ MD R Ot R19. 7 DIARRHEA, UNSPECIFIED 02/17/2015 MALCAHI RUIZ MD R Ot R26. 81 UNSTEADINESS ON FEET 02/17/2015 MALACHI RUIZ MD R Ot Z87.891 PERSONAL HISTORY OF NICOTINE DEPENDENCE 02/23/2015 MALACHI RUIZ MD R Ot E03. 9 HYPOTHYROIDISM, UNSPECIFIED 02/23/2015 MALACHI RUIZ MD R Ot I48. 0 PAROXYSMAL ATRIAL FIBRILLATION 02/23/2015 MALACHI RUIZ MD R Ot J18. 9 PNEUMONIA, UNSPECIFIED ORGANISM 02/23/2015 MALACHI RUIZ MD R Ot J44. 1 CHRONIC OBSTRUCTIVE PULMONARY DISEASE W 02/23/2015 MALACHI RUIZ MD R Ot M81. 0 AGE-RELATED OSTEOPOROSIS W/O CURRENT PAT 02/23/2015 MALACHI RUIZ MD R Ot R53. 1 WEAKNESS 02/23/2015 MALACHI RUIZ MD R Ot Z87.891 PERSONAL HISTORY OF NICOTINE DEPENDENCE 03/24/2015 Ot 733.00 03/24/2015 Ot 733.00 03/24/2015 Ot 625.9 03/24/2015 Ot 724.2 03/24/2015 Ot 788.41 03/24/2015 Ot 724.02 03/24/2015 Ot 733.00 03/24/2015 MALACHI RUIZ MD R Ot 496 03/24/2015 MALACHI RUIZ MD R Ot 783. 21 03/24/2015 MALACHI RUIZ MD R Ot 733. 00 03/24/2015 Ot 496 03/24/2015 Ot 780.79 03/24/2015 Ot 791.9 03/24/2015 LISA PEDRAZA DO Ot 496 03/24/2015 LISA PEDRAZA DO Ot 786. 05 03/24/2015 LISA PEDRAZA DO Ot 799. 02 03/24/2015 MALACHI RUIZ MD R Ot R82. 90 06/09/2015 MALACHI RUIZ MD Ot R82. 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 21 LOSS OF WEIGHT 07/06/2015 MALACHI RUIZ MD Ot 733. 00 OSTEOPOROSIS NOS 07/06/2015 Ot 496 CHR AI RWAY OBSTRUCT NEC 07/06/2015 Ot 780.79 OTH MALAISE FATIGUE 07/06/2015 Ot 791.9 ABN URINE FINDINGS NEC 07/06/2015 LISA PEDRAZA DO Ot 496 CHR AIRWAY OBSTRUCT NEC 07/06/2015 LISA PEDRAZA DO Ot 786. 05 SHORTNESS OF BREATH 07/06/2015 LISA PEDRAZA DO Ot 799. 02 HYPOXEMIA 07/06/2015 MALACHI RUIZ MD Ot R82. 90 UNSPECIFIED ABNORMAL FINDINGS IN URINE 07/06/2015 MALACHI RUIZ MD Ot R82. 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 21 LOSS OF WEIGHT 01/11/2016 MALACHI RUIZ MD Ot 733. 00 OSTEOPOROSIS NOS 01/11/2016 Ot 496 CHR AI RWAY OBSTRUCT NEC 01/11/2016 Ot 780.79 OTH MALAISE FATIGUE 01/11/2016 Ot 791.9 ABN URINE FINDINGS NEC 01/11/2016 LISA PEDRAZA DO Live Ot 496 CHR AIRWAY OBSTRUCT NEC 01/11/2016 LISA PEDRAZA DO Live Ot 786. 05 SHORTNESS OF BREATH 01/11/2016 MILO GARCIA LISA Live Ot 799. 02 HYPOXEMIA 01/11/2016 MALACHI RUIZ MD R Ot R82. 90 UNSPECIFIED ABNORMAL FINDINGS IN URINE 01/11/2016 MALACHI RUIZ MD Ot R82. 99 OTHER ABNORMAL FINDINGS IN URINE 01/13/2016 MALACHI RUIZ MD R Ot C44. 90 UNSPECIFIED MALIGNANT NEOPLASM OF SKIN, 01/13/2016 MALACHI RUIZ MD R Ot D72.829 ELEVATED WHITE BLOOD CELL COUNT, UNSPECI 01/13/2016 MALACHI RUIZ MD R Ot E03. 9 HYPOTHYROIDISM, UNSPECIFIED 01/13/2016 MALACHI RUIZ MD Ot G25. 1 DRUG-INDUCED TREMOR 01/13/2016 MALACHI RUIZ MD Ot I48. 0 PAROXYSMAL ATRIAL FIBRILLATION 01/13/2016 MALACHI RUIZ MD Ot J44. 1 CHRONIC OBSTRUCTIVE PULMONARY DISEASE W 01/13/2016 MALACHI RUIZ MD R Ot J96. 21 ACUTE AND CHRONIC RESPIRATORY FAILURE [place] 01/13/2016 MALACHI RUIZ MD R Ot M81. 0 AGE-RELATED OSTEOPOROSIS W/O CURRENT PAT 01/13/2016 MALACHI RUIZ MD Ot R00. 2 PALPITATIONS 01/13/2016 MALACHI RUIZ MD Ot R30. 0 DYSURIA 01/13/2016 MALACHI RUIZ MD R Ot R53. 1 WEAKNESS 01/13/2016 MALACHI RUIZ MD Ot Z87.891 PERSONAL HISTORY OF NICOTINE DEPENDENCE 01/13/2016 MALACHI RUIZ MD R Ot C44. 90 UNSPECIFIED MALIGNANT NEOPLASM OF SKIN, 01/13/2016 MALACHI RUIZ MD R Ot D72.829 ELEVATED WHITE BLOOD CELL COUNT, UNSPECI 01/13/2016 MALACHI RUIZ MD R Ot E03. 9 HYPOTHYROIDISM, UNSPECIFIED 01/13/2016 MALACHI RUIZ MD R Ot G25. 1 DRUG-INDUCED TREMOR 01/13/2016 MALACHI RUIZ MD R Ot I48. 0 PAROXYSMAL ATRIAL FIBRILLATION 01/13/2016 MALACHI RUIZ MD R Ot J44. 1 CHRONIC OBSTRUCTIVE PULMONARY DISEASE W 01/13/2016 MALACHI RUIZ MD R Ot J96. 21 ACUTE AND CHRONIC RESPIRATORY FAILURE [place] 01/13/2016 MALACHI RUIZ MD R Ot M81. 0 AGE-RELATED OSTEOPOROSIS W/O CURRENT PAT 01/13/2016 MALACHI RUIZ MD R Ot R00. 2 PALPITATIONS 01/13/2016 MALACHI RUIZ MD R Ot R30. 0 DYSURIA 01/13/2016 MALACHI RUIZ MD R Ot R53. 1 WEAKNESS 01/13/2016 MALACHI RUIZ MD R Ot Z87.891 PERSONAL HISTORY OF NICOTINE DEPENDENCE 01/14/2016 MALACHI RUIZ MD R Ot B96. 20 UNSP ESCHERICHIA COLI THE CAUSE OF DI 01/14/2016 MALACHI RUIZ MD R Ot C44. 90 UNSPECIFIED MALIGNANT NEOPLASM OF SKIN, 01/14/2016 MALACHI RUIZ MD R Ot D72.829 ELEVATED WHITE BLOOD CELL COUNT, UNSPECI 01/14/2016 MALACHI RUIZ MD R Ot E03. 9 HYPOTHYROIDISM, UNSPECIFIED 01/14/2016 MALACHI RUIZ MD R Ot G25. 1 DRUG-INDUCED TREMOR 01/14/2016 MALACHI RUIZ MD R Ot I48. 0 PAROXYSMAL ATRIAL FIBRILLATION 01/14/2016 MALACHI RUIZ MD R Ot I48. 92 UNSPECIFIED ATRIAL FLUTTER 01/14/2016 MALACHI RUIZ MD R Ot J18. 9 PNEUMONIA, UNSPECIFIED ORGANISM 01/14/2016 MALACHI RUIZ MD R Ot J44. 0 CHRONIC OBSTRUCTIVE PULMON DISEASE W ACU 01/14/2016 MALACHI RUIZ MD R Ot J44. 1 CHRONIC OBSTRUCTIVE PULMONARY DISEASE W 01/14/2016 MALACHI RUIZ MD R Ot J96. 21 ACUTE AND CHRONIC RESPIRATORY FAILURE [place] 01/14/2016 MALACHI RUIZ MD R Ot M81. 0 AGE-RELATED OSTEOPOROSIS W/O CURRENT PAT 01/14/2016 MALACHI RUIZ MD Ot N39. 0 URINARY TRACT INFECTION, SITE NOT SPECIF 01/14/2016 MALACHI RUIZ MD Ot R00. 2 PALPITATIONS 01/14/2016 MALACHI RUIZ MD Ot R30. 0 DYSURIA 01/14/2016 MALACHI RUIZ MD Ot R44. 3 HALLUCINATIONS, UNSPECIFIED 01/14/2016 MALACHI RUIZ MD R Ot R53. 1 WEAKNESS 01/14/2016 MALACHI RUIZ MD Ot R73. 9 HYPERGLYCEMIA, UNSPECIFIED 01/14/2016 MALACHI RIUZ MD Ot T38.0X5A ADVERSE EFFECT OF GLUCOCORT/SYNTH ANALOG 01/14/2016 MALACHI RUIZ MD Ot Z86. 73 PRSNL HX OF TIA (TIA), AND CEREB INFRC W 01/14/2016 MALACHI RUIZ MD Ot Z87.891 PERSONAL HISTORY OF NICOTINE DEPENDENCE 01/14/2016 MALACHI RUIZ MD Ot B96. 20 UNSP ESCHERICHIA COLI THE CAUSE OF DI 01/14/2016 MALACHI RUIZ MD Ot C44. 90 UNSPECIFIED MALIGNANT NEOPLASM OF SKIN, 01/14/2016 MALACHI RUIZ MD R Ot D72.829 ELEVATED WHITE BLOOD CELL COUNT, UNSPECI 01/14/2016 MALACHI RUIZ MD R Ot E03. 9 HYPOTHYROIDISM, UNSPECIFIED 01/14/2016 MALACHI RUIZ MD R Ot G25. 1 DRUG-INDUCED TREMOR 01/14/2016 MALACHI RUIZ MD R Ot I48. 0 PAROXYSMAL ATRIAL FIBRILLATION 01/14/2016 MALACHI RUIZ MD R Ot I48. 92 UNSPECIFIED ATRIAL FLUTTER 01/14/2016 MALACHI RUIZ MD R Ot J18. 9 PNEUMONIA, UNSPECIFIED ORGANISM 01/14/2016 MALACHI RUIZ MD R Ot J44. 0 CHRONIC OBSTRUCTIVE PULMON DISEASE W ACU 01/14/2016 MALACHI RUIZ MD Ot J44. 1 CHRONIC OBSTRUCTIVE PULMONARY DISEASE W 01/14/2016 MALACHI RUIZ MD R Ot J96. 21 ACUTE AND CHRONIC RESPIRATORY FAILURE [place] 01/14/2016 MALACHI RUIZ MD R Ot M81. 0 AGE-RELATED OSTEOPOROSIS W/O CURRENT PAT 01/14/2016 MALACHI RUIZ MD Ot N39. 0 URINARY TRACT INFECTION, SITE NOT SPECIF 01/14/2016 MALACHI RUIZ MD R Ot R00. 2 PALPITATIONS 01/14/2016 MALACHI RUIZ MD R Ot R30. 0 DYSURIA 01/14/2016 MALACHI RUIZ MD R Ot R44. 3 HALLUCINATIONS, UNSPECIFIED 01/14/2016 MALACHI RUIZ MD R Ot R53. 1 WEAKNESS 01/14/2016 MALACHI RUIZ MD Ot R73. 9 HYPERGLYCEMIA, UNSPECIFIED 01/14/2016 MALACHI RUIZ MD R Ot T38.0X5A ADVERSE EFFECT OF GLUCOCORT/SYNTH ANALOG 01/14/2016 MALACHI RUIZ MD Ot Z86. 73 PRSNL HX OF TIA (TIA), AND CEREB INFRC W 01/14/2016 MALACHI RUIZ MD Ot Z87.891 PERSONAL HISTORY OF NICOTINE DEPENDENCE 09/12/2019 SHANTELL HURST MD Ot E03. 9 HYPOTHYROIDISM, UNSPECIFIED 09/12/2019 SHANTELL HURST MD Ot E83. 42 HYPOMAGNESEMIA 09/12/2019 SHANTELL HURST MD Ot E87. 6 HYPOKALEMIA 09/12/2019 SHANTELL HURST MD Ot I48. 91 UNSPECIFIED ATRIAL FIBRILLATION 09/12/2019 SHANTELL HURST MD Ot I48. 92 UNSPECIFIED ATRIAL FLUTTER 09/12/2019 SHANTELL HURST MD Ot I95. 9 HYPOTENSION, UNSPECIFIED 09/12/2019 SHANTELL HURST MD Ot J18. 9 PNEUMONIA, UNSPECIFIED ORGANISM 09/12/2019 SHANTELL HURST MD Ot J43. 9 EMPHYSEMA, UNSPECIFIED 09/12/2019 SHANTELL HURST MD Ot K21. 9 GASTRO-ESOPHAGEAL REFLUX DISEASE WITHOUT 09/12/2019 SHANTELL HURST MD Ot M81. 0 AGE-RELATED OSTEOPOROSIS W/O CURRENT PAT 09/12/2019 SHANTELL HURST MD Ot R19. 7 DIARRHEA, UNSPECIFIED 09/12/2019 SHANTELL HURST MD Ot R63. 0 ANOREXIA 09/12/2019 SHANTELL HURST MD Ot R64 CACHEXIA 09/12/2019 SHANTELL HURST MD Ot R79. 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 73 PRSNL HX OF TIA (TIA), AND CEREB INFRC W 09/12/2019 SHANTELL HURST MD, Ot Z87.891 PERSONAL HISTORY OF NICOTINE DEPENDENCE 09/13/2019 SHANTELL HURST MD Ot E03. 9 HYPOTHYROIDISM, UNSPECIFIED 09/13/2019 SHANTELL HURST MD Ot E83. 42 HYPOMAGNESEMIA 09/13/2019 SHANTELL HURST MD Ot E87. 6 HYPOKALEMIA 09/13/2019 SHANTELL HURST MD Ot I48. 91 UNSPECIFIED ATRIAL FIBRILLATION 09/13/2019 SHANTELL HURST MD Ot I48. 92 UNSPECIFIED ATRIAL FLUTTER 09/13/2019 SHANTELL HURST MD Ot I95. 9 HYPOTENSION, UNSPECIFIED 09/13/2019 SHANTELL HURST MD Ot J18. 9 PNEUMONIA, UNSPECIFIED ORGANISM 09/13/2019 SHANTELL HURST MD Ot J43. 9 EMPHYSEMA, UNSPECIFIED 09/13/2019 SHANTELL HURST MD Ot K21. 9 GASTRO-ESOPHAGEAL REFLUX DISEASE WITHOUT 09/13/2019 SHANTELL HURST MD Ot M81. 0 AGE-RELATED OSTEOPOROSIS W/O CURRENT PAT 09/13/2019 SHANTELL HURST MD Ot R19. 7 DIARRHEA, UNSPECIFIED 09/13/2019 SHANTELL HURST MD Ot R63. 0 ANOREXIA 09/13/2019 SHANTELL HURST MD Ot R64 CACHEXIA 09/13/2019 SHANTELL HURST MD Ot R79. 89 OTHER SPECIFIED ABNORMAL FINDINGS OF BLO 09/13/2019 SHANTELL HURST MD Ot Z20.828 CONTACT W AND EXPOSURE TO OTH VIRAL COMM 09/13/2019 SHANTELL HURST MD Ot Z79. 01 FDC (CURRENT) USE OF ANTICOAGULANT 09/13/2019 SHANTELL HURST MD Ot Z85.828 PERSONAL HISTORY OF OTHER MALIGNANT NEOP 09/13/2019 SHANTELL HURST MD Ot Z86. 73 PRSNL HX OF TIA (TIA), AND CEREB INFRC W 09/13/2019 SHANTELL HURST MD Ot Z87.891 PERSONAL HISTORY OF NICOTINE DEPENDENCE 09/14/2019 SHANTELL HURST MD Ot E03. 9 HYPOTHYROIDISM, UNSPECIFIED 09/14/2019 SHANTELL HURST MD Ot E83. 42 HYPOMAGNESEMIA 09/14/2019 SHANTELL HURST MD Ot E87. 6 HYPOKALEMIA 09/14/2019 SHANTELL HURST MD Ot I48. 91 UNSPECIFIED ATRIAL FIBRILLATION 09/14/2019 SHANTELL HURST MD Ot I48. 92 UNSPECIFIED ATRIAL FLUTTER 09/14/2019 SHANTELL HURST MD Ot I95. 9 HYPOTENSION, UNSPECIFIED 09/14/2019 SHANTELL HURST MD Ot J18. 9 PNEUMONIA, UNSPECIFIED ORGANISM 09/14/2019 SHANTELL HURST MD Ot J43. 9 EMPHYSEMA, UNSPECIFIED 09/14/2019 SHANTELL HURST MD Ot K21. 9 GASTRO-ESOPHAGEAL REFLUX DISEASE WITHOUT 09/14/2019 SHANTELL HURST MD Ot M81. 0 AGE-RELATED OSTEOPOROSIS W/O CURRENT PAT 09/14/2019 SHANTELL HURST MD Ot R19. 7 DIARRHEA, UNSPECIFIED 09/14/2019 SHANTELL HURST MD Ot R63. 0 ANOREXIA 09/14/2019 SHANTELL HURST MD Ot R64 CACHEXIA 09/14/2019 SHANTELL HURST MD Ot R79. 89 OTHER SPECIFIED ABNORMAL FINDINGS OF BLO 09/14/2019 SHANTELL HURST MD Ot Z20.828 CONTACT W AND EXPOSURE TO OTH VIRAL COMM 09/14/2019 SHANTELL HURST MD Ot Z79. 01 FDC (CURRENT) USE OF ANTICOAGULANT 09/14/2019 SHANTELL HURST MD Ot Z85.828 PERSONAL HISTORY OF OTHER MALIGNANT NEOP 09/14/2019 SHANTELL HURST MD Ot Z86. 73 PRSNL HX OF TIA (TIA), AND CEREB INFRC W 09/14/2019 SHANTELL HURST MD Ot Z87.891 PERSONAL HISTORY OF NICOTINE DEPENDENCE 09/14/2019 SHANTELL HURST MD Ot E03. 9 HYPOTHYROIDISM, UNSPECIFIED 09/14/2019 SHANTELL HURST MD Ot E83. 42 HYPOMAGNESEMIA 09/14/2019 SHANTELL HURST MD Ot E87. 6 HYPOKALEMIA 09/14/2019 SHANTELL HURST MD Ot I48. 91 UNSPECIFIED ATRIAL FIBRILLATION 09/14/2019 SHANTELL HURST MD Ot I48. 92 UNSPECIFIED ATRIAL FLUTTER 09/14/2019 SHANTELL HURST MD Ot I95. 9 HYPOTENSION, UNSPECIFIED 09/14/2019 SHANTELL HURST MD Ot J18. 9 PNEUMONIA, UNSPECIFIED ORGANISM 09/14/2019 SHANTELL HURST MD Ot J43. 9 EMPHYSEMA, UNSPECIFIED 09/14/2019 SHANTELL HURST MD Ot K21. 9 GASTRO-ESOPHAGEAL REFLUX DISEASE WITHOUT 09/14/2019 SHANTELL HURST MD Ot M81. 0 AGE-RELATED OSTEOPOROSIS W/O CURRENT PAT 09/14/2019 SHANTELL HURST MD Ot R19. 7 DIARRHEA, UNSPECIFIED 09/14/2019 SHANTELL HURST MD Ot R63. 0 ANOREXIA 09/14/2019 SHANTELL HURST MD Ot R64 CACHEXIA 09/14/2019 SHANTELL HURST MD Ot R79. 89 OTHER SPECIFIED ABNORMAL FINDINGS OF BLO 09/14/2019 SHANTELL HURST MD Ot Z20.828 CONTACT W AND EXPOSURE TO OTH VIRAL COMM 09/14/2019 SHANTELL HURST MD Ot Z79. 01 FDC (CURRENT) USE OF ANTICOAGULANT 09/14/2019 SHANTELL HURST MD Ot Z85.828 PERSONAL HISTORY OF OTHER MALIGNANT NEOP 09/14/2019 SHANTELL HURST MD Ot Z86. 73 PRSNL HX OF TIA (TIA), AND CEREB INFRC W 09/14/2019 SHANTELL HURST MD Ot Z87.891 PERSONAL HISTORY OF NICOTINE DEPENDENCE 09/15/2019 SHANTELL HURST MD Ot E03. 9 HYPOTHYROIDISM, UNSPECIFIED 09/15/2019 SHANTELL HURST MD Ot E83. 42 HYPOMAGNESEMIA 09/15/2019 SHANTELL HURST MD Ot E87. 6 HYPOKALEMIA 09/15/2019 SHANTELL HURST MD Ot I48. 91 UNSPECIFIED ATRIAL FIBRILLATION 09/15/2019 SHANTELL HURST MD Ot I48. 92 UNSPECIFIED ATRIAL FLUTTER 09/15/2019 SHANTELL HURST MD Ot I95. 9 HYPOTENSION, UNSPECIFIED 09/15/2019 SHANTELL HURST MD Ot J18. 9 PNEUMONIA, UNSPECIFIED ORGANISM 09/15/2019 SHANTELL HURST MD Ot J43. 9 EMPHYSEMA, UNSPECIFIED 09/15/2019 SHANTELL HURST MD Ot K21. 9 GASTRO-ESOPHAGEAL REFLUX DISEASE WITHOUT 09/15/2019 SHANTELL HURST MD Ot M81. 0 AGE-RELATED OSTEOPOROSIS W/O CURRENT PAT 09/15/2019 SHANTELL HURST MD Ot R19. 7 DIARRHEA, UNSPECIFIED 09/15/2019 SHANTELL HURST MD Ot R63. 0 ANOREXIA 09/15/2019 SHANTELL HURST MD Ot R64 CACHEXIA 09/15/2019 SHANTELL HURST MD Ot R79. 89 OTHER SPECIFIED ABNORMAL FINDINGS OF BLO 09/15/2019 SHANTELL HURST MD Ot Z20.828 CONTACT W AND EXPOSURE TO OTH VIRAL COMM 09/15/2019 SHANTELL HURST MD Ot Z79. 01 FDC (CURRENT) USE OF ANTICOAGULANT 09/15/2019 SHANTELL HURST MD Ot Z85.828 PERSONAL HISTORY OF OTHER MALIGNANT NEOP 09/15/2019 SHANTELL HURST MD Ot Z86. 73 PRSNL HX OF TIA (TIA), AND CEREB INFRC W 09/15/2019 SHANTELL HURST MD Ot Z87.891 PERSONAL HISTORY OF NICOTINE DEPENDENCE 09/16/2019 SHANTELL HURST MD Ot E03. 9 HYPOTHYROIDISM, UNSPECIFIED 09/16/2019 SHANTELL HURST MD Ot E83. 42 HYPOMAGNESEMIA 09/16/2019 SHANTELL HURST MD Ot E87. 6 HYPOKALEMIA 09/16/2019 SHANTELL HURST MD Ot I48. 91 UNSPECIFIED ATRIAL FIBRILLATION 09/16/2019 SHANTELL HURST MD Ot I48. 92 UNSPECIFIED ATRIAL FLUTTER 09/16/2019 SHANTELL HURST MD Ot I95. 9 HYPOTENSION, UNSPECIFIED 09/16/2019 SHANTELL HURST MD Ot J18. 9 PNEUMONIA, UNSPECIFIED ORGANISM 09/16/2019 SHANTELL HURST MD, Ot J43. 9 EMPHYSEMA, UNSPECIFIED 09/16/2019 SHANTELL HURST MD Ot K21. 9 GASTRO-ESOPHAGEAL REFLUX DISEASE WITHOUT 09/16/2019 SHANTELL HURST MD Ot M81. 0 AGE-RELATED OSTEOPOROSIS W/O CURRENT PAT 09/16/2019 SHANTELL HURST MD Ot R19. 7 DIARRHEA, UNSPECIFIED 09/16/2019 SHANTELL HURST MD Ot R63. 0 ANOREXIA 09/16/2019 SHANTELL HURST MD, Ot R64 CACHEXIA 09/16/2019 SHANTELL HURST MD, Ot R79. 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 73 PRSNL HX OF TIA (TIA), AND CEREB INFRC W 09/16/2019 SHANTELL HURST MD Ot Z87.891 PERSONAL HISTORY OF NICOTINE DEPENDENCE 09/16/2019 SHANTELL HURST MD Ot E03. 9 HYPOTHYROIDISM, UNSPECIFIED 09/16/2019 SHANTELL HURST MD Ot E83. 42 HYPOMAGNESEMIA 09/16/2019 SHANTELL HURST MD Ot E87. 6 HYPOKALEMIA 09/16/2019 SHANTELL HURST MD Ot I48. 91 UNSPECIFIED ATRIAL FIBRILLATION 09/16/2019 SHANTELL HURST MD Ot I48. 92 UNSPECIFIED ATRIAL FLUTTER 09/16/2019 SHANTELL HURST MD Ot I95. 9 HYPOTENSION, UNSPECIFIED 09/16/2019 SHANTELL HURST MD Ot J18. 9 PNEUMONIA, UNSPECIFIED ORGANISM 09/16/2019 SHANTELL HURST MD Ot J43. 9 EMPHYSEMA, UNSPECIFIED 09/16/2019 SHANTELL HURST MD, Ot K21. 9 GASTRO-ESOPHAGEAL REFLUX DISEASE WITHOUT 09/16/2019 SHANTELL HURST MD, Ot M81. 0 AGE-RELATED OSTEOPOROSIS W/O CURRENT PAT 09/16/2019 SHANTELL HURST MD, Ot R19. 7 DIARRHEA, UNSPECIFIED 09/16/2019 SHANTELL HURST MD Ot R63. 0 ANOREXIA 09/16/2019 SHANTELL HURST MD Ot R64 CACHEXIA 09/16/2019 SHANTELL HURST MD, Ot R79. 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 73 PRSNL HX OF TIA (TIA), AND CEREB INFRC W 09/16/2019 SHANTELL HURST MD, Ot Z87.891 PERSONAL HISTORY OF NICOTINE DEPENDENCE 09/16/2019 SHANTELL HURST MD Ot E03. 9 HYPOTHYROIDISM, UNSPECIFIED 09/16/2019 SHANTELL HURST MD Ot E05. 90 THYROTOXICOSIS, UNSP WITHOUT THYROTOXIC 09/16/2019 SHANTELL HURST MD Ot E83. 42 HYPOMAGNESEMIA 09/16/2019 SHANTELL HURST MD Ot E87. 6 HYPOKALEMIA 09/16/2019 SHANTELL HURST MD Ot I48. 0 PAROXYSMAL ATRIAL FIBRILLATION 09/16/2019 SHANTELL HURST MD Ot I48. 92 UNSPECIFIED ATRIAL FLUTTER 09/16/2019 SHANTELL HURST MD Ot I95. 9 HYPOTENSION, UNSPECIFIED 09/16/2019 SHANTELL HURST MD Ot J18. 9 PNEUMONIA, UNSPECIFIED ORGANISM 09/16/2019 SHANTELL HURST MD, Ot J43. 9 EMPHYSEMA, UNSPECIFIED 09/16/2019 SHANTELL HURST MD, Ot K21. 9 GASTRO-ESOPHAGEAL REFLUX DISEASE WITHOUT 09/16/2019 SHANTELL HURST MD, Ot M81. 0 AGE-RELATED OSTEOPOROSIS W/O CURRENT PAT 09/16/2019 SHANTELL HURST MD, Ot R19. 7 DIARRHEA, UNSPECIFIED 09/16/2019 SHANTELL HURST MD, Ot R63. 0 ANOREXIA 09/16/2019 SHANTELL HURST MD, Ot R64 CACHEXIA 09/16/2019 SHANTELL HURST MD, Ot R79. 89 OTHER SPECIFIED ABNORMAL FINDINGS OF BLO 09/16/2019 SHANTELL HURST MD, Ot Z20.828 CONTACT W AND EXPOSURE TO OTH VIRAL COMM 09/16/2019 SHANTELL HURST MD, Ot Z79. 01 [facility] (CURRENT) USE OF ANTICOAGULANT 09/16/2019 SHANTELL HURST MD, Ot Z85.828 PERSONAL HISTORY OF OTHER MALIGNANT NEOP 09/16/2019 SHANTELL HURST MD, Ot Z86. 73 PRSNL HX OF TIA (TIA), AND CEREB INFRC W 09/16/2019 SHANTELL HURST MD, Ot Z87.891 PERSONAL HISTORY OF NICOTINE DEPENDENCE 10/24/2019 JOSE MERCADO MD Ot D64.9 ANEMIA, UNSPECIFIED 10/24/2019 JOSE MERCADO MD Ot E03.9 HYPOTHYROIDISM, UNSPECIFIED 10/24/2019 JOSE MERCADO MD Ot I10 ESSENTIAL (PRIMARY) HYPERTENSION 10/24/2019 JOSE MERCADO MD, Ot I48.1 9 OTHER PERSISTENT ATRIAL FIBRILLATION 10/24/2019 JOSE MERCADO MD, Ot J18.9 PNEUMONIA, UNSPECIFIED ORGANISM 10/24/2019 JOSE MERCADO MD, Ot J43.9 EMPHYSEMA, UNSPECIFIED 10/24/2019 JOSE MERCADO MD, Ot J96.2 1 ACUTE AND CHRONIC RESPIRATORY FAILURE [place] 10/24/2019 JOSE MERCADO MD, Ot K21.9 GASTRO-ESOPHAGEAL REFLUX DISEASE WITHOUT 10/24/2019 JOSE MERCADO MD Ot Z66 DO NOT RESUSCITATE 10/24/2019 JOSE MERCADO MD, Ot Z87.8 91 PERSONAL HISTORY OF NICOTINE DEPENDENCE Procedures Code Description Performed By Per formed On [id number] RE STORATION OF CARDIAC RHYTHM, SINGLE 09/12/2019 [id number] IN SERTION OF INFUSION DEV INTO SUP VENA 10/19/2019 Results Test Result Range Complete blood count (CBC) with automate d white blood cell (WBC) differential - 01/10/16 15:56 Blood leukocytes automated count (number/volume) 26.0 10*3/uL 4.3-11.0 Blood erythrocytes automated count (number/volume) 4.37 10*6/uL 4.35-5.85 Venous blood hemoglobin measurement (mass/volume) 13.3 g/dL 11.5-16.0 Blood hematocrit (volume fraction) 39 % 35-52 Automated erythrocyte mean corpuscular volume 88 [ foz_us] 80-99 Automated erythrocyte mean corpuscular h emoglobin (mass per erythrocyte) 30 pg 25-34 Automated erythrocyte mean corpuscular h emoglobin concentration measurement (mass/volume) 35 g/dL 32-36 Automated erythrocyte distribution width ratio 14. 8 % 10.0- 14.5 Automated blood platelet count (count/volume) 182 10*3/uL 130-400 Automated blood platelet mean volume measurement 10.0 [foz_us] 7.4-10.4 Automated blood neutrophils/100 leukocytes 89 % 42-75 Automated blood lymphocytes/100 leukocytes 6 % 12-44 Blood monocytes/100 leukocytes 5 % 0-12 Automated blood eosinophils/100 leukocytes 0 % 0-10 Automated blood basophils/100 leukocytes 0 % 0-10 Blood neutrophils automated count (number/volume) 23.1 10*3 1.8-7.8 Blood lymphocytes automated count (number/volume) 1.5 10*3 1.0-4.0 Blood monocytes automated count (number/volume) 1. 4 10*3 0.0-1.0 Automated eosinophil count 0.0 10*3/uL 0 .0-0.3 Automated blood basophil count (count/volume) 0.0 10*3/uL 0.0-0.1 PT panel in platelet poor plasma by coag ulation assay - 01/10/16 15:56 Prothrombin time (PT) in platelet poor plasma by coagu lation assay 14.1 s 12.2-14.7 INR in platelet poor plasma or blood by coagulation as say 1.1 0.8-1.4 Activated partial thromboplastin time (a PTT) in platelet poor plasma bycoagulation assay - 01/10/16 15:56 Activated partial thromboplastin time (a PTT) in platelet poor plasma bycoagulation assay 28 s 24-35 Blood manual differential performed dete ction - 01/10/16 15:56 Blood monocytes/100 leukocytes 3 % NRG Manual blood segmented neutrophils/100 leukocytes 75 % NRG Blood band neutrophils/100 leukocytes 8 % NRG Manual blood lymphocytes/100 leukocytes 14 % NRG Manual eosinophils/100 leukocytes in nose 0 % NRG Manual blood basophils/100 leukocytes 0 % NRG Blood erythrocyte morphology finding identification NORMAL NR Comprehensive metabolic panel - 01/10/16 15:56 Serum or plasma sodium measurement (moles/volume) 137 mmol/L 135-145 Serum or plasma potassium measurement (moles/volume) 3.7 mmol/L 3.6-5.0 Serum or plasma chloride measurement (moles/volume) 105 mmol/L 98-107 Carbon dioxide 22 mmol/L 21-32 Serum or plasma anion gap determination (moles/volume) 10 mmol/L 5-14 Serum or plasma urea nitrogen measurement (mass/volume ) 14 mg/dL 7-18 Serum or plasma creatinine measurement (mass/volume) 1.04 mg/dL 0.60-1.30 Serum or plasma urea nitrogen/creatinine mass ratio 13 NRG Serum or plasma creatinine measurement w ith calculation of estimated glomerular filtration rate 51 NRG Serum or plasma glucose measurement (mass/volume) 142 mg/dL 70-105 Serum or plasma calcium measurement (mass/volume) 9.5 mg/dL 8.5-10.1 Serum or plasma total bilirubin measurement (mass/volu me) 1.1 mg/dL 0.1-1.0 Serum or plasma alkaline phosphatase sandro surement (enzymatic activity/volume) 132 U/L 40-136 Serum or plasma aspartate aminotransfera se measurement (enzymatic activity/volume) 30 U/L 5-34 Serum or plasma alanine aminotransferase measurement (enzymatic activity/volume) 21 U/L 0-55 Serum or plasma protein measurement (mass/volume) 7.4 g/dL 6.4-8.2 Serum or plasma albumin measurement (mass/volume) 3.8 g/dL 3.2-4.5 Magnesium - 01/10/16 15:56 Magnesium 1.7 mg/dL 1.8-2.4 Serum or plasma creatine kinase measurem ent (enzymatic activity/volume) - 01/10/16 15:56 Serum or plasma creatine kinase measurem ent (enzymatic activity/volume) 76 U/L 29-168 Serum or plasma creatine kinase MB measu rement (enzymatic activity/volume) - 01/10/16 15:56 Serum or plasma creatine kinase MB measu rement (enzymatic activity/volume) 1.6 ng/mL <6.6 Serum or plasma troponin i.cardiac measu rement (mass/volume) - 01/10/16 15:56 Serum or plasma troponin i.cardiac measurement (mass/v olume) < ng/mL <0.30 Serum or plasma thyroxine (T4) free laura urement (mass/volume) - 01/10/16 15:56 Serum or plasma thyroxine (T4) free measurement (mass/ volume) 1.48 ng/dL 0.70-1.48 Serum or plasma thyrotropin measurement by detection limit <=0.05 miu/l (units/volume) - 01/10/16 15:56 Serum or plasma thyrotropin measurement by detection limit <=0.05 miu/l (units/volume) 0.34 u[iU]/mL 0.35-4.94 Complete urinalysis with reflex to cultu re - 01/10/16 18:00 Urine color determination YELLOW NRG Urine clarity determination CLEAR NR G Urine pH measurement by test strip 6 5-9 Specific gravity of urine by test strip 1.010 1.016-1.022 Urine protein assay by test strip, semi-quantitative NEGATIVE NEGATIVE Urine glucose detection by automated test strip NE GATIVE NEGATIVE Erythrocytes detection in urine sediment by light micr oscopy 1+ NEGATIVE Urine ketones detection by automated test strip NE GATIVE NEGATIVE Urine nitrite detection by test strip NEGATIVE NEGATIVE Urine total bilirubin detection by test strip NEGA TIVE NEGATIVE Urine urobilinogen measurement by automated test strip (mass/volume) NORMAL NORMAL Urine leukocyte esterase detection by dipstick 1+ NEGATIVE Automated urine sediment erythrocyte cou nt by microscopy (number/high power field) [HPF] NRG Automated urine sediment leukocyte count by microscopy (number/high power field) [HPF] NRG Bacteria detection in urine sediment by light microsco py NONE NRG Squamous epithelial cells detection in u rine sediment by light microscopy 0-2 NRG Crystals detection in urine sediment by light microsco py NONE NRG Casts detection in urine sediment by light microscopy NONE NRG Mucus detection in urine sediment by light microscopy NEGATIVE NRG Complete urinalysis with reflex to culture NO NRG Bacterial urine culture - 01/10/16 18:00 Bacterial urine culture [id number] NRG COLONY COUNT <10,000 NRG FTX;REPORTABLE SENSITIVITY REPORTED 01/12/16 16:35 NRG FREE TEXT ENTRY 3 >3 GRAM POSITIVE ISOLATES <10,00 0/ML NR Bacterial susceptibility panel - 6 18:00 Gentamicin susceptibility test by minimum inhibitory c oncentration <= NRG Trimethoprim/sulfamethoxazole susceptibi lity test by minimum inhibitoryconcentration <= NRG Ampicillin susceptibility test by minimum inhibitory c oncentration 8 NRG Tobramycin susceptibility test by minimum inhibitory c oncentration <= NRG Cefazolin susceptibility test by minimum inhibitory co ncentration <= NRG Ceftriaxone susceptibility test by minimum inhibitory concentration <= NRG Ampicillin/sulbactam susceptibility test by minimum inhibitory concentration 4 NRG Piperacillin/tazobactam susceptibility t est by minimum inhibitory concentration <= NRG Ciprofloxacin susceptibility test by minimum inhibitor y concentration <= NRG Meropenem susceptibility test by minimum inhibitory co ncentration <= NRG Nitrofurantoin susceptibility test by mi nimum inhibitory concentration <= NRG Aztreonam susceptibility test by minimum inhibitory co ncentration <= NRG Extended spectrum beta lactamase (ESBL) producing bacteria susceptibility test by minimum inhibitory concentration - NRG Serum or plasma troponin i.cardiac measu rement (mass/volume) - 01/10/16 21:46 Serum or plasma troponin i.cardiac measurement (mass/v olume) < ng/mL <0.30 Complete blood count (CBC) with automate d white blood cell (WBC) differential - 01/11/16 03:55 Blood leukocytes automated count (number/volume) 15.6 10*3/uL 4.3-11.0 Blood erythrocytes automated count (number/volume) 4.70 10*6/uL 4.35-5.85 Venous blood hemoglobin measurement (mass/volume) 14.0 g/dL 11.5-16.0 Blood hematocrit (volume fraction) 42 % 35-52 Automated erythrocyte mean corpuscular volume 89 [ foz_us] 80-99 Automated erythrocyte mean corpuscular h emoglobin (mass per erythrocyte) 30 pg 25-34 Automated erythrocyte mean corpuscular h emoglobin concentration measurement (mass/volume) 34 g/dL 32-36 Automated erythrocyte distribution width ratio 15. 1 % 10.0- 14.5 Automated blood platelet count (count/volume) 185 10*3/uL 130-400 Automated blood platelet mean volume measurement 10.4 [foz_us] 7.4-10.4 Automated blood neutrophils/100 leukocytes 91 % 42-75 Automated blood lymphocytes/100 leukocytes 8 % 12-44 Blood monocytes/100 leukocytes 1 % 0-12 Automated blood eosinophils/100 leukocytes 0 % 0-10 Automated blood basophils/100 leukocytes 0 % 0-10 Blood neutrophils automated count (number/volume) 14.2 10*3 1.8-7.8 Blood lymphocytes automated count (number/volume) 1.3 10*3 1.0-4.0 Blood monocytes automated count (number/volume) 0. 1 10*3 0.0-1.0 Automated eosinophil count 0.0 10*3/uL 0 .0-0.3 Automated blood basophil count (count/volume) 0.0 10*3/uL 0.0-0.1 Comprehensive metabolic panel - 01/11/16 03:55 Serum or plasma sodium measurement (moles/volume) 141 mmol/L 135-145 Serum or plasma potassium measurement (moles/volume) 4.0 mmol/L 3.6-5.0 Serum or plasma chloride measurement (moles/volume) 107 mmol/L 98-107 Carbon dioxide 20 mmol/L 21-32 Serum or plasma anion gap determination (moles/volume) 14 mmol/L 5-14 Serum or plasma urea nitrogen measurement (mass/volume ) 14 mg/dL 7-18 Serum or plasma creatinine measurement (mass/volume) 1.07 mg/dL 0.60-1.30 Serum or plasma urea nitrogen/creatinine mass ratio 13 NRG Serum or plasma creatinine measurement w ith calculation of estimated glomerular filtration rate 49 NRG Serum or plasma glucose measurement (mass/volume) 175 mg/dL 70-105 Serum or plasma calcium measurement (mass/volume) 10.0 mg/dL 8.5-10.1 Serum or plasma total bilirubin measurement (mass/volu me) 1.1 mg/dL 0.1-1.0 Serum or plasma alkaline phosphatase sandro surement (enzymatic activity/volume) 131 U/L 40-136 Serum or plasma aspartate aminotransfera se measurement (enzymatic activity/volume) 18 U/L 5-34 Serum or plasma alanine aminotransferase measurement (enzymatic activity/volume) 16 U/L 0-55 Serum or plasma protein measurement (mass/volume) 7.7 g/dL 6.4-8.2 Serum or plasma albumin measurement (mass/volume) 3.9 g/dL 3.2-4.5 Serum or plasma troponin i.cardiac measu rement (mass/volume) - 01/11/16 03:55 Serum or plasma troponin i.cardiac measurement (mass/v olume) < ng/mL <0.30 Serum or plasma phosphate measurement (m ass/volume) - 01/11/16 03:55 Serum or plasma phosphate measurement (mass/volume) 3.4 mg/dL 2.3-4.7 Magnesium - 01/11/16 03:55 Magnesium 2.1 mg/dL 1.8-2.4 Automated blood complete blood count (he mogram) panel - 01/12/16 03:55 Blood leukocytes automated count (number/volume) 15.1 10*3/uL 4.3-11.0 Blood erythrocytes automated count (number/volume) 4.03 10*6/uL 4.35-5.85 Venous blood hemoglobin measurement (mass/volume) 12.0 g/dL 11.5-16.0 Blood hematocrit (volume fraction) 35 % 35-52 Automated erythrocyte mean corpuscular volume 88 [ foz_us] 80-99 Automated erythrocyte mean corpuscular h emoglobin (mass per erythrocyte) 30 pg 25-34 Automated erythrocyte mean corpuscular h emoglobin concentration measurement (mass/volume) 34 g/dL 32-36 Automated erythrocyte distribution width ratio 15. 0 % 10.0- 14.5 Automated blood platelet count (count/volume) 176 10*3/uL 130-400 Automated blood platelet mean volume measurement 10.5 [foz_us] 7.4-10.4 Comprehensive metabolic panel - 01/12/16 03:55 Serum or plasma sodium measurement (moles/volume) 137 mmol/L 135-145 Serum or plasma potassium measurement (moles/volume) 3.5 mmol/L 3.6-5.0 Serum or plasma chloride measurement (moles/volume) 108 mmol/L 98-107 Carbon dioxide 19 mmol/L 21-32 Serum or plasma anion gap determination (moles/volume) 10 mmol/L 5-14 Serum or plasma urea nitrogen measurement (mass/volume ) 20 mg/dL 7-18 Serum or plasma creatinine measurement (mass/volume) 1.07 mg/dL 0.60-1.30 Serum or plasma urea nitrogen/creatinine mass ratio 19 NRG Serum or plasma creatinine measurement w ith calculation of estimated glomerular filtration rate 49 NRG Serum or plasma glucose measurement (mass/volume) 185 mg/dL 70-105 Serum or plasma calcium measurement (mass/volume) 8.9 mg/dL 8.5-10.1 Serum or plasma total bilirubin measurement (mass/volu me) 0.6 mg/dL 0.1-1.0 Serum or plasma alkaline phosphatase sandro surement (enzymatic activity/volume) 93 U/L 40-136 Serum or plasma aspartate aminotransfera se measurement (enzymatic activity/volume) 16 U/L 5-34 Serum or plasma alanine aminotransferase measurement (enzymatic activity/volume) 16 U/L 0-55 Serum or plasma protein measurement (mass/volume) 6.6 g/dL 6.4-8.2 Serum or plasma albumin measurement (mass/volume) 3.4 g/dL 3.2-4.5 Lipid 1996 panel - 01/12/16 03:55 Serum or plasma triglyceride measurement (mass/volume) 80 mg/dL <150 Serum or plasma cholesterol measurement (mass/volume) 149 mg/dL < 200 Serum or plasma cholesterol in HDL measurement (mass/v olume) 54 mg/dL 40-60 Cholesterol in LDL [mass/volume] in serum or plasma by direct assay 78 mg/dL 1-129 Serum or plasma cholesterol in VLDL measurement (mass/ volume) 16 mg/dL 5-40 Serum or plasma phosphate measurement (m ass/volume) - 01/12/16 03:55 Serum or plasma phosphate measurement (mass/volume) 2.2 mg/dL 2.3-4.7 Magnesium - 01/12/16 03:55 Magnesium 1.7 mg/dL 1.8-2.4 Complete blood count (CBC) with automate d white blood cell (WBC) differential - 01/13/16 04:20 Blood leukocytes automated count (number/volume) 6.4 10*3/uL 4.3-11.0 Blood erythrocytes automated count (number/volume) 4.08 10*6/uL 4.35-5.85 Venous blood hemoglobin measurement (mass/volume) 12.0 g/dL 11.5-16.0 Blood hematocrit (volume fraction) 36 % 35-52 Automated erythrocyte mean corpuscular volume 89 [ foz_us] 80-99 Automated erythrocyte mean corpuscular h emoglobin (mass per erythrocyte) 29 pg 25-34 Automated erythrocyte mean corpuscular h emoglobin concentration measurement (mass/volume) 33 g/dL 32-36 Automated erythrocyte distribution width ratio 15. 7 % 10.0- 14.5 Automated blood platelet count (count/volume) 183 10*3/uL 130-400 Automated blood platelet mean volume measurement 10.5 [foz_us] 7.4-10.4 Automated blood neutrophils/100 leukocytes 93 % 42-75 Automated blood lymphocytes/100 leukocytes 5 % 12-44 Blood monocytes/100 leukocytes 3 % 0-12 Automated blood eosinophils/100 leukocytes 0 % 0-10 Automated blood basophils/100 leukocytes 0 % 0-10 Blood neutrophils automated count (number/volume) 6.0 10*3 1.8-7.8 Blood lymphocytes automated count (number/volume) 0.3 10*3 1.0-4.0 Blood monocytes automated count (number/volume) 0. 2 10*3 0.0-1.0 Automated eosinophil count 0.0 10*3/uL 0 .0-0.3 Automated blood basophil count (count/volume) 0.0 10*3/uL 0.0-0.1 Whole blood basic metabolic panel - 12/19 09/02 04:20 Serum or plasma sodium measurement (moles/volume) 141 mmol/L 135-145 Serum or plasma potassium measurement (moles/volume) 4.2 mmol/L 3.6-5.0 Serum or plasma chloride measurement (moles/volume) 114 mmol/L 98-107 Carbon dioxide 19 mmol/L 21-32 Serum or plasma anion gap determination (moles/volume) 8 mmol/L 5-14 Serum or plasma urea nitrogen measurement (mass/volume ) 20 mg/dL 7-18 Serum or plasma creatinine measurement (mass/volume) 1.07 mg/dL 0.60-1.30 Serum or plasma urea nitrogen/creatinine mass ratio 19 NRG Serum or plasma creatinine measurement w ith calculation of estimated glomerular filtration rate 49 NRG Serum or plasma glucose measurement (mass/volume) 182 mg/dL 70-105 Serum or plasma calcium measurement (mass/volume) 9.0 mg/dL 8.5-10.1 Serum or plasma phosphate measurement (m ass/volume) - 01/13/16 04:20 Serum or plasma phosphate measurement (mass/volume) 1.6 mg/dL 2.3-4.7 Magnesium - 01/13/16 04:20 Magnesium 2.3 mg/dL 1.8-2.4 PROCALCITONIN (PCT) - 09/09/19 10:54 PROCALCITONIN (PCT) 0.16 ng/mL <0.10 Complete urinalysis with reflex to cultu re - 09/09/19 11:17 Urine color determination YELLOW NRG Urine clarity determination CLEAR NR G Urine pH measurement by test strip 6.0 5-9 Specific gravity of urine by test strip 1.015 1.016-1.022 Urine protein assay by test strip, semi-quantitative NEGATIVE NEGATIVE Urine glucose detection by automated test strip NE GATIVE NEGATIVE Erythrocytes detection in urine sediment by light micr oscopy TRACE-L NEGATIVE Urine ketones detection by automated test strip NE GATIVE NEGATIVE Urine nitrite detection by test strip NEGATIVE NEGATIVE Urine total bilirubin detection by test strip NEGA TIVE NEGATIVE Urine urobilinogen measurement by automated test strip (mass/volume) 0.2 mg/dL < = 1.0 Urine leukocyte esterase detection by dipstick NEG ATIVE NEGATIVE Automated urine sediment erythrocyte cou nt by microscopy (number/high power field) [HPF] NRG Automated urine sediment leukocyte count by microscopy (number/high power field) [HPF] NRG Bacteria detection in urine sediment by light microsco py MODERATE NRG Squamous epithelial cells detection in u rine sediment by light microscopy RARE NRG Crystals detection in urine sediment by light microsco py NONE NRG Casts detection in urine sediment by light microscopy NONE NRG Mucus detection in urine sediment by light microscopy NEGATIVE NRG Complete urinalysis with reflex to culture YES NRG Bacterial urine culture - 09/09/19 11:17 Bacterial urine culture NG NRG Complete blood count (CBC) with automate d white blood cell (WBC) differential - 09/09/19 11:20 Blood leukocytes automated count (number/volume) 8.4 10*3/uL 4.3-11.0 Blood erythrocytes automated count (number/volume) 3.80 10*6/uL 4.35-5.85 Venous blood hemoglobin measurement (mass/volume) 11.7 g/dL 11.5-16.0 Blood hematocrit (volume fraction) 36 % 35-52 Automated erythrocyte mean corpuscular volume 94 [ foz_us] 80-99 Automated erythrocyte mean corpuscular h emoglobin (mass per erythrocyte) 31 pg 25-34 Automated erythrocyte mean corpuscular h emoglobin concentration measurement (mass/volume) 33 g/dL 32-36 Automated erythrocyte distribution width ratio 15. 3 % 10.0- 14.5 Automated blood platelet count (count/volume) 219 10*3/uL 130-400 Automated blood platelet mean volume measurement 10.6 [foz_us] 7.4-10.4 Automated blood neutrophils/100 leukocytes 69 % 42-75 Automated blood lymphocytes/100 leukocytes 24 % 12-44 Blood monocytes/100 leukocytes 7 % 0-12 Automated blood eosinophils/100 leukocytes 0 % 0-10 Automated blood basophils/100 leukocytes 0 % 0-10 Blood neutrophils automated count (number/volume) 5.8 10*3 1.8-7.8 Blood lymphocytes automated count (number/volume) 2.0 10*3 1.0-4.0 Blood monocytes automated count (number/volume) 0. 6 10*3 0.0-1.0 Automated eosinophil count 0.0 10*3/uL 0 .0-0.3 Automated blood basophil count (count/volume) 0.0 10*3/uL 0.0-0.1 Comprehensive metabolic panel - 09/09/19 11:20 Serum or plasma sodium measurement (moles/volume) 137 mmol/L 135-145 Serum or plasma potassium measurement (moles/volume) 3.5 mmol/L 3.6-5.0 Serum or plasma chloride measurement (moles/volume) 108 mmol/L 98-107 Carbon dioxide 21 mmol/L 21-32 Serum or plasma anion gap determination (moles/volume) 8 mmol/L 5-14 Serum or plasma urea nitrogen measurement (mass/volume ) 15 mg/dL 7-18 Serum or plasma creatinine measurement (mass/volume) 0.88 mg/dL 0.60-1.30 Serum or plasma urea nitrogen/creatinine mass ratio 17 NRG Serum or plasma creatinine measurement w ith calculation of estimated glomerular filtration rate > NRG Serum or plasma glucose measurement (mass/volume) 101 mg/dL 70-105 Serum or plasma calcium measurement (mass/volume) 8.5 mg/dL 8.5-10.1 Serum or plasma total bilirubin measurement (mass/volu me) 0.6 mg/dL 0.1-1.0 Serum or plasma alkaline phosphatase sandro surement (enzymatic activity/volume) 118 U/L 40-136 Serum or plasma aspartate aminotransfera se measurement (enzymatic activity/volume) 18 U/L 5-34 Serum or plasma alanine aminotransferase measurement (enzymatic activity/volume) 22 U/L 0-55 Serum or plasma protein measurement (mass/volume) 7.2 g/dL 6.4-8.2 Serum or plasma albumin measurement (mass/volume) 2.3 g/dL 3.2-4.5 CALCIUM CORRECTED 9.9 mg/dL 8.5-10.1 Blood lactic acid measurement (moles/vol ume) - 09/09/19 11:20 Blood lactic acid measurement (moles/volume) 1.71 mmol/L 0.50-2.00 Serum ragweed IgE antibody assay - 09/08 11:20 Serum ragweed IgE antibody assay 216 U/L 125-220 PT panel in platelet poor plasma by coag ulation assay - 09/09/19 11:20 Prothrombin time (PT) in platelet poor plasma by coagu lation assay 15.0 s 12.2-14.7 INR in platelet poor plasma or blood by coagulation as say 1.1 0.8-1.4 Activated partial thromboplastin time (a PTT) in platelet poor plasma bycoagulation assay - 09/09/19 11:20 Activated partial thromboplastin time (a PTT) in platelet poor plasma bycoagulation assay 28 s 24-35 Fibrinogen measurement in platelet poor plasma by coagulation assay (mass/volume) - 09/09/19 11:20 Fibrinogen measurement in platelet poor plasma by coagulation assay (mass/volume) 368 mg/dL 221-496 Serum or plasma troponin i.cardiac measu rement (mass/volume) - 09/09/19 11:20 Serum or plasma troponin i.cardiac measurement (mass/v olume) 0.042 ng/mL <0.028 Serum or plasma C reactive protein measu rement (mass/volume) - 09/09/19 11:20 Serum or plasma C reactive protein measurement (mass/v olume) 4.08 mg/dL 0.00-0.50 Serum or plasma ferritin measurement (ma ss/volume) - 09/09/19 11:20 Serum or plasma ferritin measurement (mass/volume) 253.8 % 20.0-177.0 Coronavirus SARS-CoV-2 SO 2019 - 0 11:20 Coronavirus Ab [Units/volume] in Serum Negative Negative Methicillin resistant Staphylococcus aur eus (MRSA) screening culture - 09/09/19 14:50 Methicillin resistant Staphylococcus aureus (MRSA) scr eening culture NEG NRG Complete blood count (CBC) with automate d white blood cell (WBC) differential - 09/10/19 03:37 Blood leukocytes automated count (number/volume) 7.0 10*3/uL 4.3-11.0 Blood erythrocytes automated count (number/volume) 3.67 10*6/uL 4.35-5.85 Venous blood hemoglobin measurement (mass/volume) 11.4 g/dL 11.5-16.0 Blood hematocrit (volume fraction) 35 % 35-52 Automated erythrocyte mean corpuscular volume 95 [ foz_us] 80-99 Automated erythrocyte mean corpuscular h emoglobin (mass per erythrocyte) 31 pg 25-34 Automated erythrocyte mean corpuscular h emoglobin concentration measurement (mass/volume) 33 g/dL 32-36 Automated erythrocyte distribution width ratio 15. 5 % 10.0- 14.5 Automated blood platelet count (count/volume) 192 10*3/uL 130-400 Automated blood platelet mean volume measurement 9.9 [foz_us] 7.4-10.4 Automated blood neutrophils/100 leukocytes 69 % 42-75 Automated blood lymphocytes/100 leukocytes 22 % 12-44 Blood monocytes/100 leukocytes 7 % 0-12 Automated blood eosinophils/100 leukocytes 2 % 0-10 Automated blood basophils/100 leukocytes 0 % 0-10 Blood neutrophils automated count (number/volume) 4.8 10*3 1.8-7.8 Blood lymphocytes automated count (number/volume) 1.6 10*3 1.0-4.0 Blood monocytes automated count (number/volume) 0. 5 10*3 0.0-1.0 Automated eosinophil count 0.1 10*3/uL 0 .0-0.3 Automated blood basophil count (count/volume) 0.0 10*3/uL 0.0-0.1 Whole blood basic metabolic panel - 08/19 06/06 03:37 Serum or plasma sodium measurement (moles/volume) 138 mmol/L 135-145 Serum or plasma potassium measurement (moles/volume) 3.5 mmol/L 3.6-5.0 Serum or plasma chloride measurement (moles/volume) 111 mmol/L 98-107 Carbon dioxide 19 mmol/L 21-32 Serum or plasma anion gap determination (moles/volume) 8 mmol/L 5-14 Serum or plasma urea nitrogen measurement (mass/volume ) 11 mg/dL 7-18 Serum or plasma creatinine measurement (mass/volume) 0.80 mg/dL 0.60-1.30 Serum or plasma urea nitrogen/creatinine mass ratio 14 NRG Serum or plasma creatinine measurement w ith calculation of estimated glomerular filtration rate > NRG Serum or plasma glucose measurement (mass/volume) 77 mg/dL 70-105 Serum or plasma calcium measurement (mass/volume) 8.1 mg/dL 8.5-10.1 Serum or plasma phosphate measurement (m ass/volume) - 09/10/19 03:37 Serum or plasma phosphate measurement (mass/volume) 2.6 mg/dL 2.3-4.7 Magnesium - 09/10/19 03:37 Magnesium 1.5 mg/dL 1.6-2.4 PROCALCITONIN (PCT) - 09/10/19 03:37 PROCALCITONIN (PCT) 0.14 ng/mL <0.10 Serum or plasma troponin i.cardiac measu rement (mass/volume) - 09/10/19 03:37 Serum or plasma troponin i.cardiac measurement (mass/v olume) < ng/mL <0.028 Whole blood basic metabolic panel - 08/19 07/07 03:26 Serum or plasma sodium measurement (moles/volume) 138 mmol/L 135-145 Serum or plasma potassium measurement (moles/volume) 3.9 mmol/L 3.6-5.0 Serum or plasma chloride measurement (moles/volume) 113 mmol/L 98-107 Carbon dioxide 18 mmol/L -32 Serum or plasma anion gap determination (moles/volume) 7 mmol/L 5-14 Serum or plasma urea nitrogen measurement (mass/volume ) 8 mg/dL 7-18 Serum or plasma creatinine measurement (mass/volume) 0.82 mg/dL 0.60-1.30 Serum or plasma urea nitrogen/creatinine mass ratio 10 NRG Serum or plasma creatinine measurement w ith calculation of estimated glomerular filtration rate > NRG Serum or plasma glucose measurement (mass/volume) 79 mg/dL 70-105 Serum or plasma calcium measurement (mass/volume) 7.9 mg/dL 8.5-10.1 Complete blood count (CBC) with automate d white blood cell (WBC) differential - 09/11/19 03:26 Blood leukocytes automated count (number/volume) 5.6 10*3/uL 4.3-11.0 Blood erythrocytes automated count (number/volume) 3.37 10*6/uL 4.35-5.85 Venous blood hemoglobin measurement (mass/volume) 10.5 g/dL 11.5-16.0 Blood hematocrit (volume fraction) 32 % 35-52 Automated erythrocyte mean corpuscular volume 95 [ foz_us] 80-99 Automated erythrocyte mean corpuscular h emoglobin (mass per erythrocyte) 31 pg 25-34 Automated erythrocyte mean corpuscular h emoglobin concentration measurement (mass/volume) 33 g/dL 32-36 Automated erythrocyte distribution width ratio 15. 4 % 10.0- 14.5 Automated blood platelet count (count/volume) 179 10*3/uL 130-400 Automated blood platelet mean volume measurement 9.8 [foz_us] 7.4-10.4 Automated blood neutrophils/100 leukocytes 66 % 42-75 Automated blood lymphocytes/100 leukocytes 23 % 12-44 Blood monocytes/100 leukocytes 9 % 0-12 Automated blood eosinophils/100 leukocytes 2 % 0-10 Automated blood basophils/100 leukocytes 0 % 0-10 Blood neutrophils automated count (number/volume) 3.7 10*3 1.8-7.8 Blood lymphocytes automated count (number/volume) 1.3 10*3 1.0-4.0 Blood monocytes automated count (number/volume) 0. 5 10*3 0.0-1.0 Automated eosinophil count 0.1 10*3/uL 0 .0-0.3 Automated blood basophil count (count/volume) 0.0 10*3/uL 0.0-0.1 Serum or plasma phosphate measurement (m ass/volume) - 09/11/19 03:26 Serum or plasma phosphate measurement (mass/volume) 2.3 mg/dL 2.3-4.7 Magnesium - 09/11/19 03:26 Magnesium 2.0 mg/dL 1.6-2.4 Complete blood count (CBC) with automate d white blood cell (WBC) differential - 09/12/19 02:58 Blood leukocytes automated count (number/volume) 5.7 10*3/uL 4.3-11.0 Blood erythrocytes automated count (number/volume) 3.37 10*6/uL 4.35-5.85 Venous blood hemoglobin measurement (mass/volume) 10.4 g/dL 11.5-16.0 Blood hematocrit (volume fraction) 32 % 35-52 Automated erythrocyte mean corpuscular volume 96 [ foz_us] 80-99 Automated erythrocyte mean corpuscular h emoglobin (mass per erythrocyte) 31 pg 25-34 Automated erythrocyte mean corpuscular h emoglobin concentration measurement (mass/volume) 32 g/dL 32-36 Automated erythrocyte distribution width ratio 15. 7 % 10.0- 14.5 Automated blood platelet count (count/volume) 200 10*3/uL 130-400 Automated blood platelet mean volume measurement 9.8 [foz_us] 7.4-10.4 Automated blood neutrophils/100 leukocytes 69 % 42-75 Automated blood lymphocytes/100 leukocytes 21 % 12-44 Blood monocytes/100 leukocytes 7 % 0-12 Automated blood eosinophils/100 leukocytes 3 % 0-10 Automated blood basophils/100 leukocytes 0 % 0-10 Blood neutrophils automated count (number/volume) 3.9 10*3 1.8-7.8 Blood lymphocytes automated count (number/volume) 1.2 10*3 1.0-4.0 Blood monocytes automated count (number/volume) 0. 4 10*3 0.0-1.0 Automated eosinophil count 0.2 10*3/uL 0 .0-0.3 Automated blood basophil count (count/volume) 0.0 10*3/uL 0.0-0.1 Whole blood basic metabolic panel - 08/19 08/06 02:58 Serum or plasma sodium measurement (moles/volume) 138 mmol/L 135-145 Serum or plasma potassium measurement (moles/volume) 4.0 mmol/L 3.6-5.0 Serum or plasma chloride measurement (moles/volume) 112 mmol/L 98-107 Carbon dioxide 19 mmol/L 21-32 Serum or plasma anion gap determination (moles/volume) 7 mmol/L 5-14 Serum or plasma urea nitrogen measurement (mass/volume ) 7 mg/dL 7-18 Serum or plasma creatinine measurement (mass/volume) 0.79 mg/dL 0.60-1.30 Serum or plasma urea nitrogen/creatinine mass ratio 9 NRG Serum or plasma creatinine measurement w ith calculation of estimated glomerular filtration rate > NRG Serum or plasma glucose measurement (mass/volume) 74 mg/dL 70-105 Serum or plasma calcium measurement (mass/volume) 7.8 mg/dL 8.5-10.1 Serum or plasma phosphate measurement (m ass/volume) - 09/12/19 02:58 Serum or plasma phosphate measurement (mass/volume) 2.6 mg/dL 2.3-4.7 Magnesium - 09/12/19 02:58 Magnesium 1.8 mg/dL 1.6-2.4 Complete blood count (CBC) with automate d white blood cell (WBC) differential - 09/13/19 02:53 Blood leukocytes automated count (number/volume) 5.6 10*3/uL 4.3-11.0 Blood erythrocytes automated count (number/volume) 3.20 10*6/uL 4.35-5.85 Venous blood hemoglobin measurement (mass/volume) 10.1 g/dL 11.5-16.0 Blood hematocrit (volume fraction) 31 % 35-52 Automated erythrocyte mean corpuscular volume 96 [ foz_us] 80-99 Automated erythrocyte mean corpuscular h emoglobin (mass per erythrocyte) 32 pg 25-34 Automated erythrocyte mean corpuscular h emoglobin concentration measurement (mass/volume) 33 g/dL 32-36 Automated erythrocyte distribution width ratio 15. 8 % 10.0- 14.5 Automated blood platelet count (count/volume) 176 10*3/uL 130-400 Automated blood platelet mean volume measurement 10.4 [foz_us] 7.4-10.4 Automated blood neutrophils/100 leukocytes 76 % 42-75 Automated blood lymphocytes/100 leukocytes 16 % 12-44 Blood monocytes/100 leukocytes 7 % 0-12 Automated blood eosinophils/100 leukocytes 1 % 0-10 Automated blood basophils/100 leukocytes 0 % 0-10 Blood neutrophils automated count (number/volume) 4.2 10*3 1.8-7.8 Blood lymphocytes automated count (number/volume) 0.9 10*3 1.0-4.0 Blood monocytes automated count (number/volume) 0. 4 10*3 0.0-1.0 Automated eosinophil count 0.1 10*3/uL 0 .0-0.3 Automated blood basophil count (count/volume) 0.0 10*3/uL 0.0-0.1 Whole blood basic metabolic panel - 08/19 09/06 02:53 Serum or plasma sodium measurement (moles/volume) 137 mmol/L 135-145 Serum or plasma potassium measurement (moles/volume) 3.9 mmol/L 3.6-5.0 Serum or plasma chloride measurement (moles/volume) 113 mmol/L 98-107 Carbon dioxide 18 mmol/L 21-32 Serum or plasma anion gap determination (moles/volume) 6 mmol/L 5-14 Serum or plasma urea nitrogen measurement (mass/volume ) 7 mg/dL 7-18 Serum or plasma creatinine measurement (mass/volume) 0.79 mg/dL 0.60-1.30 Serum or plasma urea nitrogen/creatinine mass ratio 9 NRG Serum or plasma creatinine measurement w ith calculation of estimated glomerular filtration rate > NRG Serum or plasma glucose measurement (mass/volume) 78 mg/dL 70-105 Serum or plasma calcium measurement (mass/volume) 7.8 mg/dL 8.5-10.1 Serum or plasma phosphate measurement (m ass/volume) - 09/13/19 02:53 Serum or plasma phosphate measurement (mass/volume) 3.2 mg/dL 2.3-4.7 Magnesium - 09/13/19 02:53 Magnesium 1.9 mg/dL 1.6-2.4 Complete blood count (CBC) with automate d white blood cell (WBC) differential - 09/14/19 03:09 Blood leukocytes automated count (number/volume) 5.2 10*3/uL 4.3-11.0 Blood erythrocytes automated count (number/volume) 3.24 10*6/uL 4.35-5.85 Venous blood hemoglobin measurement (mass/volume) 10.1 g/dL 11.5-16.0 Blood hematocrit (volume fraction) 31 % 35-52 Automated erythrocyte mean corpuscular volume 95 [ foz_us] 80-99 Automated erythrocyte mean corpuscular h emoglobin (mass per erythrocyte) 31 pg 25-34 Automated erythrocyte mean corpuscular h emoglobin concentration measurement (mass/volume) 33 g/dL 32-36 Automated erythrocyte distribution width ratio 15. 8 % 10.0- 14.5 Automated blood platelet count (count/volume) 184 10*3/uL 130-400 Automated blood platelet mean volume measurement 9.3 [foz_us] 7.4-10.4 Automated blood neutrophils/100 leukocytes 72 % 42-75 Automated blood lymphocytes/100 leukocytes 18 % 12-44 Blood monocytes/100 leukocytes 8 % 0-12 Automated blood eosinophils/100 leukocytes 2 % 0-10 Automated blood basophils/100 leukocytes 0 % 0-10 Blood neutrophils automated count (number/volume) 3.7 10*3 1.8-7.8 Blood lymphocytes automated count (number/volume) 0.9 10*3 1.0-4.0 Blood monocytes automated count (number/volume) 0. 4 10*3 0.0-1.0 Automated eosinophil count 0.1 10*3/uL 0 .0-0.3 Automated blood basophil count (count/volume) 0.0 10*3/uL 0.0-0.1 Whole blood basic metabolic panel - 08/19 10/06 03:09 Serum or plasma sodium measurement (moles/volume) 138 mmol/L 135-145 Serum or plasma potassium measurement (moles/volume) 3.6 mmol/L 3.6-5.0 Serum or plasma chloride measurement (moles/volume) 112 mmol/L 98-107 Carbon dioxide 19 mmol/L 21-32 Serum or plasma anion gap determination (moles/volume) 7 mmol/L 5-14 Serum or plasma urea nitrogen measurement (mass/volume ) 6 mg/dL 7-18 Serum or plasma creatinine measurement (mass/volume) 0.77 mg/dL 0.60-1.30 Serum or plasma urea nitrogen/creatinine mass ratio 8 NRG Serum or plasma creatinine measurement w ith calculation of estimated glomerular filtration rate > NRG Serum or plasma glucose measurement (mass/volume) 76 mg/dL 70-105 Serum or plasma calcium measurement (mass/volume) 8.0 mg/dL 8.5-10.1 Serum or plasma phosphate measurement (m ass/volume) - 09/14/19 03:09 Serum or plasma phosphate measurement (mass/volume) 3.3 mg/dL 2.3-4.7 Magnesium - 09/14/19 03:09 Magnesium 2.0 mg/dL 1.6-2.4 Complete blood count (CBC) with automate d white blood cell (WBC) differential - 09/15/19 05:40 Blood leukocytes automated count (number/volume) 7.6 10*3/uL 4.3-11.0 Blood erythrocytes automated count (number/volume) 3.37 10*6/uL 4.35-5.85 Venous blood hemoglobin measurement (mass/volume) 10.4 g/dL 11.5-16.0 Blood hematocrit (volume fraction) 32 % 35-52 Automated erythrocyte mean corpuscular volume 96 [ foz_us] 80-99 Automated erythrocyte mean corpuscular h emoglobin (mass per erythrocyte) 31 pg 25-34 Automated erythrocyte mean corpuscular h emoglobin concentration measurement (mass/volume) 32 g/dL 32-36 Automated erythrocyte distribution width ratio 15. 9 % 10.0- 14.5 Automated blood platelet count (count/volume) 187 10*3/uL 130-400 Automated blood platelet mean volume measurement 9.7 [foz_us] 7.4-10.4 Automated blood neutrophils/100 leukocytes 79 % 42-75 Automated blood lymphocytes/100 leukocytes 14 % 12-44 Blood monocytes/100 leukocytes 6 % 0-12 Automated blood eosinophils/100 leukocytes 1 % 0-10 Automated blood basophils/100 leukocytes 0 % 0-10 Blood neutrophils automated count (number/volume) 6.0 10*3 1.8-7.8 Blood lymphocytes automated count (number/volume) 1.1 10*3 1.0-4.0 Blood monocytes automated count (number/volume) 0. 5 10*3 0.0-1.0 Automated eosinophil count 0.1 10*3/uL 0 .0-0.3 Automated blood basophil count (count/volume) 0.0 10*3/uL 0.0-0.1 Whole blood basic metabolic panel - 08/19 11/06 05:40 Serum or plasma sodium measurement (moles/volume) 136 mmol/L 135-145 Serum or plasma potassium measurement (moles/volume) 4.2 mmol/L 3.6-5.0 Serum or plasma chloride measurement (moles/volume) 107 mmol/L 98-107 Carbon dioxide 20 mmol/L 21-32 Serum or plasma anion gap determination (moles/volume) 9 mmol/L 5-14 Serum or plasma urea nitrogen measurement (mass/volume ) 8 mg/dL 7-18 Serum or plasma creatinine measurement (mass/volume) 0.75 mg/dL 0.60-1.30 Serum or plasma urea nitrogen/creatinine mass ratio 11 NRG Serum or plasma creatinine measurement w ith calculation of estimated glomerular filtration rate > NRG Serum or plasma glucose measurement (mass/volume) 91 mg/dL 70-105 Serum or plasma calcium measurement (mass/volume) 8.3 mg/dL 8.5-10.1 Serum or plasma phosphate measurement (m ass/volume) - 09/15/19 05:40 Serum or plasma phosphate measurement (mass/volume) 2.8 mg/dL 2.3-4.7 Magnesium - 09/15/19 05:40 Magnesium 1.5 mg/dL 1.6-2.4 Complete blood count (CBC) with automate d white blood cell (WBC) differential - 09/16/19 05:10 Blood leukocytes automated count (number/volume) 7.2 10*3/uL 4.3-11.0 Blood erythrocytes automated count (number/volume) 3.20 10*6/uL 4.35-5.85 Venous blood hemoglobin measurement (mass/volume) 9.8 g/dL 11.5-16.0 Blood hematocrit (volume fraction) 31 % 35-52 Automated erythrocyte mean corpuscular volume 97 [ foz_us] 80-99 Automated erythrocyte mean corpuscular h emoglobin (mass per erythrocyte) 31 pg 25-34 Automated erythrocyte mean corpuscular h emoglobin concentration measurement (mass/volume) 32 g/dL 32-36 Automated erythrocyte distribution width ratio 16. 2 % 10.0- 14.5 Automated blood platelet count (count/volume) 198 10*3/uL 130-400 Automated blood platelet mean volume measurement 9.7 [foz_us] 7.4-10.4 Automated blood neutrophils/100 leukocytes 78 % 42-75 Automated blood lymphocytes/100 leukocytes 15 % 12-44 Blood monocytes/100 leukocytes 6 % 0-12 Automated blood eosinophils/100 leukocytes 1 % 0-10 Automated blood basophils/100 leukocytes 0 % 0-10 Blood neutrophils automated count (number/volume) 5.6 10*3 1.8-7.8 Blood lymphocytes automated count (number/volume) 1.1 10*3 1.0-4.0 Blood monocytes automated count (number/volume) 0. 4 10*3 0.0-1.0 Automated eosinophil count 0.1 10*3/uL 0 .0-0.3 Automated blood basophil count (count/volume) 0.0 10*3/uL 0.0-0.1 Whole blood basic metabolic panel - 08/19 12/07 05:10 Serum or plasma sodium measurement (moles/volume) 138 mmol/L 135-145 Serum or plasma potassium measurement (moles/volume) 5.1 mmol/L 3.6-5.0 Serum or plasma chloride measurement (moles/volume) 109 mmol/L 98-107 Carbon dioxide 21 mmol/L 21-32 Serum or plasma anion gap determination (moles/volume) 8 mmol/L 5-14 Serum or plasma urea nitrogen measurement (mass/volume ) 7 mg/dL 7-18 Serum or plasma creatinine measurement (mass/volume) 0.78 mg/dL 0.60-1.30 Serum or plasma urea nitrogen/creatinine mass ratio 9 NRG Serum or plasma creatinine measurement w ith calculation of estimated glomerular filtration rate > NRG Serum or plasma glucose measurement (mass/volume) 68 mg/dL 70-105 Serum or plasma calcium measurement (mass/volume) 8.0 mg/dL 8.5-10.1 Serum or plasma phosphate measurement (m ass/volume) - 09/16/19 05:10 Serum or plasma phosphate measurement (mass/volume) 2.6 mg/dL 2.3-4.7 Magnesium - 09/16/19 05:10 Magnesium 2.0 mg/dL 1.6-2.4 Serum or plasma lithium measurement (mol es/volume) - 09/16/19 05:10 BNP PT 406.2 pg/mL <100.0 PROCALCITONIN (PCT) - 09/16/19 05:10 PROCALCITONIN (PCT) 0.11 ng/mL <0.10 Bacterial blood culture - 10/19/19 18:30 Bacterial blood culture NG NRG Complete blood count (CBC) with automate d white blood cell (WBC) differential - 10/19/19 18:36 Blood leukocytes automated count (number/volume) 10.7 10*3/uL 4.3-11.0 Blood erythrocytes automated count (number/volume) 3.72 10*6/uL 4.35-5.85 Venous blood hemoglobin measurement (mass/volume) 11.5 g/dL 11.5-16.0 Blood hematocrit (volume fraction) 35 % 35-52 Automated erythrocyte mean corpuscular volume 94 [ foz_us] 80-99 Automated erythrocyte mean corpuscular h emoglobin (mass per erythrocyte) 31 pg 25-34 Automated erythrocyte mean corpuscular h emoglobin concentration measurement (mass/volume) 33 g/dL 32-36 Automated erythrocyte distribution width ratio 14. 4 % 10.0- 14.5 Automated blood platelet count (count/volume) 244 10*3/uL 130-400 Automated blood platelet mean volume measurement 10.5 [foz_us] 7.4-10.4 Automated blood neutrophils/100 leukocytes 82 % 42-75 Automated blood lymphocytes/100 leukocytes 11 % 12-44 Blood monocytes/100 leukocytes 6 % 0-12 Automated blood eosinophils/100 leukocytes 1 % 0-10 Automated blood basophils/100 leukocytes 0 % 0-10 Blood neutrophils automated count (number/volume) 8.8 10*3 1.8-7.8 Blood lymphocytes automated count (number/volume) 1.2 10*3 1.0-4.0 Blood monocytes automated count (number/volume) 0. 6 10*3 0.0-1.0 Automated eosinophil count 0.1 10*3/uL 0 .0-0.3 Automated blood basophil count (count/volume) 0.0 10*3/uL 0.0-0.1 Blood lactic acid measurement (moles/vol ume) - 10/19/19 18:36 Blood lactic acid measurement (moles/volume) 1.44 mmol/L 0.50-2.00 Comprehensive metabolic panel - 10/19/19 18:36 Serum or plasma sodium measurement (moles/volume) 129 mmol/L 135-145 Serum or plasma potassium measurement (moles/volume) 5.4 mmol/L 3.6-5.0 Serum or plasma chloride measurement (moles/volume) 98 mmol/L 98-107 Carbon dioxide 19 mmol/L 21-32 Serum or plasma anion gap determination (moles/volume) 12 mmol/L 5-14 Serum or plasma urea nitrogen measurement (mass/volume ) 14 mg/dL 7-18 Serum or plasma creatinine measurement (mass/volume) 0.74 mg/dL 0.60-1.30 Serum or plasma urea nitrogen/creatinine mass ratio 19 NRG Serum or plasma creatinine measurement w ith calculation of estimated glomerular filtration rate > NRG Serum or plasma glucose measurement (mass/volume) 88 mg/dL 70-105 Serum or plasma calcium measurement (mass/volume) 8.8 mg/dL 8.5-10.1 Serum or plasma total bilirubin measurement (mass/volu me) 0.5 mg/dL 0.1-1.0 Serum or plasma alkaline phosphatase sandro surement (enzymatic activity/volume) 111 U/L 40-136 Serum or plasma aspartate aminotransfera se measurement (enzymatic activity/volume) 37 U/L 5-34 Serum or plasma alanine aminotransferase measurement (enzymatic activity/volume) 20 U/L 0-55 Serum or plasma protein measurement (mass/volume) 8.5 g/dL 6.4-8.2 Serum or plasma albumin measurement (mass/volume) 2.3 g/dL 3.2-4.5 CALCIUM CORRECTED 10.2 mg/dL 8.5-10.1 Magnesium - 10/19/19 18:36 Magnesium 1.7 mg/dL 1.6-2.4 Myoglobin, serum - 10/19/19 18:36 Myoglobin, serum 44.0 ng/mL 10.0-92.0 Serum or plasma troponin i.cardiac measu rement (mass/volume) - 10/19/19 18:36 Serum or plasma troponin i.cardiac measurement (mass/v olume) < ng/mL <0.028 Serum or plasma lithium measurement (mol es/volume) - 10/19/19 18:36 BNP PT 286.1 pg/mL <100.0 PT panel in platelet poor plasma by coag ulation assay - 10/19/19 18:36 Prothrombin time (PT) in platelet poor plasma by coagu lation assay 23.1 s 12.2-14.7 INR in platelet poor plasma or blood by coagulation as say 2.0 0.8-1.4 Activated partial thromboplastin time (a PTT) in platelet poor plasma bycoagulation assay - 10/19/19 18:36 Activated partial thromboplastin time (a PTT) in platelet poor plasma bycoagulation assay 43 s 24-35 Bacterial blood culture - 10/19/19 18:53 Bacterial blood culture NG NRG Methicillin resistant Staphylococcus aur eus (MRSA) screening culture - 10/19/19 22:00 Methicillin resistant Staphylococcus aureus (MRSA) scr eening culture NEG NRG Complete blood count (CBC) with automate d white blood cell (WBC) differential - 10/20/19 03:35 Blood leukocytes automated count (number/volume) 3.6 10*3/uL 4.3-11.0 Blood erythrocytes automated count (number/volume) 3.16 10*6/uL 4.35-5.85 Venous blood hemoglobin measurement (mass/volume) 9.6 g/dL 11.5-16.0 Blood hematocrit (volume fraction) 30 % 35-52 Automated erythrocyte mean corpuscular volume 94 [ foz_us] 80-99 Automated erythrocyte mean corpuscular h emoglobin (mass per erythrocyte) 30 pg 25-34 Automated erythrocyte mean corpuscular h emoglobin concentration measurement (mass/volume) 32 g/dL 32-36 Automated erythrocyte distribution width ratio 14. 0 % 10.0- 14.5 Automated blood platelet count (count/volume) 224 10*3/uL 130-400 Automated blood platelet mean volume measurement 9.5 [foz_us] 7.4-10.4 Automated blood neutrophils/100 leukocytes 96 % 42-75 Automated blood lymphocytes/100 leukocytes 3 % 12-44 Blood monocytes/100 leukocytes 1 % 0-12 Automated blood eosinophils/100 leukocytes 0 % 0-10 Automated blood basophils/100 leukocytes 0 % 0-10 Blood neutrophils automated count (number/volume) 3.5 10*3 1.8-7.8 Blood lymphocytes automated count (number/volume) 0.1 10*3 1.0-4.0 Blood monocytes automated count (number/volume) 0. 0 10*3 0.0-1.0 Automated eosinophil count 0.0 10*3/uL 0 .0-0.3 Automated blood basophil count (count/volume) 0.0 10*3/uL 0.0-0.1 Comprehensive metabolic panel - 10/20/19 03:35 Serum or plasma sodium measurement (moles/volume) 133 mmol/L 135-145 Serum or plasma potassium measurement (moles/volume) 4.1 mmol/L 3.6-5.0 Serum or plasma chloride measurement (moles/volume) 104 mmol/L 98-107 Carbon dioxide 18 mmol/L 21-32 Serum or plasma anion gap determination (moles/volume) 11 mmol/L 5-14 Serum or plasma urea nitrogen measurement (mass/volume ) 13 mg/dL 7-18 Serum or plasma creatinine measurement (mass/volume) 0.66 mg/dL 0.60-1.30 Serum or plasma urea nitrogen/creatinine mass ratio 20 NRG Serum or plasma creatinine measurement w ith calculation of estimated glomerular filtration rate > NRG Serum or plasma glucose measurement (mass/volume) 128 mg/dL 70-105 Serum or plasma calcium measurement (mass/volume) 7.8 mg/dL 8.5-10.1 Serum or plasma total bilirubin measurement (mass/volu me) 0.5 mg/dL 0.1-1.0 Serum or plasma alkaline phosphatase sandro surement (enzymatic activity/volume) 100 U/L 40-136 Serum or plasma aspartate aminotransfera se measurement (enzymatic activity/volume) 27 U/L 5-34 Serum or plasma alanine aminotransferase measurement (enzymatic activity/volume) 17 U/L 0-55 Serum or plasma protein measurement (mass/volume) 6.8 g/dL 6.4-8.2 Serum or plasma albumin measurement (mass/volume) 2.1 g/dL 3.2-4.5 CALCIUM CORRECTED 9.3 mg/dL 8.5-10.1 Serum or plasma phosphate measurement (m ass/volume) - 10/20/19 03:35 Serum or plasma phosphate measurement (mass/volume) 3.0 mg/dL 2.3-4.7 Magnesium - 10/20/19 03:35 Magnesium 1.6 mg/dL 1.6-2.4 Lipid 1996 panel - 10/20/19 03:35 Serum or plasma triglyceride measurement (mass/volume) 90 mg/dL <150 Serum or plasma cholesterol measurement (mass/volume) 117 mg/dL < 200 Serum or plasma cholesterol in HDL measurement (mass/v olume) 26 mg/dL 40-60 Cholesterol in LDL [mass/volume] in serum or plasma by direct assay 75 mg/dL 1-129 Serum or plasma cholesterol in VLDL measurement (mass/ volume) 18 mg/dL 5-40 Manual absolute plasma cell count - 05/09 03:35 Blood monocytes/100 leukocytes 1 % NRG Manual blood segmented neutrophils/100 leukocytes 97 % NRG Manual blood lymphocytes/100 leukocytes 2 % NRG Blood erythrocyte morphology finding identification NORMAL NRG THYROID STIMULATING HORMONE - 10/20/19 0 4:30 THYROID STIMULATING HORMONE 0.23 u[iU]/mL 0.35-4.94 Complete urinalysis with reflex to cultu re - 10/20/19 09:51 Urine color determination YELLOW NRG Urine clarity determination CLOUDY NR G Urine pH measurement by test strip 7.0 5-9 Specific gravity of urine by test strip 1.010 1.016-1.022 Urine protein assay by test strip, semi-quantitative NEGATIVE NEGATIVE Urine glucose detection by automated test strip NE GATIVE NEGATIVE Erythrocytes detection in urine sediment by light micr oscopy 3+ NEGATIVE Urine ketones detection by automated test strip 1+ NEGATIVE Urine nitrite detection by test strip NEGATIVE NEGATIVE Urine total bilirubin detection by test strip NEGA TIVE NEGATIVE Urine urobilinogen measurement by automated test strip (mass/volume) 1.0 mg/dL < = 1.0 Urine leukocyte esterase detection by dipstick TRA CE NEGATIVE Automated urine sediment erythrocyte cou nt by microscopy (number/high power field) RARE NRG Automated urine sediment leukocyte count by microscopy (number/high power field) RARE NRG Bacteria detection in urine sediment by light microsco py FEW NRG Squamous epithelial cells detection in u rine sediment by light microscopy 0-2 NRG Crystals detection in urine sediment by light microsco py NONE NRG Casts detection in urine sediment by light microscopy NONE NRG Mucus detection in urine sediment by light microscopy NEGATIVE NRG Complete urinalysis with reflex to culture NO NRG Renal epithelial cells detection in urin e sediment by light microscopy RARE NRG Complete blood count (CBC) with automate d white blood cell (WBC) differential - 10/21/19 04:29 Blood leukocytes automated count (number/volume) 3.0 10*3/uL 4.3-11.0 Blood erythrocytes automated count (number/volume) 2.77 10*6/uL 4.35-5.85 Venous blood hemoglobin measurement (mass/volume) 8.4 g/dL 11.5-16.0 Blood hematocrit (volume fraction) 26 % 35-52 Automated erythrocyte mean corpuscular volume 94 [ foz_us] 80-99 Automated erythrocyte mean corpuscular h emoglobin (mass per erythrocyte) 30 pg 25-34 Automated erythrocyte mean corpuscular h emoglobin concentration measurement (mass/volume) 32 g/dL 32-36 Automated erythrocyte distribution width ratio 14. 0 % 10.0- 14.5 Automated blood platelet count (count/volume) 212 10*3/uL 130-400 Automated blood platelet mean volume measurement 9.4 [foz_us] 7.4-10.4 Automated blood neutrophils/100 leukocytes 91 % 42-75 Automated blood lymphocytes/100 leukocytes 5 % 12-44 Blood monocytes/100 leukocytes 5 % 0-12 Automated blood eosinophils/100 leukocytes 0 % 0-10 Automated blood basophils/100 leukocytes 0 % 0-10 Blood neutrophils automated count (number/volume) 2.8 10*3 1.8-7.8 Blood lymphocytes automated count (number/volume) 0.2 10*3 1.0-4.0 Blood monocytes automated count (number/volume) 0. 1 10*3 0.0-1.0 Automated eosinophil count 0.0 10*3/uL 0 .0-0.3 Automated blood basophil count (count/volume) 0.0 10*3/uL 0.0-0.1 Whole blood basic metabolic panel - 06/06 04:29 Serum or plasma sodium measurement (moles/volume) 136 mmol/L 135-145 Serum or plasma potassium measurement (moles/volume) 3.2 mmol/L 3.6-5.0 Serum or plasma chloride measurement (moles/volume) 108 mmol/L 98-107 Carbon dioxide 18 mmol/L 21-32 Serum or plasma anion gap determination (moles/volume) 10 mmol/L 5-14 Serum or plasma urea nitrogen measurement (mass/volume ) 15 mg/dL 7-18 Serum or plasma creatinine measurement (mass/volume) 0.62 mg/dL 0.60-1.30 Serum or plasma urea nitrogen/creatinine mass ratio 24 NRG Serum or plasma creatinine measurement w ith calculation of estimated glomerular filtration rate > NRG Serum or plasma glucose measurement (mass/volume) 132 mg/dL 70-105 Serum or plasma calcium measurement (mass/volume) 7.6 mg/dL 8.5-10.1 Serum or plasma phosphate measurement (m ass/volume) - 10/21/19 04:29 Serum or plasma phosphate measurement (mass/volume) 2.5 mg/dL 2.3-4.7 Magnesium - 10/21/19 04:29 Magnesium 1.7 mg/dL 1.6-2.4 [id number] - 10/21/19 04:29 [id number] 1.08 ng/mL 0.80-2.00 Whole blood basic metabolic panel - 07/07 05:06 Serum or plasma sodium measurement (moles/volume) 139 mmol/L 135-145 Serum or plasma potassium measurement (moles/volume) 3.8 mmol/L 3.6-5.0 Serum or plasma chloride measurement (moles/volume) 111 mmol/L 98-107 Carbon dioxide 16 mmol/L 21-32 Serum or plasma anion gap determination (moles/volume) 12 mmol/L 5-14 Serum or plasma urea nitrogen measurement (mass/volume ) 16 mg/dL 7-18 Serum or plasma creatinine measurement (mass/volume) 0.63 mg/dL 0.60-1.30 Serum or plasma urea nitrogen/creatinine mass ratio 25 NRG Serum or plasma creatinine measurement w ith calculation of estimated glomerular filtration rate > NRG Serum or plasma glucose measurement (mass/volume) 119 mg/dL 70-105 Serum or plasma calcium measurement (mass/volume) 7.7 mg/dL 8.5-10.1 Serum or plasma phosphate measurement (m ass/volume) - 10/22/19 05:06 Serum or plasma phosphate measurement (mass/volume) 2.0 mg/dL 2.3-4.7 Magnesium - 10/22/19 05:06 Magnesium 1.6 mg/dL 1.6-2.4 Complete blood count (CBC) with automate d white blood cell (WBC) differential - 10/22/19 05:06 Blood leukocytes automated count (number/volume) 4.4 10*3/uL 4.3-11.0 Blood erythrocytes automated count (number/volume) 2.82 10*6/uL 4.35-5.85 Venous blood hemoglobin measurement (mass/volume) 8.6 g/dL 11.5-16.0 Blood hematocrit (volume fraction) 27 % 35-52 Automated erythrocyte mean corpuscular volume 94 [ foz_us] 80-99 Automated erythrocyte mean corpuscular h emoglobin (mass per erythrocyte) 31 pg 25-34 Automated erythrocyte mean corpuscular h emoglobin concentration measurement (mass/volume) 32 g/dL 32-36 Automated erythrocyte distribution width ratio 14. 5 % 10.0- 14.5 Automated blood platelet count (count/volume) 216 10*3/uL 130-400 Automated blood platelet mean volume measurement 10.1 [foz_us] 7.4-10.4 Automated blood neutrophils/100 leukocytes 93 % 42-75 Automated blood lymphocytes/100 leukocytes 3 % 12-44 Blood monocytes/100 leukocytes 4 % 0-12 Automated blood eosinophils/100 leukocytes 0 % 0-10 Automated blood basophils/100 leukocytes 0 % 0-10 Blood neutrophils automated count (number/volume) 4.1 10*3 1.8-7.8 Blood lymphocytes automated count (number/volume) 0.2 10*3 1.0-4.0 Blood monocytes automated count (number/volume) 0. 2 10*3 0.0-1.0 Automated eosinophil count 0.0 10*3/uL 0 .0-0.3 Automated blood basophil count (count/volume) 0.0 10*3/uL 0.0-0.1 PROCALCITONIN (PCT) - 10/22/19 05:06 PROCALCITONIN (PCT) 0.10 ng/mL <0.10 Complete blood count (CBC) with automate d white blood cell (WBC) differential - 10/23/19 05:30 Blood leukocytes automated count (number/volume) 4.9 10*3/uL 4.3-11.0 Blood erythrocytes automated count (number/volume) 2.98 10*6/uL 4.35-5.85 Venous blood hemoglobin measurement (mass/volume) 8.9 g/dL 11.5-16.0 Blood hematocrit (volume fraction) 28 % 35-52 Automated erythrocyte mean corpuscular volume 94 [ foz_us] 80-99 Automated erythrocyte mean corpuscular h emoglobin (mass per erythrocyte) 30 pg 25-34 Automated erythrocyte mean corpuscular h emoglobin concentration measurement (mass/volume) 32 g/dL 32-36 Automated erythrocyte distribution width ratio 14. 9 % 10.0- 14.5 Automated blood platelet count (count/volume) 217 10*3/uL 130-400 Automated blood platelet mean volume measurement 10.1 [foz_us] 7.4-10.4 Automated blood neutrophils/100 leukocytes 89 % 42-75 Automated blood lymphocytes/100 leukocytes 4 % 12-44 Blood monocytes/100 leukocytes 7 % 0-12 Automated blood eosinophils/100 leukocytes 0 % 0-10 Automated blood basophils/100 leukocytes 0 % 0-10 Blood neutrophils automated count (number/volume) 4.3 10*3 1.8-7.8 Blood lymphocytes automated count (number/volume) 0.2 10*3 1.0-4.0 Blood monocytes automated count (number/volume) 0. 4 10*3 0.0-1.0 Automated eosinophil count 0.0 10*3/uL 0 .0-0.3 Automated blood basophil count (count/volume) 0.0 10*3/uL 0.0-0.1 Whole blood basic metabolic panel - 08/06 05:30 Serum or plasma sodium measurement (moles/volume) 139 mmol/L 135-145 Serum or plasma potassium measurement (moles/volume) 4.0 mmol/L 3.6-5.0 Serum or plasma chloride measurement (moles/volume) 113 mmol/L 98-107 Carbon dioxide 16 mmol/L 21-32 Serum or plasma anion gap determination (moles/volume) 10 mmol/L 5-14 Serum or plasma urea nitrogen measurement (mass/volume ) 18 mg/dL 7-18 Serum or plasma creatinine measurement (mass/volume) 0.65 mg/dL 0.60-1.30 Serum or plasma urea nitrogen/creatinine mass ratio 28 NRG Serum or plasma creatinine measurement w ith calculation of estimated glomerular filtration rate > NRG Serum or plasma glucose measurement (mass/volume) 101 mg/dL 70-105 Serum or plasma calcium measurement (mass/volume) 8.5 mg/dL 8.5-10.1 Serum or plasma phosphate measurement (m ass/volume) - 10/23/19 05:30 Serum or plasma phosphate measurement (mass/volume) 2.1 mg/dL 2.3-4.7 Magnesium - 10/23/19 05:30 Magnesium 1.8 mg/dL 1.6-2.4 Serum iron and total iron binding capaci ty panel - 10/23/19 05:30 TIBC 136 % 280-380 UIBC 86 % 55-450 Serum or plasma iron measurement (mass/volume) 50 % 35-180 Total iron binding capacity and transferrin saturation measurement 37 % 15-50 Serum or plasma ferritin measurement (mass/volume) 346.6 % 20.0-177.0 Complete blood count (CBC) with automate d white blood cell (WBC) differential - 10/24/19 06:20 Blood leukocytes automated count (number/volume) 6.5 10*3/uL 4.3-11.0 Blood erythrocytes automated count (number/volume) 2.95 10*6/uL 4.35-5.85 Venous blood hemoglobin measurement (mass/volume) 8.9 g/dL 11.5-16.0 Blood hematocrit (volume fraction) 28 % 35-52 Automated erythrocyte mean corpuscular volume 94 [ foz_us] 80-99 Automated erythrocyte mean corpuscular h emoglobin (mass per erythrocyte) 30 pg 25-34 Automated erythrocyte mean corpuscular h emoglobin concentration measurement (mass/volume) 32 g/dL 32-36 Automated erythrocyte distribution width ratio 14. 9 % 10.0- 14.5 Automated blood platelet count (count/volume) 210 10*3/uL 130-400 Automated blood platelet mean volume measurement 9.8 [foz_us] 7.4-10.4 Automated blood neutrophils/100 leukocytes 85 % 42-75 Automated blood lymphocytes/100 leukocytes 8 % 12-44 Blood monocytes/100 leukocytes 5 % 0-12 Automated blood eosinophils/100 leukocytes 1 % 0-10 Automated blood basophils/100 leukocytes 0 % 0-10 Blood neutrophils automated count (number/volume) 5.6 10*3 1.8-7.8 Blood lymphocytes automated count (number/volume) 0.5 10*3 1.0-4.0 Blood monocytes automated count (number/volume) 0. 4 10*3 0.0-1.0 Automated eosinophil count 0.1 10*3/uL 0 .0-0.3 Automated blood basophil count (count/volume) 0.0 10*3/uL 0.0-0.1 Whole blood basic metabolic panel - 09/06 06:20 Serum or plasma sodium measurement (moles/volume) 138 mmol/L 135-145 Serum or plasma potassium measurement (moles/volume) 3.6 mmol/L 3.6-5.0 Serum or plasma chloride measurement (moles/volume) 112 mmol/L 98-107 Carbon dioxide 19 mmol/L 21-32 Serum or plasma anion gap determination (moles/volume) 7 mmol/L 5-14 Serum or plasma urea nitrogen measurement (mass/volume ) 16 mg/dL 7-18 Serum or plasma creatinine measurement (mass/volume) 0.65 mg/dL 0.60-1.30 Serum or plasma urea nitrogen/creatinine mass ratio 25 NRG Serum or plasma creatinine measurement w ith calculation of estimated glomerular filtration rate > NRG Serum or plasma glucose measurement (mass/volume) 72 mg/dL 70-105 Serum or plasma calcium measurement (mass/volume) 8.2 mg/dL 8.5-10.1 Serum or plasma phosphate measurement (m ass/volume) - 10/24/19 06:20 Serum or plasma phosphate measurement (mass/volume) 2.0 mg/dL 2.3-4.7 Magnesium - 10/24/19 06:20 Magnesium 1.6 mg/dL 1.6-2.4 Encounters ACCT No. Visit Date/Time Discharge Status Pt. Type Provider Facility Loc./Unit Complaint [id number] 10/19/2019 19:15:00 020 16:03:00 DIS Outpatient ROGELIO ANDRES, JOSE Sanabria [facility] 4TH AFIB,RVR,RUL PNEUMONIA [id number] 09/09/2019 13:06:00 020 13:30:00 DIS Inpatient SHANTELL HURST MD [facility] 4TH PNEUMONIA;ATRIAL FIB [id number] 01/10/2016 20:17:00 11:20:00 DIS Outpatient MALACHI RUIZ MD [facility] 4TH HYPOXIC, LEUKOCYTOSIS,P AFIB,COPD EXACERBATION [id number] 03/23/2015 12:19:00 23:59:59 CLS Outpatient MALACHI RUIZ MD [facility] HH POSSIBLE UTI [id number] 02/17/2015 11:55:00 15:20:00 DIS Inpatient MALACHI RUIZ MD [facility] 4TH SWB, COPD [id number] 02/06/2015 21:00:00 11:54:00 DIS Inpatient MALACHI RUIZ MD [facility] 4TH DONELL PNEUMONIA,NEW ONSET AFIB HYPONATREMIA,ELEVATED [id number] 01/30/2015 12:00:00 23:59:59 CLS Outpatient MALACHI RUIZ MD [facility] HH POSSIBLE UTI [id number] 01/16/2015 13:00:00 17:56:00 DIS Inpatient MALACHI RUIZ MD [facility] 4TH EXERABATION, COPD,URI,B RONCHITIS [id number] 10/11/2013 14:21:00 23:59:59 CLS Outpatient LISA PEDRAZA DO [facility] RT COPD,HYPOXIA [id number] 01/10/2013 14:15:00 00:01:00 DIS Outpatient MALACHI RUIZ MD [facility] RAD WEAKNESS,FATIGUE,COPD [id number] 03/08/2013 10:25:00 23:59:59 CLS Outpatient MALACHI RUIZ MD [facility] RAD OSTEOPOROSIS [id number] 07/12/2012 14:44:00 23:59:59 CLS Outpatient MALACHI RUIZ MD [facility] RAD COPD/WEIGHT LOSS [id number] 10/28/2019 14:40:[address] Emergency JENNIE BEGUM MD [facility] ER CODE [id number] 04/11/2013 00:00:00 Document Registration [id number] 02/24/2012 10:29:00 Document Registration [id number] 03/29/2011 09:48:00 Document Registration [id number] 03/28/2011 13:54:00 Document Registration [id number] 01/28/2011 13:01:00 Document Registration [id number] 01/25/2010 13:25:00 Document Registration [id number] 07/29/2009 16:49:00 Document Registration
[2019-10-28 17:35] VITALS: BP 0/0
--- NOTE | 2019-10-28 17:35 | NUR ---
[facility] HERE TO GET PT AT THIS TIME. PT BELONGINGS SENT WITH PT TO THE MORTUARY.
== END 2019-10-28 17:35 | disposition expired ==
LOC: EDUNIT# 14:39 → ER 14:40
DX: I46.9 Cardiac arrest, cause unspecified (principal); I10 Essential (primary) hypertension; I48.91 Unspecified atrial fibrillation; K21.9 Gastro-esophageal reflux disease without esophagitis; J43.9 Emphysema, unspecified; E03.9 Hypothyroidism, unspecified; Z79.890 Hormone replacement therapy; Z88.2 Allergy status to sulfonamides; Z88.8 Allergy status to other drugs, medicaments and biological substances; Z79.01 Long term (current) use of anticoagulants; Z79.82 Long term (current) use of aspirin; Z79.51 Long term (current) use of inhaled steroids; Z87.891 Personal history of nicotine dependence; Z85.828 Personal history of other malignant neoplasm of skin; Z82.49 Family history of ischemic heart disease and other diseases of the circulatory system